=== PATIENT | male | born 1935 | race Caucasian/White ===

== ENCOUNTER → 2016-05-19 | Outpatient (CLI) | payer MEDICARE ==
[2016-05-19 12:43] LABS: Basophils % (A) 0 %; CH 26.2; CHCM 31.6; Eosinophils # (A) 0.1 k/uL (0-0.7); Eosinophils % (A) 2 %; HCT 50.8 % (39.0-53.0); HDW 2.81; HGB 16.2 gm/dL (13.0-17.5); Hypochromasia Slight; Luc # (Auto) 0.12; Luc % (Auto) 1; Lymphocytes # (A) 0.8 k/uL (1.0-4.8); Lymphocytes % (A) 9 %; MCH 26.5 pg (25.0-35.0); MCHC 31.8 g/dL (31.0-37.0); MCV 83.2 fL (80.0-100.0); Mean Platelet Volume 6.8; Monocytes # (A) 0.3 k/uL (0-1.0); Monocytes % (A) 4 %; Neutrophils # (A) 7.5 k/uL (1.3-7.7); Neutrophils % (A) 84 %; RBC 6.11 m/uL (4.30-5.90); RDW 14.6 % (11.5-15.5); WBC 8.9 k/uL (3.8-10.6); WBC (Perox) 8.73
[2016-05-19 12:48] LABS: Carbon Dioxide 31 mmol/L (22-30); Chloride 104 mmol/L (98-107); Glucose 128 mg/dL (74-99); Potassium 3.9 mmol/L (3.5-5.1); Sodium 147 mmol/L (137-145)
[2016-05-19 12:49] LABS: Anion Gap 12 mmol/L; Blood Urea Nitrogen 31 mg/dL (9-20); Calcium 9.4 mg/dL (8.4-10.2); Non-African American GFR(MDRD) 58 (>60 ml/min/1.73 sqM)
== END ==
LOC: LABWHC1 12:16
PROVIDERS: ATTEND Urology
DX: Z01.812 Encounter for preprocedural laboratory examination (principal); N40.1 Benign prostatic hyperplasia with lower urinary tract symptoms; E11.9 Type 2 diabetes mellitus without complications; E78.5 Hyperlipidemia, unspecified
CPT/HCPCS: 36415; 80048; 85025

== ENCOUNTER 2016-05-26 07:21 | Day surgery (SDC) | payer MEDICARE ==
[2016-05-16 11:52] VITALS: BMI 27.9
[~2016-05-26 07:21] MED LIST: DEXAMETHASONE SOD PHOSPHATE 10 MG/ML 1 ML VIAL IV ONE; HYDROmorphone 1 MG/ML 1 ML SYRINGE IVP PRN; LACTATED RINGERS 1,000 ML IV SCH; MIDAZOLAM 2 MG/2 ML VIAL IV PRN; ONDANSETRON 4 MG/2 ML VIAL IVP ONE; Pre Op ABX Message 1 EACH MISC MISCELLANE ONE
[2016-05-26] MEDS ORDERED: LIDOCAINE 1% 20 ML VIAL (10MG/ML) FOR IV START INTRADERMA ONE (08:26)
[2016-05-26 08:31] LABS: Glucose,Whole Blood 103 mg/dL (75-99)
[2016-05-26] MEDS ORDERED: LIDOCAINE 1% INJ 10MG/ML (20 ML MDV) ONE (09:07)
[2016-05-26] MEDS: GENTAMICIN 120 MG in SODIUM CHLORIDE 0.9% 100 ML IVPB ONE ×2 (09:07→09:28)
[2016-05-26] MEDS ORDERED: GLYCOPYRROLATE 0.2 MG/ML 2 ML VIAL ONE (09:07)
[2016-05-26] MEDS ORDERED: VECURONIUM 10 MG VIAL IV ONE (09:07)
[2016-05-26] MEDS ORDERED: MIDAZOLAM 2 MG/2 ML VIAL ONE (09:07)
[2016-05-26] MEDS ORDERED: PHENYLEPHRINE-0.9% NACL SYG 1 MG/10 ML SYRINGE ONE (09:07)
[2016-05-26] MEDS ORDERED: PROPOFOL 10 MG/ML 20 ML VIAL IV ONE (09:07)
[2016-05-26] MEDS ORDERED: KETAMINE 10 MG/ML 20 ML VIAL ONE (09:07)
[2016-05-26] MEDS ORDERED: NEOSTIGMINE 1 MG/ML 10 ML VIAL ONE (09:07)
[2016-05-26] MEDS ORDERED: SUCCINYLCHOLINE CHLORIDE 100 MG/5 ML SYR IV ONE (09:07)
[2016-05-26] MEDS ORDERED: LACTATED RINGERS 1,000 ML IV ONE ×2 (10:46)
[2016-05-26] MEDS ORDERED: SODIUM CHLORIDE 0.9% 1,000 ML IV ONE ×2 (11:33)
[2016-05-26] MEDS ORDERED: BELLADONNA-OPIUM 16.2-60 MG 1 EACH SUPP RECTAL PRN (11:43)
[2016-05-26] MEDS ORDERED: HYDROcodone/APAP 5-325MG 1 EACH TAB PO PRN ×2 (11:45)
[2016-05-26] MEDS ORDERED: SODIUM CHLORIDE 0.9% IRRIG 3,000 ML BAG IRRIGATION SCH (11:45)
--- NOTE | 2016-05-26 11:51 | P.OP ---
Date of Procedure: 05/26/16 Preoperative Diagnosis: BPH with Obstruction Postoperative Diagnosis: Same Procedure(s) Performed: Cystoscopy, Bipolar Transurethral Resection of Prostate (TURP) Anesthesia: YUSEFA, spinal Surgeon: Irwin Fernando Estimated Blood Loss (ml): 100 IV fluids (ml): 1,300 Pathology: other Condition: stable Disposition: PACU Indications for Procedure: This is an 80 year old male with urinary retention, likely due to BPH. He was doing CIC four times daily but he stopped it. Postvoid residuals were 2-4 ounces. CMG showed a bladder capacity of 360 ml, with post void of 190 ml. Cystoscopy revealed mild prostatic obstruction. He is still on Tamsulosin, and he feels that he can empty his bladder. He was advised that his best option would be a TURP, and he has been medically cleared. Operative Findings: Bilobar BPH with a high median bar. 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 Description of Procedure: The patient was taken in the operating room and placed in the dorsolithotomy position after being given a spinal anesthetic, The external genitalia was prepped and draped sterilely. The 25-Colombian ACMI resectoscope sheath was introduced into the bladder. The bladder was inspected. Both ureteral orifices were of normal anatomic location and configuration, and clear urine effluxed from both. No tumors or foreign bodies were seen. Examination of the prostate revealed complete obstruction with a bilobar configuration and a high median bar, making passage of the resectoscope into the bladder difficult. Using the bipolar cutting loop, an incision was made through the posterior vesicle neck, extending to the verumontanum. Next, lateral lobes were resected down to the surgical capsule. The floor of the prostate was then resected, proximal to the verumontanum. In the course of this resection, a large diverticulum was identified to the right of the midline, containing many (>20) small round calculi. The diverticulum was completely opened and marsupialized. Lastly, any remaining anterior tissue was resected. The prostatic fossa was then carefully examined. Any remaining apical tissue was carefully resected. The resection was carried down to the surgical capsule in all 4 quadrants. The prostatic fossa was then carefully examined, and any areas of bleeding were controlled with electrocautery. Excellent hemostasis was attained. The resectoscope was withdrawn into the bulbous urethra. The external urinary sphincter remained intact. The prostatic fossa was open. The Taptu evacuator was used to remove all prostate chips from the bladder. These were saved and sent for pathologic examination. The resectoscope was removed, and a 22 Colombian , 3-Way Michaels catheter was placed. A catheter guide was required for Michaels catheter placement, as the floor of the prostate was resected more than normal due to the diverticulum. The return was clear. Continuous bladder irrigation was started using 0.9 normal saline. It should be noted that the patient was given a spinal anesthetic, but he was coughing intraoperatively and ultimately it became necessary for him to be intubated and given general anesthesia. He tolerated the procedure well was taken to the recovery room in stable condition.
[2016-05-26] MEDS ORDERED: LEVALBUTEROL NEB 1.25 MG/3 ML AMP INHALATION ONE (12:09)
[2016-05-26] MEDS: IPRATROPIUM-ALBUTEROL 3 ML NEB INHALATION SCH ×3 (12:42→21:31)
[2016-05-26 12:47] LABS: Potassium 4.3 mmol/L (3.5-5.1)
[2016-05-26] MEDS ORDERED: ALBUTEROL INHALER 60 PUFF/8 GM INHALER INHALATION SCH (13:00)
[2016-05-26] MEDS ORDERED: SODIUM CHLORIDE 0.9% IRRIGATIO 3,000 ML IRRIGATION SCH (14:45)
[2016-05-26] MEDS: DEXTROSE 5%-0.45% NACL 1,000 ML IV SCH (15:03)
[2016-05-26] MEDS ORDERED: amLODIPine 5 MG TAB PO SCH (21:00)
[2016-05-26] MEDS ORDERED: ATORVASTATIN 20 MG TAB PO SCH (21:00)
[2016-05-26] MEDS ORDERED: LISINOPRIL 10 MG TAB PO SCH (21:00)
[2016-05-26] MEDS: SYMBICORT 160-4.5 MCG INHALER INHALATION SCH (21:31)
[2016-05-26] MEDS: METOPROLOL TARTRATE 50 MG TAB PO SCH (21:37)
[2016-05-26] MEDS: DOCUSATE 100 MG CAP PO SCH (21:38)
[2016-05-26] MEDS ORDERED: ONDANSETRON 4 MG/2 ML VIAL IVP PRN (22:14)
[2016-05-26] MEDS ORDERED: HYDROmorphone 1 MG/ML 1 ML SYRINGE IVP PRN (22:14)
[2016-05-26] MEDS ORDERED: KETOROLAC 30 MG/ML 1 ML VIAL IVP PRN (22:14)
[2016-05-27] MEDS: DEXTROSE 5%-0.45% NACL 1,000 ML IV SCH (01:12)
[2016-05-27 01:30] VITALS: RESP 16
[2016-05-27] MEDS: DOCUSATE 100 MG CAP PO SCH (07:48)
[2016-05-27] MEDS: METOPROLOL TARTRATE 50 MG TAB PO SCH (07:48)
[2016-05-27 08:47] VITALS: BP 143/74; TEMP 97.5
[2016-05-27] MEDS ORDERED: POTASSIUM CHLORIDE ER 10 MEQ TAB.ER.PRT PO SCH (09:00)
[2016-05-27] MEDS ORDERED: FUROSEMIDE 40 MG TAB PO SCH (09:00)
[2016-05-27] MEDS ORDERED: TAMSULOSIN 0.4 MG CAP.ER.24H PO SCH (09:00)
[2016-05-27] MEDS ORDERED: predniSONE 5 MG TAB PO SCH (09:00)
[2016-05-27] MEDS: SYMBICORT 160-4.5 MCG INHALER INHALATION SCH (09:16)
[2016-05-27] MEDS: IPRATROPIUM-ALBUTEROL 3 ML NEB INHALATION SCH (09:16)
[2016-05-27 09:26] VITALS: PULSE 75
--- NOTE | 2016-05-29 12:18 | P.DS ---
Providers Expected date of discharge: 05/27/16 Attending physician: Irwin Fernando Primary care physician: Stated None Hospital Course: On the day of admission, the patient underwent an uncomplicated bipolar TURP under spinal anesthesia. The postoperative course was unremarkable. He remained remained afebrile with stable vital signs. The continuous bladder irrigation was discontinued on the first postoperative day, and the urine remained clear. He was subsequently discharged home with the Michaels catheter. Procedures: Cystoscopy, bipolar transurethral resection of prostate (TURP) on 05/26/2016. Patient Condition at Discharge: Good Plan - Discharge Summary New Discharge Prescriptions: Hydrocodone/Acetaminophen [Bergen 5-325] 1 - 2 each PO Q4HR PRN #15 tab PRN Reason: Pain Discharge Medication List Albuterol Inhaler [Ventolin Hfa Inhaler] 2 puff INHALATION QID 05/16/16 [History ] Aspirin 81 mg PO DAILY 05/16/16 [History] Budesonide/Formoterol Fumarate [Symbicort 160-4.5 Mcg Inhaler] 2 puff INHALATION BID 05/16/16 [History] Furosemide [Lasix] 40 mg PO QAM 05/16/16 [History] Ipratropium-Albuterol Nebulize [Duoneb 0.5 mg-3 mg/3 ml Soln] 3 ml INHALATION QID 05/16/16 [History] Lisinopril [Prinivil] 10 mg PO HS 05/16/16 [History] Metoprolol Tartrate [Lopressor] 50 mg PO BID 05/16/16 [History] Potassium Chloride [Klor-Con Sprinkle] 10 meq PO DAILY 05/16/16 [History] Simvastatin [Zocor] 40 mg PO HS 05/16/16 [History] Tamsulosin [Flomax] 0.4 mg PO DAILY 05/16/16 [History] amLODIPine [Norvasc] 5 mg PO HS 05/16/16 [History] predniSONE 5 mg PO QAM 05/16/16 [History] Hydrocodone/Acetaminophen [Bergen 5-325] 1 - 2 each PO Q4HR PRN #15 tab 05/27/16 [Rx] Follow up Appointment(s)/Referral(s): Tari Lowry, PAC [PHYSICIAN UTILITY WORKER DRIVER] - 05/30/16 9:20 am Patient Instructions/Handouts: Transurethral Prostatectomy (DC) Activity/Diet/Wound Care/Special Instructions: Discharge home with Michaels catheter. Drink plenty of fluids. Diet as tolerated. Avoid strenuous activity. Avoid constipation; takes stool softener if necessary. Hold aspirin. No driving for 3 days. Okay to shower. F/U with Tari Lowry 4/10 am. Discharge Disposition: HOME SELF-CARE
== END 2016-05-27 12:05 | disposition home or self-care (01) ==
LOC: OR 07:21 → 3SUR 11:15 → OR 05-27 12:05
PROVIDERS: ATTEND Urology
DX: C61 Malignant neoplasm of prostate (principal); N41.0 Acute prostatitis; I10 Essential (primary) hypertension; E78.5 Hyperlipidemia, unspecified; J45.909 Unspecified asthma, uncomplicated; I25.10 Atherosclerotic heart disease of native coronary artery without angina pectoris; J44.9 Chronic obstructive pulmonary disease, unspecified; Z99.81 Dependence on supplemental oxygen; I25.2 Old myocardial infarction; Z87.891 Personal history of nicotine dependence; Z79.82 Long term (current) use of aspirin; Z79.51 Long term (current) use of inhaled steroids; Z79.52 Long term (current) use of systemic steroids; Z79.899 Other long term (current) drug therapy; Z88.5 Allergy status to narcotic agent; Z88.0 Allergy status to penicillin
CPT/HCPCS: 94640 ×2; 94760; 88305; 80051; 88300; 52601; J2250; J1100; J2710; J2405; J2001; J1885; J1580; J1170 ×2; J2370; J0330; J2704; J7512

== ENCOUNTER → 2016-06-07 | Outpatient (CLI) | payer MEDICARE ==
--- NOTE | 2016-06-07 15:46 | NM ---
EXAMINATION TYPE: NM bone scan whole body DATE OF EXAM: 06/07/2016 1:49 PM COMPARISON: NONE HISTORY: Prostate carcinoma Delayed whole-body scanning was performed following the injection of 27.2 mCi Tc 99m MDP. Images acq uired 3.5 hours post injection. FINDINGS: Uptake within the feet, knees, hands, wrists, shoulders is likely degenerative. Soft tissue uptake is normal. Focus of uptake at the greater trochanter on the right knee be due to underlying inflammator y change. There is a mild spinal curvature present. IMPRESSION: Degenerative changes are suspected, no convincing evidence of metastatic disease. Consider plain film correlation right hip, MRI or CT as indicated.
== END | disposition home or self-care (01) ==
LOC: RADNMMAIN 10:12
PROVIDERS: ATTEND Urology
DX: C61 Malignant neoplasm of prostate (principal)
CPT/HCPCS: 78306; A9503

== ENCOUNTER → 2016-06-09 | Outpatient (CLI) | payer MEDICARE ==
--- NOTE | 2016-06-10 08:08 | XR ---
Right hip HISTORY: Abnormal bone scan, prostate carcinoma, right hip pain 2 views of the right hip are correlated to bone scan dated 07 June 2016 Sclerotic density is present at the greater trochanter which correlates with patient's bone scan find ings. No cortical destruction is evident, there is no soft tissue mass seen. There are vascular calci fications present. Mild joint space loss is present. Alignment is maintained. No evident fracture or dislocation. IMPRESSION: Sclerosis involving the greater trochanter correlates with bone scan findings but is inde terminate. Consider hip MRI or CT for additional evaluation.
== END ==
LOC: RADXRMAIN 16:13
PROVIDERS: ATTEND Urology
DX: C61 Malignant neoplasm of prostate (principal)
CPT/HCPCS: 73502

== ENCOUNTER 2017-05-13 06:55 | Observation (INO) | payer MEDICARE ==
[2017-05-13] MEDS ORDERED: SODIUM CHLORIDE 0.9% 1,000 ML IV ONE (07:13)
--- NOTE | 2017-05-13 07:13 | ED ---
General Adult HPI - General Chief complaint: GI Bleed Stated complaint: GI Bleed Time Seen by Provider: 05/13/17 07:00 Source: patient, EMS, RN notes reviewed Mode of arrival: EMS Limitations: no limitations - History of Present Illness Initial comments: This is an 81-year-old male who is a transfer from [facility]. Patient sent to us because he had rectal bleeding. Patient states it was quite a bit of bleeding. Patient's hemoglobin was stable there however he continued to bleed and was guaiac positive and the ER document [facility] did not feel comfortable letting the patient go home and follow-up so they sent him to our emergency department. Patient currently has no complaints. Patient denies any abdominal pain. Patient denies any lightheadedness or dizziness. Patient denies any difficulty breathing or shortness of breath. Patient denies any chest pain. Patient denies any recent fever chills or cough. Patient denies any episodes of diarrhea. Patient denies any vomiting. - Related Data Home Medications Medication Instructions Recorded Confirmed Albuterol Inhaler [Ventolin Hfa 2 puff INHALATION QID 05/16/16 05/26/16 Inhaler] Aspirin 81 mg PO DAILY 05/16/16 05/26/16 Budesonide/Formoterol Fumarate 2 puff INHALATION BID 05/16/16 05/26/16 [Symbicort 160-4.5 Mcg Inhaler] Furosemide [Lasix] 40 mg PO QAM 05/16/16 05/26/16 Ipratropium-Albuterol Nebulize 3 ml INHALATION QID 05/16/16 05/26/16 [Duoneb 0.5 mg-3 mg/3 ml Soln] Lisinopril [Prinivil] 10 mg PO HS 05/16/16 05/26/16 Metoprolol Tartrate [Lopressor] 50 mg PO BID 05/16/16 05/26/16 Potassium Chloride [Klor-Con 10 meq PO DAILY 05/16/16 05/26/16 Sprinkle] Simvastatin [Zocor] 40 mg PO HS 05/16/16 05/26/16 Tamsulosin [Flomax] 0.4 mg PO DAILY 05/16/16 05/26/16 amLODIPine [Norvasc] 5 mg PO HS 05/16/16 05/26/16 predniSONE 5 mg PO QAM 05/16/16 05/26/16 Previous Rx's Medication Instructions Recorded Hydrocodone/Acetaminophen [[place] 1 - 2 each PO Q4HR PRN #15 tab 05/27/16 5-325] Allergies Allergy/AdvReac Type Severity Reaction Status Date / Time Penicillins Allergy Swelling Verified 05/26/16 07:56 codeine AdvReac constipatio Verified 05/26/16 07:56 n Review of Systems ROS Statement: Those systems with pertinent positive or pertinent negative responses have been documented in the HPI. ROS Other: All systems not noted in ROS Statement are negative. Past Medical History Past Medical History: Coronary Artery Disease (CAD), COPD, Hyperlipidemia, Myocardial Infarction (SD), Prostate Disorder Additional Past Medical History / Comment(s): uses O2@2 L NC at night,enlarged prostate,daily prednisone, prostate cancer Last Myocardial Infarction Date:: 2003 History of Any Multi-Drug Resistant Organisms: None Reported Past Surgical History: Appendectomy, Coronary Bypass/CABG, Heart Catheterization With Stent Additional Past Surgical History / Comment(s): CABG-4vessel 2003,heart stents x 3,teeth extraction,andrez cataracts Past Anesthesia/Blood Transfusion Reactions: No Reported Reaction Date of Last Stent Placement:: 03-01-03 Past Psychological History: No Psychological Hx Reported Smoking Status: Former smoker Past Alcohol Use History: None Reported Past Drug Use History: None Reported - Past Family History Mother Family Medical History: Cancer Additional Family Medical History / Comment(s): leukemia Father Family Medical History: Myocardial Infarction (SD) General Exam - General Exam Comments Initial Comments: GENERAL: Patient is well-developed and well-nourished. Patient is nontoxic and well- hydrated and is in no acute distress. ENT: Neck is soft and supple. No significant lymphadenopathy is noted. Oropharynx is clear. Moist mucous membranes. Neck has full range of motion without eliciting any pain. EYES: The sclera were anicteric and conjunctiva were pink and moist. Extraocular movements were intact and pupils were equal round and reactive to light. Eyelids were unremarkable. PULMONARY: Unlabored respirations. Good breath sounds bilaterally. No audible rales rhonchi or wheezing was noted. CARDIOVASCULAR: There is a regular rate and rhythm without any murmurs gallops or rubs. ABDOMEN: Soft and nontender with normal bowel sounds. No palpable organomegaly was noted. There is no palpable pulsatile mass. SKIN: Skin is clear with no lesions or rashes and otherwise unremarkable. NEUROLOGIC: Patient is alert and oriented x3. Cranial nerves II through XII are grossly intact. Motor and sensory are also intact. Normal speech, volume and content. Symmetrical smile. MUSCULOSKELETAL: Normal extremities with adequate strength and full range of motion. No lower extremity swelling or edema. No calf tenderness. LYMPHATICS: No significant lymphadenopathy is noted PSYCHIATRIC: Normal psychiatric evaluation. Limitations: no limitations Course Vital Signs 05/13/17 06:56 Temperature 97.9 F Pulse Rate 71 Respiratory 18 Rate Blood Pressure 158/94 O2 Sat by Pulse 95 Oximetry Medical Decision Making - Medical Decision Making I reviewed the chart from [facility] labs were drawn at 420 his hemoglobin was 14 so at this point time we did not repeat labs I will repeat the monitor floor. I will admit the patient I spoke with Dr. Guerra he agreed to except the patient I wrote admitting orders I repeated CBCs every 6 hours I consult to GI. Disposition Clinical Impression: GI bleed Disposition: ADMITTED IP TO THIS [facility] Time of Disposition: 07:13
[2017-05-13 08:27] LABS: Basophils % (A) 1 %; Eosinophils # (A) 0.2 k/uL (0-0.7); Eosinophils % (A) 3 %; HCT 40.4 % (39.0-53.0); HGB 12.9 gm/dL (13.0-17.5); Lymphocytes % (A) 13 %; MCH 25.6 pg (25.0-35.0); MCHC 31.9 g/dL (31.0-37.0); MCV 80.2 fL (80.0-100.0); Mean Platelet Volume 7.4; Monocytes # (A) 0.5 k/uL (0-1.0); Monocytes % (A) 7 %; Neutrophils # (A) 5.9 k/uL (1.3-7.7); Neutrophils % (A) 75 %; Platelet Count 182 k/uL (150-450); RBC 5.04 m/uL (4.30-5.90); RDW 14.5 % (11.5-15.5); WBC 7.9 k/uL (3.8-10.6)
[2017-05-13 09:20] VITALS: BMI 27.9
[2017-05-13 11:22] VITALS: RESP 20
--- NOTE | 2017-05-13 12:02 | CONS ---
CONSULTATION DATE OF SERVICE: 05/13/17. REASON FOR CONSULTATION: Acute lower GI bleed. HISTORY OF PRESENT ILLNESS: The patient is an 81-year-old pleasant white male was admitted to the hospital with acute lower GI bleed. He presented to the emergency room at [facility] with bright red blood per rectum that started early this morning at 2:00 am with multiple clots. He became somewhat dizzy and went to the ER and he had another massive bloody bowel movement. Subsequently was transferred here for further evaluation. His initial hemoglobin was 14.5 g/dL. Since coming here, he did not have any further episodes of bleeding. He did have a CBC done here which was 12.9 g/dL. He never had these symptoms in the past. He recalls having a colonoscopy about 4-5 years ago which was normal. He denies any recent NSAID use. No prior history of peptic ulcer disease. No nausea, vomiting. No abdominal pain. PAST MEDICAL HISTORY: Significant for hypertension, hyperlipidemia, coronary artery disease status post CABG in 2003, COPD. MEDICATIONS: At home include: Ventolin, Lasix, DuoNeb, Flomax, Zocor, K-Maria C, Lopressor, Prinivil, Norvasc and prednisone. ALLERGIES: To PENICILLIN AND CODEINE. PAST SURGICAL HISTORY: CABG, appendectomy, bilateral cataract surgery. SOCIAL HISTORY: No smoking alcohol use. FAMILY HISTORY: Unremarkable. REVIEW OF SYSTEMS: Cardiopulmonary: No chest pain, shortness of breath. Genitourinary: No dysuria hematuria. Musculoskeletal unremarkable. Skin unremarkable. Psychiatric unremarkable. Neurology unremarkable. ENT vision unremarkable. Hematology unremarkable. Endocrine unremarkable. PHYSICAL EXAMINATION: Appears comfortable no apparent distress. VITAL SIGNS: Stable. Blood pressure is 150/94, pulse is 71, temperature 97.9. HEENT examination is unremarkable. Conjunctivae pink. Sclerae anicteric. Oral cavity no lesions. Neck no jugular venous distention or lymph node enlargement. Chest was clear to auscultation. HEART: Regular rate and rhythm. ABDOMEN: Soft. Bowel sounds are positive. No organomegaly. Extremities: No pedal edema. Skin no rashes. NEUROLOGIC: Alert and oriented x3. No focal deficits. LAB: From this morning, WBC 7.9, hemoglobin 12.9, platelets are 182. IMPRESSION: Acute lower gastrointestinal bleed possibly diverticular in nature. The patient had 2 episodes of large amount of bright red blood per rectum that started radiographer cardiac catheterization today. His last colonoscopy was 5 years ago and according to the patient was normal. Last hemoglobin 12.9 g/dL. RECOMMENDATIONS: 1. Start him on clear liquid diet. 2. We will plan on a colonoscopy tomorrow. I discussed with the patient risks, benefits, and complications and he is agreeable to it. 3. Repeat CBC every 6 hours. Thank you for this consultation. FRANK / SAIRA: [id number] /
[2017-05-13] MEDS ORDERED: ALBUTEROL NEBULIZED 2.5 MG/3 ML INHALATION PRN (12:46)
[2017-05-13 12:51] LABS: Basophils # (A) 0.1 k/uL (0-0.2); Basophils % (A) 1 %; Eosinophils # (A) 0.2 k/uL (0-0.7); Eosinophils % (A) 3 %; HCT 39.7 % (39.0-53.0); HGB 13.2 gm/dL (13.0-17.5); Lymphocytes % (A) 16 %; MCH 26.6 pg (25.0-35.0); MCHC 33.2 g/dL (31.0-37.0); Mean Platelet Volume 7.2; Monocytes # (A) 0.3 k/uL (0-1.0); Monocytes % (A) 5 %; Neutrophils # (A) 4.6 k/uL (1.3-7.7); Neutrophils % (A) 74 %; Platelet Count 155 k/uL (150-450); RBC 4.95 m/uL (4.30-5.90); WBC 6.2 k/uL (3.8-10.6)
--- NOTE | 2017-05-13 14:01 | P.HPIM ---
History of Present Illness 81-year-old pleasant gentleman with the history of coronary artery disease and aspirin came in with complaints of bright red blood per rectum 1 episode today morning 1 episode last night hemoglobin is 12. I do not have any risk metabolic profile available which will be ordered repeat hemoglobin will be obtain later in the day. Patient does history have history of COPD patient is wheezing patient complains of occasional cough. Denied any increased shortness of breath. Patient uses 2 L of onset at home. Patient uses Lasix for bilateral pedal edema does have history of hypertension Review of Systems REVIEW OF SYSTEMS: CONSTITUTIONAL: No fever, no malaise, no fatigue. HEENT: No recent visual problems or hearing problems. Denied any sore throat. CARDIOVASCULAR: No chest pain, orthopnea, PND, no palpitations, no syncope. PULMONARY: No shortness of breath, no cough, no hemoptysis. GASTROINTESTINAL: No diarrhea, no nausea, no vomiting, no abdominal pain. Normoactive bowel sounds. NEUROLOGICAL: No headaches, no weakness, no numbness. HEMATOLOGICAL: Denies any bleeding or petechiae. GENITOURINARY: Denies any burning micturition, frequency, or urgency. MUSCULOSKELETAL/RHEUMATOLOGICAL: Denies any joint pain, swelling, or any muscle pain. ENDOCRINE: Denies any polyuria or polydipsia. The rest of the 14-point review of systems is negative. Past Medical History Past Medical History: Coronary Artery Disease (CAD), COPD, Hyperlipidemia, Myocardial Infarction (ID), Prostate Disorder Additional Past Medical History / Comment(s): uses O2@2 L NC at night,enlarged prostate,daily prednisone, prostate cancer, kidney stone Last Myocardial Infarction Date:: 2003 History of Any Multi-Drug Resistant Organisms: None Reported Past Surgical History: Appendectomy, Coronary Bypass/CABG, Heart Catheterization With Stent Additional Past Surgical History / Comment(s): CABG-4vessel 2003,heart stents x 3,teeth extraction,andrez cataracts Past Anesthesia/Blood Transfusion Reactions: No Reported Reaction Date of Last Stent Placement:: 03-01-03 Past Psychological History: No Psychological Hx Reported Smoking Status: Former smoker Past Alcohol Use History: None Reported Additional Past Alcohol Use History / Comment(s): quit smoking 2003,smoked approx since age 9,1ppd Past Drug Use History: None Reported - Past Family History Mother Family Medical History: Cancer Additional Family Medical History / Comment(s): leukemia Father Family Medical History: Myocardial Infarction (ID) Medications and Allergies Home Medications Medication Instructions Recorded Confirmed Type Albuterol Inhaler [Ventolin Hfa 2 puff INHALATION RT-QID PRN 05/16/16 05/13/17 History Inhaler] Aspirin 81 mg PO DAILY 05/16/16 05/13/17 History Budesonide/Formoterol Fumarate 2 puff INHALATION RT-BID 05/16/16 05/13/17 History [Symbicort 160-4.5 Mcg Inhaler] Furosemide [Lasix] 40 mg PO QAM 05/16/16 05/13/17 History Ipratropium-Albuterol Nebulize 3 ml INHALATION RT-QID 05/16/16 05/13/17 History [Duoneb 0.5 mg-3 mg/3 ml Soln] Lisinopril [Prinivil] 10 mg PO HS 05/16/16 05/13/17 History Metoprolol Tartrate [Lopressor] 50 mg PO BID 05/16/16 05/13/17 History Potassium Chloride [Klor-Con 10 meq PO DAILY 05/16/16 05/13/17 History Sprinkle] amLODIPine [Norvasc] 5 mg PO HS 05/16/16 05/13/17 History predniSONE 5 mg PO QAM 05/16/16 05/13/17 History Simvastatin [Zocor] 20 mg PO HS 05/13/17 05/13/17 History Allergies Allergy/AdvReac Type Severity Reaction Status Date / Time Penicillins Allergy Swelling Verified 05/13/17 11:56 codeine AdvReac constipatio Verified 05/13/17 11:56 n Physical Exam Vitals: Vital Signs Temp Pulse Pulse Resp BP BP Pulse Ox 05/13/17 11:10 82 20 154/85 95 05/13/17 07:29 96.8 F L 73 16 145/85 93 L 05/13/17 06:56 97.9 F 71 18 158/94 95 Intake and Output 05/12/17 05/13/17 05/13/17 22:59 06:59 14:59 Other: # Bowel Movements 1 Weight 88.451 kg 88.45 kg PHYSICAL EXAMINATION: GENERAL: The patient is alert and oriented x3, not in any acute distress. Well developed, well nourished. HEENT: Pupils are round and equally reacting to light. EOMI. No scleral icterus. No conjunctival pallor. Normocephalic, atraumatic. No pharyngeal erythema. No thyromegaly. CARDIOVASCULAR: S1 and S2 present. No murmurs, rubs, or gallops. PULMONARY: Patient does have significant expiratory wheezing ABDOMEN: Soft, nontender, nondistended, normoactive bowel sounds. No palpable organomegaly. MUSCULOSKELETAL: No joint swelling or deformity. EXTREMITIES: No cyanosis, clubbing, or pedal edema. NEUROLOGICAL: Gross neurological examination did not reveal any focal deficits. SKIN: No rashes. Results CBC & Chem 7: 05/13/17 12:35 Labs: Abnormal Lab Results - Last 24 Hours (Table) 05/13/17 Range/Units 07:53 Hgb 12.9 L (13.0-17.5) gm/dL Thrombosis Risk Factor Assmnt - Choose All That Apply Any of the Below Risk Factors Present?: No Each Risk Factor Represents 3 Points: Age 75 years or older Other congenital or acquired thrombophilia - If yes, enter type in comment: No Thrombosis Risk Factor Assessment Total Risk Factor Score: 3 Thrombosis Risk Factor Assessment Level: Moderate Risk Assessment and Plan Plan: -Lower GI bleed leading to acute blood loss anemia: Etiology is unknown at this time patient will undergo coloscopy tomorrow is not requiring any blood transfusion. Aspirin will be held. -Coronary artery disease with history of CABG in the past -COPD and also independent chronic hypercapnic respiratory failure may have minimally acute exacerbation patient will be continued on low-dose of oral steroid he is on at home along with the inhalational steroids and albuterol ipratropium combination. -Hypertension hold off antidepressant medications with concerns of hypotension from GI bleed started as tolerated metoprolol will be continued.
[2017-05-13] MEDS: IPRATROPIUM-ALBUTEROL 3 ML NEB INHALATION SCH ×2 (15:16→20:52)
[2017-05-13] MEDS: FAMOTIDINE 20 MG TAB PO SCH ×2 (15:35→20:43)
[2017-05-13] MEDS: predniSONE 5 MG TAB PO SCH (15:35)
[2017-05-13] MEDS ORDERED: PEG 3350-NA SULF,BICARB,CL/KCL 4,000 ML BOTTLE PO ONE (16:00)
[2017-05-13] MEDS ORDERED: SYMBICORT 160-4.5 MCG INHALER INHALATION SCH (20:00)
[2017-05-13] MEDS: METOPROLOL TARTRATE 50 MG TAB PO SCH (20:43)
[2017-05-13] MEDS: SYMBICORT 80-4.5 MCG INHALER INHALATION SCH (20:52)
[2017-05-13] MEDS ORDERED: amLODIPine 5 MG TAB PO SCH (21:00)
[2017-05-13] MEDS ORDERED: ATORVASTATIN 10 MG TAB PO SCH (21:00)
[2017-05-13 21:15] LABS: Basophils % (A) 0 %; Eosinophils # (A) 0.2 k/uL (0-0.7); Eosinophils % (A) 2 %; HCT 41.3 % (39.0-53.0); Lymphocytes # (A) 0.8 k/uL (1.0-4.8); Lymphocytes % (A) 9 %; MCH 25.2 pg (25.0-35.0); MCHC 31.4 g/dL (31.0-37.0); MCV 80.4 fL (80.0-100.0); Mean Platelet Volume 7.3; Monocytes # (A) 0.4 k/uL (0-1.0); Monocytes % (A) 4 %; Neutrophils # (A) 7.7 k/uL (1.3-7.7); Neutrophils % (A) 83 %; Platelet Count 195 k/uL (150-450); RBC 5.13 m/uL (4.30-5.90); RDW 14.3 % (11.5-15.5); WBC 9.2 k/uL (3.8-10.6)
[2017-05-14 06:26] VITALS: BP 147/83; TEMP 98.4
[2017-05-14] MEDS: IPRATROPIUM-ALBUTEROL 3 ML NEB INHALATION SCH ×2 (07:39→11:17)
[2017-05-14] MEDS: SYMBICORT 80-4.5 MCG INHALER INHALATION SCH (07:40)
[2017-05-14] MEDS: FAMOTIDINE 20 MG TAB PO SCH (08:16)
[2017-05-14] MEDS: predniSONE 5 MG TAB PO SCH (08:16)
[2017-05-14] MEDS ORDERED: PROPOFOL 10 MG/ML 20 ML VIAL IV ONE (08:47)
[2017-05-14] MEDS ORDERED: LACTATED RINGERS 1,000 ML IV ONE (09:05)
--- NOTE | 2017-05-14 09:08 | P.PCN ---
Date of Procedure: 05/14/17 Procedure(s) Performed: BRIEF HISTORY: Patient is a 81-year-old pleasant white male, was admitted hospital with acute lower GI bleed. He had multiple episodes of bright red blood per rectum today. PROOCEDURE PERFORMED: Colonoscopy with snare polypectomy. PREOPERATIVE DIAGNOSIS: Acute lower GI bleed. IV sedation per Anesthesia. PROCEDURE: After informed consent was obtained, the patient, was brought into the endoscopy unit. IV sedation was administered by Anesthesia under continuous monitoring. Digital rectal examination was normal. Initially the Olympus CF- 160 flexible video colonoscope was then inserted in the rectum, gradually advanced into the cecum without any difficulty. Careful examination was performed as the scope was gradually being withdrawn. Ileocecal valve and the appendiceal orifice were visualized and appeared normal. Prep was excellent. Mucosa of the cecum, appeared normal in the ascending colon there was a 1 mm sessile polyp removed by snare polypectomy. In the transverse colon there was a 1 cm broad-based polyp removed by snare polypectomy. In the descending colon there were 3 polyps 2 of which measured 5 mm and another 1 cm polyp both of which were removed by snare polypectomy. In the rectum there was a 5 mm and 7 mm sessile polyps removed by snare polypectomy. There were diffuse diverticula cyst noted throughout the entire colon with no active bleeding. REtroflexion was performed in the rectum and no lesions were seen. The patient tolerated the procedure well. IMPRESSION: 1 cm ascending colon polyp status post post-polypectomy 1 cm broad-based transverse colon polyp status post snare polypectomy 5 mm 2 and 1 cm descending colon polyps status post snare polypectomy 5 mm and 7 mm proximal rectal polyps status post polypectomy Diffuse diverticulosis throughout the entire colon with no active bleeding RECOMMENDATIONS: Findings of this examination were discussed with the patient as well as his family. He was advised to follow with the biopsy results. Recent episode of acute GI bleed is most likely diverticular in nature which spontaneously resolved. He will be on a full liquid diet now and can be advanced as tolerated and can be discharged home today or tomorrow. With an outpatient follow-up in 2 weeks
[2017-05-14] MEDS: METOPROLOL TARTRATE 50 MG TAB PO SCH (09:27)
[2017-05-14 10:39] LABS: HCT 36.8 % (39.0-53.0); HGB 12.1 gm/dL (13.0-17.5); MCH 26.3 pg (25.0-35.0); MCHC 32.8 g/dL (31.0-37.0); MCV 80.2 fL (80.0-100.0); Mean Platelet Volume 7.9; Platelet Count 166 k/uL (150-450); RDW 13.9 % (11.5-15.5); WBC 6.5 k/uL (3.8-10.6)
[2017-05-14 10:46] LABS: Calcium 8.6 mg/dL (8.4-10.2); Potassium 3.2 mmol/L (3.5-5.1)
[2017-05-14 11:29] VITALS: PULSE 80
--- NOTE | 2017-05-14 15:00 | P.DS ---
Providers Date of admission: 05/13/17 07:13 Attending physician: Marietta Guerra MD Consults: 05/13/17 07:13 Consult Physician Urgent Consulting Provider: Gregg Blackwell Consult Reason/Comments: GI bleed Do you want consulting provider notified?: Yes Primary care physician: Live Laurent Hospital Course: She was admitted for lower GI bleed underwent colonoscopy which showed diverticulosis without any active bleed. Patient is presently not having any active bleed clinically patient will be discharged today. Patient is still wheezing a little bit but improved compared to yesterday patient's wheezing is baseline as per the patient and feeling well wanted to be discharged. No changes in medications are being made. PHYSICAL EXAMINATION: GENERAL: The patient is alert and oriented x3, not in any acute distress. Well developed, well nourished. HEENT: Pupils are round and equally reacting to light. EOMI. No scleral icterus. No conjunctival pallor. Normocephalic, atraumatic. No pharyngeal erythema. No thyromegaly. CARDIOVASCULAR: S1 and S2 present. No murmurs, rubs, or gallops. PULMONARY: Minimal expiratory wheezing was appreciated fairly good air entry into bilateral lung [place] ABDOMEN: Soft, nontender, nondistended, normoactive bowel sounds. No palpable organomegaly. MUSCULOSKELETAL: No joint swelling or deformity. EXTREMITIES: No cyanosis, clubbing, or pedal edema. NEUROLOGICAL: Gross neurological examination did not reveal any focal deficits. SKIN: No rashes. For rest of the chronic medical problems hospitalization course please refer to my HPI from yesterday Plan - Discharge Summary Discharge Rx Participant: No New Discharge Prescriptions: No Action predniSONE 5 mg PO QAM Ipratropium-Albuterol Nebulize [Duoneb 0.5 mg-3 mg/3 ml Soln] 3 ml INHALATION RT-QID Budesonide/Formoterol Fumarate [Symbicort 160-4.5 Mcg Inhaler] 2 puff INHALATION RT-BID Albuterol Inhaler [Ventolin Hfa Inhaler] 2 puff INHALATION RT-QID PRN PRN Reason: sob Potassium Chloride [Klor-Con Sprinkle] 10 meq PO DAILY Furosemide [Lasix] 40 mg PO QAM amLODIPine [Norvasc] 5 mg PO HS Metoprolol Tartrate [Lopressor] 50 mg PO BID Lisinopril [Prinivil] 10 mg PO HS Aspirin 81 mg PO DAILY Simvastatin [Zocor] 20 mg PO HS Discharge Medication List Albuterol Inhaler [Ventolin Hfa Inhaler] 2 puff INHALATION RT-QID PRN 05/16/16 [ History] Aspirin 81 mg PO DAILY 05/16/16 [History] Budesonide/Formoterol Fumarate [Symbicort 160-4.5 Mcg Inhaler] 2 puff INHALATION RT-BID 05/16/16 [History] Furosemide [Lasix] 40 mg PO QAM 05/16/16 [History] Ipratropium-Albuterol Nebulize [Duoneb 0.5 mg-3 mg/3 ml Soln] 3 ml INHALATION RT -QID 05/16/16 [History] Lisinopril [Prinivil] 10 mg PO HS 05/16/16 [History] Metoprolol Tartrate [Lopressor] 50 mg PO BID 05/16/16 [History] Potassium Chloride [Klor-Con Sprinkle] 10 meq PO DAILY 05/16/16 [History] amLODIPine [Norvasc] 5 mg PO HS 05/16/16 [History] predniSONE 5 mg PO QAM 05/16/16 [History] Simvastatin [Zocor] 20 mg PO HS 05/13/17 [History] Follow up Appointment(s)/Referral(s): Camila Ceron MD [STAFF PHYSICIAN] - 1 Week Live Laurent MD [Primary Care Provider] - 3 Days Patient Instructions/Handouts: Gastrointestinal Bleeding (DC), Diverticulosis ( DC), Diverticulitis Diet (DC) Discharge/Stand Alone Forms: Work/School Release, Work/Release Restrictions Form Discharge Disposition: HOME SELF-CARE
== END 2017-05-14 14:42 | disposition home or self-care (01) ==
LOC: EC 06:55 → 4MS4W 07:13
PROVIDERS: ADMIT Internal Medicine; ATTEND Internal Medicine
DX: K57.90 Diverticulosis of intestine, part unspecified, without perforation or abscess without bleeding (principal); K62.5 Hemorrhage of anus and rectum; D12.7 Benign neoplasm of rectosigmoid junction; D12.2 Benign neoplasm of ascending colon; D12.4 Benign neoplasm of descending colon; D12.3 Benign neoplasm of transverse colon; K63.5 Polyp of colon; D62 Acute posthemorrhagic anemia; J44.9 Chronic obstructive pulmonary disease, unspecified; E78.5 Hyperlipidemia, unspecified; C61 Malignant neoplasm of prostate; N40.0 Benign prostatic hyperplasia without lower urinary tract symptoms; J96.12 Chronic respiratory failure with hypercapnia; K21.9 Gastro-esophageal reflux disease without esophagitis; I10 Essential (primary) hypertension; I25.10 Atherosclerotic heart disease of native coronary artery without angina pectoris; R60.0 Localized edema; Z87.442 Personal history of urinary calculi; Z79.82 Long term (current) use of aspirin; Z79.51 Long term (current) use of inhaled steroids; Z79.899 Other long term (current) drug therapy; Z88.0 Allergy status to penicillin; Z88.5 Allergy status to narcotic agent; I25.2 Old myocardial infarction; Z99.81 Dependence on supplemental oxygen; Z79.52 Long term (current) use of systemic steroids; Z95.1 Presence of aortocoronary bypass graft; Z95.5 Presence of coronary angioplasty implant and graft; Z87.891 Personal history of nicotine dependence; Z80.6 Family history of leukemia
CPT/HCPCS: 99285 ×2; 96360 ×2; 96361 ×2; 94640 ×4; 94760; 86900; 86901; 88305; 80048; 85025; 85027; 86850; 45385; G0378 ×2; J2704; J7512

== ENCOUNTER 2019-08-26 08:27 | Day surgery (SDC) | payer MEDICARE ==
[2019-08-21 09:25] VITALS: BMI 25.8
[~2019-08-26 08:27] MED LIST changes: +ACETAMINOPHEN TAB 500 MG TAB PO ONE; -DEXAMETHASONE SOD PHOSPHATE 10 MG/ML 1 ML VIAL IV ONE; +HEPARIN SODIUM,PORCINE 5,000 UNIT/ML 1 ML VIAL SQ ONE; +HYDROmorphone 0.5 MG/0.5 ML SYRINGE IVP PRN; -HYDROmorphone 1 MG/ML 1 ML SYRINGE IVP PRN; -MIDAZOLAM 2 MG/2 ML VIAL IV PRN; -Pre Op ABX Message 1 EACH MISC MISCELLANE ONE
[2019-08-26 09:05] LABS: Glucose,Whole Blood 92 mg/dL (75-99)
[2019-08-26] MEDS ORDERED: ONDANSETRON 4 MG/2 ML VIAL ONE (09:19)
[2019-08-26] MEDS ORDERED: HEPARIN SODIUM,PORCINE 5,000 UNIT/ML 1 ML VIAL ONE (09:19)
[2019-08-26] MEDS ORDERED: ACETAMINOPHEN TAB 500 MG TAB ONE (09:19)
[2019-08-26] MEDS ORDERED: DEXAMETHASONE SOD PHOSPHATE 10 MG/ML 1 ML VIAL IV ONE ×2 (09:20)
[2019-08-26] MEDS ORDERED: SUCCINYLCHOLINE CHLORIDE 100 MG/5 ML SYR IV ONE (09:48)
[2019-08-26] MEDS ORDERED: NEOSTIGMINE 1 MG/ML 10 ML VIAL ONE (09:48)
[2019-08-26] MEDS ORDERED: LIDOCAINE 1% INJ 10MG/ML (20 ML MDV) ONE (09:48)
[2019-08-26] MEDS ORDERED: ROCURONIUM BROMIDE 10 MG/ML 5 ML VIAL IV ONE (09:48)
[2019-08-26] MEDS ORDERED: MIDAZOLAM 2 MG/2 ML VIAL ONE (09:48)
[2019-08-26] MEDS ORDERED: GLYCOPYRROLATE 0.2 MG/ML 2 ML VIAL ONE (09:48)
[2019-08-26] MEDS ORDERED: fentaNYL (PF) 50 MCG/ML 2 ML AMP ONE (09:48)
[2019-08-26] MEDS ORDERED: PROPOFOL 10 MG/ML 20 ML VIAL IV ONE (09:48)
[2019-08-26] MEDS ORDERED: BUPIVACAIN-EPI 0.25%-1:200,000 30 ML VIAL SQ ONE ×2 (10:11→11:13)
[2019-08-26] MEDS ORDERED: LACTATED RINGERS 1,000 ML IV ONE (10:55)
[2019-08-26] MEDS ORDERED: traMADol 50 MG TAB PO PRN (11:40)
[2019-08-26] MEDS ORDERED: NALOXONE 0.4 MG/ML 1 ML VIAL IV PRN (11:40)
[2019-08-26 11:42] VITALS: TEMP 97.1
--- NOTE | 2019-08-26 11:46 | P.OP ---
Date of Procedure: 08/26/19 Procedure(s) Performed: PREOPERATIVE DIAGNOSIS: Chronic cholecystitis, umbilical hernia POSTOPERATIVE DIAGNOSIS: Same PROCEDURE: Laparoscopic cholecystectomy, repair umbilical hernia SURGEON: Bebe EBL: Minimal see anesthesia record ANESTHESIA: Gen. COMPLICATIONS: None OPERATIVE PROCEDURE: The patient was brought and placed on the operating room table in the supine position. The patient was placed under general anesthesia at that time. The abdomen was prepped and draped in the usual sterile fashion. A curvilinear supraumbilical incision was made using the scalpel. The subcutaneous tissues were bluntly dissected. The hernia sac was incised. The preperitoneal fat was reduced into the preperitoneal space. The fascial edges were cleared of the attenuated hernia sac and fascia. 2 [id number] 0 Ethibond sutures were used to reapproximate the fascia laterally. A Elias trocar was utilized and advanced into the perineal cavity under direct visualization. The balloon was inflated. Pneumoperitoneum was achieved. The patient's gallbladder was nonvisualized initially as there was so much adherent omentum to the gallbladder. We're able to bluntly dissect and dissect using electrocautery to identify the fundus of the gallbladder which was then grasped and retracted superiorly. Additional adhesions were then lysed using both electrocautery and blunt dissection. The patient's gallbladder was contracted. The cystic duct was thickened and indurated proximally. The expected location of the junction with the common bile duct was seen. The cystic artery was identified. We had good visualization posteriorly behind the gallbladder infundibulum as well. Given the prominent size of the cystic duct I first ligated the cystic duct using a 2-0 Ethibond stitch and the tie knot device. An additional clip was then placed both on the specimen and patient's side. The adjacent cystic artery was identified and clipped as well. A small vessel was seen along the gallbladder fossa and clipped as well. The gallbladder was then removed from the liver bed using electrocautery. The gallbladder was then removed from the umbilical trocar site with an Endo Catch bag. The gallbladder fossa was irrigated with saline. There was no evidence of any bleeding or biliary drainage seen. The fascia at the 12 millimeter site was closed using a 0 Vicryl stitch. The trochars were then removed. The fascia at the umbilicus was then reapproximated using [id number] 0 Ethibond sutures. The umbilicus was tacked down to the fascia using a 3-0 Vicryl stitch. The skin at all 4 sites was closed using a 4-0 Monocryl stitch. Skin glue was utilized on the incision sites. At the end of this procedure the sponge and needle counts were correct. DISPOSITION: Stable to the recovery room
[2019-08-26 12:48] VITALS: RESP 18
[2019-08-26] MEDS ORDERED: traMADol 50 MG TAB ONE (13:27)
[2019-08-26] MEDS ORDERED: traMADol 50 MG TAB PO ONE (13:32)
[2019-08-26 14:03] VITALS: BP 147/79; PULSE 60
[2019-08-26] MEDS ORDERED: TAMSULOSIN 0.4 MG CAP.ER.24H PO STA (14:50)
== END 2019-08-26 15:27 | disposition home or self-care (01) ==
LOC: OR 08:27
PROVIDERS: ATTEND Surgery
DX: K80.10 Calculus of gallbladder with chronic cholecystitis without obstruction (principal); K42.9 Umbilical hernia without obstruction or gangrene; K66.0 Peritoneal adhesions (postprocedural) (postinfection); I73.9 Peripheral vascular disease, unspecified; I13.0 Hypertensive heart and chronic kidney disease with heart failure and stage 1 through stage 4 chronic kidney disease, or unspecified chronic kidney disease; I50.9 Heart failure, unspecified; N18.3 Chronic kidney disease, stage 3 (moderate); I83.90 Asymptomatic varicose veins of unspecified lower extremity; K57.30 Diverticulosis of large intestine without perforation or abscess without bleeding; E78.2 Mixed hyperlipidemia; I25.10 Atherosclerotic heart disease of native coronary artery without angina pectoris; J44.9 Chronic obstructive pulmonary disease, unspecified; E78.00 Pure hypercholesterolemia, unspecified; E66.3 Overweight; Z68.25 Body mass index [BMI] 25.0-25.9, adult; Z98.62 Peripheral vascular angioplasty status; Z95.1 Presence of aortocoronary bypass graft; Z79.02 Long term (current) use of antithrombotics/antiplatelets; Z79.899 Other long term (current) drug therapy; Z79.51 Long term (current) use of inhaled steroids; Z79.52 Long term (current) use of systemic steroids; Z79.82 Long term (current) use of aspirin; Z95.5 Presence of coronary angioplasty implant and graft; Z90.49 Acquired absence of other specified parts of digestive tract; Z98.890 Other specified postprocedural states; Z90.79 Acquired absence of other genital organ(s); Z87.891 Personal history of nicotine dependence; Z88.0 Allergy status to penicillin; Z88.5 Allergy status to narcotic agent; Z85.46 Personal history of malignant neoplasm of prostate; Z97.2 Presence of dental prosthetic device (complete) (partial); Z80.6 Family history of leukemia; Z82.49 Family history of ischemic heart disease and other diseases of the circulatory system
CPT/HCPCS: 88304; 47562; 49585; J2250; J1644; J1100; J2710; J0690; J2405; J2001; J3010; J0330; J2704

== ENCOUNTER 2019-10-20 20:33 | Inpatient (IN) | payer MEDICARE ==
[2019-10-20] MEDS ORDERED: SODIUM CHLORIDE 0.9% 1,000 ML IV ONE (21:05)
[2019-10-20 21:17] LABS: Basophils # (A) 0.1 k/uL (0-0.2); Basophils % (A) 1 %; Eosinophils # (A) 0.1 k/uL (0-0.7); Eosinophils % (A) 1 %; HCT 22.7 % (39.0-53.0); Hypochromasia Marked; Lymphocytes # (A) 0.9 k/uL (1.0-4.8); Lymphocytes % (A) 7 %; MCH 23.3 pg (25.0-35.0); MCHC 29.5 g/dL (31.0-37.0); Monocytes % (A) 7 %; Neutrophils # (A) 11.4 k/uL (1.3-7.7); Neutrophils % (A) 84 %; Platelet Count 297 k/uL (150-450); Poikilocytosis Slight; RBC 2.87 m/uL (4.30-5.90); RDW 15.8 % (11.5-15.5); WBC 13.7 k/uL (3.8-10.6)
[2019-10-20 21:21] LABS: Albumin 2.7 g/dL (3.5-5.0); Calcium 8.1 mg/dL (8.4-10.2); Potassium 3.9 mmol/L (3.5-5.1); Total Bilirubin 0.4 mg/dL (0.2-1.3); Total Protein 4.7 g/dL (6.3-8.2)
[2019-10-20 21:22] LABS: HGB 6.7 gm/dL (13.0-17.5)
[2019-10-20 21:28] LABS: INR 1.1 (<1.2); Prothrombin Time 11.2 sec (9.0-12.0)
[2019-10-20 21:33] LABS: Partial Thromboplastin Time 20.6 sec (22.0-30.0)
--- NOTE | 2019-10-20 21:55 | ED ---
GI Bleed HPI - General Chief complaint: GI Bleed Stated complaint: GI bleed Time Seen by Provider: 10/20/19 20:40 Source: patient, EMS Mode of arrival: EMS Limitations: no limitations - History of Present Illness Initial comments: Patient is an 84-year-old male who is a transfer to our facility for [facility] [place]. He was seen at their facility 2 days ago for generalized weakness. Laboratory studies revealed a hemoglobin of 7.9. It was found that he had antibodies was unable to do be provided with a unit of blood. He was observed overnight and was discharged home earlier in the day. States that when he got home he had an episode of bright red bloody vomiting. He called EMS and had one additional episode upon transfer to the hospital. Repeat laboratory studies demonstrated that his hemoglobin had dropped to 6.4. Patient then began to have melenic stools. Denies previous history of GI bleed. Transfer here for further care. Patient reports to feeling dizzy. Is on chronic steroids for his COPD. Denies NSAID or alcohol use. No fevers or chills. Denies any abdominal pain. Not on any blood thinners. No other alleviating, Perceptin or modifying factors - Related Data Home Medications Medication Instructions Recorded Confirmed Aspirin 81 mg PO DAILY 05/16/16 10/21/19 Budesonide/Formoterol Fumarate 2 puff INHALATION RT-BID 05/16/16 10/21/19 [Symbicort 160-4.5 Mcg Inhaler] Lisinopril [Prinivil] 10 mg PO HS 05/16/16 10/21/19 Metoprolol Tartrate [Lopressor] 25 mg PO BID 05/16/16 10/21/19 Potassium Chloride [Klor-Con 10 meq PO BID 05/16/16 10/21/19 Sprinkle] amLODIPine [Norvasc] 5 mg PO HS 05/16/16 10/21/19 predniSONE 5 mg PO QAM 05/16/16 10/21/19 Furosemide [Lasix] 20 mg PO DAILY@1200 08/21/19 10/21/19 Albuterol Nebulized [Ventolin 2.5 mg INHALATION RT-Q4H PRN 10/21/19 10/21/19 Nebulized] Albuterol Sulfate [Ventolin HFA] 2 puff INHALATION RT-Q6H PRN 10/21/19 10/21/19 Ferrous Sulfate [Feosol] 325 mg PO DAILY 10/21/19 10/21/19 Furosemide [Lasix] 40 mg PO QAM 10/21/19 10/21/19 Ipratropium Nebulized [Atrovent 0.5 mg INHALATION RT-Q4H PRN 10/21/19 10/21/19 Nebulized 0.2 MG/ML] Simvastatin [Zocor] 40 mg PO DAILY 10/21/19 10/21/19 Allergies Allergy/AdvReac Type Severity Reaction Status Date / Time Penicillins Allergy Swelling Verified 10/21/19 10:38 codeine AdvReac constipatio Verified 10/21/19 10:38 n Review of Systems ROS Statement: Those systems with pertinent positive or pertinent negative responses have been documented in the HPI. ROS Other: All systems not noted in ROS Statement are negative. Past Medical History Past Medical History: Coronary Artery Disease (CAD), Cancer, COPD, Hyperlipidemia, Hypertension, Myocardial Infarction (NH), Prostate Disorder Additional Past Medical History / Comment(s): uses O2@2 L NC at night,enlarged prostate,daily prednisone, prostate cancer, kidney stone Last Myocardial Infarction Date:: 2003 History of Any Multi-Drug Resistant Organisms: None Reported Past Surgical History: Appendectomy, Cholecystectomy, Coronary Bypass/CABG, Heart Catheterization With Stent Additional Past Surgical History / Comment(s): CABG-4vessel 2003,heart stents x 3,teeth extraction,andrez cataracts Past Anesthesia/Blood Transfusion Reactions: No Reported Reaction Date of Last Stent Placement:: 03-01-03 Past Psychological History: No Psychological Hx Reported Past Alcohol Use History: None Reported Past Drug Use History: None Reported - Past Family History Mother Family Medical History: Cancer Additional Family Medical History / Comment(s): leukemia Father Family Medical History: Myocardial Infarction (NH) General Exam Limitations: no limitations General appearance: alert, in no apparent distress Head exam: Present: atraumatic, normocephalic, normal inspection Eye exam: Present: normal appearance, PERRL, EOMI. Absent: scleral icterus, conjunctival injection, periorbital swelling ENT exam: Present: normal exam, mucous membranes moist Neck exam: Present: normal inspection. Absent: tenderness, meningismus, lym phadenopathy Respiratory exam: Present: normal lung sounds bilaterally. Absent: respiratory distress, wheezes, rales, rhonchi, stridor Cardiovascular Exam: Present: regular rate, normal rhythm, normal heart sounds. Absent: systolic murmur, diastolic murmur, rubs, gallop, clicks GI/Abdominal exam: Present: soft, normal bowel sounds. Absent: distended, tenderness, guarding, rebound, rigid Rectal exam: Present: normal rectal tone, heme (+) stool, black stool Extremities exam: Present: normal inspection, full ROM, normal capillary refill. Absent: tenderness, pedal edema, joint swelling, calf tenderness Back exam: Present: normal inspection Neurological exam: Present: alert, oriented X3, CN II-XII intact Psychiatric exam: Present: normal affect, normal mood Skin exam: Present: warm, dry, intact, normal color. Absent: rash Course Vital Signs 10/20/19 10/20/19 10/20/19 20:37 20:42 20:53 Temperature 97.9 F Pulse Rate 84 Respiratory 18 Rate Blood Pressure 88/64 88/64 68/53 O2 Sat by Pulse 99 97 Oximetry 10/20/19 10/20/19 10/20/19 20:57 21:00 21:30 Temperature Pulse Rate Respiratory Rate Blood Pressure 87/55 87/55 98/55 O2 Sat by Pulse 100 99 Oximetry 10/20/19 10/20/19 10/20/19 21:34 21:53 22:11 Temperature 98.2 F Pulse Rate 76 Respiratory 18 Rate Blood Pressure 105/55 99/56 111/58 O2 Sat by Pulse 99 97 Oximetry 10/20/19 10/20/19 10/20/19 22:21 22:51 23:24 Temperature 97.5 F L 97.6 F 98.1 F Pulse Rate 79 83 81 Respiratory 18 18 18 Rate Blood Pressure 99/54 91/56 107/59 O2 Sat by Pulse 97 99 99 Oximetry 10/21/19 00:30 Temperature 97.7 F Pulse Rate 84 Respiratory 20 Rate Blood Pressure 115/63 O2 Sat by Pulse 97 Oximetry - Reevaluation(s) Reevaluation #1: 10/21/[address] Dutton Medical Decision Making - Medical Decision Making Upon arrival the patient is placed into room 4. He does arrive and he is hypotensive with a blood pressure of 68/53. Patient is given a liter bolus of normal saline. I did repeat laboratory studies. Patient's hemoglobin is 6.7. He is typed and crossmatched. What is available and therefore the patient was given a unit. Discussed case with Dr. Melchor who agreed to admit the patient to the ICU. Patient's blood pressure does improve with packed red blood cells. Discuss case with Dr. Donahue at 2157 who is aware of the patient's presence and transferred to the ICU. Patient remained in stable condition - Lab Data Result diagrams: 10/24/19 06:37 10/24/19 06:37 Lab Results 10/20/19 10/20/19 10/20/19 Range/Units 20:50 20:50 20:50 WBC 13.7 H (3.8-10.6) k/uL RBC 2.87 L (4.30-5.90) m/uL Hgb 6.7 L* (13.0-17.5) gm/dL Hct 22.7 L (39.0-53.0) % MCV 79.0 L (80.0-100.0) fL MCH 23.3 L (25.0-35.0) pg MCHC 29.5 L (31.0-37.0) g/dL RDW 15.8 H (11.5-15.5) % Plt Count 297 (150-450) k/uL Neutrophils % 84 % Lymphocytes % 7 % Monocytes % 7 % Eosinophils % 1 % Basophils % 1 % Neutrophils # 11.4 H (1.3-7.7) k/uL Lymphocytes # 0.9 L (1.0-4.8) k/uL Monocytes # 1.0 (0-1.0) k/uL Eosinophils # 0.1 (0-0.7) k/uL Basophils # 0.1 (0-0.2) k/uL Hypochromasia Marked Poikilocytosis Slight PT 11.2 (9.0-12.0) sec INR 1.1 (<1.2) APTT 20.6 L (22.0-30.0) sec Sodium 140 (137-145) mmol/L Potassium 3.9 (3.5-5.1) mmol/L Chloride 109 H (98-107) mmol/L Carbon Dioxide 25 (22-30) mmol/L Anion Gap 6 mmol/L BUN 37 H (9-20) mg/dL Creatinine 1.07 (0.66-1.25) mg/dL Est GFR (CKD-EPI)AfAm 73 (>60 ml/min/1.73 sqM) Est GFR (CKD-EPI)NonAf 64 (>60 ml/min/1.73 sqM) Glucose 99 (74-99) mg/dL Lactic Ac Sepsis Rflx Plasma Lactic Acid Maxim (0.7-2.0) mmol/L Calcium 8.1 L (8.4-10.2) mg/dL Total Bilirubin 0.4 (0.2-1.3) mg/dL AST 20 (17-59) U/L ALT 16 (4-49) U/L Alkaline Phosphatase 38 (38-126) U/L Total Protein 4.7 L (6.3-8.2) g/dL Albumin 2.7 L (3.5-5.0) g/dL Blood Type Blood Type Recheck Bld Type Recheck Status Antibody Screen Crossmatch Spec Expiration Date 10/20/19 10/20/19 10/20/19 Range/Units 20:50 20:50 21:28 WBC (3.8-10.6) k/uL RBC (4.30-5.90) m/uL Hgb (13.0-17.5) gm/dL Hct (39.0-53.0) % MCV (80.0-100.0) fL MCH (25.0-35.0) pg MCHC (31.0-37.0) g/dL RDW (11.5-15.5) % Plt Count (150-450) k/uL Neutrophils % % Lymphocytes % % Monocytes % % Eosinophils % % Basophils % % Neutrophils # (1.3-7.7) k/uL Lymphocytes # (1.0-4.8) k/uL Monocytes # (0-1.0) k/uL Eosinophils # (0-0.7) k/uL Basophils # (0-0.2) k/uL Hypochromasia Poikilocytosis PT (9.0-12.0) sec INR (<1.2) APTT (22.0-30.0) sec Sodium (137-145) mmol/L Potassium (3.5-5.1) mmol/L Chloride (98-107) mmol/L Carbon Dioxide (22-30) mmol/L Anion Gap mmol/L BUN (9-20) mg/dL Creatinine (0.66-1.25) mg/dL Est GFR (CKD-EPI)AfAm (>60 ml/min/1.73 sqM) Est GFR (CKD-EPI)NonAf (>60 ml/min/1.73 sqM) Glucose (74-99) mg/dL Lactic Ac Sepsis Rflx Y Plasma Lactic Acid Maxim 2.1 H* (0.7-2.0) mmol/L Calcium (8.4-10.2) mg/dL Total Bilirubin (0.2-1.3) mg/dL AST (17-59) U/L ALT (4-49) U/L Alkaline Phosphatase (38-126) U/L Total Protein (6.3-8.2) g/dL Albumin (3.5-5.0) g/dL Blood Type O Positive Blood Type Recheck O Pos Bld Type Recheck Status No Antibody Screen NEGATIVE Crossmatch See Detail Spec Expiration Date 10/23/2019 - 235 Critical Care Time Critical Care Time: 32 minutes Disposition Clinical Impression: GI bleed, Melena, Hypotension Disposition: ADMITTED IP TO THIS [facility] Condition: Serious Is patient prescribed a controlled substance at d/c from ED?: No Decision to Admit Reason: Admit from EC Decision Date: 10/20/19 Decision Time: 21:59
[2019-10-20] MEDS ORDERED: NALOXONE 0.4 MG/ML 1 ML VIAL IV PRN (21:59)
[2019-10-21 00:09] LABS: Glucose,Whole Blood 111 mg/dL (75-99)
[2019-10-21] MEDS: SODIUM CHLORIDE 0.9% 1,000 ML IV SCH ×2 (01:12→22:00)
[2019-10-21 02:20] LABS: Anisocytosis Slight; HCT 22.6 % (39.0-53.0); Hypochromasia Marked; MCH 24.5 pg (25.0-35.0); MCV 79.2 fL (80.0-100.0); Mean Platelet Volume 7.4; Platelet Count 212 k/uL (150-450); Poikilocytosis Moderate; RBC 2.85 m/uL (4.30-5.90); RDW 16.2 % (11.5-15.5); WBC 8.6 k/uL (3.8-10.6)
[2019-10-21 02:30] LABS: Calcium 7.8 mg/dL (8.4-10.2); Potassium 3.7 mmol/L (3.5-5.1)
[2019-10-21] MEDS ORDERED: Potassium Replacement Protocol 1 EACH MISC MISCELLANE PRN (03:12)
[2019-10-21] MEDS: POTASSIUM CHLORIDE 10 MEQ in WATER FOR INJECTION 1 100ML.BAG IVPB SCH ×2 (04:11→05:54)
[2019-10-21 05:54] LABS: Basophils % (A) 0 %; Eosinophils # (A) 0.1 k/uL (0-0.7); Eosinophils % (A) 2 %; HCT 22.5 % (39.0-53.0); Hypochromasia Marked; Lymphocytes # (A) 0.8 k/uL (1.0-4.8); Lymphocytes % (A) 10 %; MCH 24.3 pg (25.0-35.0); MCHC 30.5 g/dL (31.0-37.0); MCV 79.7 fL (80.0-100.0); Mean Platelet Volume 7.1; Monocytes # (A) 0.6 k/uL (0-1.0); Monocytes % (A) 7 %; Neutrophils # (A) 6.9 k/uL (1.3-7.7); Neutrophils % (A) 80 %; Platelet Count 225 k/uL (150-450); Poikilocytosis Moderate; RBC 2.82 m/uL (4.30-5.90); RDW 15.6 % (11.5-15.5); WBC 8.6 k/uL (3.8-10.6)
[2019-10-21 06:20] LABS: HGB 6.9 gm/dL (13.0-17.5)
[2019-10-21] MEDS ORDERED: traMADol 50 MG TAB PO PRN (06:40)
--- NOTE | 2019-10-21 08:06 | XR ---
EXAMINATION TYPE: XR chest 1V DATE OF EXAM: 10/21/2019 COMPARISON: Prior chest x-ray 10/20/2019 HISTORY: Congestive heart failure, COPD TECHNIQUE: frontal view of the chest is obtained on 2 images. FINDINGS: Patchy probable subsegmental basilar atelectatic changes are noted, there is no pneumothor ax or effusion evident. The cardiac silhouette size is stable, small. Prominent lung volumes sugge st underlying COPD. The osseous structures are intact. Azygos lobe noted incidentally. Patient is pos t median sternotomy. IMPRESSION: Probable subsegmental basilar atelectatic changes or scarring, correlate for COPD
[2019-10-21] MEDS: SYMBICORT 160-4.5 MCG INHALER INHALATION SCH ×2 (08:31→21:26)
[2019-10-21] MEDS ORDERED: FUROSEMIDE 40 MG TAB PO SCH (09:00)
[2019-10-21] MEDS ORDERED: METOPROLOL TARTRATE 50 MG TAB PO SCH (09:00)
[2019-10-21] MEDS ORDERED: predniSONE 5 MG TAB PO SCH (09:00)
[2019-10-21] MEDS: PANTOPRAZOLE 40 MG/10 ML VIAL IV SCH ×2 (09:31→20:30)
[2019-10-21] MEDS: POTASSIUM CHLORIDE ER 10 MEQ TAB.ER.PRT PO SCH ×2 (09:31→20:30)
--- NOTE | 2019-10-21 10:40 | P.HPIM ---
History of Present Illness This is a pleasant 84 years old male with past medical history of lower GI bleed about 2 years ago status post colonoscopy showing 4 polyps status post polypectomy and diffuse diverticulosis with no bleeding. Patient had laparoscopic cholecystectomy and repair of umbilical hernia last month on 08/26/[address] Spence. 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 Was complaining of from dizziness as well. No diarrhea or urinary problem. No fever. He follows up with Dr. Carranza for cardiac surgery done in 2003. He denies smoking On admission his blood pressure was on the low side 88/64. Hemoglobin was 6.7 on admission, he got 1 unit of blood transfusion. Hemoglobin this morning is 6.9, respiratory CBC is unremarkable, INR is 1.1, BMP and liver enzymes were unremarkable. Lactic acid was slightly elevated at 2.1 came back to normal at 1.0 chest x-ray reviewed by me: No acute process Review of Systems CONSTITUTIONAL: No fever, no malaise, no fatigue. HEENT: No recent visual problems or hearing problems. Denied any sore throat. CARDIOVASCULAR: No orthopnea, PND, no palpitations, no syncope. PULMONARY: No shortness of breath, no cough, no hemoptysis. GASTROINTESTINAL: No diarrhea, no nausea, no vomiting, no abdominal pain. Normoactive bowel sounds. NEUROLOGICAL: No headaches, no weakness, no numbness. HEMATOLOGICAL: Denies any bleeding or petechiae. GENITOURINARY: Denies any burning micturition, frequency, or urgency. MUSCULOSKELETAL/RHEUMATOLOGICAL: Denies any joint pain, swelling, or any muscle pain. ENDOCRINE: Denies any polyuria or polydipsia. Past Medical History Past Medical History: Coronary Artery Disease (CAD), Cancer, COPD, Hyperlipidemia, Hypertension, Myocardial Infarction ([place]), Prostate Disorder Additional Past Medical History / Comment(s): uses O2@2 L NC at night,enlarged prostate,daily prednisone, prostate cancer, kidney stone Last Myocardial Infarction Date:: 2003 History of Any Multi-Drug Resistant Organisms: None Reported Past Surgical History: Appendectomy, Cholecystectomy, Coronary Bypass/CABG, Heart Catheterization With Stent Additional Past Surgical History / Comment(s): CABG-4vessel 2003,heart stents x 3,teeth extraction,andrez cataracts Past Anesthesia/Blood Transfusion Reactions: No Reported Reaction Date of Last Stent Placement:: 03-01-03 Past Psychological History: No Psychological Hx Reported Past Alcohol Use History: None Reported Past Drug Use History: None Reported - Past Family History Mother Family Medical History: Cancer Additional Family Medical History / Comment(s): leukemia Father Family Medical History: Myocardial Infarction ([place]) Medications and Allergies Home Medications Medication Instructions Recorded Confirmed Type Albuterol Inhaler (Mhu) [Ventolin 2 puff INHALATION RT-QID PRN 05/16/16 10/21/19 History Hfa Inhaler] Aspirin 81 mg PO DAILY 05/16/16 10/21/19 History Budesonide/Formoterol Fumarate 2 puff INHALATION RT-BID 05/16/16 10/21/19 History [Symbicort 160-4.5 Mcg Inhaler] Furosemide [Lasix] 40 mg PO QAM 05/16/16 10/21/19 History Ipratropium-Albuterol Nebulize 3 ml INHALATION RT-QID 05/16/16 10/21/19 History [Duoneb 0.5 mg-3 mg/3 ml Soln] Lisinopril [Prinivil] 10 mg PO HS 05/16/16 10/21/19 History Metoprolol Tartrate [Lopressor] 25 mg PO BID 05/16/16 10/21/19 History Potassium Chloride [Klor-Con 10 meq PO BID 05/16/16 10/21/19 History Sprinkle] amLODIPine [Norvasc] 5 mg PO HS 05/16/16 10/21/19 History predniSONE 5 mg PO QAM 05/16/16 10/21/19 History Simvastatin [Zocor] 20 mg PO HS 05/13/17 10/21/19 History Furosemide [Lasix] 20 mg PO 1200 08/21/19 10/21/19 History traMADol HCl [Ultram] 50 mg PO Q6H PRN #6 tab 08/26/19 10/21/19 Rx Allergies Allergy/AdvReac Type Severity Reaction Status Date / Time Penicillins Allergy Swelling Verified 10/21/19 10:38 codeine AdvReac constipatio Verified 08/31/20 10:38 n Physical Exam Vitals: Vital Signs Temp Pulse Resp BP Pulse Ox 10/21/19 06:00 81 19 115/70 97 10/21/19 05:00 82 20 112/67 96 10/21/19 04:00 97.9 F 82 17 104/64 95 10/21/19 03:00 81 21 113/64 96 10/21/19 02:00 82 16 114/63 95 10/21/19 01:30 82 23 109/68 96 10/21/19 01:15 37.7 F L 84 22 104/68 96 10/21/19 01:00 84 23 104/68 96 10/21/19 00:30 97.7 F 84 20 115/63 97 10/20/19 23:24 98.1 F 81 18 107/59 99 10/20/19 22:51 97.6 F 83 18 91/56 99 10/20/19 22:21 97.5 F L 79 18 99/54 97 10/20/19 22:11 98.2 F 76 18 111/58 97 10/20/19 21:53 99/56 99 10/20/19 21:34 105/55 10/20/19 21:30 98/55 99 10/20/19 21:00 87/55 100 10/20/19 20:57 87/55 10/20/19 20:53 68/53 10/20/19 20:42 88/64 97 10/20/19 20:37 97.9 F 84 18 88/64 99 Intake and Output 10/20/19 10/20/19 10/21/19 14:59 22:59 06:59 Intake Total 0 880 Output Total 200 Balance 0 680 Intake: IV 260 Potassium Chloride 10 meq 200 In Water For Injection 1 100ml.bag @ 100 mls/hr IVPB Q1H [facility] Rx#: [id number] Sodium Chloride 0.9% 1, 60 000 ml @ 20 mls/hr IV . Q24H [facility] Rx#:[id number] Blood Product 0 620 Rc As-3 Unit 0 310 [id number] Output: Urine 200 Other: Voiding Method Urinal Weight 82 kg 82 kg GENERAL: The patient is alert and oriented x3, not in any acute distress. Well developed, well nourished. HEENT: Pupils are round and equally reacting to light. EOMI. No scleral icterus. No conjunctival pallor. Normocephalic, atraumatic. No pharyngeal erythema. No thyromegaly. CARDIOVASCULAR: S1 and S2 present. No murmurs, rubs, or gallops. PULMONARY: Chest is clear to auscultation, no wheezing or crackles. ABDOMEN: Soft, nontender, nondistended, normoactive bowel sounds. No palpable organomegaly. MUSCULOSKELETAL: No joint swelling or deformity. EXTREMITIES: No cyanosis, clubbing, or pedal edema. NEUROLOGICAL: Gross neurological examination did not reveal any focal deficits. SKIN: No rashes. No petechiae Results CBC & Chem 7: 10/21/19 05:38 10/21/19 02:07 Labs: Abnormal Lab Results - Last 24 Hours (Table) 10/20/19 10/20/19 10/20/19 Range/Units 20:50 20:50 20:50 WBC 13.7 H (3.8-10.6) k/uL RBC 2.87 L (4.30-5.90) m/uL Hgb 6.7 L* (13.0-17.5) gm/dL Hct 22.7 L (39.0-53.0) % MCV 79.0 L (80.0-100.0) fL MCH 23.3 L (25.0-35.0) pg MCHC 29.5 L (31.0-37.0) g/dL RDW 15.8 H (11.5-15.5) % Neutrophils # 11.4 H (1.3-7.7) k/uL Lymphocytes # 0.9 L (1.0-4.8) k/uL APTT 20.6 L (22.0-30.0) sec Chloride 109 H (98-107) mmol/L BUN 37 H (9-20) mg/dL POC Glucose (mg/dL) (75-99) mg/dL Plasma Lactic Acid Maxim (0.7-2.0) mmol/L Calcium 8.1 L (8.4-10.2) mg/dL Total Protein 4.7 L (6.3-8.2) g/dL Albumin 2.7 L (3.5-5.0) g/dL Crossmatch 10/20/19 10/20/19 10/21/19 Range/Units 20:50 20:50 00:07 WBC (3.8-10.6) k/uL RBC (4.30-5.90) m/uL Hgb (13.0-17.5) gm/dL Hct (39.0-53.0) % MCV (80.0-100.0) fL MCH (25.0-35.0) pg MCHC (31.0-37.0) g/dL RDW (11.5-15.5) % Neutrophils # (1.3-7.7) k/uL Lymphocytes # (1.0-4.8) k/uL APTT (22.0-30.0) sec Chloride (98-107) mmol/L BUN (9-20) mg/dL POC Glucose (mg/dL) 111 H (75-99) mg/dL Plasma Lactic Acid Maxim 2.1 H* (0.7-2.0) mmol/L Calcium (8.4-10.2) mg/dL Total Protein (6.3-8.2) g/dL Albumin (3.5-5.0) g/dL Crossmatch See Detail 10/21/19 10/21/19 10/21/19 Range/Units 02:07 02:07 05:38 WBC (3.8-10.6) k/uL RBC 2.85 L 2.82 L (4.30-5.90) m/uL Hgb 7.0 L 6.9 L* (13.0-17.5) gm/dL Hct 22.6 L 22.5 L (39.0-53.0) % MCV 79.2 L 79.7 L (80.0-100.0) fL MCH 24.5 L 24.3 L (25.0-35.0) pg MCHC 30.5 L (31.0-37.0) g/dL RDW 16.2 H 15.6 H (11.5-15.5) % Neutrophils # (1.3-7.7) k/uL Lymphocytes # 0.8 L (1.0-4.8) k/uL APTT (22.0-30.0) sec Chloride 112 H (98-107) mmol/L BUN 42 H (9-20) mg/dL POC Glucose (mg/dL) (75-99) mg/dL Plasma Lactic Acid Maxim (0.7-2.0) mmol/L Calcium 7.8 L (8.4-10.2) mg/dL Total Protein (6.3-8.2) g/dL Albumin (3.5-5.0) g/dL Crossmatch Thrombosis Risk Factor Assmnt - Choose All That Apply Any of the Below Risk Factors Present?: Yes Each Factor Represents 1 point: Abnormal pulmonary function (COPD) Other Risk Factors: Yes Each Risk Factor Represents 3 Points: Age 75 years or older Other congenital or acquired thrombophilia - If yes, enter type in comment: No Thrombosis Risk Factor Assessment Total Risk Factor Score: 4 Thrombosis Risk Factor Assessment Level: Moderate Risk Assessment and Plan Assessment: Upper and lower GI bleed Acute blood loss anemia secondary to above Hypotension dizziness secondary to above Hypertension Hyperlipidemia Diverticulosis COPD and chronic hypoxic respiratory failure on 2 L oxygen via NC History of prostate cancer Plan: This is a pleasant 84 years old male who presents with upper GI bleed. Continue with monitoring hemoglobin and transfuse as needed. GI consult. Continue with Protonix. Hold heparin and aspirin. Hold Norvasc 5 mg and lisinopril 10 mg and metoprolol 25 mg with monitor blood pressure. Also hold Lasix. Labs and medication were reviewed.. Continue same treatment. Continue with symptomatic treatment. Resume home medication. Monitor lytes and vitals. DVT and GI prophylaxis. Further recommendations of the clinical course of the patient DVT prophylaxis:no Subcutaneous heparin due to GI bleed GI Prophylaxis: Pepcid Prognosis is guarded
[2019-10-21 11:15] LABS: Anisocytosis Slight; Hypochromasia Marked; MCH 24.1 pg (25.0-35.0); MCHC 30.2 g/dL (31.0-37.0); MCV 79.9 fL (80.0-100.0); Mean Platelet Volume 8.4; Platelet Count 231 k/uL (150-450); Poikilocytosis Moderate; RBC 2.88 m/uL (4.30-5.90); RDW 16.4 % (11.5-15.5)
[2019-10-21] MEDS ORDERED: FUROSEMIDE 20 MG TAB PO SCH (12:00)
[2019-10-21] MEDS ORDERED: PEG 3350-NA SULF,BICARB,CL/KCL 4,000 ML BOTTLE PO ONE (15:00)
--- NOTE | 2019-10-21 15:10 | P.CNPUL ---
History of Present Illness Consult date: 10/21/19 Requesting physician: Cole E Sheet Chief complaint: Generalized weakness, anemia, upper GI bleeding History of present illness: 84-year-old white male patient with past medical history of coronary artery disease with previous history of bypass grafting, hypertension, hyperlipidemia, COPD, on home oxygen at 2 L at bedtime, BPH, history of prostate cancer was transferred from [facility] where patient went with complaints of weakness, bright red bloody vomiting. he was seen at the [facility] emergency department 2 days prior with complaints of weakness, and was found to be anemic with a hemoglobin of 7.9, he could not be transfused right away in view of presence of antibodies, he was observed and released home, however later developed hematemesis, and return for reevaluation. This time his hemoglobin was down to 6.4 and patient was also having melanotic stools. He denies any previous history of GI bleeding. He is admitted to feeling dizzy, he takes 5 mg of prednisone for his history of COPD, denies any alcohol use or chronic NSAID use. Denied any abdominal pain, denied any nausea, no fevers or chills, no chest pain. No worsening dyspnea. He was also quite hypotensive in the emergency department with blood pressure 68/53, he received a liter and fluid boluses with 0.9 normal saline, and 1 unit of packed red blood cells, this morning patient's blood work revealed a hemoglobin of 7.0, with no evidence of ongoing bleeding, white blood cell count is 8.0, patient was started on a PPI therapy with Protonix 40 mg twice daily, GI evaluation is pending, EGD and colon oscopy scheduled for tomorrow on 10/22/2019. Review of Systems All systems: negative Constitutional: Reports weakness, Denies chills, Denies fever Eyes: denies blurred vision, denies pain Ears, nose, mouth and throat: Denies headache, Denies sore throat Cardiovascular: Denies chest pain, Denies shortness of breath Respiratory: Denies cough Gastrointestinal: Reports hematemesis, Denies abdominal pain, Denies diarrhea, Denies nausea, Denies vomiting Musculoskeletal: Denies myalgias Integumentary: Denies pruritus, Denies rash Neurological: Denies numbness, Denies weakness Psychiatric: Denies anxiety, Denies depression Endocrine: Reports fatigue, Denies weight change Past Medical History Past Medical History: Coronary Artery Disease (CAD), Cancer, COPD, Hyperlipidemia, Hypertension, Myocardial Infarction ([place]), Prostate Disorder Additional Past Medical History / Comment(s): uses O2@2 L NC at night,enlarged prostate,daily prednisone, prostate cancer, kidney stone Last Myocardial Infarction Date:: 2003 History of Any Multi-Drug Resistant Organisms: None Reported Past Surgical History: Appendectomy, Cholecystectomy, Coronary Bypass/CABG, Heart Catheterization With Stent Additional Past Surgical History / Comment(s): CABG-4vessel 2003,heart stents x 3,teeth extraction,andrez cataracts Past Anesthesia/Blood Transfusion Reactions: No Reported Reaction Date of Last Stent Placement:: 03-01-03 Past Psychological History: No Psychological Hx Reported Past Alcohol Use History: None Reported Past Drug Use History: None Reported - Past Family History Mother Family Medical History: Cancer Additional Family Medical History / Comment(s): leukemia Father Family Medical History: Myocardial Infarction ([place]) Medications and Allergies Home Medications Medication Instructions Recorded Confirmed Type Aspirin 81 mg PO DAILY 05/16/16 10/21/19 History Budesonide/Formoterol Fumarate 2 puff INHALATION RT-BID 05/16/16 10/21/19 H istory [Symbicort 160-4.5 Mcg Inhaler] Lisinopril [Prinivil] 10 mg PO HS 05/16/16 10/21/19 History Metoprolol Tartrate [Lopressor] 25 mg PO BID 05/16/16 10/21/19 History Potassium Chloride [Klor-Con 10 meq PO BID 05/16/16 10/21/19 History Sprinkle] amLODIPine [Norvasc] 5 mg PO HS 05/16/16 10/21/19 History predniSONE 5 mg PO QAM 05/16/16 10/21/19 History Furosemide [Lasix] 20 mg PO DAILY@1200 08/21/19 10/21/19 History Albuterol Nebulized [Ventolin 2.5 mg INHALATION RT-Q4H PRN 10/21/19 10/21/19 History Nebulized] Albuterol Sulfate [Ventolin HFA] 2 puff INHALATION RT-Q6H PRN 10/21/19 10/21/19 History Ferrous Sulfate [Feosol] 325 mg PO DAILY 10/21/19 10/21/19 History Furosemide [Lasix] 40 mg PO QAM 10/21/19 10/21/19 History Ipratropium Nebulized [Atrovent 0.5 mg INHALATION RT-Q4H PRN 10/21/19 10/21/19 History Nebulized 0.2 MG/ML] Simvastatin [Zocor] 40 mg PO DAILY 10/21/19 10/21/19 History Allergies Allergy/AdvReac Type Severity Reaction Status Date / Time Penicillins Allergy Swelling Verified 10/21/19 10:38 codeine AdvReac constipatio Verified 10/21/19 10:38 n Physical Exam Vitals: Vital Signs Temp Pulse Resp BP Pulse Ox 10/21/19 13:00 88 24 116/67 98 10/21/19 12:00 98.2 F 88 18 119/63 93 L 10/21/19 11:00 79 20 112/53 97 10/21/19 10:00 81 19 137/67 89 L 10/21/19 09:00 82 26 H 129/67 93 L 10/21/19 08:00 98.3 F 85 21 116/72 95 10/21/19 07:00 83 18 122/70 96 10/21/19 06:00 81 19 115/70 97 10/21/19 05:00 82 20 112/67 96 10/21/19 04:00 97.9 F 82 17 104/64 95 10/21/19 03:00 81 21 113/64 96 10/21/19 02:00 82 16 114/63 95 10/21/19 01:30 82 23 109/68 96 10/21/19 01:15 37.7 F L 84 22 104/68 96 10/21/19 01:00 84 23 104/68 96 10/21/19 00:30 97.7 F 84 20 115/63 97 10/20/19 23:24 98.1 F 81 18 107/59 99 10/20/19 22:51 97.6 F 83 18 91/56 99 10/20/19 22:21 97.5 F L 79 18 99/54 97 10/20/19 22:11 98.2 F 76 18 111/58 97 10/20/19 21:53 99/56 99 10/20/19 21:34 105/55 08/30/20 21:30 98/55 99 08/30/20 21:00 87/55 100 10/20/19 20:57 87/55 10/20/19 20:53 68/53 10/20/19 20:42 88/64 97 10/20/19 20:37 97.9 F 84 18 88/64 99 Intake and Output 10/20/19 10/21/19 10/21/19 22:59 06:59 14:59 Intake Total 0 880 140 Output Total 200 200 Balance 0 680 -60 Intake: IV 260 140 Potassium Chloride 10 meq 200 In Water For Injection 1 100ml.bag @ 100 mls/hr IVPB Q1H [facility] Rx#: [id number] Sodium Chloride 0.9% 1, 60 140 000 ml @ 20 mls/hr IV . Q24H [facility] Rx#:[id number] Blood Product 0 620 Rc As-3 Unit 0 310 [id number] Output: Urine 200 200 Other: Voiding Method Urinal # Bowel Movements 1 Weight 82 kg 82 kg GENERAL EXAM: Alert, very pleasant 84-year-old white male, on 2 L of oxygen pulse ox 98% comfortable in no apparent distress. HEAD: Normocephalic/atraumatic. EYES: Normal reaction of pupils, equal size. Conjunctiva pink, sclera white. NOSE: Clear with pink turbinates. THROAT: No erythema or exudates. NECK: No masses, no JVD, no thyroid enlargement, no adenopathy. CHEST: No chest wall deformity. Symmetrical expansion. LUNGS: Equal air entry with no crackles, wheeze, rhonchi or dullness. CVS: Regular rate and rhythm, normal S1 and S2, no gallops, no murmurs, no rubs ABDOMEN: Soft, nontender. No hepatosplenomegaly, normal bowel sounds, no guarding or rigidity. EXTREMITIES: No clubbing, no edema, no cyanosis, 2+ pulses and upper and lower extremities. MUSCULOSKELETAL: Muscle strength and tone normal. SPINE: No scoliosis or deformity SKIN: No rashes CENTRAL NERVOUS SYSTEM: Alert and oriented -3. No focal deficits, tone is normal in all 4 extremities. PSYCHIATRIC: Alert and oriented -3. Appropriate affect. Intact judgment and insight. Results - Laboratory Findings CBC and BMP: 10/21/19 10:37 10/21/19 10:37 PT/INR, D-dimer PT 11.2 sec (9.0-12.0) 10/20/19 20:50 INR 1.1 (<1.2) 10/20/19 20:50 Abnormal lab findings: Abnormal Labs 10/20/19 10/20/19 10/20/19 20:50 20:50 20:50 WBC 13.7 H RBC 2.87 L Hgb 6.7 L* Hct 22.7 L MCV 79.0 L MCH 23.3 L MCHC 29.5 L RDW 15.8 H Neutrophils # 11.4 H Lymphocytes # 0.9 L APTT 20.6 L Chloride 109 H BUN 37 H POC Glucose (mg/dL) Plasma Lactic Acid Maxim Calcium 8.1 L Total Protein 4.7 L Albumin 2.7 L Crossmatch 10/20/19 10/20/19 10/21/19 20:50 20:50 00:07 WBC RBC Hgb Hct MCV MCH MCHC RDW Neutrophils # Lymphocytes # APTT Chloride BUN POC Glucose (mg/dL) 111 H Plasma Lactic Acid Maxim 2.1 H* Calcium Total Protein Albumin Crossmatch See Detail 10/21/19 10/21/19 10/21/19 02:07 02:07 05:38 WBC RBC 2.85 L 2.82 L Hgb 7.0 L 6.9 L* Hct 22.6 L 22.5 L MCV 79.2 L 79.7 L MCH 24.5 L 24.3 L MCHC 30.5 L RDW 16.2 H 15.6 H Neutrophils # Lymphocytes # 0.8 L APTT Chloride 112 H BUN 42 H POC Glucose (mg/dL) Plasma Lactic Acid Maxim Calcium 7.8 L Total Protein Albumin Crossmatch 10/21/19 10:37 WBC RBC 2.88 L Hgb 7.0 L Hct 23.0 L MCV 79.9 L MCH 24.1 L MCHC 30.2 L RDW 16.4 H Neutrophils # Lymphocytes # APTT Chloride BUN POC Glucose (mg/dL) Plasma Lactic Acid Maxim Calcium Total Protein Albumin Crossmatch - Diagnostic Findings Chest x-ray: report reviewed, image reviewed Assessment and Plan Plan: Assessment: #1. Acute GI blood loss anemia, patient presented [facility] with a hemoglobin of 6.7, status post transfusion with 1 unit of packed red blood cells #2. Weakness, dizziness, hematemesis, and melanotic stools related to the above #3. Hypotension, related to acute GI blood loss anemia, improved with IV fluid boluses and blood transfusion #4. History of CAD with previous bypass grafting #5. Hypertension #6. Hyperlipidemia #7. COPD, on home oxygen at 2 L at bedtime, advanced, oxygen and prednisone dependent #8. Recent history of cholecystectomy and repair of umbilical hernia last month 08/26/2019 Plan: Serial H&H's, monitor for signs of active bleeding, transfuse for hemoglobin less than 7 for symptomatic bleeding, continued IV fluids, continue PPI therapy. Patient is scheduled for EGD and colonoscopy tomorrow. We'll continue to monitor the patient in the intensive care unit. We'll cut the dose of prednisone to 2,5 milligrams daily, aspirin remains on hold, continue holding Lasix, continue with patient's maintenance inhaler and nebulized treatments. Continue to monitor in the ICU I performed a history & physical examination of the patient and discussed their management with my nurse practitioner, Marisa Cervantes. I reviewed the nurse practitioner's note and agree with the documented findings and plan of care. Lung sounds are positive for diminished breath sounds. The findings and the impression was discussed with the patient. I attest to the documentation by the nurse practitioner. Time with Patient: Greater than 30
[2019-10-21 15:15] LABS: Anisocytosis Slight; HCT 22.5 % (39.0-53.0); Hypochromasia Marked; MCH 24.3 pg (25.0-35.0); MCHC 29.9 g/dL (31.0-37.0); Mean Platelet Volume 7.9; Platelet Count 231 k/uL (150-450); Poikilocytosis Moderate; RBC 2.78 m/uL (4.30-5.90); RDW 16.1 % (11.5-15.5)
[2019-10-21 15:29] LABS: HGB 6.7 gm/dL (13.0-17.5)
[2019-10-21] MEDS: ATORVASTATIN 10 MG TAB PO SCH (20:30)
[2019-10-21] MEDS ORDERED: amLODIPine 5 MG TAB PO SCH (21:00)
[2019-10-21] MEDS ORDERED: lisinopriL 10 MG TAB PO SCH (21:00)
--- NOTE | 2019-10-21 23:51 | CONS ---
CONSULTATION DATE OF DICTATION: 10/21/2019 REASON FOR CONSULTATION: Acute gastrointestinal bleed. HISTORY OF PRESENT ILLNESS: The patient is an 84-year-old pleasant white male who was admitted to the hospital after he presented with 2 episodes of nausea vomiting with some fresh blood followed by multiple bowel movements which are also bright blood in nature. The patient states that he did not witness his emesis. Apparently his daughter saw that he threw up blood. He became somewhat dizzy and had another episode and hence he went to the emergency room at [facility]. He was subsequently transferred from there for further management. After he came to the hospital, he had 2 episodes of bright red blood per rectum also. He came into the emergency room and his initial hemoglobin was 6.7 g/dL and subsequently it went down to 6.9 despite one unit of blood transfusion. The patient denies any abdominal pain, does not recall similar symptoms in the past. He was diagnosed with peptic ulcer disease a few years ago. He did have a colonoscopy 2 years ago that showed diffuse diverticulosis and colon polyps. He denies any recent NSAID use. Presently on no anticoagulation, has been on aspirin every day. PAST MEDICAL HISTORY: Significant for coronary artery disease, status post CABG with stent placement, hypertension, hyperlipidemia, COPD, history of prostate cancer. MEDICATIONS: Medications at home include potassium chloride, Norvasc, Lasix, prednisone, Ventolin, iron sulfate, Lasix, Atrovent, Zocor, Symbicort, Prinivil and Lopressor. ALLERGIES: Allergies to CODEINE and PENICILLIN. PAST SURGICAL HISTORY: CABG, cholecystectomy, appendectomy, cardiac catheterization with stent placement. FAMILY HISTORY: Mother had leukemia. Father had coronary artery disease. REVIEW OF SYSTEMS: CARDIOPULMONARY: No chest pain. No shortness of breath. GENITOURINARY: No dysuria or hematuria. MUSCULOSKELETAL: Unremarkable. SKIN: Unremarkable. ENDOCRINE: Unremarkable. PSYCHIATRIC: Unremarkable. NEUROLOGY: Unremarkable. ENT/VISION: Unremarkable. CONSTITUTIONAL: No recent weight loss. No fever, chills, night sweats. PHYSICAL EXAMINATION: He appears comfortable, in no apparent distress. VITAL SIGNS: Stable. Blood pressure is 144/84, pulse rate 79, temperature 98.4. HEENT EXAMINATION: Unremarkable. Conjunctivae pink. Sclerae anicteric. Oral cavity, no lesions. NECK: No JVD or lymph node enlargement. CHEST: Clear to auscultation. HEART: Regular rate and rhythm. ABDOMEN: Soft. Bowel sounds are positive. No organomegaly. NEURO: He is alert and oriented x3. No focal deficits. LABS: Labs done early this morning hemoglobin was 7. He received one unit of blood transfusion. Repeat hemoglobin was 6.9. He is currently receiving 2 more units of blood transfusion. Platelets are 231. WBC 8.0. PTT, INR is within normal limits. BUN and creatinine of 42 and 0.98 respectively. Rest of the labs are within normal limits. IMPRESSION: 1. This is a patient who presents to the hospital with a couple of episodes of hematemesis followed by 2 episodes of bright red blood per rectum. The patient did not witness and he cannot give me exact details whether he had any melena or hematemesis, but according to the history, it appears that he did have hematemesis and bright red blood per rectum as witnessed by his family. Hemoglobin is 7 g/dL, dropped to 6.9 after one unit of blood transfusion. Currently he is receiving 2 more units of PRBC transfusion. Most likely dealing with an upper gastrointestinal source of bleeding but possibility of colonic source cannot be excluded. Last colonoscopy 2 years ago revealed multiple colon polyps and diverticulosis. 2. History of coronary artery disease, status post coronary artery bypass grafting and stent placement in the past. 3. Remote history of peptic ulcer disease. 4. History of chronic obstructive pulmonary disease, on oral prednisone. 5. History of hypercholesteremia. RECOMMENDATIONS: 1. Continue with Protonix 40 mg twice daily. 2. Clear liquid diet. 3. Monitor CBC every 6 hours and transfuse if the hemoglobin is less than 7. 4. We will proceed with an upper endoscopy as well as colonoscopy tomorrow. We discussed with the patient, risks, benefits and complications of the procedure and he is agreeable to it. Thank you for this consultation. MMODL / IJN: [id number] /
[2019-10-22 02:46] LABS: HCT 28.7 % (39.0-53.0); Hypochromasia Marked; MCH 25.4 pg (25.0-35.0); MCHC 30.8 g/dL (31.0-37.0); MCV 82.5 fL (80.0-100.0); Mean Platelet Volume 7.6; Platelet Count 205 k/uL (150-450); Poikilocytosis Marked; RBC 3.48 m/uL (4.30-5.90); WBC 7.8 k/uL (3.8-10.6)
[2019-10-22 02:50] LABS: African American GFR (CKD) >90 (>60 ml/min/1.73 sqM); Anion Gap 4 mmol/L; Blood Urea Nitrogen 26 mg/dL (9-20); Calcium 7.9 mg/dL (8.4-10.2); Carbon Dioxide 24 mmol/L (22-30); Chloride 112 mmol/L (98-107); Glucose 80 mg/dL (74-99); Non-African American GFR(CKD) 79 (>60 ml/min/1.73 sqM); Potassium 3.3 mmol/L (3.5-5.1); Sodium 140 mmol/L (137-145)
[2019-10-22 02:55] LABS: HGB 8.8 gm/dL (13.0-17.5)
[2019-10-22] MEDS: POTASSIUM CHLORIDE ER 20 MEQ TAB.ER PO SCH ×2 (03:53→05:10)
[2019-10-22 04:10] LABS: Band Neutrophils % 1 %; Basophils # (M) 0.08 k/uL (0-0.2); Eosinophils # (M) 0.39 k/uL (0-0.7); Lymphocytes # (M) 0.78 k/uL (1.0-4.8); Metamyelocytes # (M) 0.08 k/uL (0); Metamyelocytes % 1 %; Monocytes # (M) 0.16 k/uL (0-1.0); Myelocytes # (M) 0.08 k/uL (0); Myelocytes % 1 %; Neutrophils % (M) 82 %; Nucleated Red Blood Cells 0 /100 WBC (0-0); Total Cells Counted 200
[2019-10-22] MEDS ORDERED: MAGNESIUM CITRATE 296 ML BOTTLE PO ONE (06:15)
[2019-10-22 06:38] LABS: Basophils % (A) 0 %; Eosinophils # (A) 0.2 k/uL (0-0.7); Eosinophils % (A) 3 %; HCT 29.2 % (39.0-53.0); HGB 9.3 gm/dL (13.0-17.5); Hypochromasia Marked; Lymphocytes # (A) 0.6 k/uL (1.0-4.8); Lymphocytes % (A) 9 %; MCH 26.2 pg (25.0-35.0); MCHC 31.8 g/dL (31.0-37.0); MCV 82.3 fL (80.0-100.0); Mean Platelet Volume 7.4; Monocytes # (A) 0.6 k/uL (0-1.0); Monocytes % (A) 8 %; Neutrophils # (A) 5.5 k/uL (1.3-7.7); Neutrophils % (A) 78 %; Platelet Count 213 k/uL (150-450); Poikilocytosis Marked; RBC 3.55 m/uL (4.30-5.90); RDW 15.9 % (11.5-15.5)
[2019-10-22] MEDS: POTASSIUM CHLORIDE ER 10 MEQ TAB.ER.PRT PO SCH ×2 (08:16→20:00)
[2019-10-22] MEDS: PANTOPRAZOLE 40 MG/10 ML VIAL IV SCH ×2 (08:16→20:00)
[2019-10-22] MEDS: predniSONE 5 MG TAB PO SCH (08:16)
[2019-10-22] MEDS: ALBUTEROL NEBULIZED 2.5 MG/3 ML INHALATION PRN (08:48)
[2019-10-22] MEDS: SYMBICORT 160-4.5 MCG INHALER INHALATION SCH ×2 (08:48→20:22)
--- NOTE | 2019-10-22 13:16 | P.PN ---
Subjective Progress Note Date: 10/22/19 Principal diagnosis: Acute GI bleeding 84-year-old white male patient with past medical history of coronary artery disease with previous history of bypass grafting, hypertension, hyperlipidemia, COPD, on home oxygen at 2 L at bedtime, BPH, history of prostate cancer was transferred from [facility] where patient went with complaints of weakness, bright red bloody vomiting. he was seen at the [facility] emergency department 2 days prior with complaints of weakness, and was found to be anemic with a hemoglobin of 7.9, he could not be transfused right away in view of presence of antibodies, he was observed and released home, however later developed hematemesis, and return for reevaluation. This time his hemoglobin was down to 6.4 and patient was also having melanotic stools. He denies any previous history of GI bleeding. He is admitted to feeling dizzy, he takes 5 mg of prednisone for his history of COPD, denies any alcohol use or chr onic NSAID use. Denied any abdominal pain, denied any nausea, no fevers or chills, no chest pain. No worsening dyspnea. He was also quite hypotensive in the emergency department with blood pressure 68/53, he received a liter and fluid boluses with 0.9 normal saline, and 1 unit of packed red blood cells, this morning patient's blood work revealed a hemoglobin of 7.0, with no evidence of ongoing bleeding, white blood cell count is 8.0, patient was started on a PPI therapy with Protonix 40 mg twice daily, GI evaluation is pending, EGD and colonoscopy scheduled for tomorrow on 10/22/2019. Patient was reevaluated today on 10/22/19, remains in the ICU, resting in bed, he is on 2 L nasal cannula, patient received a total of 3 units of packed RBCs since admission. Hemoglobin today is 9.3, he was seen by gastroenterology, and he is scheduled to undergo EGD and, sclera today. Patient remained hemodynamically stable, does not seem to be in any form of distress. Patient remains on Protonix, hemoglobin is being closely monitored, and he is receiving transfusion for hemoglobin below 7. Patient presented initially with a couple of episodes of hematemesis followed by 2 episodes of bright red blood per rectum. Patient is known to have remote history of peptic ulcer disease. He is also known to have history of chronic obstructive pulmonary disease maintained on small dose of oral prednisone 5 mg daily. Objective - Vital Signs Vital signs: Vital Signs Temp 98.2 F 10/22/19 12:00 Pulse 73 10/22/19 12:00 Resp 14 10/22/19 12:00 BP 102/70 10/22/19 12:00 Pulse Ox 95 10/22/19 12:00 Intake & Output 10/21/19 10/22/19 10/22/19 18:59 06:59 18:59 Intake Total 220 5300 100 Output Total 475 500 Balance -255 5300 -400 Weight 82.2 kg Intake: IV 220 60 100 Sodium Chloride 0.9% 1, 220 60 100 000 ml @ 20 mls/hr IV . Q24H [facility] Rx#:[id number] Oral 4000 Blood Product 0 1240 Rc As-1 Unit 0 310 [id number] Rc As-1 Unit 310 [id number] Output: Urine 475 500 Other: Voiding Method Urinal Urinal Urinal # Voids 0 1 # Bowel Movements 1 2 1 - Exam Physical Exam: Revealed a 84-year-old white male in no distress. Head: Atraumatic, normocephalic. HEENT:[Neck is supple.] [No neck masses.] [No thyromegaly.] [No JVD.] PERRLA, EOMI, no icterus, Chest: [Clear throughout, no crackles, no rhonchi, no wheezes.] Cardiac Exam: [Normal S1 and S2, no S3 gallop, no murmur.] Abdomen: [Soft, nontender, no megaly, no rebound, no guarding, normal bowel sounds.] Extremities: [No clubbing, no edema, no cyanosis.] Good pulses bilaterally Neurological Exam: [No focal neurologic deficit.] Alert and oriented 3. Psychiatric: Normal mood affect and normal mental status examination. Skin: No rashes. Musculoskeletal no deformities and no limitation in range of motion. - Labs CBC & Chem 7: 10/22/19 05:54 10/22/19 05:54 Labs: Abnormal Lab Results - Last 24 Hours (Table) 10/20/19 10/21/19 10/22/19 Range/Units 20:50 14:37 02:10 RBC 2.78 L (4.30-5.90) m/uL Hgb 6.7 L* (13.0-17.5) gm/dL Hct 22.5 L (39.0-53.0) % MCH 24.3 L (25.0-35.0) pg MCHC 29.9 L (31.0-37.0) g/dL RDW 16.1 H (11.5-15.5) % Lymphocytes # (1.0-4.8) k/uL Lymphocytes # (Manual) (1.0-4.8) k/uL Metamyelocytes # (Man) (0) k/uL Myelocytes # (Manual) (0) k/uL Potassium 3.3 L (3.5-5.1) mmol/L Chloride 112 H (98-107) mmol/L BUN 26 H (9-20) mg/dL Calcium 7.9 L (8.4-10.2) mg/dL Crossmatch See Detail 10/22/19 10/22/19 Range/Units 02:10 05:54 RBC 3.48 L 3.55 L (4.30-5.90) m/uL Hgb 8.8 L D 9.3 L (13.0-17.5) gm/dL Hct 28.7 L 29.2 L (39.0-53.0) % MCH (25.0-35.0) pg MCHC 30.8 L (31.0-37.0) g/dL RDW 16.0 H 15.9 H (11.5-15.5) % Lymphocytes # 0.6 L (1.0-4.8) k/uL Lymphocytes # (Manual) 0.78 L (1.0-4.8) k/uL Metamyelocytes # (Man) 0.08 H (0) k/uL Myelocytes # (Manual) 0.08 H (0) k/uL Potassium (3.5-5.1) mmol/L Chloride (98-107) mmol/L BUN (9-20) mg/dL Calcium (8.4-10.2) mg/dL Crossmatch Assessment and Plan Assessment: Impression: Acute GI bleeding, most likely upper GI in nature and most likely secondary to peptic ulcer disease. However this is yet to be determined, patient is scheduled for EGD and colonoscopy today. Acute GI blood loss anemia. Hypotension secondary to hypovolemia History of coronary artery disease and previous CABG. History of chronic obstructive pulmonary disease maintained on home O2 and prednisone 5 mg daily History of cholecystectomy and repair of umbilical hernia 08/26/19. Recommendation: Continue to monitor the ICU. Transfuse for hemoglobin below 7. Continue Protonix. Cut down prednisone to 2.5 mg daily. Hold diuretics. Continue to hold aspirin. Based on the EGD and colonoscopy findings, further recommendations to follow. We'll continue to follow while in the ICU. Time with Patient: Less than 30
[2019-10-22] MEDS ORDERED: PROPOFOL 10 MG/ML 20 ML VIAL IV ONE (15:18)
[2019-10-22] MEDS ORDERED: IV FLUID CONTINUATION 500 ML IV ONE (15:19)
--- NOTE | 2019-10-22 15:47 | P.PCN ---
Date of Procedure: 10/22/19 Procedure(s) Performed: Brief history: Patient is a pleasant 84-year-old white male admitted to the intensive care unit with acute GI bleed. He had 3 episodes of hematemesis followed by bright red blood per rectum. Initial hemoglobin was 6.9 g/dL and received 2 units of blood transfusion. He scheduled for an upper endoscopy as well as colonoscopy to evaluate the source of recent acute GI bleed. Procedure performed: Esophagogastroduodenoscopy with biopsy Colonoscopy with biopsy and snare polypectomy Preoperative diagnosis: Acute GI bleed Anesthesia: MAC Procedure: After informed consent was obtained from the patient was brought into the endoscopy unit and IV sedation was administered by anesthesia under continuous monitoring. Initially upper endoscopy was done. The Olympus GF 160 video endoscope was inserted inserted into the mouth and esophagus intubated without any difficulty and was gradually advanced into the stomach and duodenum and carefully examined. The bulb and second part of the duodenum appeared normal. The scope was then withdrawn into the stomach adequately insufflated with air and upon careful examination the antrum and body, cardia and fundus appeared normal. The scope was then withdrawn into the esophagus. There was a moderate size hiatal hernia noted. The GE junction was located at 42 cm from the incisors. At the GE junction there was an ulcerated mass identified which extended to the cardia of the stomach and multiple biopsies were done from this area. There was no active bleeding. Multiple biopsies were done from the ulcerated mass.. Rest of the esophagus appeared normal. Patient tolerated the procedure well. At this time the patient continued to remain sedation. Initial digital rectal examination was normal. Olympus CF 160 video colonoscope was then inserted into the rectum and gradually advanced to the cecum without any difficulty. Careful examination was performed as the scope was gradually being withdrawn. The prep was excellent. The cecum, ascending colon appeared normal in the transverse colon there was a 1 cm polyp removed by snare polypectomy. Rest of the , transverse colon, descending colon, sigmoid colon and rectum appeared normal. in the distal rectum there were 2 isolated small 5 mm ulcerations identified wi th no active bleeding. Scattered sigmoidal diverticulosis seen. Retroflexion was performed in the rectum and no lesions were noted. Patient tolerated the procedure well. Impression: 1. Upper endoscopy revealed the GE junction ulcerated mass at 42 cm from the incisors extending into the cardia of the stomach, with no active bleeding, status post multiple biopsies 2. Colonoscopy revealed 1 cm transverse colon polyp and 2 isolated small proximal rectal ulcers with no active bleeding. Recommendations: Findings of this examination were discussed with the patient as well as his family. At this time will await the biopsy results. Diet will be advanced as tolerated.
--- NOTE | 2019-10-22 19:04 | P.PN ---
Subjective This is a pleasant 84 years old male with past medical history of lower GI bleed about 2 years ago status post colonoscopy showing 4 polyps status post polypectomy and diffuse diverticulosis with no bleeding. Patient had laparoscopic cholecystectomy and repair of umbilical hernia last month on 08/26/[address] Spence. 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 Was complaining of from dizziness as well. No diarrhea or urinary problem. No fever. He follows up with Dr. Carranza for cardiac surgery done in 2003. He denies smoking On admission his blood pressure was on the low side 88/64. Hemoglobin was 6.7 on admission, he got 1 unit of blood transfusion. Hemoglobin this morning is 6.9, respiratory CBC is unremarkable, INR is 1.1, BMP and liver enzymes were unremarkable. Lactic acid was slightly elevated at 2.1 came back to normal at 1.0 chest x-ray reviewed by me: No acute process 10/22/2019 Patient is awake and alert no chest pain or abdominal pain. No other complaints. Patient underwent EGD and colonoscopy today. Results showing ulcerated gastric mass with no active bleeding, status post multiple biopsies, Colonoscopy reveal ed transverse colon polyp and 2 small proximal rectal ulcers with no active bleeding. Hemoglobin is stable at 9.3. Patient hemodynamically stable Patient continued to Protonix 40 mg IV twice daily Resume metoprolol Review of Systems CONSTITUTIONAL: No fever, no malaise, no fatigue. HEENT: No recent visual problems or hearing problems. Denied any sore throat. CARDIOVASCULAR: No orthopnea, PND, no palpitations, no syncope. PULMONARY: No shortness of breath, no cough, no hemoptysis. GASTROINTESTINAL: No diarrhea, no nausea, no vomiting, no abdominal pain. Normoactive bowel sounds. NEUROLOGICAL: No headaches, no weakness, no numbness. HEMATOLOGICAL: Denies any bleeding or petechiae. GENITOURINARY: Denies any burning micturition, frequency, or urgency. MUSCULOSKELETAL/RHEUMATOLOGICAL: Denies any joint pain, swelling, or any muscle pain. ENDOCRINE: Denies any polyuria or polydipsia. Active Medications Generic Name Dose Route Start Last Admin Trade Name Freq PRN Reason Stop Dose Admin Albuterol Sulfate 2.5 mg 10/21/19 06:40 10/22/19 08:48 Ventolin Nebulized INHALATION 2.5 mg RT-QID PRN Administration Shortness Of Breath Atorvastatin Calcium 10 mg 10/21/19 21:00 10/21/19 20:30 Lipitor PO 10 mg HS AM[facility] Administration Budesonide/Formoterol Fumarate 2 puff 10/21/19 08:00 10/22/19 08:48 Symbicort 160-4.5 Mcg Inhaler INHALATION 2 puff RT-BID AMNA Administration Sodium Chloride 1,000 mls @ 20 mls/hr 10/20/19 22:00 10/21/19 22:00 Saline 0.9% IV 20 mls/hr .Q24H AMNA Administration Miscellaneous Information 1 each 10/21/19 03:12 Potassium Per Protocol MISCELLANE DAILY PRN Per Protocol Protocol Naloxone HCl 0.2 mg 10/20/19 21:59 Narcan IV Q2M PRN Opioid Reversal Pantoprazole Sodium 40 mg 10/21/19 09:00 10/22/19 08:16 Protonix IV 40 mg BID AMNA Administration Potassium Chloride 10 meq 10/21/19 09:00 10/22/19 08:16 K-Dur 10 PO 10 meq BID AMNA Administration Prednisone 2.5 mg 10/22/19 09:00 10/22/19 08:16 PO 2.5 mg QAM [facility] Administration Tramadol HCl 50 mg 10/21/19 06:40 Ultram PO Q6H PRN Pain Objective - Vital Signs Vital signs: Vital Signs Temp 97.9 F 10/22/19 16:00 Pulse 75 10/22/19 18:15 Resp 18 10/22/19 18:15 BP 139/76 10/22/19 18:15 Pulse Ox 97 10/22/19 18:15 Intake & Output 10/21/19 10/22/19 10/22/19 18:59 06:59 18:59 Intake Total 220 5300 850 Output Total 475 750 Balance -255 5300 100 Weight 82.2 kg Intake: IV 220 60 370 Sodium Chloride 0.9% 1, 220 60 220 000 ml @ 20 mls/hr IV . Q24H [facility] Rx#:[id number] Oral 4000 480 Blood Product 0 1240 Rc As-1 Unit 0 310 [id number] Rc As-1 Unit 310 [id number] Output: Urine 475 750 Other: Voiding Method Urinal Urinal Urinal # Voids 0 1 # Bowel Movements 1 2 1 - Exam GENERAL: The patient is alert and oriented x3, not in any acute distress. Well developed, well nourished. HEENT: Pupils are round and equally reacting to light. EOMI. No scleral icterus. No conjunctival pallor. Normocephalic, atraumatic. No pharyngeal erythema. No thyromegaly. CARDIOVASCULAR: S1 and S2 present. No murmurs, rubs, or gallops. PULMONARY: Chest is clear to auscultation, no wheezing or crackles. ABDOMEN: Soft, nontender, nondistended, normoactive bowel sounds. No palpable organomegaly. MUSCULOSKELETAL: No joint swelling or deformity. EXTREMITIES: No cyanosis, clubbing, or pedal edema. NEUROLOGICAL: Gross neurological examination did not reveal any focal deficits. SKIN: No rashes. no petechiae. - Labs CBC & Chem 7: 10/22/19 05:54 10/22/19 05:54 Labs: Abnormal Lab Results - Last 24 Hours (Table) 10/20/19 10/22/19 10/22/19 Range/Units 20:50 02:10 02:10 RBC 3.48 L (4.30-5.90) m/uL Hgb 8.8 L D (13.0-17.5) gm/dL Hct 28.7 L (39.0-53.0) % MCHC 30.8 L (31.0-37.0) g/dL RDW 16.0 H (11.5-15.5) % Lymphocytes # (1.0-4.8) k/uL Lymphocytes # (Manual) 0.78 L (1.0-4.8) k/uL Metamyelocytes # (Man) 0.08 H (0) k/uL Myelocytes # (Manual) 0.08 H (0) k/uL Potassium 3.3 L (3.5-5.1) mmol/L Chloride 112 H (98-107) mmol/L BUN 26 H (9-20) mg/dL Calcium 7.9 L (8.4-10.2) mg/dL Crossmatch See Detail 10/22/19 Range/Units 05:54 RBC 3.55 L (4.30-5.90) m/uL Hgb 9.3 L (13.0-17.5) gm/dL Hct 29.2 L (39.0-53.0) % MCHC (31.0-37.0) g/dL RDW 15.9 H (11.5-15.5) % Lymphocytes # 0.6 L (1.0-4.8) k/uL Lymphocytes # (Manual) (1.0-4.8) k/uL Metamyelocytes # (Man) (0) k/uL Myelocytes # (Manual) (0) k/uL Potassium (3.5-5.1) mmol/L Chloride (98-107) mmol/L BUN (9-20) mg/dL Calcium (8.4-10.2) mg/dL Crossmatch Assessment and Plan Assessment: Gastric mass, no active bleeding. Pending biopsy Rectal ulcer 2, no active bleeding Upper and lower GI bleed Acute blood loss anemia secondary to above Hypotension dizziness secondary to above Hypertension Hyperlipidemia Diverticulosis COPD and chronic hypoxic respiratory failure on 2 L oxygen via [place] History of prostate cancer Plan: This is a pleasant 84 years old male who presents with upper GI bleed. Continue with monitoring hemoglobin and transfuse as needed. GI consult. Continue with Protonix. Hold heparin and aspirin. Hold Norvasc 5 mg and lisinopril 10 mg and monitor blood pressure. Also hold Lasix. Labs and medication were reviewed.. Continue same treatment. Continue with symptomatic treatment. Resume home medication. Monitor lytes and vitals. DVT and GI prophylaxis. Further recommendations of the clinical course of the patient DVT prophylaxis:no Subcutaneous heparin due to GI bleed GI Prophylaxis: Pepcid Prognosis is guarded
[2019-10-22] MEDS: ATORVASTATIN 10 MG TAB PO SCH (20:00)
[2019-10-22] MEDS: METOPROLOL TARTRATE 25 MG TAB PO SCH (20:01)
[2019-10-22] MEDS: SODIUM CHLORIDE 0.9% 1,000 ML IV SCH (23:48)
[2019-10-23 05:13] LABS: Anisocytosis Slight; Basophils % (A) 0 %; Eosinophils # (A) 0.1 k/uL (0-0.7); Eosinophils % (A) 2 %; HCT 28.6 % (39.0-53.0); HGB 9.2 gm/dL (13.0-17.5); Hypochromasia Marked; Lymphocytes # (A) 0.5 k/uL (1.0-4.8); Lymphocytes % (A) 6 %; MCH 26.3 pg (25.0-35.0); MCHC 32.1 g/dL (31.0-37.0); MCV 81.9 fL (80.0-100.0); Mean Platelet Volume 7.9; Monocytes # (A) 0.4 k/uL (0-1.0); Monocytes % (A) 4 %; Neutrophils # (A) 7.1 k/uL (1.3-7.7); Neutrophils % (A) 87 %; Platelet Count 180 k/uL (150-450); Poikilocytosis Moderate; RDW 16.5 % (11.5-15.5); WBC 8.2 k/uL (3.8-10.6)
[2019-10-23 05:38] LABS: African American GFR (CKD) >90 (>60 ml/min/1.73 sqM); Anion Gap 1 mmol/L; Blood Urea Nitrogen 18 mg/dL (9-20); Calcium 7.8 mg/dL (8.4-10.2); Carbon Dioxide 24 mmol/L (22-30); Chloride 114 mmol/L (98-107); Glucose 79 mg/dL (74-99); Non-African American GFR(CKD) 78 (>60 ml/min/1.73 sqM); Potassium 3.9 mmol/L (3.5-5.1); Sodium 139 mmol/L (137-145)
[2019-10-23] MEDS: SYMBICORT 160-4.5 MCG INHALER INHALATION SCH ×2 (08:54→20:18)
[2019-10-23] MEDS: PANTOPRAZOLE 40 MG/10 ML VIAL IV SCH ×2 (09:14→19:48)
[2019-10-23] MEDS: POTASSIUM CHLORIDE ER 10 MEQ TAB.ER.PRT PO SCH ×2 (09:14→19:48)
[2019-10-23] MEDS: METOPROLOL TARTRATE 25 MG TAB PO SCH ×2 (09:15→19:49)
[2019-10-23] MEDS: predniSONE 5 MG TAB PO SCH (09:16)
--- NOTE | 2019-10-23 13:42 | P.PN ---
Subjective This is a pleasant 84 years old male with past medical history of lower GI bleed about 2 years ago status post colonoscopy showing 4 polyps status post polypectomy and diffuse diverticulosis with no bleeding. Patient had laparoscopic cholecystectomy and repair of umbilical hernia last month on 08/26/[address] Spence. 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 Was complaining of from dizziness as well. No diarrhea or urinary problem. No fever. He follows up with Dr. Carranza for cardiac surgery done in 2003. He denies smoking On admission his blood pressure was on the low side 88/64. Hemoglobin was 6.7 on admission, he got 1 unit of blood transfusion. Hemoglobin this morning is 6.9, respiratory CBC is unremarkable, INR is 1.1, BMP and liver enzymes were unremarkable. Lactic acid was slightly elevated at 2.1 came back to normal at 1.0 chest x-ray reviewed by me: No acute process 10/22/2019 Patient is awake and alert no chest pain or abdominal pain. No other complaints. Patient underwent EGD and colonoscopy today. Results showing ulcerated gastric mass with no active bleeding, status post multiple biopsies, Colonoscopy reveal ed transverse colon polyp and 2 small proximal rectal ulcers with no active bleeding. Hemoglobin is stable at 9.3. Patient hemodynamically stable Patient continued to Protonix 40 mg IV twice daily Resume metoprolol 10/23/2019 Patient is awake and alert, sitting in chair with no problem, no abdominal pain, no nausea vomiting, tolerating that well. He did not have bowel movement but is passing gases. Patient is aware about the results of his colonoscopy and EGD which showed gastric mass about and he is waiting for the biopsy results which is pending now. Also he has 2 separate rectal ulcers which are nonbleeding. Vitals and labs including hemoglobin are stable. Patient remains on Protonix 40 mg IV twice daily. Review of Systems CONSTITUTIONAL: No fever, no malaise, no fatigue. HEENT: No recent visual problems or hearing problems. Denied any sore throat. CARDIOVASCULAR: No orthopnea, PND, no palpitations, no syncope. PULMONARY: No shortness of breath, no cough, no hemoptysis. GASTROINTESTINAL: No diarrhea, no nausea, no vomiting, no abdominal pain. Normoactive bowel sounds. NEUROLOGICAL: No headaches, no weakness, no numbness. HEMATOLOGICAL: Denies any bleeding or petechiae. GENITOURINARY: Denies any burning micturition, frequency, or urgency. MUSCULOSKELETAL/RHEUMATOLOGICAL: Denies any joint pain, swelling, or any muscle pain. ENDOCRINE: Denies any polyuria or polydipsia. Active Medications Generic Name Dose Route Start Last Admin Trade Name Freq PRN Reason Stop Dose Admin Albuterol Sulfate 2.5 mg 10/21/19 06:40 10/22/19 08:48 Ventolin Nebulized INHALATION 2.5 mg RT-QID PRN Administration Shortness Of Breath Atorvastatin Calcium 10 mg 10/21/19 21:00 10/22/19 20:00 Lipitor PO 10 mg HS [facility]NA Administration Budesonide/Formoterol Fumarate 2 puff 10/21/19 08:00 10/23/19 08:54 Symbicort 160-4.5 Mcg Inhaler INHALATION 2 puff RT-BID [facility] Administration Sodium Chloride 1,000 mls @ 20 mls/hr 10/20/19 22:00 10/22/19 23:48 Saline 0.9% IV 20 mls/hr .Q24H [facility] Administration Metoprolol Tartrate 25 mg 10/22/19 21:00 10/23/19 09:15 Lopressor PO 25 mg BID [facility]NA Administration Miscellaneous Information 1 each 10/21/19 03:12 Potassium Per Protocol MISCELLANE DAILY PRN Per Protocol Protocol Naloxone HCl 0.2 mg 10/20/19 21:59 Narcan IV Q2M PRN Opioid Reversal Pantoprazole Sodium 40 mg 10/21/19 09:00 10/23/19 09:14 Protonix IV 40 mg BID AMNA Administration Potassium Chloride 10 meq 10/21/19 09:00 10/23/19 09:14 K-Dur 10 PO 10 meq BID [facility]NA Administration Prednisone 2.5 mg 10/22/19 09:00 10/23/19 09:16 PO 2.5 mg QAM [facility] Administration Tramadol HCl 50 mg 10/21/19 06:40 Ultram PO Q6H PRN Pain Objective - Vital Signs Vital signs: Vital Signs Temp 98.2 F 10/23/19 08:00 Pulse 59 L 09/02/20 11:00 Resp 24 10/23/19 11:00 BP 105/53 10/23/19 11:00 Pulse Ox 97 10/23/19 11:00 Intake & Output 10/22/19 10/23/19 10/23/19 18:59 06:59 18:59 Intake Total 850 440 120 Output Total 750 850 100 Balance 100 -410 20 Weight 83.7 kg Intake: IV 370 240 120 Sodium Chloride 0.9% 1, 220 240 120 000 ml @ 20 mls/hr IV . Q24H [facility] Rx#:[id number] Oral 480 200 Output: Urine 750 850 100 Other: Voiding Method Urinal Urinal Urinal # Voids 1 1 # Bowel Movements 1 - Exam GENERAL: The patient is alert and oriented x3, not in any acute distress. Well developed, well nourished. HEENT: Pupils are round and equally reacting to light. EOMI. No scleral icterus. No conjunctival pallor. Normocephalic, atraumatic. No pharyngeal erythema. No thyromegaly. CARDIOVASCULAR: S1 and S2 present. No murmurs, rubs, or gallops. PULMONARY: Chest is clear to auscultation, no wheezing or crackles. ABDOMEN: Soft, nontender, nondistended, normoactive bowel sounds. No palpable organomegaly. MUSCULOSKELETAL: No joint swelling or deformity. EXTREMITIES: No cyanosis, clubbing, or pedal edema. NEUROLOGICAL: Gross neurological examination did not reveal any focal deficits. SKIN: No rashes. no petechiae. - Labs CBC & Chem 7: 10/23/19 04:01 10/23/19 04:01 Labs: Abnormal Lab Results - Last 24 Hours (Table) 10/23/19 10/23/19 Range/Units 04:01 04:01 RBC 3.50 L (4.30-5.90) m/uL Hgb 9.2 L (13.0-17.5) gm/dL Hct 28.6 L (39.0-53.0) % RDW 16.5 H (11.5-15.5) % Lymphocytes # 0.5 L (1.0-4.8) k/uL Chloride 114 H (98-107) mmol/L Calcium 7.8 L (8.4-10.2) mg/dL Assessment and Plan Assessment: Gastric mass, no active bleeding. Pending biopsy Rectal ulcer 2, no active bleeding Upper and lower GI bleed Acute blood loss anemia secondary to above Hypotension dizziness secondary to above Hypertension Hyperlipidemia Diverticulosis COPD and chronic hypoxic respiratory failure on 2 L oxygen via [place] History of prostate cancer Plan: This is a pleasant 84 years old male who presents with upper GI bleed. Continue with monitoring hemoglobin and transfuse as needed. GI consult. Continue with Protonix. Hold heparin and aspirin. Hold Norvasc 5 mg and lisinopril 10 mg and monitor blood pressure. Also hold Lasix. Labs and medication were reviewed.. Continue same treatment. Continue with symptomatic treatment. Resume home medication. Monitor lytes and vitals. DVT and GI prophylaxis. Further recommendations of the clinical course of the patient DVT prophylaxis:no Subcutaneous heparin due to GI bleed GI Prophylaxis: Pepcid Prognosis is guarded
--- NOTE | 2019-10-23 13:56 | P.PN ---
Subjective Progress Note Date: 10/23/19 Principal diagnosis: Acute GI bleeding 84-year-old white male patient with past medical history of coronary artery disease with previous history of bypass grafting, hypertension, hyperlipidemia, COPD, on home oxygen at 2 L at bedtime, BPH, history of prostate cancer was transferred from [facility] where patient went with complaints of weakness, bright red bloody vomiting. he was seen at the [facility] emergency department 2 days prior with complaints of weakness, and was found to be anemic with a hemoglobin of 7.9, he could not be transfused right away in view of presence of antibodies, he was observed and released home, however later developed hematemesis, and return for reevaluation. This time his hemoglobin was down to 6.4 and patient was also having melanotic stools. He denies any previous history of GI bleeding. He is admitted to feeling dizzy, he takes 5 mg of prednisone for his history of COPD, denies any alcohol use or chr onic NSAID use. Denied any abdominal pain, denied any nausea, no fevers or chills, no chest pain. No worsening dyspnea. He was also quite hypotensive in the emergency department with blood pressure 68/53, he received a liter and fluid boluses with 0.9 normal saline, and 1 unit of packed red blood cells, this morning patient's blood work revealed a hemoglobin of 7.0, with no evidence of ongoing bleeding, white blood cell count is 8.0, patient was started on a PPI therapy with Protonix 40 mg twice daily, GI evaluation is pending, EGD and colonoscopy scheduled for tomorrow on 10/22/2019. Patient was reevaluated today on 10/22/19, remains in the ICU, resting in bed, he is on 2 L nasal cannula, patient received a total of 3 units of packed RBCs since admission. Hemoglobin today is 9.3, he was seen by gastroenterology, and he is scheduled to undergo EGD and, sclera today. Patient remained hemodynamically stable, does not seem to be in any form of distress. Patient remains on Protonix, hemoglobin is being closely monitored, and he is receiving transfusion for hemoglobin below 7. Patient presented initially with a couple of episodes of hematemesis followed by 2 episodes of bright red blood per rectum. Patient is known to have remote history of peptic ulcer disease. He is also known to have history of chronic obstructive pulmonary disease maintained on small dose of oral prednisone 5 mg daily. Patient was reevaluated today on 10/23/19, remains in the ICU, no active bleeding clinically, patient underwent EGD and biopsy what seems to be a gastric mass, biopsies are pending. There was no active bleeding he also had a polyp removed from his colon. Presently the patient is hemodynamically stable, he is on oxygen at 2 L/m with O2 saturation of 96%. Received a total of 3 units of packed RBCs since admission and his hemoglobin today is 9.2. Considering the patient is hemodynamically stable and no active bleeding, I plan to transfer the patient out of the ICU to a regular medical floor. Objective - Vital Signs Vital signs: Vital Signs Temp 98.2 F 10/23/19 08:00 Pulse 59 L 10/23/19 11:00 Resp 24 10/23/19 11:00 BP 105/53 10/23/19 11:00 Pulse Ox 97 10/23/19 11:00 Intake & Output 10/22/19 10/23/19 10/23/19 18:59 06:59 18:59 Intake Total 850 440 120 Output Total 750 850 100 Balance 100 -410 20 Weight 83.7 kg Intake: IV 370 240 120 Sodium Chloride 0.9% 1, 220 240 120 000 ml @ 20 mls/hr IV . Q24H [facility] Rx#:[id number] Oral 480 200 Output: Urine 750 850 100 Other: Voiding Method Urinal Urinal Urinal # Voids 1 1 # Bowel Movements 1 - Exam Physical Exam: Revealed a 84-year-old white male in no distress. Head: Atraumatic, normocephalic. HEENT:[Neck is supple.] [No neck masses.] [No thyromegaly.] [No JVD.] PERRLA, EOMI, no icterus, Chest: [Clear throughout, no crackles, no rhonchi, no wheezes.] Cardiac Exam: [Normal S1 and S2, no S3 gallop, no murmur.] Abdomen: [Soft, nontender, no megaly, no rebound, no guarding, normal bowel sounds.] Extremities: [No clubbing, no edema, no cyanosis.] Good pulses bilaterally Neurological Exam: [No focal neurologic deficit.] Alert and oriented 3. Psychiatric: Normal mood affect and normal mental status examination. Skin: No rashes. Musculoskeletal no deformities and no limitation in range of motion. 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 Status post biopsies of gastric mass. Acute GI blood loss anemia. Hypotension secondary to hypovolemia History of coronary artery disease and previous CABG. History of chronic obstructive pulmonary disease maintained on home O2 and prednisone 5 mg daily History of cholecystectomy and repair of umbilical hernia 08/26/19. Recommendation: Transfer patient to a regular medical floor. Continue Protonix. Continue prednisone to 2.5 mg daily. Continue to hold diuretics. Continue to hold aspirin. Awaiting final biopsy from his gastric mass We'll continue to follow while in the ICU. Time with Patient: Less than 30
[2019-10-23] MEDS ORDERED: LIDOCAINE 1% (10MG/ML) FOR IV START INTRADERMA PRN (14:51)
[2019-10-23] MEDS: ALBUTEROL NEBULIZED 2.5 MG/3 ML INHALATION PRN (14:59)
[2019-10-23] MEDS: IOPAMIDOL CONTRAST (ORAL USE) VIAL PO PRN ×2 (15:02→15:58)
[2019-10-23] MEDS: LACTATED RINGERS 1,000 ML IV SCH (15:05)
--- NOTE | 2019-10-23 16:00 | P.PN ---
Subjective Progress Note Date: 10/23/19 Principal diagnosis: Acute Gastrointestinal bleed This is an 84-year-old male who was seen and evaluated in the ICU. The patient was admitted to the hospital after he presented with 2 episodes of nausea and vomiting with some fresh blood followed by multiple bloody bowel movements. He is status post 3 units of packed red blood cells. He underwent an EGD and colonoscopy yesterday with Dr. Ceron. The upper endoscopy revealed the GE junction ulcerated mass no active bleeding, status post multiple biopsies. The colonoscopy revealed 1 cm transverse colon polyp and 2 isolated small proximal rectal ulcers with no active bleeding. He denies any nausea, vomiting, or abdominal pain. He states he has not had a bowel movement today. He reports he is passing flatus. Objective - Vital Signs Vital signs: Vital Signs Temp 98.1 F 10/23/19 12:00 Pulse 64 10/23/19 15:09 Resp 16 10/23/19 15:09 BP 138/85 10/23/19 15:00 Pulse Ox 96 10/23/19 15:00 Intake & Output 10/22/19 10/23/19 10/23/19 18:59 06:59 18:59 Intake Total 850 440 120 Output Total 750 850 100 Balance 100 -410 20 Weight 83.7 kg Intake: IV 370 240 120 Sodium Chloride 0.9% 1, 220 240 120 000 ml @ 20 mls/hr IV . Q24H [facility] Rx#:[id number] Oral 480 200 Output: Urine 750 850 100 Other: Voiding Method Urinal Urinal Urinal # Voids 1 1 # Bowel Movements 1 - Exam General appearance: The patient is alert, oriented, in no acute distress. HET: Head is normocephalic and atraumatic. Conjunctiva pink. Sclera in-icteric Neck: Supple without lymphadenopathy. Trachea midline. Heart: S1 S2. Regular rate and rhythm. Lungs: No crackles or wheezes are heard. Abdomen: Soft, nontender, nondistended with bowel sounds. No guarding or rigidity. Extremities: Normal skin color and turgor. Neurological: No focal deficits. Alert and oriented. - Labs CBC & Chem 7: 10/23/19 04:01 10/23/19 04:01 Labs: Abnormal Lab Results - Last 24 Hours (Table) 10/23/19 10/23/19 Range/Units 04:01 04:01 RBC 3.50 L (4.30-5.90) m/uL Hgb 9.2 L (13.0-17.5) gm/dL Hct 28.6 L (39.0-53.0) % RDW 16.5 H (11.5-15.5) % Lymphocytes # 0.5 L (1.0-4.8) k/uL Chloride 114 H (98-107) mmol/L Calcium 7.8 L (8.4-10.2) mg/dL Assessment and Plan Assessment: 1. This patient presents to the hospital a couple of episodes of hematemesis followed by 2 episodes of bright red blood per rectum. The patient did not witness and could not give exact details whether he has had any melena or h ematemesis. According to the history. He did have hematemesis of bright red blood per rectum as witnessed by his family. Admission hemoglobin 7 which dropped to 6.9 after 1 unit of blood transfusion. He is now status post 3 units of packed red blood cells. Most likely dealing with an upper gastrointestinal source of bleeding but possibility of colonic source cannot be excluded. Last colonoscopy 2 years ago revealed multiple colon polyps and diverticulosis. 2. History of coronary artery disease, status post coronary artery bypass grafting and stent placement in the past. 3. Remote history of peptic ulcer disease. 4. History of chronic obstructive pulmonary disease, on oral prednisone. 5. History of hypercholesteremia Plan: 1. Continue with Protonix 40 mg twice daily 2. Advance diet as tolerated 3. EGD and colonoscopy was performed. He upper endoscopy revealed a GE junction ulcerated mass at 42 cm from the incisors extending into the cardia of the stomach, with no active bleeding, multiple biopsies obtained. Colonoscopy revealed 1 cm transverse colon polyp in 2 small proximal rectal ulcers with no active bleeding. Results were discussed with the patient and after procedure by Dr. Ceron. 4. Continue to monitor CBC daily and transfuse if hemoglobin is less than 7. 5. CT chest abdomen and pelvis ordered 6. We will continue to follow closely. Patient will need to follow-up after discharge for biopsy results. The impression and plan of care has been dictated as directed. Dr. María Ceron I performed a history and examination of this patient, discussed the same with the dictator. I agree with the dictator's note ,documented as a scribe. Any additional findings or plans will be noted.
--- NOTE | 2019-10-23 17:10 | CT ---
EXAMINATION TYPE: CT ChestAbdPelvis w con DATE OF EXAM: 10/23/2019 COMPARISON: None HISTORY: GE junction tumor. CT DLP: 1111.8 mGycm Automated exposure control for dose reduction was used. CONTRAST: Performed with IV Contrast, patient injected with 100 mL of Isovue 300. There are small bilateral pleural effusions. There is some mild atelectasis at the posterior lung bas es. Heart size is normal. There is no pericardial effusion. Thoracic aorta is atheromatous. There is no mediastinal adenopathy. There are a few mediastinal lymph nodes that measure less than 1 cm. There are no hilar masses. The ascending aorta measures 3.5 cm. There is increased soft tissue density at the gastroesophageal junction with a annular mass that measures 6.6 x 4.3 cm that appears to be circu mferentially thickening the wall of the esophagus. Mass extends slightly into the gastric fundus on t he posterior aspect. Liver and spleen appear intact. Bile ducts are not dilated. There are clips from cholecystectomy. Sto mach is not dilated. There is an apparent 3 cm diverticulum of the descending duodenum. This contains mostly air. There is no adrenal mass. Kidneys have normal size. There is 2 cm cortical cyst posterior left kidney . There is no hydronephrosis. Ureters are not dilated. Bladder distends smoothly. There is no inguina l hernia. There is some prostatic calcification. There is no free fluid in the pelvis. There is no mesenteric edema. There is no ascites or free air. There is no bowel obstruction. There a re large bowel diverticula. There is no sign of diverticulitis. Appendix is not definitely seen. Ther e is no sign of thickened appendix. Thoracic and lumbar vertebra have fairly normal alignment. There is multilevel lumbar vacuum disc phe nomenon. There is no compression fracture. I see no focal bone destruction. The bony pelvis is intact . Hip joints are intact. There are sternal wires. Ribs appear intact. 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 Small pleural effusions and basilar mild subsegmental atelectasis.
[2019-10-23] MEDS: ATORVASTATIN 10 MG TAB PO SCH (19:48)
[2019-10-24] MEDS: SODIUM CHLORIDE 0.9% 1,000 ML IV SCH (02:39)
[2019-10-24 04:16] VITALS: RESP 16
[2019-10-24] MEDS: SYMBICORT 160-4.5 MCG INHALER INHALATION SCH (07:19)
[2019-10-24 08:01] LABS: Anisocytosis Slight; Basophils % (A) 0 %; Eosinophils # (A) 0.2 k/uL (0-0.7); Eosinophils % (A) 2 %; HCT 30.7 % (39.0-53.0); HGB 9.4 gm/dL (13.0-17.5); Hypochromasia Marked; Lymphocytes # (A) 0.4 k/uL (1.0-4.8); Lymphocytes % (A) 5 %; MCH 25.8 pg (25.0-35.0); MCHC 30.7 g/dL (31.0-37.0); MCV 83.8 fL (80.0-100.0); Mean Platelet Volume 7.7; Monocytes # (A) 0.4 k/uL (0-1.0); Monocytes % (A) 5 %; Neutrophils # (A) 6.7 k/uL (1.3-7.7); Neutrophils % (A) 86 %; Platelet Count 211 k/uL (150-450); Poikilocytosis Moderate; RBC 3.67 m/uL (4.30-5.90); RDW 16.4 % (11.5-15.5); WBC 7.8 k/uL (3.8-10.6)
[2019-10-24] MEDS: POTASSIUM CHLORIDE ER 10 MEQ TAB.ER.PRT PO SCH (08:24)
[2019-10-24] MEDS: PANTOPRAZOLE 40 MG/10 ML VIAL IV SCH (08:24)
[2019-10-24] MEDS: predniSONE 5 MG TAB PO SCH (08:24)
[2019-10-24] MEDS: METOPROLOL TARTRATE 25 MG TAB PO SCH (08:24)
[2019-10-24 08:26] LABS: Calcium 7.8 mg/dL (8.4-10.2); Potassium 4.2 mmol/L (3.5-5.1)
--- NOTE | 2019-10-24 11:26 | P.PN ---
Subjective Progress Note Date: 10/24/19 Principal diagnosis: Acute GI bleed 84-year-old white male patient with past medical history of coronary artery disease with previous history of bypass grafting, hypertension, hyperlipidemia, COPD, on home oxygen at 2 L at bedtime, BPH, history of prostate cancer was transferred from [facility] where patient went with complaints of weakness, bright red bloody vomiting. he was seen at the [facility] emergency department 2 days prior with complaints of weakness, and was found to be anemic with a hemoglobin of 7.9, he could not be transfused right away in view of presence of antibodies, he was observed and released home, however later developed hematemesis, and return for reevaluation. This time his hemoglobin was down to 6.4 and patient was also having melanotic stools. He denies any previous history of GI bleeding. He is admitted to feeling dizzy, he takes 5 mg of prednisone for his history of COPD, denies any alcohol use or chronic NSAID use. Denied any abdominal pain, denied any nausea, no fevers or chills, no chest pain. No worsening dyspnea. He was also quite hypotensive in the emergency department with blood pressure 68/53, he received a liter and fluid boluses with 0.9 normal saline, and 1 unit of packed red blood cells, this morning patient's blood work revealed a hemoglobin of 7.0, with no evidence of ongoing bleeding, white blood cell count is 8.0, patient was started on a PPI therapy with Protonix 40 mg twice daily, GI evaluation is pending, EGD and colonoscopy scheduled for tomorrow on 10/22/2019. Patient was reevaluated today on 10/22/19, remains in the ICU, resting in bed, he is on 2 L nasal cannula, patient received a total of 3 units of packed RBCs since admission. Hemoglobin today is 9.3, he was seen by gastroenterology, and he is scheduled to undergo EGD and, sclera today. Patient remained he modynamically stable, does not seem to be in any form of distress. Patient remains on Protonix, hemoglobin is being closely monitored, and he is receiving transfusion for hemoglobin below 7. Patient presented initially with a couple of episodes of hematemesis followed by 2 episodes of bright red blood per rectum. Patient is known to have remote history of peptic ulcer disease. He is also known to have history of chronic obstructive pulmonary disease maintained on small dose of oral prednisone 5 mg daily. Patient was reevaluated today on 10/23/19, remains in the ICU, no active bleeding clinically, patient underwent EGD and biopsy what seems to be a gastric mass, biopsies are pending. There was no active bleeding he also had a polyp removed from his colon. Presently the patient is hemodynamically stable, he is on oxygen at 2 L/m with O2 saturation of 96%. Received a total of 3 units of packed RBCs since admission and his hemoglobin today is 9.2. Considering the patient is hemodynamically stable and no active bleeding, I plan to transfer the patient out of the ICU to a regular medical floor. The patient is seen today 10/24/2019 in follow-up on the regular medical floor. He is currently sitting up at the bedside. Awake and alert in no acute distress. No active bleeding. Biopsies the gastric mass from EGD are pending. He is status post 3 units of packed red blood cells this admission. Current hemoglobin 9.4. White count 7.8. Hemoglobin 9.4. Sodium 138. Potassium 4.2. Creatinine 0.90. Objective - Vital Signs Vital signs: Vital Signs Temp 97.9 F 10/24/19 04:15 Pulse 80 10/24/19 08:00 Resp 16 10/24/19 08:00 BP 131/74 10/24/19 04:15 Pulse Ox 96 10/24/19 07:19 Intake & Output 10/23/19 10/24/19 10/24/19 18:59 06:59 18:59 Intake Total 120 Output Total 100 Balance 20 Intake: IV 120 Sodium Chloride 0.9% 1, 120 000 ml @ 20 mls/hr IV . Q24H [facility] Rx#:[id number] Output: Urine 100 Other: Voiding Method Urinal Urinal Toilet Urinal # Voids 1 1 - Exam GENERAL EXAM: Alert, active, 84-year-old gentleman, on 2 L nasal cannula, comfortable in no apparent distress. HEAD: Normocephalic. EYES: Normal reaction of pupils, equal size. NOSE: Clear with pink turbinates. THROAT: No erythema or exudates. NECK: No masses, no JVD. CHEST: No chest wall deformity. LUNGS: Equal air entry with no crackles, wheeze, rhonchi or dullness. CVS: S1 and S2 normal with no audible murmur, regular rhythm. ABDOMEN: No hepatosplenomegaly, normal bowel sounds, no guarding or rigidity. SPINE: No scoliosis or deformity SKIN: No rashes CENTRAL NERVOUS SYSTEM: No focal deficits, tone is normal in all 4 extremities. EXTREMITIES: There is no peripheral edema. No clubbing, no cyanosis. Peripheral pulses are intact. 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 Status post biopsies of gastric mass. Acute GI blood loss anemia. Hypotension secondary to hypovolemia History of coronary artery disease and previous CABG. History of chronic obstructive pulmonary disease maintained on home O2 and prednisone 5 mg daily History of cholecystectomy and repair of umbilical hernia 08/26/19. Plan: The patient was seen and evaluated by Dr. Iris Stanton from the pulmonary and critical care standpoint Titrate down the FiO2 as tolerated CT reveals 6.6 x 4.3 cm mass at the GE junction, biopsy pending Consult to oncology Home once cleared by medicine I, the cosigning physician, performed a history & physical examination of the patient. Lungs sounds are clear. Maintaining good O2 saturations in the 90s on 2 L/m per nasal cannula. I discussed the assessment and plan of care with my nurse practitioner, Olivia Osuna. I attest to the above note as dictated by her.
[2019-10-24 12:19] VITALS: BP 161/89; TEMP 97.6
--- NOTE | 2019-10-24 13:02 | P.CONS ---
History of Present Illness - History of Present Illness Mr. 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 His colonoscopy revealed polyps in a few small ulcerations that were treated locally. Patient had a 6.5 hemoglobin on admission. He is receiving transfusions for hemoglobin less than 7. Patient has a past medical history of CAD with stenting, s/p CABG, COPD, hypertension, hyperlipidemia, O2 dependence and a remote history of prostate cancer. Had laparoscopic cholecystectomy and repair of umbilical hernia 08/26/19. Patient said that his family is "full of cancer". Brother, sister, 2 grandparents, 2 uncles and his mother who of leukemia at age 49. Patient states that he was brought to the hospital because he was told that there was blood in his vomit and blood in his stool-he states he never saw any. Denies any difficulty in swallowing, painful swallowing, unintentional weight loss, increased incidence of heartburn, chest pain, his breathing is stable, he has not noted any changes in his bowel habits, he is denying any new pain. He states to me that he is pretty active, he lives at home with his , he has a very supportive family. Review of Systems 14 point review of systems is as stated in HPI Past Medical History Past Medical History: Coronary Artery Disease (CAD), Cancer, COPD, Hyperlipidemia, Hypertension, Myocardial Infarction ([place]), Prostate Disorder Additional Past Medical History / Comment(s): uses O2@2 L NC at night,enlarged prostate,daily prednisone, prostate cancer, kidney stone Last Myocardial Infarction Date:: 2003 History of Any Multi-Drug Resistant Organisms: None Reported Past Surgical History: Appendectomy, Cholecystectomy, Coronary Bypass/CABG, Heart Catheterization With Stent Additional Past Surgical History / Comment(s): CABG-4vessel 2004,heart stents x 3,teeth extraction,andrez cataracts Past Anesthesia/Blood Transfusion Reactions: No Reported Reaction Date of Last Stent Placement:: 03-01-03 Past Psychological History: No Psychological Hx Reported Past Alcohol Use History: None Reported Past Drug Use History: None Reported - Past Family History Mother Family Medical History: Cancer Additional Family Medical History / Comment(s): leukemia Father Family Medical History: Myocardial Infarction ([place]) Medications and Allergies Home Medications Medication Instructions Recorded Confirmed Type Aspirin 81 mg PO DAILY 05/16/16 10/21/19 History Budesonide/Formoterol Fumarate 2 puff INHALATION RT-BID 05/16/16 10/21/19 History [Symbicort 160-4.5 Mcg Inhaler] Lisinopril [Prinivil] 10 mg PO HS 05/16/16 10/21/19 History Metoprolol Tartrate [Lopressor] 25 mg PO BID 05/16/16 10/21/19 History Potassium Chloride [Klor-Con 10 meq PO BID 05/16/16 10/21/19 History Sprinkle] amLODIPine [Norvasc] 5 mg PO HS 05/16/16 10/21/19 History predniSONE 5 mg PO QAM 05/16/16 10/21/19 History Furosemide [Lasix] 20 mg PO DAILY@1200 08/21/19 10/21/19 History Albuterol Nebulized [Ventolin 2.5 mg INHALATION RT-Q4H PRN 10/21/19 10/21/19 History Nebulized] Albuterol Sulfate [Ventolin HFA] 2 puff INHALATION RT-Q6H PRN 10/21/19 10/21/19 History Ferrous Sulfate [Feosol] 325 mg PO DAILY 10/21/19 10/21/19 History Furosemide [Lasix] 40 mg PO QAM 10/21/19 10/21/19 History Ipratropium Nebulized [Atrovent 0.5 mg INHALATION RT-Q4H PRN 10/21/19 10/21/19 History Nebulized 0.2 MG/ML] Simvastatin [Zocor] 40 mg PO DAILY 10/21/19 10/21/19 History Allergies Allergy/AdvReac Type Severity Reaction Status Date / Time Penicillins Allergy Swelling Verified 10/21/19 10:38 codeine AdvReac constipatio Verified 10/21/19 10:38 n Physical Exam Vitals: Vital Signs Temp Pulse Pulse Pulse Resp BP BP 10/24/19 12:18 97.6 F 75 16 161/89 10/24/19 08:00 80 16 10/24/19 07:19 10/24/19 04:15 97.9 F 76 16 131/74 10/23/19 20:21 98.0 F 83 18 130/69 10/23/19 18:00 146/77 10/23/19 17:00 64 20 10/23/19 16:00 98.2 F 67 25 H 118/65 10/23/19 15:09 64 16 10/23/19 15:01 65 12 10/23/19 15:00 65 24 138/85 10/23/19 14:00 65 22 120/67 10/23/19 13:00 64 20 130/76 Pulse Ox 10/24/19 12:18 94 L 10/24/19 08:00 10/24/19 07:19 96 10/24/19 04:15 97 10/23/19 20:21 98 10/23/19 18:00 10/23/19 17:00 96 10/23/19 16:00 94 L 10/23/19 15:09 10/23/19 15:01 10/23/19 15:00 96 10/23/19 14:00 96 10/23/19 13:00 96 Intake and Output 10/23/19 10/24/19 10/24/19 22:59 06:59 14:59 Other: Voiding Method Urinal Toilet Urinal # Voids 1 1 - Constitutional General appearance: cooperative, mild distress, obese - EENT Eyes: anicteric sclerae, EOMI ENT: hearing grossly normal, normal oropharynx - Neck Neck: no lymphadenopathy - Respiratory Respiratory: bilateral: diminished - Cardiovascular Heart sounds: normal: S1, S2 Abnormal Heart Sounds: no systolic murmur, no diastolic murmur, no rub, no S3 Gallop, no S4 Gallop, no click, no other leg Peripheral Edema: bilateral: None - Gastrointestinal General gastrointestinal: no absent bowel sounds, no decreased bowel sounds, no distended, no hepatomegaly, no hyperactive bowel sounds, normal bowel sounds, no organomegaly, no rigid, no scaphoid, soft, no splenomegaly, no tenderness, no umbilical hernia, no ventral hernia - Neurologic Neurologic: CNII-XII intact - Musculoskeletal Musculoskeletal: strength equal bilaterally - Psychiatric Psychiatric: A&O x's 3, appropriate affect, intact judgment & insight Results CBC & Chem 7: 10/24/19 06:37 10/24/19 06:37 Labs: Abnormal Lab Results - Last 24 Hours (Table) 10/24/19 10/24/19 Range/Units 06:37 06:37 RBC 3.67 L (4.30-5.90) m/uL Hgb 9.4 L (13.0-17.5) gm/dL Hct 30.7 L (39.0-53.0) % MCHC 30.7 L (31.0-37.0) g/dL RDW 16.4 H (11.5-15.5) % Lymphocytes # 0.4 L (1.0-4.8) k/uL Chloride 110 H (98-107) mmol/L Calcium 7.8 L (8.4-10.2) mg/dL CT scan - abdomen: report reviewed CT scan - chest: report reviewed CT scan - pelvis: report reviewed Assessment and Plan (1) Esophageal mass Narrative/Plan: Patient is status post endoscopy with Dr. Ceron. Pending biopsy results. CT of the chest abdomen and pelvis does not appear to show any metastatic disease. Case was discussed with Radiation Oncology. Radiation Oncology will be consulted. Patient is in pretty decent shape for an 84-year-old. Esophageal surgery with gastric pull-through is a aggressive surgery. Chemo-radiation can provide similar outcomes to surgery when it comes to cure rates in esophageal cancer patients. We will be sure to explore all of the options with the patient and his family so that they can choose what they feel is best. I discussed this with this patient. He asked me to talk with his son Brett. I've taken his phone number and I will contact him as soon as I'm able. Current Visit: Yes Status: Acute Priority: High Code(s): K22.8 - OTHER SPECIFIED DISEASES OF ESOPHAGUS SNOMED Code(s): 015963659 (2) Anemia Narrative/Plan: Likely a degree of acute on chronic. Anemia workup ordered. Agree with t ransfusions to keep hemoglobin 7 or higher. Current Visit: Yes Status: Acute Priority: High Code(s): D64.9 - ANEMIA, UNSPECIFIED SNOMED Code(s): 506496308
--- NOTE | 2019-10-24 14:52 | PN ---
PROGRESS NOTE DATE OF SERVICE: 10/24/2019 Patient is an 84-year-old pleasant white male admitted to hospital with acute GI bleed. He underwent an upper endoscopy 2 days ago and was noted to have ulcerated mass in the GE junction extending into the cardia of the stomach, but no active bleeding. Multiple biopsies were done from the lesion. Biopsies are still pending at the time of this dictation. He did have a CT of the abdomen and pelvis done yesterday that showed a 6.6 x 4.3 cm mass at the GE junction consistent with a tumor. Oncology has been consulted. I have evaluated the patient. At this time we are awaiting the biopsy results. In the meantime, he denies any abdominal pain, reports no nausea, vomiting. No rectal bleeding or melena. PHYSICAL EXAMINATION: Appears comfortable, in no apparent distress. Vital signs are stable, blood pressure is 112/86, pulse 82 per minute and afebrile. HEENT: Examination unremarkable. Conjunctivae are pink. Sclerae nonicteric. Oral cavity no lesions. NECK: No JVD or lymph node enlargement. CHEST: Clear to auscultation. HEART: Regular rate and rhythm. ABDOMEN: Soft, there was mild tenderness in the epigastric area. Bowel sounds are positive, no organomegaly. EXTREMITIES: No pedal edema. NEURO: He is alert and oriented x3. No focal deficits. LABS: WBC 7.8, hemoglobin 9.4, platelets normal. Basic metabolic panel is within normal limits. IMPRESSION: 1. GE junction ulcerated mass, status post biopsies. Pathology is still pending. CT of the abdomen and pelvis done yesterday showed a 6 x 4 cm mass at the GE junction, consistent with neoplasm. Oncology is following the patient closely. 2. Anemia with stable hemoglobin, status post 3 units of PRBC transfusion, last hemoglobin is 9.4 g/dL. 3. History of hypertension and hypercholesteremia. RECOMMENDATIONS: 1. Await biopsy results. 2. Continue Protonix 40 mg twice daily. 3. Advance diet as tolerated. 4. Will follow with you closely. Thank you for this consultation. MMODL / IJN: [id number] /
[2019-10-24] MEDS: LACTATED RINGERS 1,000 ML IV SCH (15:04)
[2019-10-24 15:27] VITALS: PULSE 83
--- NOTE | 2019-10-25 00:43 | P.DS ---
Providers Date of admission: 10/20/19 22:00 Attending physician: Eric Garcia Consults: 10/20/19 21:59 Consult Physician Urgent Consulting Provider: Sanjiv Donahue Consult Reason/Comments: acute ugib Do you want consulting provider notified?: Yes 10/20/19 22:00 Consult Physician Stat Consulting Provider: Jesica Dutton Consult Reason/Comments: acute gi bleed Do you want consulting provider notified?: Already Contacted 10/24/19 10:44 Consult Physician Routine Consulting Provider: Lane Mon Consult Reason/Comments: suspect esophageal malignancy Do you want consulting provider notified?: Yes, Notify in am 10/24/19 13:02 Consult Physician Routine Consulting Provider: Forest Arteaga Consult Reason/Comments: Esophageal mass Do you want consulting provider notified?: Already Contacted Primary care physician: Live Laurent [facility] Course: Diagnoses: Gastric mass, no active bleeding. Pending biopsy Rectal ulcer 2, no active bleeding Upper and lower GI bleed Acute blood loss anemia secondary to above Hypotension dizziness secondary to above Hypertension Hyperlipidemia Diverticulosis COPD and chronic hypoxic respiratory failure on 2 L oxygen via [place] History of prostate cancer Hospital course: This is a pleasant 84 years old male with past medical history of lower GI bleed about 2 years ago status post colonoscopy showing 4 polyps status post polypectomy and diffuse diverticulosis with no bleeding. Presents because of upper and lower GI bleed. He underwent EGD and colonoscopy by GI team, Results showing ulcerated gastric mass with no active bleeding, status post multiple biopsies, Colonoscopy revealed transverse colon polyp and 2 small proximal rectal ulcers with no active bleeding. Hemoglobin remained stable upon discharge at 9.4. Patient has no other complaints Patient also has been evaluated by oncology team, CT of the chest and abdomen and pelvis showing no signs of metastasis. Patient remains asymptomatic on the day of discharge Patient was adamant to leave, I talked to the patient and his son Mr. West at bedside I explained to them that the result of the stomach biopsy are still pending however they did not want to wait for the biopsy and they were adamant about leaving and follow-up as an outpatient. Patient was cleared for discharge by all consultants including ulnar/critical care team, crt and by oncology service Patient is discharged on Protonix Problems and management plan were discussed with the patient and he verbalized understanding and acceptance Patient was found stable and can be discharged home and guarded prognosis however he needs follow-up as an outpatient. Patient was instructed to follow up with PCP within one week and patient agrees Patient and his son agree with the appointments made for him with Dr. Laurent on 10/28 at 3:15, and Dr. Fernandes the gastroenterologsit on 10/28 at 12:30, and patient and his son stated they will follow-up. Stab they could not make appointment for the patient with Dr. Mon however the patient and Mr. West stated they will call and make their own appointment. Mr. West told me that he is going to follow-up the biopsy results for his stomach and him as well as his father are aware of the possibility of stomach cancer Gen: patient is a AAOx3, no distress CVS: S1-S2, RRR, no murmur Lungs: B/L CTA, no wheezing Abdomen: soft, no distention, no tenderness, positive bowel sounds Extremity: no leg edema or induration Time spent more than 35 minutes Patient Condition at Discharge: Serious Plan - Discharge Summary Discharge Rx Participant: Yes New Discharge Prescriptions: New Atorvastatin [Lipitor] 10 mg PO HS #30 tab predniSONE 2.5 mg PO QAM #15 tab Pantoprazole Sodium [Protonix] 40 mg PO BID #60 tablet. Continue Budesonide/Formoterol Fumarate [Symbicort 160-4.5 Mcg Inhaler] 2 puff INHALATION RT-BID Potassium Chloride [Klor-Con Sprinkle] 10 meq PO BID Metoprolol Tartrate [Lopressor] 25 mg PO BID Lisinopril [Prinivil] 10 mg PO HS Aspirin 81 mg PO DAILY Furosemide [Lasix] 20 mg PO DAILY@1200 Furosemide [Lasix] 40 mg PO QAM Albuterol Sulfate [Ventolin HFA] 2 puff INHALATION RT-Q6H PRN PRN Reason: Shortness Of Breath Albuterol Nebulized [Ventolin Nebulized] 2.5 mg INHALATION RT-Q4H PRN PRN Reason: Shortness Of Breath Ipratropium Nebulized [Atrovent Nebulized 0.2 MG/ML] 0.5 mg INHALATION RT-Q4H PRN PRN Reason: Shortness Of Breath Simvastatin [Zocor] 40 mg PO DAILY Ferrous Sulfate [Iron (65 MG Elemental)] 325 mg PO DAILY Discontinued predniSONE 5 mg PO QAM amLODIPine [Norvasc] 5 mg PO HS Discharge Medication List Aspirin 81 mg PO DAILY 05/16/16 [History] Budesonide/Formoterol Fumarate [Symbicort 160-4.5 Mcg Inhaler] 2 puff INHALATION RT-BID 05/16/16 [History] Lisinopril [Prinivil] 10 mg PO HS 05/16/16 [History] Metoprolol Tartrate [Lopressor] 25 mg PO BID 05/16/16 [History] Potassium Chloride [Klor-Con Sprinkle] 10 meq PO BID 05/16/16 [History] Furosemide [Lasix] 20 mg PO DAILY@1200 08/21/19 [History] Albuterol Nebulized [Ventolin Nebulized] 2.5 mg INHALATION RT-Q4H PRN 10/21/19 [History] Albuterol Sulfate [Ventolin HFA] 2 puff INHALATION RT-Q6H PRN 10/21/19 [History] Ferrous Sulfate [Iron (65 MG Elemental)] 325 mg PO DAILY 10/21/19 [History] Furosemide [Lasix] 40 mg PO QAM 10/21/19 [History] Ipratropium Nebulized [Atrovent Nebulized 0.2 MG/ML] 0.5 mg INHALATION RT-Q4H PRN 10/21/19 [History] Simvastatin [Zocor] 40 mg PO DAILY 10/21/19 [History] Atorvastatin [Lipitor] 10 mg PO HS #30 tab 10/24/19 [Rx] Pantoprazole Sodium [Protonix] 40 mg PO BID #60 tablet. 10/24/19 [Rx] predniSONE 2.5 mg PO QAM #15 tab 10/24/19 [Rx] Follow up Appointment(s)/Referral(s): Lane Mon MD [STAFF PHYSICIAN] - 10 Days (Please call the office to set up appt. time and date.) Live Laurent MD [Primary Care Provider] - 10/29/19 3:15 pm (Appointment will be with Kelle Russell NP.) Sanjiv Donahue MD [STAFF PHYSICIAN] - 10/29/19 12:30 pm Activity/Diet/Wound Care/Special Instructions: heart healthy diet activity is limited till you see your doctor please follow up the result of your stomach biopsy with your doctors Discharge Disposition: HOME SELF-CARE
--- NOTE | 2019-10-27 10:17 | CDI ---
Documentation Clarification Form Date: 10/27/2019 1013 CDS: Sanjuanita Joyce RN, CCDS Admit Date: 10/20/2019 2200 Patient Name: Graham Ashby Discharge Date: 10/24/2019 1627 ATTENTION: The Clinical Documentation Specialists (CDI) and [facility] Coding Staff appreciate your assistance in clarifying documentation. Please respond to the clarification below the line at the bottom and electronically sign. The CDI & [facility] Coding staff will review the response and follow-up if needed. Please note: Queries are made part of the Legal Health Record. If you have any questions, please contact the author of this message via ITS. Dr. Beck Please review the final pathology from the patients EGD and Colonoscopy and provide documentation to accurately reflect patients SOI/ROM. The final diagnosis of the pathology report states: Signed 10/24 Documentation states: "Final Pathologic Diagnosis A. 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 See note. B. TRANSVERSE COLON, BIOPSY: Tubular adenoma. C. RECTUM, BIOPSY: Acute ischemic type colitis. Patient Care Technician material from this case was also reviewed by Dr. Barry Evans, who agrees with the diagnosis of malignancy." Patient history/risk factors: Lower GIB, polypectomy, diffuse diverticulosis, prostate cancer Clinical Indicators: 10/24 D/C Summary: "acute GIB. 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 TRANSVERSE COLON, BIOPSY: Tubular adenoma. RECTUM, BIOPSY: Acute ischemic type colitis? Yes No Other (please specify) Unable to determine Please continue to document in your progress notes and discharge summary in order to capture severity of illness and risk of mortality. Include clinical findings that support your diagnosis. please refer to GI and other notes MTDD
--- NOTE | 2019-10-29 10:23 | P.CONS ---
History of Present Illness - Reason for Consult Consult date: 10/24/19 Possible Esophageal Cancer - Chief Complaint Upper GI bleed - History of Present Illness Mr. Nicholas is an 84 years old gentleman presented with hematemesis and severe anemia patient was vomiting bright blood , he was weak. The patient has multiple medical problems consisting of COPD hyperlipidemia coronary artery disease he is in 2 L oxygen at home the patient was transferred from [facility] to the [facility] for further evaluation, he was complaining of dizziness weakness his hemoglobin dropped to 6, after admission he had a blood transfusion 3 bags of blood , his hemoglobin improved and been stable since then. The patient underwent upper EGD it was found he has ulcerated mass extended to the cardia of the stomach , multiple biopsies were taken from this area , All other labs normal.there was no active bleeding. The results of biopsy still bending. At this time the patient feels better , he complains of shortness of breath , he denies pain , he is able to swallow soft foods , denies nausea or vomiting Review of Systems Constitutional: Reports anorexia Past Medical History Past Medical History: Coronary Artery Disease (CAD), Cancer, COPD, Hyperlipidemia, Hypertension, Myocardial Infarction ([place]), Prostate Disorder Additional Past Medical History / Comment(s): uses O2@2 L [place] at night,enlarged prostate,daily prednisone, prostate cancer, kidney stone Last Myocardial Infarction Date:: 2003 History of Any Multi-Drug Resistant Organisms: None Reported Past Surgical History: Appendectomy, Cholecystectomy, Coronary Bypass/CABG, Heart Catheterization With Stent Additional Past Surgical History / Comment(s): CABG-4vessel 2003,heart stents x 3,teeth extraction,anderz cataracts Past Anesthesia/Blood Transfusion Reactions: No Reported Reaction Date of Last Stent Placement:: 03-01-03 Past Psychological History: No Psychological Hx Reported Past Alcohol Use History: None Reported Past Drug Use History: None Reported - Past Family History Mother Family Medical History: Cancer Additional Family Medical History / Comment(s): leukemia Father Family Medical History: Myocardial Infarction ([place]) Medications and Allergies Home Medications Medication Instructions Recorded Confirmed Type Aspirin 81 mg PO DAILY 05/16/16 10/21/19 History Budesonide/Formoterol Fumarate 2 puff INHALATION RT-BID 05/16/16 10/21/19 Histo ry [Symbicort 160-4.5 Mcg Inhaler] Lisinopril [Prinivil] 10 mg PO HS 05/16/16 10/21/19 History Metoprolol Tartrate [Lopressor] 25 mg PO BID 05/16/16 10/21/19 History Potassium Chloride [Klor-Con 10 meq PO BID 05/16/16 10/21/19 History Sprinkle] Furosemide [Lasix] 20 mg PO DAILY@1200 08/21/19 10/21/19 History Albuterol Nebulized [Ventolin 2.5 mg INHALATION RT-Q4H PRN 10/21/19 10/21/19 History Nebulized] Albuterol Sulfate [Ventolin HFA] 2 puff INHALATION RT-Q6H PRN 10/21/19 10/21/19 History Ferrous Sulfate [Iron (65 MG 325 mg PO DAILY 10/21/19 10/21/19 History Elemental)] Furosemide [Lasix] 40 mg PO QAM 10/21/19 10/21/19 History Ipratropium Nebulized [Atrovent 0.5 mg INHALATION RT-Q4H PRN 10/21/19 10/21/19 History Nebulized 0.2 MG/ML] Simvastatin [Zocor] 40 mg PO DAILY 10/21/19 10/21/19 History Atorvastatin [Lipitor] 10 mg PO HS #30 tab 10/24/19 Rx Pantoprazole Sodium [Protonix] 40 mg PO BID #60 tablet. 10/24/19 Rx predniSONE 2.5 mg PO QAM #15 tab 10/24/19 Rx Allergies Allergy/AdvReac Type Severity Reaction Status Date / Time Penicillins Allergy Swelling Verified 10/21/19 10:38 codeine AdvReac constipatio Verified 10/21/19 10:38 n Results CBC & Chem 7: 10/24/19 06:37 10/24/19 06:37 Assessment and Plan Assessment: upper GI bleeding anemia presented with a hemoglobin of 6.7, weight loss more than 30 pounds in 1 year and weakness . Upper endoscopy revealed an ulcerated mass mass in the lower esophagus and GE junction, biopsy was done, the results are still pending. Images were reviewed including the computed tomography scan of the chest abdomen it has revealed thickening and a mass in the lower esophagus suspicious for cancer Plan waiting for the biopsy results if it's comes back positive for malignancy the patient will have a staging workup consisting of PET scan to rule out distal metastatic disease. If the patient has a localized disease , he would be a candidate for neoadjuvant concurrent chemo and radiation to be followed by surgical resection if he is eligible. I talked to Mr. Ashby and his daughter about the plan of radiotherapy, the final decision would be based on the staging workup and the pathology report, if the patient continues with hematemesis and and active bleeding he would have a palliative course of external beam radiation therapy , otherwise he can have radiation as part neoadjuvant concurrent chemoradiation for curative intent . At this time the patient is not actively bleeding, hemoglobin is stable. The patient will continue soft puree diet
--- NOTE | 2019-11-07 09:02 | CDI ---
Documentation Clarification Form Date: 10/27/2019 1013 CDS: Sanjuanita Joyce RN, CCDS Admit Date: 10/20/2019 2200 Patient Name: Graham Ashby Discharge Date: 10/24/2019 1627 ATTENTION: The Clinical Documentation Specialists (CDI) and [facility] Coding Staff appreciate your assistance in clarifying documentation. Please respond to the clarification below the line at the bottom and electronically sign. The CDI & [facility] Coding staff will review the response and follow-up if needed. Please note: Queries are made part of the Legal Health Record. If you have any questions, please contact the author of this message via ITS. Dr. Julienne Ceron Please review the final pathology from the patients EGD and Colonoscopy and provide documentation to accurately reflect patients SOI/ROM. The final diagnosis of the pathology report states: Signed 10/24 Documentation states: "Final Pathologic Diagnosis A. 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 See note. B. TRANSVERSE COLON, BIOPSY: Tubular adenoma. C. RECTUM, BIOPSY: Acute ischemic type colitis. Hairpiece Stylist material from this case was also reviewed by Dr. Barry Evans, who agrees with the diagnosis of malignancy." Patient history/risk factors: Lower GIB, polypectomy, diffuse diverticulosis, prostate cancer Clinical Indicators: 10/24 D/C Summary: "acute GIB. 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 TRANSVERSE COLON, BIOPSY: Tubular adenoma. RECTUM, BIOPSY: Acute ischemic type colitis? Yes No Other (please specify) Unable to determine Please continue to document in your progress notes and discharge summary in order to capture severity of illness and risk of mortality. Include clinical findings that support your diagnosis. MTDD
--- NOTE | 2019-11-09 08:03 | CDI ---
Documentation Clarification Form 2nd Rquest Date: 10/27/2019 1013 CDS: Sanjuanita oJyce RN, CCDS Admit Date: 10/20/2019 2200 Patient Name: Graham Ashby Discharge Date: 10/24/2019 1627 ATTENTION: The Clinical Documentation Specialists (CDI) and [facility] Coding Staff appreciate your assistance in clarifying documentation. Please respond to the clarification below the line at the bottom and electronically sign. The CDI & [facility] Coding staff will review the response and follow-up if needed. Please note: Queries are made part of the Legal Health Record. If you have any questions, please contact the author of this message via ITS. Dr. Beck Please review the final pathology from the patients EGD and Colonoscopy and provide documentation to accurately reflect patients SOI/ROM. The final diagnosis of the pathology report states: Signed 10/24 Documentation states: "Final Pathologic Diagnosis A. 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 See note. B. TRANSVERSE COLON, BIOPSY: Tubular adenoma. C. RECTUM, BIOPSY: Acute ischemic type colitis. Household Appliance Repairer material from this case was also reviewed by Dr. Barry Evans, who agrees with the diagnosis of malignancy." Patient history/risk factors: Lower GIB, polypectomy, diffuse diverticulosis, prostate cancer Clinical Indicators: 10/24 D/C Summary: "acute GIB. 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 TRANSVERSE COLON, BIOPSY: Tubular adenoma. RECTUM, BIOPSY: Acute ischemic type colitis? Yes No Other (please specify) Unable to determine Please continue to document in your progress notes and discharge summary in order to capture severity of illness and risk of mortality. Include clinical findings that support your diagnosis. MTDD
--- NOTE | 2019-11-14 07:16 | CDI ---
Documentation Clarification Form 3rd request Date: 10/27/2019 1013 CDS: Sanjuanita Joyce RN, CCDS Admit Date: 10/20/2019 2200 Patient Name: Graham Ashby Discharge Date: 10/24/2019 1627 ATTENTION: The Clinical Documentation Specialists (CDI) and [facility] Coding Staff appreciate your assistance in clarifying documentation. Please respond to the clarification below the line at the bottom and electronically sign. The CDI & [facility] Coding staff will review the response and follow-up if needed. Please note: Queries are made part of the Legal Health Record. If you have any questions, please contact the author of this message via ITS. Dr. Julienne Ceron Please review the final pathology from the patients EGD and Colonoscopy and provide documentation to accurately reflect patients SOI/ROM. The final diagnosis of the pathology report states: Signed 10/24 Documentation states: "Final Pathologic Diagnosis A. 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 See note. B. TRANSVERSE COLON, BIOPSY: Tubular adenoma. C. RECTUM, BIOPSY: Acute ischemic type colitis. Police District Switchboard Operator material from this case was also reviewed by Dr. Barry Evans, who agrees with the diagnosis of malignancy." Patient history/risk factors: Lower GIB, polypectomy, diffuse diverticulosis, prostate cancer Clinical Indicators: 10/24 D/C Summary: "acute GIB. 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 TRANSVERSE COLON, BIOPSY: Tubular adenoma. RECTUM, BIOPSY: Acute ischemic type colitis? Yes No Other (please specify) Unable to determine Please continue to document in your progress notes and discharge summary in order to capture severity of illness and risk of mortality. Include clinical findings that support your diagnosis. __ Hi, I agree with the documentation. He had GI bleed and EGD revealed ulcerated mass at GE junction and biopsies revelaed poorly differentiated carcinoma. Colonoscopy revealed a small polyp and rectal ukcerations and biospes revealed adenoma and ischemic type changes. Dr.K. Ceron MTDD
== END 2019-10-24 16:27 | disposition home or self-care (01) | DRG 374 ==
LOC: EC 20:33 → 2SICU 22:00 → 6NMEDSUR 10-23 17:53
PROVIDERS: ADMIT Internal Medicine; ATTEND Internal Medicine
DX: C15.9 Malignant neoplasm of esophagus, unspecified (principal); K55.039 Acute (reversible) ischemia of large intestine, extent unspecified; C16.9 Malignant neoplasm of stomach, unspecified; D62 Acute posthemorrhagic anemia; J96.11 Chronic respiratory failure with hypoxia; K62.6 Ulcer of anus and rectum; K92.0 Hematemesis; E78.00 Pure hypercholesterolemia, unspecified; E78.5 Hyperlipidemia, unspecified; E86.1 Hypovolemia; I10 Essential (primary) hypertension; I25.10 Atherosclerotic heart disease of native coronary artery without angina pectoris; I25.2 Old myocardial infarction; I95.89 Other hypotension; J44.9 Chronic obstructive pulmonary disease, unspecified; Z87.11 Personal history of peptic ulcer disease; Z90.49 Acquired absence of other specified parts of digestive tract; K44.9 Diaphragmatic hernia without obstruction or gangrene; K57.30 Diverticulosis of large intestine without perforation or abscess without bleeding; K63.5 Polyp of colon; N40.0 Benign prostatic hyperplasia without lower urinary tract symptoms; Z79.51 Long term (current) use of inhaled steroids; Z79.52 Long term (current) use of systemic steroids; Z79.82 Long term (current) use of aspirin; Z79.899 Other long term (current) drug therapy; Z66 Do not resuscitate; Z80.6 Family history of leukemia; Z82.49 Family history of ischemic heart disease and other diseases of the circulatory system; Z85.46 Personal history of malignant neoplasm of prostate; Z87.442 Personal history of urinary calculi; Z95.1 Presence of aortocoronary bypass graft; Z99.81 Dependence on supplemental oxygen; Z95.5 Presence of coronary angioplasty implant and graft; Z98.42 Cataract extraction status, left eye; Z98.41 Cataract extraction status, right eye; Z86.010 Personal history of colon polyps; Z88.5 Allergy status to narcotic agent; Z88.0 Allergy status to penicillin
CPT/HCPCS: 36415; 36430; 43239; 45380; 45385; 71045; 71260; 74177; 80048; 80053; 83605; 84132; 85025; 85027; 85610; 85730; 86850; 86900; 86901; 86920; 88305; 88341; 88342; 94640; 94760; 96360; 99291

== ENCOUNTER → 2019-11-01 | Outpatient (CLI) | payer MEDICARE ==
--- NOTE | 2019-11-04 06:26 | PE ---
EXAMINATION TYPE: PET CT fusion skull to thigh DATE OF EXAM: 11/01/2019 COMPARISON: Whole body CT October 23, 2019. HISTORY: Esophageal cancer initial staging study. Biopsy performed October 27, 2019. TECHNIQUE: Following the intravenous administration of 11.921 mCi of F-18 FDG, whole body images are performed from the skull base to the midthigh. Images are reviewed on the computer in the coronal, axial, and sagittal planes. Reconstructed rotating images are created on independent workstation and reviewed on the computer. A noncontrast CT is performed in conjunction with the PET scan. SCAN: Initial Scan FINDINGS: SKULL BASE AND NECK: No areas of abnormal hypermetabolic uptake. CHEST, MEDIASTINUM, AND HILAR REGION: Fairly severe Concentric wall thickening with abnormal hypermet abolic uptake distal esophagus begins near axial image 133 above diaphragm and extends below the diap hragm into proximal stomach axial image 145 corresponds to biopsy proven neoplasm. The max SUV is 23. 48 on image 142 just above the diaphragm posteriorly. No additional areas of suspicious hypermetabolic uptake in the thorax. ABDOMEN AND PELVIS: No additional areas of suspicious hypermetabolic uptake in the abdomen or pelvis. OSSEOUS STRUCTURES: No areas of suspicious hypermetabolic uptake. OTHER CT: Scleral calcification bilateral globes. 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 An azygos lobe/fissure is pres ent. Cholecystectomy clips. Simple appearing 2.2 cm exophytic cyst posteriorly upper pole of the left kidn ey. Prominent colonic diverticulosis. Moderate calcified plaque in the abdominal aorta extending into branch vessels. Scoliotic curvature in the lumbar spine with multilevel spurring and disc space narrowing. IMPRESSION: Uptake at known neoplasm extends above and below diaphragm from distal esophagus through proximal stomach. No suspicious adenopathy or metastatic disease noted.
== END | disposition home or self-care (01) ==
LOC: RADPETMAIN 11:38
PROVIDERS: ATTEND Internal Medicine Hematology & Oncology
DX: C15.5 Malignant neoplasm of lower third of esophagus (principal)
CPT/HCPCS: 78815; A9552

== ENCOUNTER → 2020-02-22 | Outpatient (CLI) | payer MEDICARE ==
--- NOTE | 2020-02-23 09:04 | PE ---
EXAMINATION TYPE: PET CT fusion skull to thigh DATE OF EXAM: 02/22/2020 COMPARISON: PET/CT November 01, 2019. CT chest abdomen and pelvis October 23, 2019 HISTORY: Esophageal cancer progress study. Originally diagnosed October 2019 with radiation and c hemotherapy treatment. TECHNIQUE: Following the intravenous administration of 12.01 mCi of F-18 FDG, whole body images are performed from the skull base to the midthigh. Images are reviewed on the computer in the coronal, a xial, and sagittal planes. Reconstructed rotating images are created on independent workstation and reviewed on the computer. A noncontrast CT is performed in conjunction with the PET scan. SCAN: Subsequent Scan FINDINGS: SKULL BASE AND NECK: No new areas of abnormal hypermetabolic uptake. CHEST, MEDIASTINUM, AND HILAR REGION: Interval improvement in hypermetabolic uptake with abnormal wal l thickening in the distal esophagus extending through the diaphragmatic hiatus, some abnormal hyperm etabolic uptake appears to correspond to intraluminal secretions on current study. No abnormal hyperm etabolic uptake corresponding to area of eccentric wall thickening on current exam. Underlying emphysematous change redemonstrated. Mild hypermetabolic uptake right mid to lower lung an teriorly corresponds to groundglass opacity could reflect infectious process and/or posttreatment keila nge. No additional areas of abnormal hypermetabolic uptake. ABDOMEN AND PELVIS: No new areas of abnormal hypermetabolic uptake. Normal excretion. OSSEOUS STRUCTURES: No new areas of abnormal hypermetabolic uptake. OTHER CT: Scleral calcification bilateral globes. 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 An azygos lobe/fissure is pres ent. Cholecystectomy clips redemonstrated. Simple appearing 2.2 cm exophytic cyst posteriorly upper pole o f the left kidney redemonstrated. Prominent colonic diverticulosis and intraluminal fecal debris. Mod erate calcified plaque in the abdominal aorta extending into branch vessels. Scoliotic curvature in the lumbar spine with multilevel spurring and disc space narrowing. IMPRESSION: Complete positive treatment response as detailed above.
== END | disposition home or self-care (01) ==
LOC: RADPETMAIN 10:12
PROVIDERS: ATTEND Internal Medicine Hematology & Oncology
DX: C15.5 Malignant neoplasm of lower third of esophagus (principal)
CPT/HCPCS: 78815; A9552

== ENCOUNTER 2020-03-23 09:49 | Day surgery (SDC) | payer MEDICARE ==
[2020-03-20 12:07] VITALS: BMI 25.8
[2020-03-23] MEDS ORDERED: LACTATED RINGERS 1,000 ML IV ONE (10:50)
[2020-03-23 10:51] LABS: Glucose,Whole Blood 89 mg/dL (75-99)
[2020-03-23 10:52] VITALS: RESP 16; TEMP 98.7
[2020-03-23] MEDS ORDERED: LIDOCAINE 1% INJ 10MG/ML (20 ML MDV) ONE (11:13)
[2020-03-23] MEDS ORDERED: PROPOFOL 10 MG/ML 20 ML VIAL IV ONE (11:13)
--- NOTE | 2020-03-23 11:31 | P.PCN ---
Date of Procedure: 03/23/20 Procedure(s) Performed: BRIEF HISTORY: Patient is a 84-year-old, pleasant, white male diagnosed with esophageal adenocarcinoma in September 2019 and is status post chemoradiation 6 weeks ago.. He scheduled for follow-up upper endoscopy today.. He denies any abdominal pain, dysphagia or odynophagia. PROCEDURE PERFORMED: Esophagogastroduodenoscopy with biopsy.. 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 IV sedation per anesthesia. PROCEDURE: After informed consent was obtained, the patient was brought into the endoscopy unit. IV sedation was administered by Anesthesia under continuous monitoring. Initially the Olympus GIF-140 video endoscope was inserted into the mouth. Esophagus intubated without any difficulty. It was gradually advanced into the stomach and duodenum and carefully examined. The bulb and the second part of the duodenum appeared normal. The scope at this time was withdrawn to the stomach, adequately insufflated with air, and upon careful examination, mucosa of the antrum, body, and the fundus appeared normal. The scope was then withdrawn into the esophagus. The GE junction was located at 43 cm from the incisors. There was a deep ulceration measuring about 2 cm in size at the GE junction extending into the cardia of the stomach and there was some adjacent mucosal nodularity noted and multiple biopsies were done from this area. This ulceration was extending 3 cm proximal to the GE junction and multiple biopsies were also done from this area. The esophagus appeared normal. The patient tolerated the procedure well. IMPRESSION: 1. 3 cm deep ulceration at the GE junction with adjacent nodularity extending i nto the cardia of the stomach status post multiple biopsies. 2. Superficial ulceration involving the distal esophagus extending from 39-43 cm from the incisors status post biopsies RECOMMENDATIONS: The findings of this examination were discussed with the patient as well as his family. He was advised to follow with the biopsy results. He will continue his current medications..
[2020-03-23 12:29] VITALS: BP 135/71; PULSE 69
== END 2020-03-23 12:43 | disposition home or self-care (01) ==
LOC: ORWHC2ENDO 09:49
PROVIDERS: ATTEND Internal Medicine Gastroenterology
DX: C15.9 Malignant neoplasm of esophagus, unspecified (principal); K25.9 Gastric ulcer, unspecified as acute or chronic, without hemorrhage or perforation; I25.10 Atherosclerotic heart disease of native coronary artery without angina pectoris; Z92.21 Personal history of antineoplastic chemotherapy; I10 Essential (primary) hypertension; I25.2 Old myocardial infarction; E78.5 Hyperlipidemia, unspecified; J44.9 Chronic obstructive pulmonary disease, unspecified; Z95.5 Presence of coronary angioplasty implant and graft; Z95.1 Presence of aortocoronary bypass graft; Z90.49 Acquired absence of other specified parts of digestive tract; Z99.81 Dependence on supplemental oxygen; Z79.82 Long term (current) use of aspirin; Z79.899 Other long term (current) drug therapy; Z79.51 Long term (current) use of inhaled steroids; Z79.52 Long term (current) use of systemic steroids
CPT/HCPCS: 88305; 88312; 43239; J2001; J2704

== ENCOUNTER → 2020-06-16 | Outpatient (CLI) | payer MEDICARE ==
--- NOTE | 2020-06-16 13:16 | MR ---
EXAMINATION TYPE: MR brain wo/w con DATE OF EXAM: 06/16/2020 COMPARISON: NONE HISTORY: Esophageal cancer, evaluate for metastatic disease. TECHNIQUE: Multiplanar, multisequence images of the brain and brainstem is performed without and with IV contras t, utilizing 7 mL intravenous Gadavist . FINDINGS: Diffusion weighted images demonstrate no evidence of a recent infarct or other diffusion ab normality. There is mild to moderate ventricular and sulcal prominence. Focal and confluent areas of T2 hyperintensity throughout the white matter greatest at deep and periventricular levels are presen t bilaterally. Midline structures demonstrate normal morphology. The craniocervical junction appears within normal limits. Post contrast images demonstrate no abnormal enhancement. The dural venous sinuses appear pa tent. Mild mucosal thickening bilateral ethmoid sinuses. The visualized sinuses are otherwise clear a nd the globes are intact. IMPRESSION: Mild to moderate diffuse cerebral atrophy and moderate to advanced chronic small vessel i schemic change. No suspicious enhancing masses to suggest metastatic disease to the brain.
== END | disposition home or self-care (01) ==
LOC: RADMRIMAIN 12:06
PROVIDERS: ATTEND Radiology Radiation Oncology
DX: C15.9 Malignant neoplasm of esophagus, unspecified (principal); G31.9 Degenerative disease of nervous system, unspecified; I67.82 Cerebral ischemia
CPT/HCPCS: 70553; A9585

== ENCOUNTER 2020-11-11 09:37 | Day surgery (SDC) | payer MEDICARE ==
[2020-11-06 13:05] VITALS: BMI 25.0
[~2020-11-11 09:37] MED LIST changes: -ACETAMINOPHEN TAB 500 MG TAB PO ONE; -HEPARIN SODIUM,PORCINE 5,000 UNIT/ML 1 ML VIAL SQ ONE; -HYDROmorphone 0.5 MG/0.5 ML SYRINGE IVP PRN; -ONDANSETRON 4 MG/2 ML VIAL IVP ONE
[2020-11-11 10:02] VITALS: RESP 16; TEMP 98.4
[2020-11-11] MEDS ORDERED: LIDOCAINE 1% (10MG/ML) FOR IV START INTRADERMA ONE (10:10)
[2020-11-11 10:33] LABS: Glucose,Whole Blood 81 mg/dL (75-99)
[2020-11-11] MEDS ORDERED: LIDOCAINE 1% INJ 10MG/ML (20 ML MDV) ONE (10:49)
[2020-11-11] MEDS ORDERED: PROPOFOL 10 MG/ML 20 ML VIAL IV ONE (10:49)
--- NOTE | 2020-11-11 11:09 | P.PCN ---
Date of Procedure: 11/11/20 Procedure(s) Performed: BRIEF HISTORY: Patient is a 85-year-old, pleasant, white male diagnosed with distal esophageal cancer in October 2019 for which she underwent chemoradiation therapy that ended in early part of this year. Last EGD in March 2020 did not show any evidence of recurrence.. Patient is scheduled for repeat upper endoscopy today as a part of follow-up. He denies any symptoms... PROCEDURE PERFORMED: Esophagogastroduodenoscopy with biopsy. PREOPERATIVE DIAGNOSIS: Distal esophageal carcinoma diagnosed in October 2019 status post radiation and chemotherapy. IV sedation per anesthesia. PROCEDURE: After informed consent was obtained, the patient was brought into the endoscopy unit. IV sedation was administered by Anesthesia under continuous monitoring. Initially the Olympus GIF-140 video endoscope was inserted into the mouth. Esophagus intubated without any difficulty. It was gradually advanced into the stomach and duodenum and carefully examined. The bulb and the second part of the duodenum appeared normal. The scope at this time was withdrawn to the stomach, adequately insufflated with air, and upon careful examination, mucosa of the antrum, body, appeared normal. There were changes involving the cardia and the fundus as a seventh mild radiation proctitis. The scope was then withdrawn into the esophagus. The GE junction was located at 42 cm from the incisors. There was a 2 cm deep ulceration noted in the distal esophagus extending from 40-42 cm from the incisors and multiple biopsies were done from the margins of the ulcer. The mucosa surrounding the ulceration was somewhat friable with thickened mucosal folds and biopsies were also done from this area. The rest of the esophagus appeared normal and the patient tolerated the procedure well. IMPRESSION: 1. Distal esophageal ulceration extending from 40-42 cm from the incisors with somewhat friable mucosa at the margins status post biopsies to rule out recurrent. 2. Small hiatal hernia. 3. 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 RECOMMENDATIONS: The findings of this examination were discussed with the patient as well as his family. He was advised to follow with the biopsy results..
[2020-11-11] MEDS ORDERED: hydrALAZINE HCL 20 MG/ML 1 ML VIAL ONE (11:48)
[2020-11-11] MEDS ORDERED: hydrALAZINE HCL 20 MG/ML 1 ML VIAL IV ONE (11:51)
[2020-11-11 12:08] VITALS: BP 192/85; PULSE 59
== END 2020-11-11 12:15 | disposition home or self-care (01) ==
LOC: ORWHC2ENDO 09:37
PROVIDERS: ATTEND Internal Medicine Gastroenterology
DX: K22.10 Ulcer of esophagus without bleeding (principal); K29.70 Gastritis, unspecified, without bleeding; K44.9 Diaphragmatic hernia without obstruction or gangrene; I25.10 Atherosclerotic heart disease of native coronary artery without angina pectoris; I25.2 Old myocardial infarction; I10 Essential (primary) hypertension; E78.5 Hyperlipidemia, unspecified; J44.9 Chronic obstructive pulmonary disease, unspecified; N40.0 Benign prostatic hyperplasia without lower urinary tract symptoms; Z99.89 Dependence on other enabling machines and devices; Z95.818 Presence of other cardiac implants and grafts; Z85.01 Personal history of malignant neoplasm of esophagus; Z92.21 Personal history of antineoplastic chemotherapy; Z92.3 Personal history of irradiation; Z88.0 Allergy status to penicillin; Z88.5 Allergy status to narcotic agent
CPT/HCPCS: 43239; 88305; 88312; J0360; J2001; J2704

== ENCOUNTER → 2021-02-25 | Outpatient (CLI) | payer MEDICARE ==
--- NOTE | 2021-02-25 12:03 | MR ---
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 FINDINGS: Diffusion weighted images demonstrate no evidence of a recent infarct or other diffusion ab normality. There is no extra-axial fluid collection or significant change in white matter signal abn ormality. Confluent periventricular, pericallosal and scattered hyperintensities in the periventricu lar and subcortical white matter again noted on inversion recovery T2-weighted sequences are again se en. 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 The ventricular system and cisternal spaces a re stable in size and appearance. The brain volume is age appropriate, there is cortical atrophy. Midline structures demonstrate normal morphology. The craniocervical junction appears within normal limits. Post contrast images demonstrate no abnormal enhancement. The dural venous sinuses appear pa tent. The visualized sinuses are showing inflammatory change in the maxillary sinus, ethmoid air cell s and frontal sinus and the globes are intact. Inflammatory change in the mastoid air cells on the ri ght has increased somewhat as compared to prior exam, there is mild fluid signal present in the left mastoid air cells IMPRESSION: Stable brain MRI. Findings of chronic small vessel ischemic change, age related atrophy. No abnormal enhancement to suggest metastatic disease. Sinus disease, inflammatory changes in the mas toid air cells.
== END | disposition home or self-care (01) ==
LOC: RADMRIMAIN 10:32
PROVIDERS: ATTEND Radiology Radiation Oncology
DX: C16.0 Malignant neoplasm of cardia (principal)
CPT/HCPCS: 70553; A9585

== ENCOUNTER 2021-03-15 21:38 | Emergency (ER) | payer MEDICARE ==
[2021-03-15] MEDS ORDERED: PANTOPRAZOLE 40 MG/10 ML VIAL IVP STA (21:45)
[2021-03-15] MEDS ORDERED: OCTREOTIDE 500 MCG in SODIUM CHLORIDE 0.9% 250 ML IV STA (21:45)
[2021-03-15] MEDS ORDERED: OCTREOTIDE 100 MCG/ML INJ IVP STA (21:45)
[2021-03-15 21:49] VITALS: TEMP 97.6
[2021-03-15 22:22] LABS: ALT 22 U/L (4-49); AST 27 U/L (17-59); African American GFR (CKD) >90 (>60 ml/min/1.73 sqM); Alkaline Phosphatase 57 U/L (38-126); Anion Gap 7 mmol/L; Blood Urea Nitrogen 46 mg/dL (9-20); Calcium 9.1 mg/dL (8.4-10.2); Carbon Dioxide 23 mmol/L (22-30); Chloride 113 mmol/L (98-107); Glucose 117 mg/dL (74-99); Non-African American GFR(CKD) 80 (>60 ml/min/1.73 sqM); Potassium 4.2 mmol/L (3.5-5.1); Sodium 143 mmol/L (137-145); Total Bilirubin 0.5 mg/dL (0.2-1.3); Total Protein 5.5 g/dL (6.3-8.2)
[2021-03-15 22:26] LABS: Basophils % (A) 0 %; Eosinophils # (A) 0.2 k/uL (0-0.7); Eosinophils % (A) 2 %; HCT 34.5 % (39.0-53.0); HGB 10.8 gm/dL (13.0-17.5); Hypochromasia Slight; Lymphocytes # (A) 0.5 k/uL (1.0-4.8); Lymphocytes % (A) 6 %; MCH 26.7 pg (25.0-35.0); MCHC 31.5 g/dL (31.0-37.0); MCV 84.9 fL (80.0-100.0); Monocytes # (A) 0.4 k/uL (0-1.0); Monocytes % (A) 5 %; Neutrophils # (A) 7.8 k/uL (1.3-7.7); Neutrophils % (A) 86 %; Platelet Count 165 k/uL (150-450); RBC 4.06 m/uL (4.30-5.90); RDW 15.8 % (11.5-15.5); WBC 9.1 k/uL (3.8-10.6)
[2021-03-15 22:29] LABS: Prothrombin Time 11.1 sec (9.0-12.0)
[2021-03-15 22:30] LABS: Partial Thromboplastin Time 22.2 sec (22.0-30.0)
[2021-03-15 23:33] VITALS: PULSE 81
--- NOTE | 2021-03-15 23:59 | ED ---
GI Bleed HPI - General Chief complaint: GI Bleed Stated complaint: Upper GI bleed Time Seen by Provider: 03/15/21 21:40 Source: patient Mode of arrival: EMS Limitations: no limitations - History of Present Illness Initial comments: Patient is an 85-year-old male past medical history of esophageal cancer, diagnosis of 2 years ago, who presents to the emergency department with hematemesis. Patient received chemo and radiation by Dr. Mon and has been in remission. No denies surgical intervention. He denies history of upper GI bleeding. Patient was eating dinner and around 7 PM he began having multiple episodes of vomiting which consisted of thin, watery bright red blood. He denies having any chest pain. Son took him immediately in the [facility] where laboratory studies were completed and the patient went for CT this chest abdomen and pelvis. ER doc reported that the patient had significant output was estimated at 400 mL. He is not on any blood thinning medications and therefore the patient was given a liter bolus of normal saline and 40 mg of Protonix. Lab studies demonstrated a white count of 11.5. Platelets 166. INR 1.05. CT of the chest abdomen and pelvis with contrast demonstrated wall thickening of the distal esophagus without new mass or adenopathy. Calcified plaque of the ectatic aorta which is unchanged from previous imaging. He was hemodynamically stable and therefore they recommended transfer to a facility for higher level of care. The case was accepted by hospitalist [facility] MGR Dr. Blanchard patient was transferred. Upon arrival to our facility he did have an additional 200 mL of emesis for EMS. He denies history of alcohol use or NSAID use. Patient arrives without any pain. No other alleviating, precipitating or modifying factors - Related Data Home Medications Medication Instructions Recorded Confirmed Aspirin 81 mg PO DAILY 05/16/16 11/06/20 Budesonide/Formoterol Fumarate 2 puff INHALATION RT-BID 05/16/16 11/06/20 [Symbicort 160-4.5 Mcg Inhaler] Lisinopril [Prinivil] 10 mg PO DAILY 05/16/16 11/06/20 Metoprolol Tartrate [Lopressor] 25 mg PO BID 05/16/16 11/06/20 Potassium Chloride [Klor-Con 10 meq PO BID 05/16/16 11/06/20 Sprinkle] Albuterol Nebulized [Ventolin 2.5 mg INHALATION QID 10/21/19 11/06/20 Nebulized] Albuterol Sulfate [Ventolin HFA] 2 puff INHALATION RT-Q6H PRN 10/21/19 11/06/20 Ferrous Sulfate [Iron (65 MG 325 mg PO DAILY 10/21/19 11/06/20 Elemental)] Ipratropium Nebulized [Atrovent 0.5 mg INHALATION QID 10/21/19 11/06/20 Nebulized 0.2 MG/ML] Simvastatin [Zocor] 40 mg PO DAILY 10/21/19 11/06/20 Multivitamins, Thera [Multivitamin 1 tab PO DAILY 03/20/20 11/06/20 (formulary)] Thiamine [Vitamin B-1] 100 mg PO DAILY 11/06/20 11/06/20 Previous Rx's Medication Instructions Recorded predniSONE 2.5 mg PO QAM #15 tab 10/24/19 Allergies Allergy/AdvReac Type Severity Reaction Status Date / Time Penicillins Allergy Swelling Verified 03/15/21 21:41 codeine AdvReac constipatio Verified 03/15/21 21:41 n Review of Systems ROS Statement: Those systems with pertinent positive or pertinent negative responses have been documented in the HPI. ROS Other: All systems not noted in ROS Statement are negative. Past Medical History Past Medical History: Coronary Artery Disease (CAD), Cancer, COPD, GERD/Reflux, Hyperlipidemia, Hypertension, Myocardial Infarction ([place]), Prostate Disorder, Vascular Disorder Additional Past Medical History / Comment(s): uses O2@2 L NC at night,enlarged prostate,daily prednisone, prostate cancer, kidney stone , hx. esophageal cancer 2019-had chemo & radiation, another round of chemo upcoming Last Myocardial Infarction Date:: 2003 History of Any Multi-Drug Resistant Organisms: None Reported Past Surgical History: Appendectomy, Cholecystectomy, Coronary Bypass/CABG, Heart Catheterization With Stent, Prostate Surgery Additional Past Surgical History / Comment(s): CABG-4vessel 2003,heart stents x 3,teeth extraction,andrez cataracts, TURP, vascular procedure lower leg using starclip SE device Past Anesthesia/Blood Transfusion Reactions: No Reported Reaction Date of Last Stent Placement:: 03-01-03 Past Psychological History: No Psychological Hx Reported Smoking Status: Former smoker - Past Family History Mother Family Medical History: Cancer Additional Family Medical History / Comment(s): leukemia Father Family Medical History: Myocardial Infarction ([place]) General Exam Limitations: no limitations General appearance: alert, in no apparent distress Head exam: Present: atraumatic, normocephalic, normal inspection Eye exam: Present: normal appearance, PERRL, EOMI. Absent: scleral icterus, conjunctival injection, periorbital swelling ENT exam: Present: mucous membranes moist, other (Tongue dry, posterior oropharynx is covered in dried bright red blood) Neck exam: Present: normal inspection. Absent: tenderness, meningismus, lymphadenopathy Respiratory exam: Present: decreased breath sounds. Absent: respiratory distress, wheezes, rales, rhonchi, stridor, accessory muscle use Cardiovascular Exam: Present: regular rate, normal rhythm, normal heart sounds. Absent: systolic murmur, diastolic murmur, rubs, gallop, clicks GI/Abdominal exam: Present: soft, normal bowel sounds. Absent: distended, tenderness, guarding, rebound, rigid Extremities exam: Present: normal inspection, full ROM, normal capillary refill. Absent: tenderness, pedal edema, joint swelling, calf tenderness Back exam: Present: normal inspection Neurological exam: Present: alert, oriented X3, CN II-XII intact Psychiatric exam: Present: normal affect, normal mood Skin exam: Present: warm, dry, intact, normal color. Absent: rash Course Vital Signs 03/15/21 03/15/21 03/15/21 21:41 22:00 22:30 Temperature 97.6 F Pulse Rate 98 91 90 Respiratory 22 25 H 21 Rate Blood Pressure 127/84 121/84 123/83 O2 Sat by Pulse 88 L 92 L 92 L Oximetry 03/15/21 03/15/21 03/16/21 23:00 23:30 00:00 Temperature Pulse Rate 84 81 81 Respiratory 16 21 19 Rate Blood Pressure 138/96 129/106 140/90 O2 Sat by Pulse 96 Oximetry Medical Decision Making - Medical Decision Making Prior to patient's arrival to the emergency department, I did call and speak with Dr. Reddy who is relations mgr for general surgery. He refuses consult and states patient needs to be transferred to a facility where there is GI capabilities. Upon patient's arrival he is promptly placed into trauma bay 2. He is placed on continuous pulse ox and cardiac monitoring. Additional IV access is obtained. Laboratory studies were repeated which demonstrated a hemoglobin of 10.8. Platelets 165. INR 1. Patient is typed and screened and is O+. Patient remains hemodynamically stable. He was given an additional 40 mg of Protonix, 50 mcg of octreotide and placed on an octreotide drip at 50 mcg per hour. As the patient does not have a history of cirrhosis, antibiotics are deferred at this time. We did attempt transfer immediately upon patient's arrival to the emergency department to [facility] ([id number]). Multiple calls had been made to the transfer center. Patient reevaluated upon multiple occasions and only has output of approximately 30 mL during his 2.5 hour stay. At 2331, call center did transfer me to Dr. Casey who does accept the transfer of the patient. Patient agreed to this plan and be transferred in stable condition - Lab Data Result diagrams: 03/15/21 21:57 03/15/21 21:57 Lab Results 03/15/21 03/15/21 03/15/21 Range/Units 21:57 21:57 21:57 WBC 9.1 (3.8-10.6) k/uL RBC 4.06 L (4.30-5.90) m/uL Hgb 10.8 L (13.0-17.5) gm/dL Hct 34.5 L (39.0-53.0) % MCV 84.9 (80.0-100.0) fL MCH 26.7 (25.0-35.0) pg MCHC 31.5 (31.0-37.0) g/dL RDW 15.8 H (11.5-15.5) % Plt Count 165 (150-450) k/uL MPV 8.0 Neutrophils % 86 % Lymphocytes % 6 % Monocytes % 5 % Eosinophils % 2 % Basophils % 0 % Neutrophils # 7.8 H (1.3-7.7) k/uL Lymphocytes # 0.5 L (1.0-4.8) k/uL Monocytes # 0.4 (0-1.0) k/uL Eosinophils # 0.2 (0-0.7) k/uL Basophils # 0.0 (0-0.2) k/uL Hypochromasia Slight PT 11.1 (9.0-12.0) sec INR 1.0 (<1.2) APTT 22.2 (22.0-30.0) sec Sodium 143 (137-145) mmol/L Potassium 4.2 (3.5-5.1) mmol/L Chloride 113 H (98-107) mmol/L Carbon Dioxide 23 (22-30) mmol/L Anion Gap 7 mmol/L BUN 46 H (9-20) mg/dL Creatinine 0.83 (0.66-1.25) mg/dL Est GFR (CKD-EPI)AfAm >90 (>60 ml/min/1.73 sqM) Est GFR (CKD-EPI)NonAf 80 (>60 ml/min/1.73 sqM) Glucose 117 H (74-99) mg/dL Calcium 9.1 (8.4-10.2) mg/dL Total Bilirubin 0.5 (0.2-1.3) mg/dL AST 27 (17-59) U/L ALT 22 (4-49) U/L Alkaline Phosphatase 57 (38-126) U/L Total Protein 5.5 L (6.3-8.2) g/dL Albumin 3.0 L (3.5-5.0) g/dL Blood Type Blood Type Recheck Bld Type Recheck Status Antibody Screen Spec Expiration Date 03/15/21 Range/Units 21:57 WBC (3.8-10.6) k/uL RBC (4.30-5.90) m/uL Hgb (13.0-17.5) gm/dL Hct (39.0-53.0) % MCV (80.0-100.0) fL MCH (25.0-35.0) pg MCHC (31.0-37.0) g/dL RDW (11.5-15.5) % Plt Count (150-450) k/uL MPV Neutrophils % % Lymphocytes % % Monocytes % % Eosinophils % % Basophils % % Neutrophils # (1.3-7.7) k/uL Lymphocytes # (1.0-4.8) k/uL Monocytes # (0-1.0) k/uL Eosinophils # (0-0.7) k/uL Basophils # (0-0.2) k/uL Hypochromasia PT (9.0-12.0) sec INR (<1.2) APTT (22.0-30.0) sec Sodium (137-145) mmol/L Potassium (3.5-5.1) mmol/L Chloride (98-107) mmol/L Carbon Dioxide (22-30) mmol/L Anion Gap mmol/L BUN (9-20) mg/dL Creatinine (0.66-1.25) mg/dL Est GFR (CKD-EPI)AfAm (>60 ml/min/1.73 sqM) Est GFR (CKD-EPI)NonAf (>60 ml/min/1.73 sqM) Glucose (74-99) mg/dL Calcium (8.4-10.2) mg/dL Total Bilirubin (0.2-1.3) mg/dL AST (17-59) U/L ALT (4-49) U/L Alkaline Phosphatase (38-126) U/L Total Protein (6.3-8.2) g/dL Albumin (3.5-5.0) g/dL Blood Type O Positive Blood Type Recheck O Pos Bld Type Recheck Status No Antibody Screen NEGATIVE Spec Expiration Date 03/18/20212356 Disposition Clinical Impression: Hematochezia, GI bleed, Hx of esophageal malignancy Disposition: OTHER INSTITUTION NOT DEFINED Condition: Serious Is patient prescribed a controlled substance at d/c from ED?: No Referrals: Nonstaff,Physician [Primary Care Provider] - 1-2 days - Out of Hospital Transfer - Req. Specs Out of Hospital Transfer - Requested Specifics: Other Emergency Center ([facility])
[2021-03-16 00:19] VITALS: BP 140/90; RESP 19
== END 2021-03-16 00:19 | disposition other institution (70) ==
LOC: EC 21:38
DX: K92.2 Gastrointestinal hemorrhage, unspecified (principal); K92.1 Melena; J44.9 Chronic obstructive pulmonary disease, unspecified; I10 Essential (primary) hypertension; I21.9 Acute myocardial infarction, unspecified; Z87.891 Personal history of nicotine dependence; Z88.5 Allergy status to narcotic agent; Z88.0 Allergy status to penicillin
CPT/HCPCS: 36415; 86900; 86901; 80053; 85025; 85610; 85730; 86850; 99284; 96375; 96374; J2354 ×2; C9113

== ENCOUNTER 2023-02-05 15:11 | Inpatient (IN) | payer MEDICARE ==
--- NOTE | 2023-02-05 15:24 | ED ---
General Adult HPI - General Stated complaint: MAGGIE Time Seen by Provider: 02/05/23 15:12 Source: patient, EMS Mode of arrival: EMS Limitations: no limitations - History of Present Illness Initial comments: Patient is a pleasant 87-year-old male transferred from [facility]. Patient went there with difficulty breathing, worsening the past several days. Patient does have history of COPD. No fevers. Patient there was found to be hypoxic. Patient had increased right-sided past days. Patient was treated with antibiotics and transferred secondary to teamsite developer Dr. Villasenor works out of our facility. - Related Data Home Medications Medication Instructions Recorded Confirmed Aspirin 81 mg PO DAILY 05/16/16 05/21/21 Budesonide/Formoterol Fumarate 2 puff INHALATION RT-BID 05/16/16 05/21/21 [Symbicort 160-4.5 Mcg Inhaler] Metoprolol Tartrate [Lopressor] 25 mg PO BID 05/16/16 05/21/21 lisinopriL [Prinivil] 2.5 mg PO DAILY 05/16/16 05/21/21 Albuterol Nebulized [Ventolin 2.5 mg INHALATION QID 10/21/19 05/21/21 Nebulized] Albuterol Sulfate [Ventolin HFA] 2 puff INHALATION RT-Q6H PRN 10/21/19 05/21/21 Ipratropium Nebulized [Atrovent 0.5 mg INHALATION QID 10/21/19 05/21/21 Nebulized 0.2 MG/ML] Simvastatin [Zocor] 20 mg PO DAILY 10/21/19 05/21/21 Multivitamins, Thera [Multivitamin 1 tab PO DAILY 03/20/20 05/21/21 (formulary)] Furosemide [Lasix] 20 mg PO DAILY 05/21/21 05/21/21 Ibuprofen 200 mg PO BID PRN 05/21/21 05/21/21 Pantoprazole Sodium 40 mg PO BID 05/21/21 05/21/21 predniSONE 5 mg PO QAM 05/21/21 05/21/21 Allergies Allergy/AdvReac Type Severity Reaction Status Date / Time Penicillins Allergy Swelling Verified 05/21/21 13:44 codeine AdvReac constipatio Verified 05/21/21 13:44 n Review of Systems ROS Statement: Those systems with pertinent positive or pertinent negative responses have been documented in the HPI. ROS Other: All systems not noted in ROS Statement are negative. Constitutional: Denies: fever Eyes: Denies: eye pain Respiratory: Reports: as per HPI, cough, dyspnea Endocrine: Reports: fatigue Past Medical History Past Medical History: Coronary Artery Disease (CAD), Cancer, Heart Failure, COPD, GERD/Reflux, Hyperlipidemia, Hypertension, Myocardial Infarction ([place]), Prostate Disorder, Vascular Disorder Additional Past Medical History / Comment(s): uses O2@4 L NC at night,enlarged prostate,daily prednisone, prostate cancer-no radiation or chemo, kidney stone , hx. esophageal cancer 2019-had chemo & radiation and chemo Feb 2020,Admitted with Covid Nov 2020 Last Myocardial Infarction Date:: 2003 History of Any Multi-Drug Resistant Organisms: None Reported Past Surgical History: Appendectomy, Cholecystectomy, Coronary Bypass/CABG, Heart Catheterization With Stent, Prostate Surgery Additional Past Surgical History / Comment(s): CABG-4vessel 2003,heart stents x 3,teeth extraction,andrez cataracts, TURP, vascular procedure lower leg using starclip SE device Past Anesthesia/Blood Transfusion Reactions: No Reported Reaction Date of Last Stent Placement:: 03-01-03 Past Psychological History: No Psychological Hx Reported Smoking Status: Former smoker Past Alcohol Use History: None Reported Additional Past Alcohol Use History / Comment(s): quit smoking 2003,smoked approx since age 9,1ppd Past Drug Use History: None Reported - Past Family History Mother Family Medical History: Cancer Additional Family Medical History / Comment(s): leukemia Father Family Medical History: Myocardial Infarction ([place]) General Exam Limitations: no limitations General appearance: alert, in no apparent distress Head exam: Present: normocephalic Eye exam: Present: normal appearance Respiratory exam: Present: rhonchi Cardiovascular Exam: Present: regular rate, normal rhythm GI/Abdominal exam: Present: soft. Absent: tenderness Extremities exam: Present: normal inspection Neurological exam: Present: alert Psychiatric exam: Present: normal affect, normal mood Skin exam: Present: normal color Course Vital Signs 02/05/23 02/05/23 02/05/23 15:14 15:23 15:30 Pulse Rate 82 77 Respiratory 24 23 Rate Blood Pressure 134/87 134/87 O2 Sat by Pulse 99 98 98 Oximetry 02/05/23 02/05/23 15:45 16:00 Pulse Rate 75 73 Respiratory 22 16 Rate Blood Pressure 116/82 115/84 O2 Sat by Pulse 99 99 Oximetry Procedures - Chest Tube Insertion Consent Obtained: verbal consent Side of Procedure: right Indication: Pneumothorax Placed on monitor/pulse oximetry: Yes Site Prep: Povidone-Iodine Local Anesthesia: Lidocaine 1% Amount (mLs): 5 Insertion Site: Other (Second intercostal midclavicular line, thoravent placed) Scalpel: #[address]: No Patient Tolerated Procedure: well, no complications Medical Decision Making - Medical Decision Making Was pt. sent in by a medical professional or institution (, PA, WAREHOUSE WORKER, urgent care, hospital, or snf...) When possible be specific @ -Patient was sent from [facility] Did you speak to anyone other than the patient for history (EMS, parent, family, police, friend...)? What history was obtained from this source @ -Did speak with transferring physician Dr. Cabrales as well as EMS. Did you review nursing and triage notes (agree or disagree)? Why? @ -I reviewed and agree with nursing and triage notes Were old charts reviewed (outside hosp., previous admission, EMS record, old EKG, old radiological studies, urgent care reports/EKG's, snf records)? Report findings @ -No old charts were reviewed Differential Diagnosis (chest pain, altered mental status, abdominal pain women, abdominal pain men, vaginal bleeding, weakness, fever, dyspnea, syncope, headache, dizziness, GI bleed, back pain, seizure, CVA, palpatations, mental health, musculoskeletal)? @ -Differential Dyspnea: Coronary syndrome, arrhythmia, tamponade, asthma, COPD, pulmonary embolism, pneumonia, pneumothorax, pulmonary effusion, anaphylaxis, diabetic ketoacidosis, flailed chest, pulmonary contusion, diaphragmatic rupture, anemia, neuromuscular, this is not meant to be an all-inclusive list. EKG interpreted by me (3pts min.). @ -As above X-rays interpreted by me (1pt min.). @ -Chest x-ray shows right upper and lower lobe opacities. Right upper small pneumothorax. CT interpreted by me (1pt min.). @ -None done U/S interpreted by me (1pt. min.). @ -None done What testing was considered but not performed or refused? (CT, X-rays, U/S, labs)? Why? @ -Consider blood cultures however patient has arty received IV antibiotics. What meds were considered but not given or refused? Why? @ -None Did you discuss the management of the patient with other professionals (professionals i.e. , PA, WAREHOUSE WORKER, lab, RT, psych nurse, director social, marketing production manager, teacher, patrol community service officer, case specialist)? Give summary @ -Case discussed with Dr. Simmons who did review chest x-ray. He recommends Thora vent. Dr. Trivedi also paged for admission covering Dr. Harkins, who admits for Dr. Ng. Was smoking cessation discussed for >3mins.? @ -No Was critical care preformed (if so, how long)? @ -31 minutes of critical care time performed Were there social determinants of health that impacted care today? How? (Homelessness, low income, unemployed, alcoholism, drug addiction, transportation, low edu. Level, literacy, decrease access to med. care, care home, rehab)? @ -No Was there de-escalation of care discussed even if they declined (Discuss DNR or withdrawal of care, Hospice)? DNR status @ -No What co-morbidities impacted this encounter? (DM, HTN, Smoking, COPD, CAD, Cancer, CVA, ARF, Chemo, Hep., AIDS, mental health diagnosis, sleep apnea, morbid obesity)? @ -None Was patient admitted / discharged? Hospital course, mention meds given and route, prescriptions, significant lab abnormalities, going to OR and other pertinent info. @ -Patient transferred from [place]. Patient did have antibiotics there. Patient will be admitted for pneumonia and pulmonary. Admission orders written. Undiagnosed new problem with uncertain prognosis? @ -No Drug Therapy requiring intensive monitoring for toxicity (Heparin, Nitro, Insulin, Cardizem)? @ -No Were any procedures done? @ -Borderline, see above Diagnosis/symptom? @ -Pneumonia, COPD Acute, or Chronic, or Acute on Chronic? @ -Acute Uncomplicated (without systemic symptoms) or Complicated (systemic symptoms)? @ -default Side effects of treatment? @ -No Exacerbation, Progression, or Severe Exacerbation? @ -No Poses a threat to life or bodily function? How? (Chest pain, [place], [place], pneumonia, PE, COPD, DKA, ARF, appy, cholecystitis, CVA, Diverticulitis, Homicidal, Suicidal, threat to staff... and all critical care pts) @ -No Dr. thacker was notified. Repeat chest x-ray post Thora vent with improvement of pneumothorax visualized. Disposition Clinical Impression: Pneumonia, COPD (chronic obstructive pulmonary disease), Pneumothorax Disposition: ADMITTED IP TO THIS HOSP Is patient prescribed a controlled substance at d/c from ED?: No Time of Disposition: 15:34
[2023-02-05] MEDS ORDERED: IPRATROPIUM-ALBUTEROL 3 ML NEB INHALATION PRN ×2 (15:34→20:36)
[2023-02-05] MEDS ORDERED: PNEUMONIA PROTOCOL UTILIZED 1 EACH MISC PO PRN (15:34)
--- NOTE | 2023-02-05 15:43 | XR ---
EXAMINATION TYPE: XR chest 1V portable DATE OF EXAM: 02/05/2023 COMPARISON: 10/21/2019 HISTORY: Shortness of breath TECHNIQUE: Single frontal view of the chest is obtained. FINDINGS: There has been interval development of predominantly interstitial but partially consolidative opacity in the right mid lower lung zones. The findings most consistent with pneumonia. There are median belkis rnotomy wires in the heart is mildly prominent. The pulmonary vasculature is not appear congested. There is no pneumothorax. There is a small left pleural effusion. The osseous structures are intact. IMPRESSION: 1 Right lung infiltrate possibly indicating pneumonia. 2. Mild cardiomegaly and small left pleural effusion..
[2023-02-05] MEDS: CEFEPIME 2 GM in SODIUM CHLORIDE 0.9% 100 ML IVPB SCH (15:54)
[2023-02-05] MEDS ORDERED: LIDOCAINE 1% INJ 10MG/ML (20 ML MDV) SQ ONE (16:09)
[2023-02-05] MEDS: IPRATROPIUM-ALBUTEROL 3 ML NEB INHALATION SCH ×2 (16:43→19:55)
--- NOTE | 2023-02-05 16:46 | XR ---
EXAMINATION TYPE: XR chest 1V portable DATE OF EXAM: 02/05/2023 COMPARISON: 02/05/2023 HISTORY: Right apical pneumothorax. Thoracic vent placement TECHNIQUE: Single frontal view of the chest is obtained. FINDINGS: There is a thoracic vent tip in the right apex. There is no definite pneumothorax. There is an ill-defined infiltrate in the right mid lower lung zone. There is a small left pleural ef fusion and left lower lobe infiltrate, stable compared to previous. There is mild cardiomegaly. The pulmonary vasculature is not congested. IMPRESSION: 1. Thoracic vent placement interval with the tip in the right lung apex. There is no residual pneumot horax. 2. Bilateral lung infiltrates unchanged compared to previous. 3. No change in the small left pleural effusion.
[2023-02-05] MEDS ORDERED: methylPREDNISolone SOD SUCCI 125 MG/2 ML VIAL IV SCH (18:00)
[2023-02-05] MEDS: SYMBICORT 160-4.5 MCG INHALER INHALATION SCH (19:55)
[2023-02-05] MEDS ORDERED: ALBUTEROL HFA INHALER INHALATION PRN (20:36)
[2023-02-05] MEDS: METOPROLOL SUCCINATE (ER) 25 MG TAB.ER.24H PO SCH (21:29)
[2023-02-05] MEDS: PANTOPRAZOLE SODIUM 40 MG GRANULE PKT PO SCH (21:29)
--- NOTE | 2023-02-05 21:38 | P.CNPUL ---
History of Present Illness Consult date: 02/05/23 Requesting physician: Cole E Sheet Reason for consult: COPD, pneumonia, pneumothorax Chief complaint: Chest pain and shortness of breath History of present illness: This is an 87-year-old white male familiar to my service, patient normally sees Dr. Roberson for his severe COPD, patient is O2 dependent, prednisone dependent, mentating normally on 10 mg of prednisone daily. She is also known to have history of coronary artery disease, previous CABG, history of prostate cancer, previous [place], patient presented to [facility] yesterday with sudden onset of right-sided chest pain and shortness of breath. Patient had a chest x-ray which clearly showed relatively large right-sided pneumothorax and extensive airspace disease involving the right midlung and the right upper lobe. I was notified about this patient by the ER physician, and I reviewed the patient's chest x-ray, clearly showed a relatively good sized right-sided pneumothorax, and I recommended immediate chest tube replacement, nuria Serra this was done by the ER physician, reviewed the follow-up chest x-ray, and showed good expansion of the right lung, nonetheless the patient continues to have some significant airspace disease, highly suspicious for pneumonia. Although the patient denies any fever denies any chills, denies any cough, and no clear-cut clinical symptoms to suggest pneumonia. Patient will be placed empirically on antibiotics, bronchodilators, and considering the patient is maintained on prednisone, will use a relatively lower dose of Solu-Medrol IV push, 40 mg IV push every 8 hours. Review of Systems Constitutional: Negative Eyes: denies blurred vision, denies pain Ears, nose, mouth and throat: Negative Cardiovascular: Negative Respiratory: Noted in HPI Gastrointestinal: Negative Musculoskeletal: Denies myalgias Integumentary: Negative Neurological: Denies numbness, Denies weakness Psychiatric: Denies anxiety, Denies depression Endocrine: Reports fatigue, Denies weight change Past Medical History Past Medical History: Coronary Artery Disease (CAD), Cancer, Heart Failure, COPD, GERD/Reflux, Hearing Disorder / Deafness, Hyperlipidemia, Hypertension, Myocardial Infarction ([place]), Pneumonia, Prostate Disorder, Vascular Disorder Additional Past Medical History / Comment(s): uses O2@5 L NC at night,enlarged prostate,daily prednisone, prostate cancer-no radiation or chemo, kidney stone 1970's, hx. esophageal cancer 2019-had chemo & radiation and chemo Feb 2020,Admitted with Covid Nov 2020 Last Myocardial Infarction Date:: 2003 History of Any Multi-Drug Resistant Organisms: None Reported Past Surgical History: Appendectomy, Cholecystectomy, Coronary Bypass/CABG, Heart Catheterization With Stent, Prostate Surgery Additional Past Surgical History / Comment(s): CABG-4vessel 2003,heart stents x 3,teeth extraction,andrez cataracts, TURP, vascular procedure lower leg using starclip SE device Past Anesthesia/Blood Transfusion Reactions: No Reported Reaction Date of Last Stent Placement:: 03-01-03 Past Psychological History: No Psychological Hx Reported Smoking Status: Former smoker Past Alcohol Use History: None Reported Additional Past Alcohol Use History / Comment(s): quit smoking 2003,smoked approx since age 9,1ppd Past Drug Use History: None Reported - Past Family History Mother Family Medical History: Cancer Additional Family Medical History / Comment(s): leukemia Father Family Medical History: Myocardial Infarction ([place]) Medications and Allergies Home Medications Medication Instructions Recorded Confirmed Type Aspirin 81 mg PO W/BRKFST 05/16/16 02/05/23 History Albuterol Sulfate [Ventolin HFA] 2 puff INHALATION RT-Q6H PRN 10/21/19 02/05/23 History Ibuprofen 200 mg PO BID-W/MEALS 05/21/21 02/05/23 History Pantoprazole Sodium 40 mg PO BID 05/21/21 02/05/23 History Docusate [Colace] 100 mg PO W/BRKFST 02/05/23 02/05/23 History Ferrous Sulfate [Feosol] 325 mg PO W/BRKFST 02/05/23 02/05/23 History Fluticasone Propion/Salmeterol 1 puff PO RT-BID 02/05/23 02/05/23 History [Wixela 250-50 Inhub] Furosemide [Lasix] 40 mg PO DAILY 02/05/23 02/05/23 History Ipratropium-Albuterol Nebulize 3 ml INHALATION RT-QID 02/05/23 02/05/23 History [Duoneb 0.5 mg-3 mg/3 ml Soln] Metoprolol Succinate (ER) [Toprol 25 mg PO BID 02/05/23 02/05/23 History Xl] Mv-Min/Folic/K1/Lycopen/Lutein 1 tab PO W/LUNCH 02/05/23 02/05/23 History [Centrum Silver Men Tablet] NIFEdipine XL [Procardia Xl] 30 mg PO W/BRKFST 02/05/23 02/05/23 History Potassium Chloride ER [K-Dur 20] 20 meq PO BID-W/MEALS 02/05/23 02/05/23 History Sertraline [Zoloft] 25 mg PO DAILY 02/05/23 02/05/23 History Simvastatin [Zocor] 40 mg PO W/SUPPER 02/05/23 02/05/23 History Thiamine [Vitamin B-1] 100 mg PO W/LUNCH 02/05/23 02/05/23 History predniSONE 10 mg PO W/BRKFST 02/05/23 02/05/23 History Allergies Allergy/AdvReac Type Severity Reaction Status Date / Time Penicillins Allergy Swelling Verified 02/05/23 16:46 codeine AdvReac constipatio Verified 02/05/23 16:46 n Physical Exam Vitals: Vital Signs Temp Pulse Pulse Resp BP BP Pulse Ox 02/05/23 20:11 84 02/05/23 19:55 79 02/05/23 18:23 98 F 78 20 138/82 89 L 02/05/23 17:15 78 120/75 92 L 02/05/23 17:00 75 120/73 93 L 02/05/23 16:55 76 02/05/23 16:45 74 123/75 97 02/05/23 16:43 74 02/05/23 16:30 79 133/82 90 L 02/05/23 16:15 82 32 H 129/86 96 02/05/23 16:00 73 16 115/84 99 02/05/23 15:45 75 22 116/82 99 02/05/23 15:30 77 23 134/87 98 02/05/23 15:23 98 02/05/23 15:14 82 24 134/87 99 Intake and Output 02/05/23 02/05/23 02/05/23 06:59 14:59 22:59 Output Total 0 Balance 0 Output: Chest Tube Drainage 0 Thora-Vent Right Upper 0 Anterior Chest Other: # Voids 1 Weight 70.307 kg Physical Exam: Revealed an 87-year-old white male in no distress on 3 L nasal cannula. Head: Atraumatic, normocephalic. HEENT:[Neck is supple.] [No neck masses.] [No thyromegaly.] [No JVD.] Chest: [Right sided chest tube/thoravent is noted, and is connected to Pleur- evac, I could not appreciate and air leak. Diminished breath sound bilaterally no crackles or rhonchi or wheezes Cardiac Exam: [Normal S1 and S2, no S3 gallop, no murmur.] Abdomen: [Soft, nontender, no megaly, no rebound, no guarding, normal bowel sounds.] Extremities: [No clubbing, no edema, no cyanosis.] Neurological Exam: [No focal neurologic deficit.] Alert oriented 3 focal deficit Psychiatric: Normal mood affect and normal mental status examination. Skin: No rashes Results - Diagnostic Findings Chest x-ray: image reviewed (Chest x-ray before and after placement of the chest tube both were noted, there is adequate placement of the chest tube and adequate expansion of the right lung number loss continues to have significant airspace disease involving the right midlung and right upper lobe) Assessment and Plan Assessment: Impression: Acute spontaneous right-sided pneumothorax, status post chest tube placement/thoravent with adequate expansion of the right lung Possible acute community-acquired pneumonia would suggest pro calcitonin level in the meantime Lasix the patient on antibiotics empirically. Severe underlying COPD, patient is maintaining normally on 2 L nasal cannula and maintained on prednisone. 10 mg daily. Acute on chronic hypoxic respiratory failure secondary to COPD and pneumonia as well as right sided spontaneous pneumothorax. History of coronary artery disease and previous CABG Benign essential hypertension History of prostate cancer History of upper GI bleeding, possibly related to gastric ulcer disease, patient had previous EGD and biopsy of the stomach. History of esophageal carcinoma diagnosed in 2019, patient had previous chemo and radiation treatment. History of COVID-19 infection back on November 21. Recommendations: continue chest tube to wall suction Resume home bronchodilators, patient will be given DuoNeb updrafts 4 times a day and when necessary, and Symbicort. Continue oxygen and titrate accordingly Empiric antibiotics for now a was placed on Zithromax and cefepime already Change oral prednisone to methylprednisolone 40 mg IV push every 8 hours Daily x-rays of the chest and decide as when to cap possibly remove the chest tube. Continue Protonix 40 mg by mouth twice a day We will continue to follow Time with Patient: Greater than 30
[2023-02-06] MEDS: methylPREDNISolone SOD SUCCI 40 MG/ML 1 ML VIAL IV SCH ×4 (00:51→23:14)
[2023-02-06] MEDS: CEFEPIME 2 GM in SODIUM CHLORIDE 0.9% 100 ML IVPB SCH ×3 (00:51→19:23)
[2023-02-06] MEDS: DOCUSATE 100 MG CAP PO SCH (06:14)
[2023-02-06] MEDS: FERROUS SULFATE 325 MG TAB PO SCH (06:15)
[2023-02-06] MEDS: ASPIRIN 81 MG PO SCH (06:15)
[2023-02-06] MEDS: POTASSIUM CHLORIDE ER 20 MEQ TAB.ER PO SCH ×2 (06:15→16:36)
[2023-02-06] MEDS ORDERED: NON FORMULARY DRUG (Fluticasone Propion/Salmeterol [Wixela 250-50 Inhub] 1 EACH Blst.W.Dev PO SCH (08:00)
[2023-02-06] MEDS: IPRATROPIUM-ALBUTEROL 3 ML NEB INHALATION SCH ×4 (08:07→20:03)
[2023-02-06] MEDS: SYMBICORT 160-4.5 MCG INHALER INHALATION SCH ×2 (08:07→20:03)
--- NOTE | 2023-02-06 08:22 | XR ---
EXAMINATION TYPE: XR chest 1V portable DATE OF EXAM: 02/06/2023 COMPARISON: 02/05/2023 HISTORY: Cough TECHNIQUE: Single frontal view of the chest is obtained. FINDINGS: There is a thoracic vent tip in the right apex. There is no definite pneumothorax. There i s an ill-defined infiltrate in the right mid lower lung zone. There is a small left pleural effusion and left lower lobe infiltrate, stable compared to previous. There is mild cardiomegaly. No overt saeed lure. There is a small left pleural effusion. Underlying COPD and chronic interstitial lung disease s uspected. Median sternotomy changes seen. Diffuse osteopenia, degenerative changes spine and arthropa thy of the shoulders. Subcutaneous emphysema is noted. A chronic deformity of the inferior left gleno id\scapula. IMPRESSION: 1. No evidence of pneumothorax. Ill-defined right-sided infiltrate stable. 2. Left lower lobe infiltrate and small effusion stable. 3. Correlate for COPD and chronic interstitial lung disease.
[2023-02-06] MEDS: FUROSEMIDE 40 MG TAB PO SCH (08:44)
[2023-02-06] MEDS: METOPROLOL SUCCINATE (ER) 25 MG TAB.ER.24H PO SCH ×2 (08:44→20:22)
[2023-02-06] MEDS: PANTOPRAZOLE SODIUM 40 MG GRANULE PKT PO SCH (08:48)
[2023-02-06 09:02] LABS: Basophils # (A) 0.02 X 10*3/uL (0.00-0.10); Basophils % (A) 0.3 %; Eosinophils # (A) 0 X 10*3/uL (0.04-0.35); Eosinophils % (A) 0 %; HCT 36.2 % (39.6-50.0); HGB 10.9 g/dL (13.0-17.0); Lymphocytes # (A) 0.13 X 10*3/uL (0.90-5.00); Lymphocytes % (A) 1.9 %; MCH 25.4 pg (27.0-32.0); MCHC 30.1 g/dL (32.0-37.0); MCV 84.4 FL (80.0-97.0); Mean Platelet Volume 10.3 FL (9.5-12.2); Monocytes # (A) 0.15 X 10*3/uL (0.20-1.00); Monocytes % (A) 2.2 %; NRBC Per 100 WBC 0 X 10*3/uL (0.00-0.01); Neutrophils # (A) 6.39 X 10*3/uL (1.80-7.70); Neutrophils % (A) 94.4 %; Platelet Count 215 X 10*3/uL (140-440); RBC 4.29 X 10*6/uL (4.40-5.60); RDW 17.2 % (11.5-14.5); WBC 6.77 X 10*3/uL (4.50-10.00)
[2023-02-06 09:34] LABS: BUN/Creat Ratio 29.78 Ratio (12.00-20.00); Blood Urea Nitrogen 26.8 mg/dL (9.0-27.0); Calcium 8.5 mg/dL (8.7-10.3); Carbon Dioxide 27.5 mmol/L (21.6-31.8); Chloride 105 mmol/L (96-109); Glucose 153 mg/dL (70-110); Potassium 3.9 mmol/L (3.5-5.5); Sodium 143 mmol/L (135-145)
[2023-02-06] MEDS: AZITHROMYCIN 500 MG in SODIUM CHLORIDE 0.9% 250 ML IVPB SCH (10:07)
[2023-02-06] MEDS: SERTRALINE 25 MG TAB PO SCH (10:07)
[2023-02-06] MEDS: THIAMINE 100 MG TAB PO SCH (12:30)
--- NOTE | 2023-02-06 14:59 | P.PN ---
Subjective Progress Note Date: 02/06/23 Principal diagnosis: Respiratory failure. This is an 87-year-old white male familiar to my service, patient normally sees Dr. Roberson for his severe COPD, patient is O2 dependent, prednisone dependent, mentating normally on 10 mg of prednisone daily. She is also known to have his tory of coronary artery disease, previous CABG, history of prostate cancer, previous CA, patient presented to [facility] yesterday with sudden onset of right-sided chest pain and shortness of breath. Patient had a chest x-ray which clearly showed relatively large right-sided pneumothorax and extensive airspace disease involving the right midlung and the right upper lobe. I was notified about this patient by the ER physician, and I reviewed the patient's chest x-ray, clearly showed a relatively good sized right-sided pneumothorax, and I recommended immediate chest tube replacement, thorchrystal Maryse this was done by the ER physician, reviewed the follow-up chest x-ray, and showed good e xpansion of the right lung, nonetheless the patient continues to have some significant airspace disease, highly suspicious for pneumonia. Although the patient denies any fever denies any chills, denies any cough, and no clear-cut clinical symptoms to suggest pneumonia. Patient will be placed empirically on antibiotics, bronchodilators, and considering the patient is maintained on prednisone, will use a relatively lower dose of Solu-Medrol IV push, 40 mg IV push every 8 hours. Progress note dated 02/06/2023. 87-year-old male that I see her office, for severe COPD. The patient has oxygen-dependent COPD. He has multiple medical problems, and was admitted to the hospital, with right-sided pneumothorax, and extensive airspace disease involving the right midlung, and the right upper lobe. A Thora vent was placed by the ER physician. Currently, the patient is seen in room 457. He's on 10 L high flow oxygen. He is receiving both cefepime, and azithromycin. He's not receiving any additional IV fluids. The patient is poorly responsive. He is a no code. Lab data includes a white count 6.8, he will become 0.9, hematocrit 36.2, and a platelet count of 215,000. Sodium 143, potassium 3.9, chlorides 105, CO2 28, BUN 27, and creatinine 0.9. Chest x-ray today shows no evidence of pneumothorax, but there is ill-defined right-sided infiltrate. There is a limited left lower lobe infiltrate. Thora vent is noted in the right lung. Objective - Vital Signs Vital signs: Vital Signs Temp 96.9 F L 02/06/23 07:26 Pulse 76 02/06/23 12:06 Resp 23 02/06/23 07:26 BP 157/86 02/06/23 07:26 Pulse Ox 83 L 02/06/23 08:08 FiO2 Intake & Output 02/05/23 02/06/23 02/06/23 18:59 06:59 18:59 Intake Total 100 180 Output Total 0 200 Balance 0 100 -20 Weight 70.307 kg Intake: Intake, IV Titration 100 Amount Cefepime 2 gm In Sodium 100 Chloride 0.9% 100 ml @ 25 mls/hr IVPB Q8HR [facility] Rx# :[id number] Oral 180 Output: Chest Tube Drainage 0 Thora-Vent Right Upper 0 Anterior Chest Urine 200 Other: Voiding Method Urinal # Voids 1 2 1 - Exam No acute distress, lethargic. Currently on 10 L high flow oxygen. HEENT examination is grossly unremarkable. Mucous membranes are moist. No oral lesions. Neck supple. Full range of motion. No adenopathy thyromegaly or neck vein distention. Cardiovascular examination reveals regular rhythm rate. S1-S2 normal. No S3 or S4. No discernible murmur noted. Heart rate 76 bpm. Lungs reveal scattered bilateral rhonchi. No wheezes or crackles. Breath sounds equal bilaterally. Saturations are only 83% on 6 L. The patient was turned up to 10 L. Abdomen soft bowel sounds are heard. No masses or tenderness. Extremities are intact. No cyanosis clubbing or edema. Skin is without rash or lesion. Neurologic examination reveals a very lethargic/somnolent elderly male. - Labs CBC & Chem 7: 02/06/23 05:31 02/06/23 05:31 Labs: Abnormal Lab Results - Last 24 Hours (Table) 02/06/23 02/06/23 Range/Units 05:31 05:31 RBC 4.29 L (4.40-5.60) X 10*6/uL Hgb 10.9 L (13.0-17.0) g/dL Hct 36.2 L (39.6-50.0) % MCH 25.4 L (27.0-32.0) pg MCHC 30.1 L (32.0-37.0) g/dL RDW 17.2 H (11.5-14.5) % Immature Gran # 0.08 H (0.00-0.04) X 10*3/uL Lymphocytes # 0.13 L (0.90-5.00) X 10*3/uL Monocytes # 0.15 L (0.20-1.00) X 10*3/uL Eosinophils # 0 L (0.04-0.35) X 10*3/uL BUN/Creatinine Ratio 29.78 H (12.00-20.00) Ratio Glucose 153 H (70-110) mg/dL Calcium 8.5 L (8.7-10.3) mg/dL Assessment and Plan Assessment: Acute spontaneous right-sided pneumothorax, status post lower vent placement, with reexpansion. Possible acute a community-acquired pneumonia, currently on cefepime and azithromycin. Severe COPD, oxygen dependent. Acute on chronic hypoxemic respiratory failure secondary to COPD, possible pneumonia, and right-sided pneumothorax. History of CAD, with previous CABG. Benign essential hypertension. History of prostate cancer. History of esophageal carcinoma status post chemo/radiation. History of upper GI bleed. History of coronavirus infection. Plan: Plan dated 02/06/2023. The patient was admitted for a right-sided pneumothorax, and also possible right-sided pneumonia. The patient does have severe oxygen-dependent COPD. The patient is placed on antibiotics, and had a Thora vent placed in the emergency department. Additional recommendations and suggestions are forthcoming. The patient's overall prognosis remains guarded. The patient is a no code patient. Hospice, or palliative care should be considered by the family. We will continue to follow the patient, and make recommendations along the way. Time with Patient: Less than 30
--- NOTE | 2023-02-06 15:19 | P.HPIM ---
History of Present Illness Patient is a pleasant 87-year-old male came in with the complaints of for right- sided chest pain and shortness of breath found to have large right-sided pneumothorax. Patient also has right lower lobe infiltrate on the x-ray. Thor chrystal was placed in ER, patient still has chest tube. Patient has wheezing and does have COPD exacerbation patient usually uses 4-5 L of myocardial infarction at home does have advanced COPD. Patient is presently in 6 L of oxygen. Patient does have cough with the brown sputum production, denies any fevers REVIEW OF SYSTEMS: As mentioned in HPI PHYSICAL EXAMINATION: GENERAL: The patient is alert and oriented x3, not in any acute distress. Well developed, well nourished. HEENT: Pupils are round and equally reacting to light. EOMI. No scleral icterus. No conjunctival pallor. Normocephalic, atraumatic. No pharyngeal erythema. No thyromegaly. CARDIOVASCULAR: S1 and S2 present. No murmurs, rubs, or gallops. PULMONARY: Chest tube in place bilateral expiratory wheezing ABDOMEN: Soft, nontender, nondistended, normoactive bowel sounds. No palpable organomegaly. MUSCULOSKELETAL: No joint swelling or deformity. EXTREMITIES: No cyanosis, clubbing, or pedal edema. NEUROLOGICAL: Gross neurological examination did not reveal any focal deficits. Generalized weakness elderly male SKIN: No rashes. Assessment and plan -Acute on chronic hypercapnic as well as hypoxic respiratory failure. -Spontaneous right-sided pneumothorax status post chest tube placement with adequate lung expansion repeat x-ray today did not show any significant pneumothorax. -COPD with acute exacerbation continue with systemic steroids inhalational treatments patient is presently on 6 L of oxygen -Possible right lower lobe pneumonia for which patient is on antibiotics for calcitonin was ordered -Coronary artery disease -COPD -History of heart failure possibly diastolic dysfunction without any acute exa cerbation patient is being continued on home dose of Lasix -Hyperlipidemia -benign prostatic hypertrophy DVT prophylaxis: Lovenox Past Medical History Past Medical History: Coronary Artery Disease (CAD), Cancer, Heart Failure, COPD, GERD/Reflux, Hearing Disorder / Deafness, Hyperlipidemia, Hypertension, Myocardial Infarction ([place]), Pneumonia, Prostate Disorder, Vascular Disorder Additional Past Medical History / Comment(s): uses O2@5 L NC at night,enlarged prostate,daily prednisone, prostate cancer-no radiation or chemo, kidney stone , hx. esophageal cancer 2019-had chemo & radiation and chemo Feb 2020,Admitted with Covid Nov 2020 Last Myocardial Infarction Date:: 2003 History of Any Multi-Drug Resistant Organisms: None Reported Past Surgical History: Appendectomy, Cholecystectomy, Coronary Bypass/CABG, Heart Catheterization With Stent, Prostate Surgery Additional Past Surgical History / Comment(s): CABG-4vessel 2003,heart stents x 3,teeth extraction,andrez cataracts, TURP, vascular procedure lower leg using sta rclip SE device Past Anesthesia/Blood Transfusion Reactions: No Reported Reaction Date of Last Stent Placement:: 03-01-03 Past Psychological History: No Psychological Hx Reported Smoking Status: Former smoker Past Alcohol Use History: None Reported Additional Past Alcohol Use History / Comment(s): quit smoking 2003,smoked approx since age 9,1ppd Past Drug Use History: None Reported - Past Family History Mother Family Medical History: Cancer Additional Family Medical History / Comment(s): leukemia Father Family Medical History: Myocardial Infarction ([place]) Medications and Allergies Home Medications Medication Instructions Recorded Confirmed Type Aspirin 81 mg PO W/BRKFST 05/16/16 02/05/23 History Albuterol Sulfate [Ventolin HFA] 2 puff INHALATION RT-Q6H PRN 10/21/19 02/05/23 History Ibuprofen 200 mg PO BID-W/MEALS 05/21/21 02/05/23 History Pantoprazole Sodium 40 mg PO BID 05/21/21 02/05/23 History Docusate [Colace] 100 mg PO W/BRKFST 02/05/23 02/05/23 History Ferrous Sulfate [Feosol] 325 mg PO W/BRKFST 02/05/23 02/05/23 History Fluticasone Propion/Salmeterol 1 puff PO RT-BID 02/05/23 02/05/23 History [Wixela 250-50 Inhub] Furosemide [Lasix] 40 mg PO DAILY 02/05/23 02/05/23 History Ipratropium-Albuterol Nebulize 3 ml INHALATION RT-QID 02/05/23 02/05/23 History [Duoneb 0.5 mg-3 mg/3 ml Soln] Metoprolol Succinate (ER) [Toprol 25 mg PO BID 02/05/23 02/05/23 History Xl] Mv-Min/Folic/K1/Lycopen/Lutein 1 tab PO W/LUNCH 02/05/23 02/05/23 History [Centrum Silver Men Tablet] NIFEdipine XL [Procardia Xl] 30 mg PO W/BRKFST 02/05/23 02/05/23 History Potassium Chloride ER [K-Dur 20] 20 meq PO BID-W/MEALS 02/05/23 02/05/23 History Sertraline [Zoloft] 25 mg PO DAILY 02/05/23 02/05/23 History Simvastatin [Zocor] 40 mg PO W/SUPPER 02/05/23 02/05/23 History Thiamine [Vitamin B-1] 100 mg PO W/LUNCH 02/05/23 02/05/23 History predniSONE 10 mg PO W/BRKFST 02/05/23 02/05/23 History Allergies Allergy/AdvReac Type Severity Reaction Status Date / Time Penicillins Allergy Swelling Verified 02/05/23 16:46 codeine AdvReac constipatio Verified 02/05/23 16:46 n Physical Exam Vitals: Vital Signs Temp Pulse Pulse Resp BP BP Pulse Ox 02/06/23 15:08 77 02/06/23 13:36 97.3 F L 78 21 145/81 95 02/06/23 12:06 76 02/06/23 11:56 72 02/06/23 08:25 76 02/06/23 08:08 77 83 L 02/06/23 07:26 96.9 F L 89 23 157/86 91 L 02/06/23 02:00 96.9 F L 74 18 156/94 95 02/05/23 20:41 85 18 136/88 92 L 02/05/23 20:11 84 02/05/23 19:55 79 02/05/23 18:23 98 F 78 20 138/82 89 L 02/05/23 17:15 78 120/75 92 L 02/05/23 17:00 75 120/73 93 L 02/05/23 16:55 76 02/05/23 16:45 74 123/75 97 02/05/23 16:43 74 02/05/23 16:30 79 133/82 90 L 02/05/23 16:15 82 32 H 129/86 96 02/05/23 16:00 73 16 115/84 99 02/05/23 15:45 75 22 116/82 99 02/05/23 15:30 77 23 134/87 98 02/05/23 15:23 98 Intake and Output 02/06/23 02/06/23 02/06/23 06:59 14:59 22:59 Intake Total 100 298 Output Total 200 Balance 100 98 Intake: Intake, IV Titration 100 Amount Cefepime 2 gm In Sodium 100 Chloride 0.9% 100 ml @ 25 mls/hr IVPB Q8HR [facility] Rx# :[id number] Oral 298 Output: Urine 200 Other: Voiding Method Urinal # Voids 2 1 Results CBC & Chem 7: 02/06/23 05:31 02/06/23 05:31 Labs: Abnormal Lab Results - Last 24 Hours (Table) 02/06/23 02/06/23 Range/Units 05:31 05:31 RBC 4.29 L (4.40-5.60) X 10*6/uL Hgb 10.9 L (13.0-17.0) g/dL Hct 36.2 L (39.6-50.0) % MCH 25.4 L (27.0-32.0) pg MCHC 30.1 L (32.0-37.0) g/dL RDW 17.2 H (11.5-14.5) % Immature Gran # 0.08 H (0.00-0.04) X 10*3/uL Lymphocytes # 0.13 L (0.90-5.00) X 10*3/uL Monocytes # 0.15 L (0.20-1.00) X 10*3/uL Eosinophils # 0 L (0.04-0.35) X 10*3/uL BUN/Creatinine Ratio 29.78 H (12.00-20.00) Ratio Glucose 153 H (70-110) mg/dL Calcium 8.5 L (8.7-10.3) mg/dL Thrombosis Risk Factor Assmnt - Choose All That Apply Each Factor Represents 1 point: Abnormal pulmonary function (COPD) Each Risk Factor Represents 3 Points: Age 75 years or older Thrombosis Risk Factor Assessment Total Risk Factor Score: 4 Thrombosis Risk Factor Assessment Level: Moderate Risk
[2023-02-06] MEDS: NIFEdipine XL 30 MG TAB.ER.24 PO SCH (15:31)
[2023-02-06] MEDS: ATORVASTATIN 20 MG TAB PO SCH (16:36)
[2023-02-07] MEDS: FERROUS SULFATE 325 MG TAB PO SCH (06:38)
[2023-02-07] MEDS: DOCUSATE 100 MG CAP PO SCH (06:38)
[2023-02-07] MEDS: NIFEdipine XL 30 MG TAB.ER.24 PO SCH (06:38)
[2023-02-07] MEDS: ASPIRIN 81 MG PO SCH (06:38)
[2023-02-07] MEDS: POTASSIUM CHLORIDE ER 20 MEQ TAB.ER PO SCH ×2 (06:38→17:39)
[2023-02-07] MEDS: SYMBICORT 160-4.5 MCG INHALER INHALATION SCH ×2 (07:56→21:03)
[2023-02-07] MEDS: IPRATROPIUM-ALBUTEROL 3 ML NEB INHALATION SCH ×4 (07:56→21:03)
[2023-02-07] MEDS: methylPREDNISolone SOD SUCCI 40 MG/ML 1 ML VIAL IV SCH ×2 (08:51→17:39)
[2023-02-07] MEDS: CEFEPIME 2 GM in SODIUM CHLORIDE 0.9% 100 ML IVPB SCH ×2 (08:52→22:51)
[2023-02-07] MEDS: FUROSEMIDE 40 MG TAB PO SCH (08:55)
[2023-02-07] MEDS: ENOXAPARIN 40 MG/0.4 ML SYRINGE SQ SCH (08:55)
[2023-02-07] MEDS: PANTOPRAZOLE 40 MG TABLET PO SCH (08:55)
[2023-02-07] MEDS: METOPROLOL SUCCINATE (ER) 25 MG TAB.ER.24H PO SCH ×2 (08:55→22:52)
[2023-02-07] MEDS: SERTRALINE 25 MG TAB PO SCH (08:55)
[2023-02-07] MEDS: AZITHROMYCIN 500 MG in SODIUM CHLORIDE 0.9% 250 ML IVPB SCH (10:04)
--- NOTE | 2023-02-07 11:19 | XR ---
EXAMINATION TYPE: XR chest 1V portable DATE OF EXAM: 02/07/2023 COMPARISON: 02/06/2023 HISTORY: Pneumothorax TECHNIQUE: Single frontal view of the chest is obtained. FINDINGS: There is a thoracic vent tip in the right apex. There is no definite pneumothorax. There i s an ill-defined infiltrate in the right mid lower lung zone. There is a small left pleural effusion and left lower lobe infiltrate, stable compared to previous. There is mild cardiomegaly. No overt saeed lure. There is a small left pleural effusion. Underlying COPD and chronic interstitial lung disease s uspected. Median sternotomy changes seen. Diffuse osteopenia, degenerative changes spine and arthropa thy of the shoulders. Subcutaneous emphysema is noted. A chronic deformity of the inferior left gleno id scapula. IMPRESSION: 1. No sizable pneumothorax. 2. Bilateral infiltrates and small effusions stable.
[2023-02-07] MEDS: THIAMINE 100 MG TAB PO SCH (12:03)
--- NOTE | 2023-02-07 13:17 | P.PN ---
Subjective Progress Note Date: 02/07/23 Principal diagnosis: Respiratory failure. This is an 87-year-old white male familiar to my service, patient normally sees Dr. Roberson for his severe COPD, patient is O2 dependent, prednisone dependent, mentating normally on 10 mg of prednisone daily. She is also known to have his tory of coronary artery disease, previous CABG, history of prostate cancer, previous [place], patient presented to [facility] yesterday with sudden onset of right-sided chest pain and shortness of breath. Patient had a chest x-ray which clearly showed relatively large right-sided pneumothorax and extensive airspace disease involving the right midlung and the right upper lobe. I was notified about this patient by the ER physician, and I reviewed the patient's chest x-ray, clearly showed a relatively good sized right-sided pneumothorax, and I recommended immediate chest tube replacement, thorchrystal Maryse this was done by the ER physician, reviewed the follow-up chest x-ray, and showed good e xpansion of the right lung, nonetheless the patient continues to have some significant airspace disease, highly suspicious for pneumonia. Although the patient denies any fever denies any chills, denies any cough, and no clear-cut clinical symptoms to suggest pneumonia. Patient will be placed empirically on antibiotics, bronchodilators, and considering the patient is maintained on prednisone, will use a relatively lower dose of Solu-Medrol IV push, 40 mg IV push every 8 hours. Progress note dated 02/06/2023. 87-year-old male that I see her office, for severe COPD. The patient has oxygen-dependent COPD. He has multiple medical problems, and was admitted to the hospital, with right-sided pneumothorax, and extensive airspace disease involving the right midlung, and the right upper lobe. A Thora vent was placed by the ER physician. Currently, the patient is seen in room 457. He's on 10 L high flow oxygen. He is receiving both cefepime, and azithromycin. He's not receiving any additional IV fluids. The patient is poorly responsive. He is a no code. Lab data includes a white count 6.8, he will become 0.9, hematocrit 36.2, and a platelet count of 215,000. Sodium 143, potassium 3.9, chlorides 105, CO2 28, BUN 27, and creatinine 0.9. Chest x-ray today shows no evidence of pneumothorax, but there is ill-defined right-sided infiltrate. There is a limited left lower lobe infiltrate. Thora vent is noted in the right lung. Progress note dated 02/07/2023. 87-year-old male, admitted with a diagnosis of severe COPD, and a right-sided pneumothorax, that was spontaneous. The patient had a Thora vent placed in the emergency department. He is currently still in place. There is no air leak. The patient remains on oxygen at 5 L. This is an improvement, as he was on 10 L yesterday. The patient is not getting any IV fluids. The patient will have a follow-up chest x-ray today, and, if there is no pneumothorax, a Thora vent will be taken off of suction. No new labs today. Labs from February 06 have been reviewed. Chest x-ray today does not show a sizable pneumothorax, and there are bilateral infiltrates. Objective - Vital Signs Vital signs: Vital Signs Temp 97.4 F L 02/07/23 07:04 Pulse 72 02/07/23 12:01 Resp 18 02/07/23 11:59 BP 124/71 02/07/23 12:01 Pulse Ox 92 L 02/07/23 12:01 FiO2 Intake & Output 02/06/23 02/07/23 02/07/23 18:59 06:59 18:59 Intake Total 416 Output Total 450 475 Balance -34 -475 Intake: Oral 416 Output: Urine 450 475 Other: Voiding Method Urinal Urinal Urinal # Voids 1 - Exam No acute distress, lethargic. Currently on 5 L high flow oxygen. HEENT examination is grossly unremarkable. Mucous membranes are moist. No oral lesions. Neck supple. Full range of motion. No adenopathy thyromegaly or neck vein distention. Cardiovascular examination reveals regular rhythm rate. S1-S2 normal. No S3 or S4. No discernible murmur noted. Heart rate 72 bpm. Lungs reveal scattered bilateral rhonchi. No wheezes or crackles. Breath sounds equal bilaterally. Saturations are 92% on 5 L high flow nasal cannula. A Thora vent is noted in the right chest anteriorly. Abdomen soft bowel sounds are heard. No masses or tenderness. Extremities are intact. No cyanosis clubbing or edema. Skin is without rash or lesion. Neurologic examination reveals the patient to be alert and awake. - Labs CBC & Chem 7: 02/06/23 05:31 02/06/23 05:31 Assessment and Plan Assessment: Acute spontaneous right-sided pneumothorax, status post lower vent placement, with reexpansion. Possible acute a community-acquired pneumonia, currently on cefepime and azithromycin. Severe COPD, oxygen dependent. Acute on chronic hypoxemic respiratory failure secondary to COPD, possible pneumonia, and right-sided pneumothorax. History of CAD, with previous CABG. Benign essential hypertension. History of prostate cancer. History of esophageal carcinoma status post chemo/radiation. History of upper GI bleed. History of coronavirus infection. Plan: Plan dated 02/06/2023. The patient was admitted for a right-sided pneumothorax, and also possible right-sided pneumonia. The patient does have severe oxygen-dependent COPD. The patient is placed on antibiotics, and had a Thora vent placed in the emergency department. Additional recommendations and suggestions are forthcoming. The patient's overall prognosis remains guarded. The patient is a no code patient. Hospice, or palliative care should be considered by the family. We will continue to follow the patient, and make recommendations along the way. Plan dated 02/07/2023. Chest x-ray today, did not reveal a pneumothorax. The chest to be taken off of suction, and left on waterseal.. A chest x-ray at about 3:30 PM today, and, if okay, likely, the Thora vent will be removed tomorrow morning. Additional recommendations and suggestions are forthcoming. The patient's currently on 5 L oxygen by nasal cannula. A chest x-ray will be ordered for the morning. No additional recommendations are made. Prognosis is guarded. The patient is a DO NOT RESUSCITATE patient. Time with Patient: Less than 30
--- NOTE | 2023-02-07 15:54 | XR ---
EXAMINATION TYPE: XR chest 1V portable DATE OF EXAM: 02/07/2023 COMPARISON: 02/07/2023 HISTORY: Chest tube TECHNIQUE: Single frontal view of the chest is obtained. FINDINGS: There is a thoracic vent tip in the right apex. There is no definite pneumothorax. There i s an ill-defined infiltrate in the right mid lower lung zone. There is a small left pleural effusion and left lower lobe infiltrate, stable compared to previous. There is mild cardiomegaly. No overt saeed lure. There is a small left pleural effusion. Underlying COPD and chronic interstitial lung disease s uspected. Median sternotomy changes seen. Diffuse osteopenia, degenerative changes spine and arthropa thy of the shoulders. Subcutaneous emphysema is noted. A chronic deformity of the inferior left gleno id scapula. IMPRESSION: 1. No sizable pneumothorax. 2. No bilateral infiltrate and small pleural effusion.
[2023-02-07] MEDS: ATORVASTATIN 20 MG TAB PO SCH (17:39)
--- NOTE | 2023-02-07 23:12 | P.PN ---
Subjective Progress Note Date: 02/07/23 Patient is a pleasant 87-year-old male came in with the complaints of for right- sided chest pain and shortness of breath found to have large right-sided pneumothorax. Patient also has right lower lobe infiltrate on the x-ray. Thoravent was placed in ER, patient still has chest tube. Patient has wheezing and does have COPD exacerbation patient usually uses 4-5 L of myocardial infarction at home does have advanced COPD. Patient is presently in 6 L of oxygen. Patient does have cough with the brown sputum production, denies any fevers 02/07/2023 Patient evaluated sitting up in chair. Chest tube remains in place. He continues on high flow oxygen on 5L with oxygen saturations of 92%. Legionella negative. Procalcitonin level 0.06. Chest xray today showing no sizable pneumothorax. There are bilateral infiltrates and small effusions stable. On IV azithromycin and IV cefepime. On IV solumedrol. encouraged to use the IS. Review of Systems Constitutional: Denied any fatigue denied any fever. Cardio vascular: denied any chest pain, palpitations Gastrointestinal: denied any nausea, vomiting, diarrhea Pulmonary: Denied any shortness of breath cough Neurologic denied any new focal deficits All inpatient medications were reviewed and appropriate changes in these medications as dictated in the interval history and assessment and plan. PHYSICAL EXAMINATION: GENERAL: The patient is alert and oriented x3, not in any acute distress. Well developed, well nourished. HEENT: Pupils are round and equally reacting to light. EOMI. No scleral icterus. No conjunctival pallor. Normocephalic, atraumatic. No pharyngeal erythema. No thyromegaly. CARDIOVASCULAR: S1 and S2 present. No murmurs, rubs, or gallops. PULMONARY: Chest tube in place bilateral expiratory wheezing ABDOMEN: Soft, nontender, nondistended, normoactive bowel sounds. No palpable organomegaly. MUSCULOSKELETAL: No joint swelling or deformity. EXTREMITIES: No cyanosis, clubbing, or pedal edema. NEUROLOGICAL: Gross neurological examination did not reveal any focal deficits. Generalized weakness elderly male SKIN: No rashes. Assessment and plan -Acute on chronic hypercapnic as well as hypoxic respiratory failure. -Spontaneous right-sided pneumothorax status post chest tube placement with adequate lung expansion repeat x-ray today did not show any significant pneumothorax. -COPD with acute exacerbation continue with systemic steroids inhalational treatments patient is presently on 6 L of oxygen -Possible right lower lobe pneumonia for which patient is on antibiotics for calcitonin was ordered -Coronary artery disease -COPD -History of heart failure possibly diastolic dysfunction without any acute exacerbation patient is being continued on home dose of Lasix -Hyperlipidemia -benign prostatic hypertrophy DVT prophylaxis: Lovenox The impression and plan of care has been dictated by Flora Rizzo, Nurse Practitioner as directed. Dr. Jose MD I have performed a history and physical examination and medical decision making of this patient, discussed the same with the dictator, and agree with the dictators assessment and plan as written, documented as a scribe. Based on total visit time, I have performed more than 50% of this visit. Objective - Vital Signs Vital signs: Vital Signs Temp 97.9 F 02/07/23 19:14 Pulse 76 02/07/23 21:20 Resp 18 02/07/23 19:14 BP 153/91 02/07/23 19:14 Pulse Ox 92 L 02/07/23 19:14 FiO2 Intake & Output 02/07/23 02/07/23 02/08/23 06:59 18:59 06:59 Output Total 475 0 Balance -475 0 Output: Chest Tube Drainage 0 Thora-Vent Right Upper 0 Anterior Chest Urine 475 Other: Voiding Method Urinal Urinal # Voids 5 - Labs CBC & Chem 7: 02/06/23 05:31 02/06/23 05:31 Assessment and Plan Time with Patient: Less than 30
[2023-02-08] MEDS: methylPREDNISolone SOD SUCCI 40 MG/ML 1 ML VIAL IV SCH ×3 (00:25→16:13)
[2023-02-08] MEDS: POTASSIUM CHLORIDE ER 20 MEQ TAB.ER PO SCH ×2 (06:36→17:05)
[2023-02-08] MEDS: DOCUSATE 100 MG CAP PO SCH (06:36)
[2023-02-08] MEDS: NIFEdipine XL 30 MG TAB.ER.24 PO SCH (06:36)
[2023-02-08] MEDS: FERROUS SULFATE 325 MG TAB PO SCH (06:37)
[2023-02-08] MEDS: ASPIRIN 81 MG PO SCH (06:37)
[2023-02-08 08:32] LABS: Basophils # (A) 0 X 10*3/uL (0.00-0.10); Basophils % (A) 0 %; Eosinophils # (A) 0 X 10*3/uL (0.04-0.35); Eosinophils % (A) 0 %; HGB 11.1 g/dL (13.0-17.0); Lymphocytes # (A) 0.15 X 10*3/uL (0.90-5.00); Lymphocytes % (A) 1.9 %; MCH 25.6 pg (27.0-32.0); MCHC 30.8 g/dL (32.0-37.0); MCV 83.1 FL (80.0-97.0); Mean Platelet Volume 9.4 FL (9.5-12.2); Monocytes # (A) 0.18 X 10*3/uL (0.20-1.00); Monocytes % (A) 2.3 %; NRBC Per 100 WBC 0 X 10*3/uL (0.00-0.01); Neutrophils # (A) 7.48 X 10*3/uL (1.80-7.70); Neutrophils % (A) 94.9 %; Platelet Count 216 X 10*3/uL (140-440); RBC 4.33 X 10*6/uL (4.40-5.60); RDW 16.9 % (11.5-14.5); WBC 7.88 X 10*3/uL (4.50-10.00)
[2023-02-08] MEDS: SYMBICORT 160-4.5 MCG INHALER INHALATION SCH ×2 (08:32→20:58)
[2023-02-08] MEDS: IPRATROPIUM-ALBUTEROL 3 ML NEB INHALATION SCH ×4 (08:32→20:58)
[2023-02-08] MEDS: THIAMINE 100 MG TAB PO SCH (09:17)
[2023-02-08] MEDS: METOPROLOL SUCCINATE (ER) 25 MG TAB.ER.24H PO SCH ×2 (09:17→22:01)
[2023-02-08] MEDS: FUROSEMIDE 40 MG TAB PO SCH (09:17)
[2023-02-08] MEDS: PANTOPRAZOLE 40 MG TABLET PO SCH (09:17)
[2023-02-08] MEDS: SERTRALINE 25 MG TAB PO SCH (09:17)
[2023-02-08] MEDS: CEFEPIME 2 GM in SODIUM CHLORIDE 0.9% 100 ML IVPB SCH (09:17)
[2023-02-08] MEDS: ENOXAPARIN 40 MG/0.4 ML SYRINGE SQ SCH (09:18)
[2023-02-08] MEDS: AZITHROMYCIN 500 MG in SODIUM CHLORIDE 0.9% 250 ML IVPB SCH (09:18)
[2023-02-08 09:28] LABS: BUN/Creat Ratio 35.78 Ratio (12.00-20.00); Blood Urea Nitrogen 32.2 mg/dL (9.0-27.0); Calcium 8.6 mg/dL (8.7-10.3); Carbon Dioxide 26.3 mmol/L (21.6-31.8); Chloride 107 mmol/L (96-109); Glucose 152 mg/dL (70-110); Sodium 142 mmol/L (135-145)
--- NOTE | 2023-02-08 10:22 | XR ---
EXAMINATION TYPE: XR chest 1V portable DATE OF EXAM: 02/08/2023 COMPARISON: 02/08/2000 and HISTORY: Chest TECHNIQUE: Single frontal view of the chest is obtained. FINDINGS: There is a thoracic vent tip in the right apex. There is no definite pneumothorax. There i s an ill-defined infiltrate in the right mid lower lung zone. There is a small left pleural effusion and left lower lobe infiltrate, stable compared to previous. There is mild cardiomegaly. No overt saeed lure. There is a small left pleural effusion. Underlying COPD and chronic interstitial lung disease s uspected. Median sternotomy changes seen. Diffuse osteopenia, degenerative changes spine and arthropa thy of the shoulders. Subcutaneous emphysema is noted. A chronic deformity of the inferior left gleno id scapula. IMPRESSION: 1. No sizable pneumothorax. 2. Stable bilateral infiltrate and small effusion.
[2023-02-08 10:50] LABS: Glucose,Whole Blood 155 mg/dL (70-110)
--- NOTE | 2023-02-08 12:40 | P.PN ---
Subjective Progress Note Date: 02/08/23 Principal diagnosis: Respiratory failure. This is an 87-year-old white male familiar to my service, patient normally sees Dr. Roberson for his severe COPD, patient is O2 dependent, prednisone dependent, mentating normally on 10 mg of prednisone daily. She is also known to have his tory of coronary artery disease, previous CABG, history of prostate cancer, previous [place], patient presented to [facility] yesterday with sudden onset of right-sided chest pain and shortness of breath. Patient had a chest x-ray which clearly showed relatively large right-sided pneumothorax and extensive airspace disease involving the right midlung and the right upper lobe. I was notified about this patient by the ER physician, and I reviewed the patient's chest x-ray, clearly showed a relatively good sized right-sided pneumothorax, and I recommended immediate chest tube replacement, thorchrystal Maryse this was done by the ER physician, reviewed the follow-up chest x-ray, and showed good e xpansion of the right lung, nonetheless the patient continues to have some significant airspace disease, highly suspicious for pneumonia. Although the patient denies any fever denies any chills, denies any cough, and no clear-cut clinical symptoms to suggest pneumonia. Patient will be placed empirically on antibiotics, bronchodilators, and considering the patient is maintained on prednisone, will use a relatively lower dose of Solu-Medrol IV push, 40 mg IV push every 8 hours. Progress note dated 02/06/2023. 87-year-old male that I see her office, for severe COPD. The patient has oxygen-dependent COPD. He has multiple medical problems, and was admitted to the hospital, with right-sided pneumothorax, and extensive airspace disease involving the right midlung, and the right upper lobe. A Thora vent was placed by the ER physician. Currently, the patient is seen in room 457. He's on 10 L high flow oxygen. He is receiving both cefepime, and azithromycin. He's not receiving any additional IV fluids. The patient is poorly responsive. He is a no code. Lab data includes a white count 6.8, he will become 0.9, hematocrit 36.2, and a platelet count of 215,000. Sodium 143, potassium 3.9, chlorides 105, CO2 28, BUN 27, and creatinine 0.9. Chest x-ray today shows no evidence of pneumothorax, but there is ill-defined right-sided infiltrate. There is a limited left lower lobe infiltrate. Thora vent is noted in the right lung. Progress note dated 02/07/2023. 87-year-old male, admitted with a diagnosis of severe COPD, and a right-sided pneumothorax, that was spontaneous. The patient had a Thora vent placed in the emergency department. He is currently still in place. There is no air leak. The patient remains on oxygen at 5 L. This is an improvement, as he was on 10 L yesterday. The patient is not getting any IV fluids. The patient will have a follow-up chest x-ray today, and, if there is no pneumothorax, a Thora vent will be taken off of suction. No new labs today. Labs from February 06 have been reviewed. Chest x-ray today does not show a sizable pneumothorax, and there are bilateral infiltrates. Progress note dated 02/08/2023. 87-year-old male who was admitted with a diagnosis of COPD exacerbation, and right-sided pneumothorax, which occurred spontaneously. The patient had a Thora vent placed in the right chest area, by the ER physician. Currently, the patient is on 5 L of oxygen. No IV fluids. We had a repeat chest x-ray done today, with the patient on waterseal overnight, and there was no sizable pneumothorax. The patient is clinically stable. White count is 7.9, hemoglobin 11.1, hematocrit 36, platelet count 216,000. Sodium 142, potassium 4, chlorides 107, CO2 26, BUN 32, and creatinine 0.9. Glucose was 152, calcium of 8.6. The pro-calcitonin level was 0.06. The patient had a chest x-ray done this morning, which showed no evident pneumothorax. Objective - Vital Signs Vital signs: Vital Signs Temp 97.5 F L 02/08/23 07:12 Pulse 90 02/08/23 08:48 Resp 18 02/08/23 07:12 BP 164/96 02/08/23 10:51 Pulse Ox 90 L 02/08/23 08:36 FiO2 Intake & Output 02/07/23 02/08/23 02/08/23 18:59 06:59 18:59 Output Total 0 600 450 Balance 0 -600 -450 Output: Chest Tube Drainage 0 Thora-Vent Right Upper 0 Anterior Chest Urine 600 450 Other: Voiding Method Urinal Urinal # Voids 5 1 - Exam No acute distress, lethargic. Currently on 5 L high flow oxygen. HEENT examination is grossly unremarkable. Mucous membranes are moist. No oral lesions. Neck supple. Full range of motion. No adenopathy thyromegaly or neck vein distention. Cardiovascular examination reveals regular rhythm rate. S1-S2 normal. No S3 or S4. No discernible murmur noted. Heart rate 90 bpm. Lungs reveal scattered bilateral rhonchi. No wheezes or crackles. Breath sounds equal bilaterally. Saturations are 91 % on 5 L high flow nasal cannula. A Thora vent is noted in the right chest anteriorly. Abdomen soft bowel sounds are heard. No masses or tenderness. Extremities are intact. No cyanosis clubbing or edema. Skin is without rash or lesion. Neurologic examination reveals the patient to be alert and awake. - Labs CBC & Chem 7: 02/08/23 05:10 02/08/23 05:10 Labs: Abnormal Lab Results - Last 24 Hours (Table) 02/08/23 02/08/23 02/08/23 Range/Units 05:10 05:10 10:49 RBC 4.33 L (4.40-5.60) X 10*6/uL Hgb 11.1 L (13.0-17.0) g/dL Hct 36.0 L (39.6-50.0) % MCH 25.6 L (27.0-32.0) pg MCHC 30.8 L (32.0-37.0) g/dL RDW 16.9 H (11.5-14.5) % MPV 9.4 L (9.5-12.2) FL Immature Gran # 0.07 H (0.00-0.04) X 10*3/uL Lymphocytes # 0.15 L (0.90-5.00) X 10*3/uL Monocytes # 0.18 L (0.20-1.00) X 10*3/uL Eosinophils # 0 L (0.04-0.35) X 10*3/uL BUN 32.2 H (9.0-27.0) mg/dL BUN/Creatinine Ratio 35.78 H (12.00-20.00) Ratio Glucose 152 H (70-110) mg/dL POC Glucose (mg/dL) 155 H (70-110) mg/dL Calcium 8.6 L (8.7-10.3) mg/dL Assessment and Plan Assessment: Acute spontaneous right-sided pneumothorax, status post lower vent placement, with reexpansion. Possible acute a community-acquired pneumonia, currently on cefepime and azithromycin. Severe COPD, oxygen dependent. Acute on chronic hypoxemic respiratory failure secondary to COPD, possible pneumonia, and right-sided pneumothorax. History of CAD, with previous CABG. Benign essential hypertension. History of prostate cancer. History of esophageal carcinoma status post chemo/radiation. History of upper GI bleed. History of coronavirus infection. Plan: Plan dated 02/06/2023. The patient was admitted for a right-sided pneumothorax, and also possible right-sided pneumonia. The patient does have severe oxygen-dependent COPD. The patient is placed on antibiotics, and had a Thora vent placed in the emergency department. Additional recommendations and suggestions are forthcoming. The patient's overall prognosis remains guarded. The patient is a no code patient. Hospice, or palliative care should be considered by the family. We will continue to follow the patient, and make recommendations along the way. Plan dated 02/07/2023. Chest x-ray today, did not reveal a pneumothorax. The chest to be taken off of suction, and left on waterseal.. A chest x-ray at about 3:30 PM today, and, if okay, likely, the Thora vent will be removed tomorrow morning. Additional recommendations and suggestions are forthcoming. The patient's currently on 5 L oxygen by nasal cannula. A chest x-ray will be ordered for the morning. No additional recommendations are made. Prognosis is guarded. The patient is a DO NOT RESUSCITATE patient. Plan dated 02/08/2023. The patient's chest x-ray this morning, did not reveal a sizable right-sided pneumothorax. Therefore, the Thora vent device will be removed. We will repeat a chest x-ray, afterwards. In addition, the patient's pro-calcitonin level was normal, and antibiotics will be discontinued. The patient continues on 5 L of oxygen. Labs, x-rays, medications are reviewed. The patient is a no code patient. Additional recommendations and suggestions are forthcoming. Prognosis is poor. Time with Patient: Less than 30
--- NOTE | 2023-02-08 16:10 | XR ---
EXAMINATION TYPE: XR chest 1V portable DATE OF EXAM: 02/08/2023 Comparison: Earlier today Clinical History: 87-year-old male s/p thoravent removal Findings: Hyperinflation. Medial sternotomy wires and CABG clips. Heart upper limits of normal in size. Small l eft pleural effusion with adjacent patchy retrocardiac and left basilar opacity. Patchy opacity remai ns throughout the right mid and lower lung. Interval removal of the right-sided pleural catheter. No appreciable pneumothorax. Prominent subcutaneous emphysema remains along the right chest wall. Impression: 1. Borderline heart size and COPD. Underlying small left pleural effusion with adjacent atelectasis a nd/or consolidation. 2. Interval removal of right-sided pleural catheter. Patchy interstitial infiltrates/interstitial antonia ma remains throughout the right mid and lower lung. No appreciable pneumothorax.
[2023-02-08] MEDS: ATORVASTATIN 20 MG TAB PO SCH (17:05)
--- NOTE | 2023-02-08 19:55 | P.PN ---
Subjective Patient is a pleasant 87-year-old male came in with the complaints of for right- sided chest pain and shortness of breath found to have large right-sided pneumothorax. Patient also has right lower lobe infiltrate on the x-ray. Thoravent was placed in ER, patient still has chest tube. Patient has wheezing and does have COPD exacerbation patient usually uses 4-5 L of myocardial infarction at home does have advanced COPD. Patient is presently in 6 L of oxygen. Patient does have cough with the brown sputum production, denies any fevers 02/07/2023 Patient evaluated sitting up in chair. Chest tube remains in place. He continues on high flow oxygen on 5L with oxygen saturations of 92%. Legionella negative. Procalcitonin level 0.06. Chest xray today showing no sizable pneumothorax. There are bilateral infiltrates and small effusions stable. On IV azithromycin and IV cefepime. On IV solumedrol. encouraged to use the IS. 02/08/2023 Patient is mildly tachypneic. A self-retaining 88% on 5 L of oxygen via nasal cannula thoravent was discontinued today, repeat chest x-ray showing no sizable pneumothorax but some interstitial infiltrates Priorcalcitonin is negative at 0.06. Antibiotics were discontinued per pulmonary team Continue with close monitoring Objective - Vital Signs Vital signs: Vital Signs Temp 97.5 F L 02/08/23 07:12 Pulse 90 02/08/23 08:48 Resp 18 02/08/23 07:12 BP 164/96 02/08/23 10:51 Pulse Ox 90 L 02/08/23 08:36 FiO2 Intake & Output 02/07/23 02/08/23 02/08/23 18:59 06:59 18:59 Output Total 0 600 450 Balance 0 -600 -450 Output: Chest Tube Drainage 0 Thora-Vent Right Upper 0 Anterior Chest Urine 600 450 Other: Voiding Method Urinal Urinal # Voids 5 1 - Exam GENERAL: The patient is alert and oriented x3, not in any acute distress. Well developed, well nourished. HEENT: Pupils are round and equally reacting to light. EOMI. No scleral icterus. No conjunctival pallor. Normocephalic, atraumatic. No pharyngeal erythema. No thyromegaly. CARDIOVASCULAR: S1 and S2 present. No murmurs, rubs, or gallops. -PULMONARY: Chest is clear to auscultation, no wheezing , no crackles. Mild tachypnea ABDOMEN: Soft, nontender, nondistended, normoactive bowel sounds. No palpable organomegaly. MUSCULOSKELETAL: No joint swelling or deformity. EXTREMITIES: No cyanosis, clubbing, or pedal edema. NEUROLOGICAL: Gross neurological examination did not reveal any focal deficits. SKIN: No rashes. no petechiae. - Labs CBC & Chem 7: 02/08/23 05:10 02/08/23 05:10 Labs: Abnormal Lab Results - Last 24 Hours (Table) 02/08/23 02/08/23 02/08/23 Range/Units 05:10 05:10 10:49 RBC 4.33 L (4.40-5.60) X 10*6/uL Hgb 11.1 L (13.0-17.0) g/dL Hct 36.0 L (39.6-50.0) % MCH 25.6 L (27.0-32.0) pg MCHC 30.8 L (32.0-37.0) g/dL RDW 16.9 H (11.5-14.5) % MPV 9.4 L (9.5-12.2) FL Immature Gran # 0.07 H (0.00-0.04) X 10*3/uL Lymphocytes # 0.15 L (0.90-5.00) X 10*3/uL Monocytes # 0.18 L (0.20-1.00) X 10*3/uL Eosinophils # 0 L (0.04-0.35) X 10*3/uL BUN 32.2 H (9.0-27.0) mg/dL BUN/Creatinine Ratio 35.78 H (12.00-20.00) Ratio Glucose 152 H (70-110) mg/dL POC Glucose (mg/dL) 155 H (70-110) mg/dL Calcium 8.6 L (8.7-10.3) mg/dL Assessment and Plan Assessment: -Acute on chronic hypoxic respiratory failure. -Spontaneous right-sided pneumothorax status , thoravent was discontinued today, and repeat x-ray today did not show any significant pneumothorax. -COPD with acute exacerbation continue with systemic steroids inhalational treatments patient is presently on 5 L of oxygen. Continue with IV Solu-Medrol -Pneumonia felt unlikely with negative procalcitonin. No fever or significant leukocytosis, and antibiotics were discontinued. Mild leukocytosis is a due to steroid effect -Coronary artery disease -History of heart failure possibly diastolic dysfunction without any acute exacerbation patient is being continued on home dose of Lasix -Hyperlipidemia -benign prostatic hypertrophy DVT prophylaxis: Lovenox GI prophylaxis: Protonix
[2023-02-09] MEDS: methylPREDNISolone SOD SUCCI 40 MG/ML 1 ML VIAL IV SCH ×3 (00:32→16:33)
[2023-02-09] MEDS: ASPIRIN 81 MG PO SCH (06:31)
[2023-02-09] MEDS: FERROUS SULFATE 325 MG TAB PO SCH (06:31)
[2023-02-09] MEDS: POTASSIUM CHLORIDE ER 20 MEQ TAB.ER PO SCH ×2 (06:31→16:33)
[2023-02-09] MEDS: NIFEdipine XL 30 MG TAB.ER.24 PO SCH (06:31)
[2023-02-09] MEDS: DOCUSATE 100 MG CAP PO SCH (06:31)
[2023-02-09] MEDS: METOPROLOL SUCCINATE (ER) 25 MG TAB.ER.24H PO SCH (08:19)
[2023-02-09] MEDS: PANTOPRAZOLE 40 MG TABLET PO SCH (08:19)
[2023-02-09] MEDS: THIAMINE 100 MG TAB PO SCH (08:19)
[2023-02-09] MEDS: FUROSEMIDE 40 MG TAB PO SCH (08:19)
[2023-02-09] MEDS: SERTRALINE 25 MG TAB PO SCH (08:20)
[2023-02-09] MEDS: ENOXAPARIN 40 MG/0.4 ML SYRINGE SQ SCH (08:20)
[2023-02-09] MEDS: SYMBICORT 160-4.5 MCG INHALER INHALATION SCH (09:07)
[2023-02-09] MEDS: IPRATROPIUM-ALBUTEROL 3 ML NEB INHALATION SCH ×3 (09:07→15:46)
--- NOTE | 2023-02-09 11:28 | XR ---
EXAMINATION TYPE: XR chest 1V portable DATE OF EXAM: 02/09/2023 COMPARISON: 02/08/2023 HISTORY: Chest tube TECHNIQUE: Single frontal view of the chest is obtained. FINDINGS: Hyperinflation. Medial sternotomy wires and CABG clips. Heart upper limits of normal in si ze. Small left pleural effusion with adjacent patchy retrocardiac and left basilar opacity. Patchy op acity remains throughout the right mid and lower lung. Interval removal of the right-sided pleural ca theter. No appreciable pneumothorax. Prominent subcutaneous emphysema remains along the right chest w all. IMPRESSION: Stable subcutaneous air with bilateral infiltrate and small left effusion. Underlying CO PD. No sizable pneumothorax.
[2023-02-09 14:42] VITALS: BP 129/74; RESP 18; TEMP 97.5
--- NOTE | 2023-02-09 15:31 | P.PN ---
Subjective Progress Note Date: 02/09/23 Principal diagnosis: Respiratory failure. This is an 87-year-old white male familiar to my service, patient normally sees Dr. Roberson for his severe COPD, patient is O2 dependent, prednisone dependent, mentating normally on 10 mg of prednisone daily. She is also known to have his tory of coronary artery disease, previous CABG, history of prostate cancer, previous NV, patient presented to [facility] yesterday with sudden onset of right-sided chest pain and shortness of breath. Patient had a chest x-ray which clearly showed relatively large right-sided pneumothorax and extensive airspace disease involving the right midlung and the right upper lobe. I was notified about this patient by the ER physician, and I reviewed the patient's chest x-ray, clearly showed a relatively good sized right-sided pneumothorax, and I recommended immediate chest tube replacement, thorchrystal Maryse this was done by the ER physician, reviewed the follow-up chest x-ray, and showed good e xpansion of the right lung, nonetheless the patient continues to have some significant airspace disease, highly suspicious for pneumonia. Although the patient denies any fever denies any chills, denies any cough, and no clear-cut clinical symptoms to suggest pneumonia. Patient will be placed empirically on antibiotics, bronchodilators, and considering the patient is maintained on prednisone, will use a relatively lower dose of Solu-Medrol IV push, 40 mg IV push every 8 hours. Progress note dated 02/06/2023. 87-year-old male that I see her office, for severe COPD. The patient has oxygen-dependent COPD. He has multiple medical problems, and was admitted to the hospital, with right-sided pneumothorax, and extensive airspace disease involving the right midlung, and the right upper lobe. A Thora vent was placed by the ER physician. Currently, the patient is seen in room 457. He's on 10 L high flow oxygen. He is receiving both cefepime, and azithromycin. He's not receiving any additional IV fluids. The patient is poorly responsive. He is a no code. Lab data includes a white count 6.8, he will become 0.9, hematocrit 36.2, and a platelet count of 215,000. Sodium 143, potassium 3.9, chlorides 105, CO2 28, BUN 27, and creatinine 0.9. Chest x-ray today shows no evidence of pneumothorax, but there is ill-defined right-sided infiltrate. There is a limited left lower lobe infiltrate. Thora vent is noted in the right lung. Progress note dated 02/07/2023. 87-year-old male, admitted with a diagnosis of severe COPD, and a right-sided pneumothorax, that was spontaneous. The patient had a Thora vent placed in the emergency department. He is currently still in place. There is no air leak. The patient remains on oxygen at 5 L. This is an improvement, as he was on 10 L yesterday. The patient is not getting any IV fluids. The patient will have a follow-up chest x-ray today, and, if there is no pneumothorax, a Thora vent will be taken off of suction. No new labs today. Labs from February 06 have been reviewed. Chest x-ray today does not show a sizable pneumothorax, and there are bilateral infiltrates. Progress note dated 02/08/2023. 87-year-old male who was admitted with a diagnosis of COPD exacerbation, and right-sided pneumothorax, which occurred spontaneously. The patient had a Thora vent placed in the right chest area, by the ER physician. Currently, the patient is on 5 L of oxygen. No IV fluids. We had a repeat chest x-ray done today, with the patient on waterseal overnight, and there was no sizable pneumothorax. The patient is clinically stable. White count is 7.9, hemoglobin 11.1, hematocrit 36, platelet count 216,000. Sodium 142, potassium 4, chlorides 107, CO2 26, BUN 32, and creatinine 0.9. Glucose was 152, calcium of 8.6. The pro-calcitonin level was 0.06. The patient had a chest x-ray done this morning, which showed no evident pneumothorax. Progress note dated 02/09/2023. 87-year-old male well known to my service. He has a history of severe COPD. The patient is seen again in room 457. He was admitted with a COPD exacerbation, and a spontaneous right-sided pneumothorax. The Thora vent, that was placed in the ER, was removed yesterday. His follow-up chest x-rays, failed to reveal a residual pneumothorax. The patient remains on oxygen, 5 L. He's not receiving any IV fluids. From the pulmonary perspective, the patient is stable, and could be considered for possible discharge. No new laboratory data today. Objective - Vital Signs Vital signs: Vital Signs Temp 97.5 F L 02/09/23 13:50 Pulse 75 02/09/23 13:50 Resp 18 02/09/23 13:50 BP 129/74 02/09/23 13:50 Pulse Ox 94 L 02/09/23 13:50 FiO2 Intake & Output 02/08/23 02/09/23 02/09/23 18:59 06:59 18:59 Intake Total 350 Output Total 775 775 Balance -425 -775 Intake: Intake, IV Titration 350 Amount Azithromycin 500 mg In 250 Sodium Chloride 0.9% 250 ml @ 250 mls/hr IVPB DAILY [facility] Rx#:[id number] Cefepime 2 gm In Sodium 100 Chloride 0.9% 100 ml @ 25 mls/hr IVPB Q12H [facility] Rx# :[id number] Output: Chest Tube Drainage 0 Thora-Vent Right Upper 0 Anterior Chest Urine 775 775 Other: # Voids 1 # Bowel Movements 1 - Exam No acute distress, lethargic. Currently on 5 L high flow oxygen. HEENT examination is grossly unremarkable. Mucous membranes are moist. No oral lesions. Neck supple. Full range of motion. No adenopathy thyromegaly or neck vein distention. Cardiovascular examination reveals regular rhythm rate. S1-S2 normal. No S3 or S4. No discernible murmur noted. Heart rate 80 bpm. Lungs reveal scattered bilateral rhonchi. No wheezes or crackles. Breath sounds equal bilaterally. Saturations are 94 % on 5 L high flow nasal cannula. Abdomen soft bowel sounds are heard. No masses or tenderness. Extremities are intact. No cyanosis clubbing or edema. Skin is without rash or lesion. Neurologic examination reveals the patient to be alert and awake. - Labs CBC & Chem 7: 02/08/23 05:10 02/08/23 05:10 Assessment and Plan Assessment: Acute spontaneous right-sided pneumothorax, status post lower vent placement, with reexpansion. Possible acute a community-acquired pneumonia, currently on cefepime and azithromycin. Severe COPD, oxygen dependent. Acute on chronic hypoxemic respiratory failure secondary to COPD, possible pneumonia, and right-sided pneumothorax. History of CAD, with previous CABG. Benign essential hypertension. History of prostate cancer. History of esophageal carcinoma status post chemo/radiation. History of upper GI bleed. History of coronavirus infection. Plan: Plan dated 02/06/2023. The patient was admitted for a right-sided pneumothorax, and also possible right-sided pneumonia. The patient does have severe oxygen-dependent COPD. The patient is placed on antibiotics, and had a Thora vent placed in the emergency department. Additional recommendations and suggestions are forthcoming. The patient's overall prognosis remains guarded. The patient is a no code patient. Hospice, or palliative care should be considered by the family. We will continue to follow the patient, and make recommendations along the way. Plan dated 02/07/2023. Chest x-ray today, did not reveal a pneumothorax. The chest to be taken off of suction, and left on waterseal.. A chest x-ray at about 3:30 PM today, and, if okay, likely, the Thora vent will be removed tomorrow morning. Additional recommendations and suggestions are forthcoming. The patient's currently on 5 L oxygen by nasal cannula. A chest x-ray will be ordered for the morning. No additional recommendations are made. Prognosis is guarded. The patient is a DO NOT RESUSCITATE patient. Plan dated 02/08/2023. The patient's chest x-ray this morning, did not reveal a sizable right-sided pneumothorax. Therefore, the Thora vent device will be removed. We will repeat a chest x-ray, afterwards. In addition, the patient's pro-calcitonin level was normal, and antibiotics will be discontinued. The patient continues on 5 L of oxygen. Labs, x-rays, medications are reviewed. The patient is a no code patient. Additional recommendations and suggestions are forthcoming. Prognosis is poor. Plan dated 02/09/2023. The Thora vent device was removed yesterday, February 08. Follow-up chest x- rays, did not reveal a pneumothorax. The patient continues on 5 L of oxygen. He appears to be relatively stable. Labs, x-rays, and medications are reviewed. Antibiotics have been discontinued. The Solu-Medrol can be converted to prednisone with taper. The patient could be considered for possible discharge. I like to see him back in the office, and 2-3 weeks. Time with Patient: Less than 30
[2023-02-09 16:20] VITALS: PULSE 84
[2023-02-09] MEDS: ATORVASTATIN 20 MG TAB PO SCH (16:33)
--- NOTE | 2023-02-09 21:27 | P.DS ---
Providers Date of admission: 02/05/23 15:37 Attending physician: Cornelio Trivedi MD Consults: 02/05/23 15:34 Consult Physician Routine Consulting Provider: Van Roberson Consult Reason/Comments: Pneumonia, COPD Do you want consulting provider notified?: Yes Primary care physician: Graham Ng Hospital Course: Diagnoses -Acute on chronic hypoxic respiratory failure. Improved and patient back to baseline of 5 L/m the nasal cannula -Spontaneous right-sided pneumothorax status , thoravent was discontinued yesterday, and repeat x-ray today did not show any significant pneumothorax. -COPD with acute exacerbation continue with systemic steroids , discharged on tapering prednisone -Pneumonia felt unlikely with negative procalcitonin. No fever , Mild leukocytosis is a due to steroid effect -Coronary artery disease -History of heart failure possibly diastolic dysfunction without any acute exacerbation patient is being continued on home dose of Lasix -Hyperlipidemia -benign prostatic hypertrophy DVT prophylaxis: Lovenox GI prophylaxis: Protonix Hospital course: Patient is a pleasant 87-year-old male came in with the complaints of for right- sided chest pain and shortness of breath found to have large right-sided pneumothorax. Patient evaluated by pulmonary service, initially he had thoravent which is discontinued yesterday. Repeat chest x-ray today showing no pneumothorax area patient is breathing at baseline of 5 L/m via nasal cannula. She confirms to me he has oxygen at home. Patient is cleared for discharge by pulmonary service on tapered steroids patient denies any other new complaints Problems and management plan were discussed with the patient and he verbalized understanding and acceptance Patient was found stable and can be discharged home in guarded prognosis however he needs follow-up as an outpatient. Patient was instructed to follow up with PCP Dr. Ng within one week and patient agrees Patient was instructed to follow up with Dr. Donaldson 2-3 weeks after discharge and he is agreeable Physical exam Gen: patient is a AAOx3, no distress CVS: S1-S2, RRR, no murmur -Lungs: B/L CTA, no wheezing. Mild tachypnea. On 5 L/m of oxygen via NC Abdomen: soft, no distention, no tenderness, positive bowel sounds Extremity: no leg edema or induration Time spent more than 35 minutes Plan - Discharge Summary Discharge Rx Participant: No New Discharge Prescriptions: New predniSONE 10 mg PO DIRECTED #40 tab Continue Aspirin 81 mg PO W/BRKFST Albuterol Sulfate [Ventolin HFA] 2 puff INHALATION RT-Q6H PRN PRN Reason: Shortness Of Breath Ibuprofen 200 mg PO BID-W/MEALS Pantoprazole Sodium 40 mg PO BID Sertraline [Zoloft] 25 mg PO DAILY Potassium Chloride ER [K-Dur 20] 20 meq PO BID-W/MEALS Thiamine [Vitamin B-1] 100 mg PO W/LUNCH Ferrous Sulfate [Feosol] 325 mg PO W/BRKFST predniSONE 10 mg PO W/BRKFST Furosemide [Lasix] 40 mg PO DAILY Metoprolol Succinate (ER) [Toprol XL] 25 mg PO BID Ipratropium-Albuterol Nebulize [Duoneb 0.5 mg-3 mg/3 ml Soln] 3 ml INHALATION RT-QID Fluticasone Propion/Salmeterol [Wixela 250-50 Inhub] 1 puff PO RT-BID Mv-Min/Folic/K1/Lycopen/Lutein [Centrum Silver Men Tablet] 1 tab PO W/LUNCH Docusate [Colace] 100 mg PO W/BRKFST Simvastatin [Zocor] 40 mg PO W/SUPPER NIFEdipine XL [Procardia XL] 30 mg PO W/BRKFST Discharge Medication List Aspirin 81 mg PO W/BRKFST 05/16/16 [History] Albuterol Sulfate [Ventolin HFA] 2 puff INHALATION RT-Q6H PRN 10/21/19 [History] Ibuprofen 200 mg PO BID-W/MEALS 05/21/21 [History] Pantoprazole Sodium 40 mg PO BID 05/21/21 [History] Docusate [Colace] 100 mg PO W/BRKFST 02/05/23 [History] Ferrous Sulfate [Feosol] 325 mg PO W/BRKFST 02/05/23 [History] Fluticasone Propion/Salmeterol [Wixela 250-50 Inhub] 1 puff PO RT-BID 02/05/23 [History] Furosemide [Lasix] 40 mg PO DAILY 02/05/23 [History] Ipratropium-Albuterol Nebulize [Duoneb 0.5 mg-3 mg/3 ml Soln] 3 ml INHALATION RT-QID 02/05/23 [History] Metoprolol Succinate (ER) [Toprol XL] 25 mg PO BID 02/05/23 [History] Mv-Min/Folic/K1/Lycopen/Lutein [Centrum Silver Men Tablet] 1 tab PO W/LUNCH 02/05/23 [History] NIFEdipine XL [Procardia XL] 30 mg PO W/BRKFST 02/05/23 [History] Potassium Chloride ER [K-Dur 20] 20 meq PO BID-W/MEALS 02/05/23 [History] Sertraline [Zoloft] 25 mg PO DAILY 02/05/23 [History] Simvastatin [Zocor] 40 mg PO W/SUPPER 02/05/23 [History] Thiamine [Vitamin B-1] 100 mg PO W/LUNCH 02/05/23 [History] predniSONE 10 mg PO W/BRKFST 02/05/23 [History] predniSONE 10 mg PO DIRECTED #40 tab 02/09/23 [Rx] Follow up Appointment(s)/Referral(s): Graham Ng MD [Primary Care Provider] - 1-2 days (Office closed, Please call office to schedule appointment tomorrow.) Van Roberson DO [Doctor of Osteopathic Medicine] - 02/23/23 10:15 am [facility] [NON-STAFF] - 1-2 Days ([facility] will call you to schedule your in home visits. ) Patient Instructions/Handouts: Spontaneous Pneumothorax (DC), COPD (Chronic Obstructive Pulmonary Disease) (DC), Community Acquired Pneumonia (DC) Discharge Disposition: HOME SELF-CARE
== END 2023-02-09 19:05 | disposition home or self-care (01) | DRG 199 ==
LOC: EC 15:11 → 4SSUR 15:37
PROVIDERS: ADMIT Internal Medicine; ATTEND Internal Medicine
PROC: 0W9930Z Drainage of Right Pleural Cavity with Drainage Device, Percutaneous Approach (ICD-10-PCS; principal; 2023-02-05)
DX: J93.83 Other pneumothorax (principal); J18.9 Pneumonia, unspecified organism; J96.21 Acute and chronic respiratory failure with hypoxia; J44.1 Chronic obstructive pulmonary disease with (acute) exacerbation; J44.0 Chronic obstructive pulmonary disease with (acute) lower respiratory infection; I50.32 Chronic diastolic (congestive) heart failure; T38.0X5A Adverse effect of glucocorticoids and synthetic analogues, initial encounter; Z99.81 Dependence on supplemental oxygen; I11.0 Hypertensive heart disease with heart failure; Z86.16 Personal history of COVID-19; Z66 Do not resuscitate; E78.5 Hyperlipidemia, unspecified; H91.90 Unspecified hearing loss, unspecified ear; I25.10 Atherosclerotic heart disease of native coronary artery without angina pectoris; I25.2 Old myocardial infarction; N40.0 Benign prostatic hyperplasia without lower urinary tract symptoms; Z85.01 Personal history of malignant neoplasm of esophagus; Z85.46 Personal history of malignant neoplasm of prostate; Z92.21 Personal history of antineoplastic chemotherapy; Z92.3 Personal history of irradiation; Z95.1 Presence of aortocoronary bypass graft; Z95.5 Presence of coronary angioplasty implant and graft; Z79.52 Long term (current) use of systemic steroids; Z79.51 Long term (current) use of inhaled steroids; Z79.899 Other long term (current) drug therapy; Z79.82 Long term (current) use of aspirin; Z82.49 Family history of ischemic heart disease and other diseases of the circulatory system; X58.XXXA Exposure to other specified factors, initial encounter; Z88.5 Allergy status to narcotic agent; Z88.0 Allergy status to penicillin; Z87.19 Personal history of other diseases of the digestive system; Z90.49 Acquired absence of other specified parts of digestive tract; Z98.42 Cataract extraction status, left eye; Z98.41 Cataract extraction status, right eye; Z96.1 Presence of intraocular lens; Z87.442 Personal history of urinary calculi
CPT/HCPCS: 32551; 71045; 80048; 84145; 85025; 87449; 94640; 94760; 96365; 96366; 99291

== ENCOUNTER 2023-12-23 19:34 | Inpatient (IN) | payer MEDICARE ==
[2023-12-23] MEDS ORDERED: MORPHINE SULFATE 4 MG/ML SYRINGE IV PRN (20:19)
[2023-12-23 20:22] LABS: Anisocytosis Slight; Basophils % (A) 0 %; Eosinophils % (A) 1 %; HCT 41.9 % (39.0-53.0); Hypochromasia Slight; Lymphocytes # (A) 0.5 k/uL (1.0-4.8); Lymphocytes % (A) 6 %; MCH 26.7 pg (25.0-35.0); MCHC 31.1 g/dL (31.0-37.0); MCV 86.1 fL (80.0-100.0); Mean Platelet Volume 7.2; Monocytes # (A) 0.4 k/uL (0-1.0); Monocytes % (A) 5 %; Neutrophils # (A) 6.8 k/uL (1.3-7.7); Neutrophils % (A) 87 %; Platelet Count 177 k/uL (150-450); RBC 4.86 m/uL (4.30-5.90); RDW 16.3 % (11.5-15.5); WBC 7.8 k/uL (3.8-10.6)
[2023-12-23] MEDS: HEPARIN SOD,PORK IN 0.45% NACL 25,000 UNIT in 0.45% NACL 1 250ML.BAG IV SCH (20:28)
[2023-12-23] MEDS: NITROGLYCERIN OINT 1 INCH/GM PACKET TOPICAL SCH (20:31)
[2023-12-23 20:33] LABS: INR 1.1 (<1.2); Prothrombin Time 11.5 sec (10.0-12.5)
--- NOTE | 2023-12-23 20:37 | ED ---
General Adult HPI - General Chief complaint: Chest Pain Stated complaint: NSTEMI Time Seen by Provider: 12/23/23 20:06 Source: patient, EMS, RN notes reviewed, old records reviewed Mode of arrival: EMS Limitations: no limitations - History of Present Illness Initial comments: 88-year-old male presenting as transfer from [facility] for non-ST segm ent elevated [place]. Patient had been found to have elevated troponin with complaint of left-sided chest pain and left shoulder pain. Shoulder pain was atraumatic. Patient has had complained of shoulder and chest pain over the past several days. Patient has remote history of CAD with coronary artery bypass graft in approximately 2003. He follows with Dr. Carranza. - Related Data Home Medications Medication Instructions Recorded Confirmed Aspirin 81 mg PO W/BRKFST 05/16/16 12/23/23 Ibuprofen 200 mg PO BID-W/MEALS 05/21/21 12/23/23 Docusate [Colace] 100 mg PO W/BRKFST 02/05/23 12/23/23 Ferrous Sulfate [Feosol] 325 mg PO W/BRKFST 02/05/23 12/23/23 Fluticasone Propion/Salmeterol 1 puff INHALATION RT-BID 02/05/23 12/23/23 [Wixela 250-50 Inhub] Furosemide [Lasix] 40 mg PO W/BRKFST 02/05/23 12/23/23 Ipratropium-Albuterol Nebulize 3 ml INHALATION RT-TID 02/05/23 12/23/23 [Duoneb 0.5 mg-3 mg/3 ml Soln] Metoprolol Succinate (ER) [Toprol 25 mg PO BID-W/MEALS 02/05/23 12/23/23 XL] Mv-Min/Folic/K1/Lycopen/Lutein 1 tab PO W/LUNCH 02/05/23 12/23/23 [Centrum Silver Men Tablet] NIFEdipine XL [Procardia XL] 30 mg PO W/SUPPER 02/05/23 12/23/23 Potassium Chloride ER [K-Dur 20] 20 meq PO BID-W/MEALS 02/05/23 12/23/23 Sertraline [Zoloft] 25 mg PO W/BRKFST 02/05/23 12/23/23 Simvastatin [Zocor] 40 mg PO W/SUPPER 02/05/23 12/23/23 Thiamine [Vitamin B-1] 100 mg PO W/LUNCH 02/05/23 12/23/23 predniSONE 10 mg PO W/BRKFST 02/05/23 12/23/23 Pantoprazole [Protonix] 40 mg PO BID-W/MEALS 12/23/23 12/23/23 Allergies Allergy/AdvReac Type Severity Reaction Status Date / Time Penicillins Allergy Swelling Verified 02/05/23 16:46 codeine AdvReac constipatio Verified 02/05/23 16:46 n Review of Systems ROS Statement: Those systems with pertinent positive or pertinent negative responses have been documented in the HPI. ROS Other: All systems not noted in ROS Statement are negative. Past Medical History Past Medical History: Coronary Artery Disease (CAD), Cancer, Heart Failure, COPD, GERD/Reflux, Hearing Disorder / Deafness, Hyperlipidemia, Hypertension, Myocardial Infarction ([place]), Pneumonia, Prostate Disorder, Vascular Disorder Additional Past Medical History / Comment(s): uses O2@5 L NC at night,enlarged prostate,daily prednisone, prostate cancer-no radiation or chemo, kidney stone , hx. esophageal cancer 2019-had chemo & radiation and chemo Feb 2020,Admitted with Covid Nov 2020 Last Myocardial Infarction Date:: 2003 History of Any Multi-Drug Resistant Organisms: None Reported Past Surgical History: Appendectomy, Cholecystectomy, Coronary Bypass/CABG, Heart Catheterization With Stent, Prostate Surgery Additional Past Surgical History / Comment(s): CABG-4vessel 2003,heart stents x 3,teeth extraction,andrez cataracts, TURP, vascular procedure lower leg using starclip SE device Past Anesthesia/Blood Transfusion Reactions: No Reported Reaction Date of Last Stent Placement:: 03-01-03 Past Psychological History: No Psychological Hx Reported Smoking Status: Former smoker Past Alcohol Use History: None Reported Past Drug Use History: None Reported - Past Family History Mother Family Medical History: Cancer Additional Family Medical History / Comment(s): leukemia Father Family Medical History: Myocardial Infarction ([place]) General Exam Limitations: no limitations General appearance: alert, in no apparent distress Head exam: Present: atraumatic, normocephalic Eye exam: Present: normal appearance, PERRL ENT exam: Present: normal exam Neck exam: Present: normal inspection. Absent: tenderness, meningismus Respiratory exam: Present: decreased breath sounds. Absent: respiratory distress Cardiovascular Exam: Present: regular rate, normal rhythm GI/Abdominal exam: Present: soft. Absent: distended, tenderness, guarding, rebound Course Vital Signs 12/23/23 19:39 Temperature 97.3 F L Pulse Rate 80 Respiratory 18 Rate Blood Pressure 174/118 O2 Sat by Pulse 98 Oximetry Medical Decision Making - Medical Decision Making Was pt. sent in by a medical professional or institution (, TANA, MARINE ENGINE MECHANIC, urgent care, hospital, or halfway...) When possible be specific @ -Transfer from [facility] with non-ST segment elevated [place] Did you speak to anyone other than the patient for history (EMS, parent, family, police, friend...)? What history was obtained from this source @ -No Did you review nursing and triage notes (agree or disagree)? Why? @ -I reviewed and agree with nursing and triage notes Were old charts reviewed (outside hosp., previous admission, EMS record, old EKG, old radiological studies, urgent care reports/EKG's, halfway records)? Report findings @ -No old charts were reviewed Differential Chest Pain: Stable Angina, Unstable Angina, STEMI, NSTEMI Aortic Dissection, Pneumothorax, Musculoskeletal, Esophageal Spasm GERD, Cholecystitis, Pancreatitis, Zoster, this is not meant to be an all-inclusive list. EKG interpreted by me (3pts min.). @ -EKG: Sinus rhythm with first-degree AV block, rate of 76, VT interval 226, QRS duration 136, QTc 439 X-rays interpreted by me (1pt min.). @ -None done CT interpreted by me (1pt min.). @ -None done U/S interpreted by me (1pt. min.). @ -None done What testing was considered but not performed or refused? (CT, X-rays, U/S, labs)? Why? @ -None What meds were considered but not given or refused? Why? @ -None Did you discuss the management of the patient with other professionals (professionals i.e. TANA Montes, MARINE ENGINE MECHANIC, lab, RT, psych nurse, marriage and family social worker, spare parts clerk, teacher, bsa officer, clinical case manager)? Give summary @ -Initially discussed case with sound physician group however patient is both the [facility] patient and his primary care is Dr. Ng there for this patient will be admitted to Dr. Harkins Was smoking cessation discussed for >3mins.? @ -No Was critical care preformed (if so, how long)? @ -yes, 35 min Were there social determinants of health that impacted care today? How? (Homelessness, low income, unemployed, alcoholism, drug addiction, transportation, low edu. Level, literacy, decrease access to med. care, fci, rehab)? @ -No Was there de-escalation of care discussed even if they declined (Discuss DNR or withdrawal of care, Hospice)? DNR status @ -[Patient states he is a DNR What co-morbidities impacted this encounter? (DM, HTN, Smoking, COPD, CAD, Cancer, CVA, ARF, Chemo, Hep., AIDS, mental health diagnosis, sleep apnea, morbid obesity)? @ -Coronary artery disease Was patient admitted / discharged? Hospital course, mention meds given and route, prescriptions, significant lab abnormalities, going to OR and other pertinent info. @88-year-old male transfer from outside hospital with non-ST segment elevated [place] initial troponin 0.13. This level will be repeated along with all laboratory t esting. Troponin level will be trended. Patient will be continued on nitroglycerin and heparin. Cardiology placed on consult. Case discussed with Dr. Harkins who will admit. Undiagnosed new problem with uncertain prognosis? @ -[No Drug Therapy requiring intensive monitoring for toxicity (Heparin, Nitro, Insulin, Cardizem)? @ -No Were any procedures done? @ -No Diagnosis/symptom? @ -[NSTEMI Acute, or Chronic, or Acute on Chronic? @Acute Uncomplicated (without systemic symptoms) or Complicated (systemic symptoms)? @ -Complicated Side effects of treatment? @ -No Exacerbation, Progression, or Severe Exacerbation? @ -No Poses a threat to life or bodily function? How? (Chest pain, [place], [place], pneumonia, PE, COPD, DKA, ARF, appy, cholecystitis, CVA, Diverticulitis, Homicidal, Suicidal, threat to staff... and all critical care pts) @ -Yes, ACS, cardiogenic shock, arrhythmia - Lab Data Result diagrams: 12/23/23 20:04 12/23/23 20:04 Lab Results 12/23/23 12/23/23 Range/Units 20:04 20:04 WBC 7.8 (3.8-10.6) k/uL RBC 4.86 (4.30-5.90) m/uL Hgb 13.0 (13.0-17.5) gm/dL Hct 41.9 (39.0-53.0) % MCV 86.1 (80.0-100.0) fL MCH 26.7 (25.0-35.0) pg MCHC 31.1 (31.0-37.0) g/dL RDW 16.3 H (11.5-15.5) % Plt Count 177 (150-450) k/uL MPV 7.2 Neutrophils % 87 % Lymphocytes % 6 % Monocytes % 5 % Eosinophils % 1 % Basophils % 0 % Neutrophils # 6.8 (1.3-7.7) k/uL Lymphocytes # 0.5 L (1.0-4.8) k/uL Monocytes # 0.4 (0-1.0) k/uL Eosinophils # 0.0 (0-0.7) k/uL Basophils # 0.0 (0-0.2) k/uL Hypochromasia Slight Anisocytosis Slight Sodium 143 (137-145) mmol/L Potassium 3.9 (3.5-5.1) mmol/L Chloride 110 H (98-107) mmol/L Carbon Dioxide 31 H (22-30) mmol/L Anion Gap 2 mmol/L BUN 35 H (9-20) mg/dL Creatinine 1.14 (0.66-1.25) mg/dL Est GFR (CKD-EPI)AfAm 66 (>60 ml/min/1.73 sqM) Est GFR (CKD-EPI)NonAf 57 (>60 ml/min/1.73 sqM) Glucose 117 H (74-99) mg/dL Calcium 8.8 (8.4-10.2) mg/dL Magnesium 2.2 (1.6-2.3) mg/dL Total Bilirubin 0.7 (0.2-1.3) mg/dL AST 36 (17-59) U/L ALT 27 (4-49) U/L Alkaline Phosphatase 88 (38-126) U/L Total Protein 6.3 (6.3-8.2) g/dL Albumin 3.6 (3.5-5.0) g/dL Critical Care Time Critical Care Time: Yes Total Critical Care Time: 35 Disposition Clinical Impression: Acute non-ST elevation myocardial infarction (NSTEMI) Disposition: ADMITTED IP TO THIS HOSP Condition: Stable Is patient prescribed a controlled substance at d/c from ED?: No Time of Disposition: 20:37
[2023-12-23 20:53] LABS: ALT 27 U/L (4-49); AST 36 U/L (17-59); African American GFR (CKD) 66 (>60 ml/min/1.73 sqM); Albumin 3.6 g/dL (3.5-5.0); Alkaline Phosphatase 88 U/L (38-126); Anion Gap 2 mmol/L; Blood Urea Nitrogen 35 mg/dL (9-20); Calcium 8.8 mg/dL (8.4-10.2); Carbon Dioxide 31 mmol/L (22-30); Chloride 110 mmol/L (98-107); Glucose 117 mg/dL (74-99); Magnesium 2.2 mg/dL (1.6-2.3); Non-African American GFR(CKD) 57 (>60 ml/min/1.73 sqM); Potassium 3.9 mmol/L (3.5-5.1); Sodium 143 mmol/L (137-145); Total Bilirubin 0.7 mg/dL (0.2-1.3); Total Protein 6.3 g/dL (6.3-8.2)
[2023-12-23 21:00] LABS: Partial Thromboplastin Time 81.1 sec (22.0-30.0)
[2023-12-23] MEDS: ATORVASTATIN 40 MG TAB PO SCH (21:16)
[2023-12-24] MEDS: NITROGLYCERIN-D5W PMX 50 MG in DEXTROSE/WATER 1 250ML.BAG IV SCH (04:46)
[2023-12-24] MEDS: PANTOPRAZOLE 40 MG TABLET PO SCH (06:53)
[2023-12-24 07:36] LABS: Prothrombin Time 11.2 sec (10.0-12.5)
[2023-12-24 07:39] LABS: Anisocytosis Slight; Basophils % (A) 0 %; Eosinophils # (A) 0.1 k/uL (0-0.7); Eosinophils % (A) 2 %; HCT 35.9 % (39.0-53.0); HGB 11.6 gm/dL (13.0-17.5); Hypochromasia Slight; Lymphocytes # (A) 0.5 k/uL (1.0-4.8); Lymphocytes % (A) 8 %; MCH 27.6 pg (25.0-35.0); MCHC 32.1 g/dL (31.0-37.0); Monocytes # (A) 0.4 k/uL (0-1.0); Monocytes % (A) 6 %; Neutrophils # (A) 5.5 k/uL (1.3-7.7); Neutrophils % (A) 83 %; Platelet Count 176 k/uL (150-450); RBC 4.18 m/uL (4.30-5.90); RDW 16.3 % (11.5-15.5); WBC 6.6 k/uL (3.8-10.6)
--- NOTE | 2023-12-24 07:59 | P.CRDCN ---
History of Present Illness Consult date: 12/24/23 History of present illness: This is an 88-year-old gentleman who was transferred from different facility to the hospital for further evaluation of abnormal cardiac enzymes. The patient is a somewhat poor historian. He does have a past medical history significant for CAD status post CABG according to him in 2003 and apparently subsequent PCI was performed with unknown details as well as history of severe COPD he is on home oxygen as well as hypertension and dyslipidemia and multiple comorbid conditions. The patient was in his usual state of health where he does have overall limited functional capacity and has been getting up and around using a walker most of the time. He was experiencing some left arm discomfort and mild chest discomfort. He presented to the emergency department and he underwent further workup including troponin came in to be abnormal and EKG showing sinus mechanism with some ST changes concerning for ischemia. He was started on hepar in IV. He was started also on oral nitrates. He subsequently was transferred to [facility] for further evaluation. No previous medical record regarding his cardiovascular condition. He was seen by the pulmonary team in the past and he is known to have advanced COPD on oxygen at home. Currently his chest pain-free. When he presented to the hospital his pressure has been elevated and consistent with hypertension crisis. His pressure has somewhat improved on the current dose of nitroglycerin IV. He is on aspirin and he is on a statin and he is on heparin he is on nitroglycerin IV at this point. The physical examination is remarkable for very distant heart sounds with a systolic murmur at the right and left upper sternal border with diminished breathing sounds bilaterally and mild bilateral expiratory wheezing and mild bilateral lower extremities edema Assessment Hypertension emergency Acute coronary syndrome History of CAD status post CABG with unknown details History of PCI with unknown details as well Advanced COPD/hypoxic respiratory failure Multiple comorbid conditions Plan Continue heparin IV for a total of 48 hours Try to wean the patient from nitroglycerin IV Continue aspirin and statin He cannot be on beta-miah because he is already bradycardic Add losartan to the current medical regimen Obtain an echocardiogram with Doppler Follow-up with the patient Past Medical History Past Medical History: Coronary Artery Disease (CAD), Cancer, Heart Failure, COPD, GERD/Reflux, Hearing Disorder / Deafness, Hyperlipidemia, Hypertension, Myocardial Infarction ([place]), Pneumonia, Prostate Disorder, Vascular Disorder Additional Past Medical History / Comment(s): uses O2@5 L NC at night,enlarged prostate,daily prednisone, prostate cancer-no radiation or chemo, kidney stone 1969', hx. esophageal cancer 2019-had chemo & radiation and chemo Feb 2020,Admitted with Covid Nov 2020 Last Myocardial Infarction Date:: 2003 History of Any Multi-Drug Resistant Organisms: None Reported Past Surgical History: Appendectomy, Cholecystectomy, Coronary Bypass/CABG, Heart Catheterization With Stent, Prostate Surgery Additional Past Surgical History / Comment(s): CABG-4vessel 2003,heart stents x 3,teeth extraction,andrez cataracts, TURP, vascular procedure lower leg using starclip SE device Past Anesthesia/Blood Transfusion Reactions: No Reported Reaction Date of Last Stent Placement:: 03-01-03 Past Psychological History: No Psychological Hx Reported Smoking Status: Former smoker Past Alcohol Use History: None Reported Past Drug Use History: None Reported - Past Family History Mother Family Medical History: Cancer Additional Family Medical History / Comment(s): leukemia Father Family Medical History: Myocardial Infarction ([place]) Medications and Allergies Home Medications Medication Instructions Recorded Confirmed Type Aspirin 81 mg PO W/BRKFST 05/16/16 12/23/23 History Ibuprofen 200 mg PO BID-W/MEALS 05/21/21 12/23/23 History Docusate [Colace] 100 mg PO W/BRKFST 02/05/23 12/23/23 History Ferrous Sulfate [Feosol] 325 mg PO W/BRKFST 02/05/23 12/23/23 History Fluticasone Propion/Salmeterol 1 puff INHALATION RT-BID 02/05/23 12/23/23 History [Wixela 250-50 Inhub] Furosemide [Lasix] 40 mg PO W/BRKFST 02/05/23 12/23/23 History Ipratropium-Albuterol Nebulize 3 ml INHALATION RT-TID 02/05/23 12/23/23 History [Duoneb 0.5 mg-3 mg/3 ml Soln] Metoprolol Succinate (ER) [Toprol 25 mg PO BID-W/MEALS 02/05/23 12/23/23 History XL] Mv-Min/Folic/K1/Lycopen/Lutein 1 tab PO W/LUNCH 02/05/23 12/23/23 History [Centrum Silver Men Tablet] NIFEdipine XL [Procardia XL] 30 mg PO W/SUPPER 02/05/23 12/23/23 History Potassium Chloride ER [K-Dur 20] 20 meq PO BID-W/MEALS 02/05/23 12/23/23 History Sertraline [Zoloft] 25 mg PO W/BRKFST 02/05/23 12/23/23 History Simvastatin [Zocor] 40 mg PO W/SUPPER 02/05/23 12/23/23 History Thiamine [Vitamin B-1] 100 mg PO W/LUNCH 02/05/23 12/23/23 History predniSONE 10 mg PO W/BRKFST 02/05/23 12/23/23 History Pantoprazole [Protonix] 40 mg PO BID-W/MEALS 12/23/23 12/23/23 History Allergies Allergy/AdvReac Type Severity Reaction Status Date / Time Penicillins Allergy Swelling Verified 02/05/23 16:46 codeine AdvReac constipatio Verified 02/05/23 16:46 n Physical Exam Vitals: Vital Signs Temp Pulse Resp BP Pulse Ox 12/24/23 06:50 68 20 149/104 97 12/24/23 06:00 67 19 145/100 94 L 12/24/23 05:45 68 19 148/91 94 L 12/24/23 05:30 68 20 149/98 93 L 12/24/23 05:15 67 17 161/115 96 12/24/23 05:00 70 20 167/107 97 12/24/23 04:55 72 20 175/96 96 12/24/23 03:36 71 20 189/107 12/24/23 03:00 72 19 163/100 96 12/24/23 01:51 EDT 70 18 158/127 98 12/23/23 22:52 76 18 170/108 98 12/23/23 21:18 76 18 193/112 12/23/23 19:39 97.3 F L 80 18 174/118 98 Intake and Output 12/23/23 12/24/23 12/24/23 23:59 06:59 14:59 Intake Total Balance Intake: Intake, IV Titration Amount Heparin Sod,Pork in 0.45% NaCl 25,000 unit In 0.45 % NaCl 1 250ml.bag @ 12 UNITS/KG/HR 8.927 mls/hr IV .Q24H [facility] Rx#: [id number] Other: Weight Results 12/24/23 07:12 12/23/23 20:04 Cardiac Enzymes 12/23/23 12/23/23 12/23/23 Range/Units 20:04 20:04 23:17 AST 36 (17-59) U/L Troponin I 0.464 H* 4.750 H* (0.000-0.034) ng/mL 12/24/23 Range/Units 02:11 AST (17-59) U/L Troponin I 43.700 H* (0.000-0.034) ng/mL Coagulation 12/23/23 12/24/23 12/24/23 Range/Units 20:04 02:11 07:12 PT 11.5 11.2 (10.0-12.5) sec APTT 81.1 H 44.5 H (22.0-30.0) sec CBC 12/23/23 12/24/23 Range/Units 20:04 07:12 WBC 7.8 6.6 (3.8-10.6) k/uL RBC 4.86 4.18 L (4.30-5.90) m/uL Hgb 13.0 11.6 L (13.0-17.5) gm/dL Hct 41.9 35.9 L (39.0-53.0) % Plt Count 177 176 (150-450) k/uL Comprehensive Metabolic Panel 12/23/23 Range/Units 20:04 Sodium 143 (137-145) mmol/L Potassium 3.9 (3.5-5.1) mmol/L Chloride 110 H (98-107) mmol/L Carbon Dioxide 31 H (22-30) mmol/L BUN 35 H (9-20) mg/dL Creatinine 1.14 (0.66-1.25) mg/dL Glucose 117 H (74-99) mg/dL Calcium 8.8 (8.4-10.2) mg/dL AST 36 (17-59) U/L ALT 27 (4-49) U/L Alkaline Phosphatase 88 (38-126) U/L Total Protein 6.3 (6.3-8.2) g/dL Albumin 3.6 (3.5-5.0) g/dL Current Medications Generic Name Dose Route Start Last Admin Trade Name Freq PRN Reason Stop Dose Admin Aspirin 325 mg 12/24/23 09:00 Aspirin 325 Mg Tab PO DAILY [facility] Atorvastatin Calcium 40 mg 12/23/23 21:00 12/23/23 21:16 Atorvastatin 40 Mg Tab PO 40 mg HS AMNA Administration Heparin Sodium (Porcine) 0 unit 12/23/23 20:07 Heparin Sodium 1,000 Un/Ml (10ml Vl) IV PER PROTOCOL PRN Low PTT Protocol Heparin Sodium/Sodium Chloride 250 mls @ 8.927 mls/hr 12/23/23 20:15 12/23/23 21:20 25,000 unit/ Sodium Chloride IV 10 units/kg/hr .Q24H AMNA 7.439 mls/hr Titration Protocol 12 UNITS/KG/HR Nitroglycerin/Dextrose 50 mg/ 250 mls @ 1.5 mls/hr 12/24/23 04:00 12/24/23 04:46 IV Solution IV 5 mcg/min .Q24H AMNA 1.5 mls/hr Administration Protocol 5 MCG/MIN Morphine Sulfate 4 mg 12/23/23 20:19 Morphine Sulfate 4 Mg/Ml Syringe IV Q5M PRN Chest Pain Pantoprazole Sodium 40 mg 12/24/23 07:30 12/24/23 06:53 Pantoprazole 40 Mg Tablet PO 40 mg AC-BRKFST [facility] Administration Intake and Output 12/23/23 12/24/23 12/24/23 23:59 06:59 14:59 Intake Total Balance Intake: Intake, IV Titration Amount Heparin Sod,Pork in 0.45% NaCl 25,000 unit In 0.45 % NaCl 1 250ml.bag @ 12 UNITS/KG/HR 8.927 mls/hr IV .Q24H [facility] Rx#: [id number] Other: Weight 12/24/23 07:12 12/23/23 20:04
[2023-12-24] MEDS: ASPIRIN 325 MG TAB PO SCH (09:29)
[2023-12-24] MEDS: IPRATROPIUM-ALBUTEROL 3 ML NEB INHALATION SCH (10:09)
[2023-12-24] MEDS: HEPARIN SODIUM 1,000 UN/ML (10ML VL) IV PRN (11:04)
[2023-12-24] MEDS: FUROSEMIDE 10 MG/ML 2 ML VIAL IV STA (11:09)
[2023-12-24] MEDS: LOSARTAN 50 MG TAB PO SCH (11:10)
[2023-12-24] MEDS: predniSONE 10 MG TAB PO SCH (11:11)
[2023-12-24] MEDS: SERTRALINE 25 MG TAB PO SCH (11:11)
[2023-12-24] MEDS: MULTIVITAMINS, THERA 1 EACH TAB PO SCH (11:57)
[2023-12-24] MEDS: THIAMINE 100 MG TAB PO SCH (11:57)
[2023-12-24] MEDS: SYMBICORT 80-4.5 MCG INHALER INHALATION SCH (12:03)
[2023-12-24] MEDS: CLOPIDOGREL 75 MG TAB PO SCH (12:20)
--- NOTE | 2023-12-24 13:47 | P.HPIM ---
History of Present Illness H&P Date: 12/24/23 Chief Complaint: Chest pressure Very pleasant 88-year-old patient, follows with Dr. Ng. Extensive medical history. Does use 5 L of oxygen at night. Patient on 3 PM started with pressure across the chest. Most on the left sided. Did radiate to the left side. Perspiration. Patient is chronically short of breath. Tired. Patient ruled in for an acute [place]. Cardiology was informed. Placed on IV heparin. Patient has got a history of coronary bypass. Follows with electric sealing machine operator Dr. Carranza. Review of systems: GEN.: Tired EYES: None HEENT: None NECK: None RESPIRATORY: As above CARDIOVASCULAR: As above GASTROINTESTINAL: None GENITOURINARY: None MUSCULOSKELETAL: None LYMPHATICS: None HEMATOLOGICAL: None PSYCHIATRY: None NEUROLOGICAL: None Social history: . Does use a walker. Did smoke in the past. Physical examination: VITAL SIGNS: 79, 17, 150 x 75, 96% on 4 L GENERAL: BMI 23.5, reclining bed awake short of breath tired. EYES: Pupils equal. Conjunctiva tabby l. HEENT: External appearance of nose and ears normal, oral cavity grossly normal. Decreased hearing NECK: JVD not raised; masses not palpable. HEART: First and second heart sounds are normal; no edema. LUNGS: Respiratory rate increased, diminished breath sounds. ABDOMEN: Soft, nontender, liver spleen not palpable, no masses palpable. PSYCH: Alert and oriented x3; mood and affect tabby l. MUSCULOSKELETAL:No Clubbing/cyanosis;muscles-grossly intact. OA NEUROLOGICAL: Cranial nerves grossly intact; no facial asymmetry, power and sensation grossly intact. LYMPHATICS: No lymph nodes palpable in the axilla and neck INVESTIGATIONS, reviewed in the clinical context: December 23: White count 6.6 hemoglobin 11.6 platelets 176 December 22: White count 7.8 hemoglobin 13 platelets 177 sodium 143 potassium 3.9 creatinine 1.14 Troponin I 0.464, 4.7, 43.7 EKG tracing personally reviewed by me-normal sinus rhythm. Poor R wave progression Assessment plan: -Acute non-ST relation myocardial infarction in a patient with known CAD Aspirin. IV heparin. IV nitroglycerin drip -IV heparin monitoring monitoring per protocol -CAD with a prior history of coronary bypass, 2003, with coronary stents Lipitor. Toprol-XL. Procardia XL. Aspirin.- -Chronic congestive heart failure. EF not known -COPD in a prior smoker Continue home nebulizers -GERD Protonix -Depression Zoloft -Chronic gait dysfunction does use a walker at baseline -Chronic hypoxic respiratory failure from underlying COPD Home oxygen 4 L especially at night -Osteoarthritis Pain medication as needed -BPH with a prior history of TURP -Prostate cancer no chemo or radiation -Esophageal cancer 2019 with chemoradiation -Hard of hearing -GERD Protonix -Depression Zoloft -DNR Discussed with patient. Follow with cardiology. Past Medical History Past Medical History: Coronary Artery Disease (CAD), Cancer, Heart Failure, COPD, GERD/Reflux, Hearing Disorder / Deafness, Hyperlipidemia, Hypertension, Myocardial Infarction ([place]), Pneumonia, Prostate Disorder, Vascular Disorder Additional Past Medical History / Comment(s): uses O2@5 L NC at night,enlarged prostate,daily prednisone, prostate cancer-no radiation or chemo, kidney stone , hx. esophageal cancer 2019-had chemo & radiation and chemo Feb 2020,Admitted with Covid Nov 2020 Last Myocardial Infarction Date:: 2003 History of Any Multi-Drug Resistant Organisms: None Reported Past Surgical History: Appendectomy, Cholecystectomy, Coronary Bypass/CABG, Heart Catheterization With Stent, Prostate Surgery Additional Past Surgical History / Comment(s): CABG-4vessel 2003,heart stents x 3,teeth extraction,andrez cataracts, TURP, vascular procedure lower leg using starclip SE device Past Anesthesia/Blood Transfusion Reactions: No Reported Reaction Date of Last Stent Placement:: 03-01-03 Past Psychological History: No Psychological Hx Reported Smoking Status: Former smoker Past Alcohol Use History: None Reported Past Drug Use History: None Reported - Past Family History Mother Family Medical History: Cancer Additional Family Medical History / Comment(s): leukemia Father Family Medical History: Myocardial Infarction ([place]) Medications and Allergies Home Medications Medication Instructions Recorded Confirmed Type Aspirin 81 mg PO W/BRKFST 05/16/16 12/23/23 History Ibuprofen 200 mg PO BID-W/MEALS 05/21/21 12/23/23 History Docusate [Colace] 100 mg PO W/BRKFST 02/05/23 12/23/23 History Ferrous Sulfate [Feosol] 325 mg PO W/BRKFST 02/05/23 12/23/23 History Fluticasone Propion/Salmeterol 1 puff INHALATION RT-BID 02/05/23 12/23/23 History [Wixela 250-50 Inhub] Furosemide [Lasix] 40 mg PO W/BRKFST 02/05/23 12/23/23 History Ipratropium-Albuterol Nebulize 3 ml INHALATION RT-TID 02/05/23 12/23/23 History [Duoneb 0.5 mg-3 mg/3 ml Soln] Metoprolol Succinate (ER) [Toprol 25 mg PO BID-W/MEALS 02/05/23 12/23/23 History XL] Mv-Min/Folic/K1/Lycopen/Lutein 1 tab PO W/LUNCH 02/05/23 12/23/23 History [Centrum Silver Men Tablet] NIFEdipine XL [Procardia XL] 30 mg PO W/SUPPER 02/05/23 12/23/23 History Potassium Chloride ER [K-Dur 20] 20 meq PO BID-W/MEALS 02/05/23 12/23/23 History Sertraline [Zoloft] 25 mg PO W/BRKFST 02/05/23 12/23/23 History Simvastatin [Zocor] 40 mg PO W/SUPPER 02/05/23 12/23/23 History Thiamine [Vitamin B-1] 100 mg PO W/LUNCH 02/05/23 12/23/23 History predniSONE 10 mg PO W/BRKFST 02/05/23 12/23/23 History Pantoprazole [Protonix] 40 mg PO BID-W/MEALS 12/23/23 12/23/23 History Allergies Allergy/AdvReac Type Severity Reaction Status Date / Time Penicillins Allergy Swelling Verified 02/05/23 16:46 codeine AdvReac constipatio Verified 02/05/23 16:46 n Physical Exam Vitals: Vital Signs Temp Pulse Resp BP Pulse Ox 12/24/23 09:23 79 17 150/75 96 12/24/23 07:33 95 12/24/23 06:50 68 20 149/104 97 12/24/23 06:00 67 19 145/100 94 L 12/24/23 05:45 68 19 148/91 94 L 12/24/23 05:30 68 20 149/98 93 L 12/24/23 05:15 67 17 161/115 96 12/24/23 05:00 70 20 167/107 97 12/24/23 04:55 72 20 175/96 96 12/24/23 03:36 71 20 189/107 12/24/23 03:00 72 19 163/100 96 12/24/23 01:51 EDT 70 18 158/127 98 12/23/23 22:52 76 18 170/108 98 12/23/23 21:18 76 18 193/112 12/23/23 19:39 97.3 F L 80 18 174/118 98 Intake and Output 12/23/23 12/24/23 12/24/23 23:59 06:59 14:59 Intake Total Balance Intake: Intake, IV Titration Amount Heparin Sod,Pork in 0.45% NaCl 25,000 unit In 0.45 % NaCl 1 250ml.bag @ 12 UNITS/KG/HR 8.927 mls/hr IV .Q24H [facility] Rx#: [id number] Other: Weight Results CBC & Chem 7: 12/24/23 07:12 12/23/23 20:04 Labs: Abnormal Lab Results - Last 24 Hours (Table) 12/23/23 12/23/23 12/23/23 Range/Units 20:04 20:04 20:04 RBC (4.30-5.90) m/uL Hgb (13.0-17.5) gm/dL Hct (39.0-53.0) % RDW 16.3 H (11.5-15.5) % Lymphocytes # 0.5 L (1.0-4.8) k/uL APTT 81.1 H (22.0-30.0) sec Chloride 110 H (98-107) mmol/L Carbon Dioxide 31 H (22-30) mmol/L BUN 35 H (9-20) mg/dL Glucose 117 H (74-99) mg/dL Troponin I (0.000-0.034) ng/mL 12/23/23 12/23/23 12/24/23 Range/Units 20:04 23:17 02:11 RBC (4.30-5.90) m/uL Hgb (13.0-17.5) gm/dL Hct (39.0-53.0) % RDW (11.5-15.5) % Lymphocytes # (1.0-4.8) k/uL APTT (22.0-30.0) sec Chloride (98-107) mmol/L Carbon Dioxide (22-30) mmol/L BUN (9-20) mg/dL Glucose (74-99) mg/dL Troponin I 0.464 H* 4.750 H* 43.700 H* (0.000-0.034) ng/mL 12/24/23 12/24/23 Range/Units 02:11 07:12 RBC 4.18 L (4.30-5.90) m/uL Hgb 11.6 L (13.0-17.5) gm/dL Hct 35.9 L (39.0-53.0) % RDW 16.3 H (11.5-15.5) % Lymphocytes # 0.5 L (1.0-4.8) k/uL APTT 44.5 H (22.0-30.0) sec Chloride (98-107) mmol/L Carbon Dioxide (22-30) mmol/L BUN (9-20) mg/dL Glucose (74-99) mg/dL Troponin I (0.000-0.034) ng/mL
--- NOTE | 2023-12-24 14:09 | XR ---
EXAMINATION TYPE: XR chest 1V portable DATE OF EXAM: 12/24/2023 1:52 PM COMPARISON: Chest radiographs from 02/09/2023 CLINICAL INDICATION: Male, 88 years old with history of sob; [facility] TECHNIQUE: XR chest 1V portable Frontal view of the chest. FINDINGS: Lungs/Pleura: Prominent interstitial lung markings are seen scattered throughout the lungs with darnell ening of the diaphragm and increased lucency of the lung apices. No evidence of focal consolidation, pneumothorax. Blunting of the left costophrenic angle. Pulmonary vascularity: Unremarkable. Heart/mediastinum: Cardiomediastinal silhouette is enlarged. Musculoskeletal: No acute osseous pathology. Other findings: None IMPRESSION: 1. COPD 2. Cardiomegaly with small left pleural effusion. [facility], , 12/24/2023 2:07 PM
[2023-12-24 17:02] LABS: Chol/HDL Ratio 2.73 Ratio; LDL Cholesterol,Calculated 61.3 mg/dL (0.0-131.0)
[2023-12-24] MEDS: NIFEdipine XL 30 MG TAB.ER.24 PO SCH (18:20)
[2023-12-25] MEDS ORDERED: NITROGLYCERIN SL TABS 0.4 MG TAB SUBLINGUAL PRN (10:29)
[2023-12-25] MEDS ORDERED: ALPRAZolam 0.5 MG TAB PO PRN (10:29)
[2023-12-25] MEDS: METOPROLOL SUCCINATE (ER) 25 MG TAB.ER.24H PO SCH (12:23)
--- NOTE | 2023-12-25 15:24 | P.PN ---
Subjective Progress Note Date: 12/25/23 History of present illness: This is an 88-year-old gentleman who was transferred from different facility to the hospital for further evaluation of abnormal cardiac enzymes. The patient is a somewhat poor historian. He does have a past medical history significant for CAD status post CABG according to him in 2003 and apparently subsequent PCI was performed with unknown details as well as history of severe COPD he is on home oxygen as well as hypertension and dyslipidemia and multiple comorbid conditions. The patient was in his usual state of health where he does have overall limited functional capacity and has been getting up and around using a walker most of the time. He was experiencing some left arm discomfort and mild chest discomfort. He presented to the emergency department and he underwent further workup including troponin came in to be abnormal and EKG showing sinus mechanism with some ST changes concerning for ischemia. He was started on heparin IV. He was started also on oral nitrates. He subsequently was transferred to [facility] for further evaluation. No previous medical record regarding his cardiovascular condition. He was seen by the pulmonary team in the past and he is known to have advanced COPD on oxygen at home. Currently his chest pain-free. When he presented to the hospital his pressure has been elevated and consistent with hypertension crisis. His pressure has somewhat improved on the current dose of nitroglycerin IV. He is on aspirin and he is on a statin and he is on heparin he is on nitroglycerin IV at this point. The physical examination is remarkable for very distant heart sounds with a systolic murmur at the right and left upper sternal border with diminished breathing sounds bilaterally and mild bilateral expiratory wheezing and mild bilateral lower extremities edema 12/24 Patient is seen and examined.Patient denies any chest pain at this time. He initially came in due to left arm pain was seen initially at [facility] and transferred here due to elevated troponin. Patient is maintained on IV heparin drip. Patient is not currently on nitroglycerin drip. Blood pressure 137/77, heart rate 72, pulse ox 97% on 4 L nasal cannula. Triglycerides 102, cholesterol 129, LDL 61, HDL 47. Discussed with the patient and grandson at the bedside about plan for cardiac catheterization. Grandson contacted the patient's son and cardiac catheterization was discussed by Dr. Mckenna with ana paula garcía's son. They are in agreement to move forward with cardiac catheterization which will be scheduled tomorrow. The physical examination is remarkable for very distant heart sounds with a systolic murmur at the right and left upper sternal border with diminished breathing sounds bilaterally and mild bilateral expiratory wheezing and mild bilateral lower extremities edema Assessment Hypertension emergency Acute coronary syndrome History of CAD status post CABG with unknown details History of PCI with unknown details as well Advanced COPD/hypoxic respiratory failure History of esophageal cancer Multiple comorbid conditions Plan Continue heparin IV for a total of 48 hours Nitroglycerin drip is currently on hold Continue patient on aspirin 81 mg daily, atorvastatin 40 mg at bedtime, Plavix 75 mg daily, losartan 50 mg twice daily Start patient on Toprol XL 25 mg daily. Noted the patient does have history of bradycardia and will monitor. Obtain an echocardiogram with Doppler Schedule patient for cardiac catheterization tomorrow with Dr. Carranza. Nurse practitioner note has been reviewed, I agree with documented findings and plan of care. Patient was seen and examined. Objective - Vital Signs Vital signs: Vital Signs Temp 98.0 F 12/25/23 04:30 Pulse 76 12/25/23 08:34 Resp 16 12/25/23 08:00 BP 137/77 12/25/23 08:00 Pulse Ox 97 12/25/23 08:00 FiO2 Intake & Output 12/24/23 12/25/23 12/25/23 18:59 06:59 18:59 Intake Total 271.485 110.397 118 Output Total 250 800 300 Balance 21.485 -689.603 -182 Weight 74.389 kg 64 kg Intake: Intake, IV Titration 121.485 110.397 Amount Heparin Sod,Pork in 0.45% 108.485 110.397 NaCl 25,000 unit In 0.45 % NaCl 1 250ml.bag @ 12 UNITS/KG/HR 8.927 mls/hr IV .Q24H [facility] Rx#: [id number] Nitroglycerin-D5w Pmx 50 13.00 mg In Dextrose/Water 1 250ml.bag @ 5 MCG/MIN 1.5 mls/hr IV .Q24H [facility] Rx#: [id number] Oral 150 118 Output: Urine 250 800 300 Other: Voiding Method Urinal Urinal Diaper Diaper Incontinent # Bowel Movements 0 - Labs CBC & Chem 7: 12/24/23 07:12 12/23/23 20:04 Labs: Abnormal Lab Results - Last 24 Hours (Table) 12/24/23 12/25/23 Range/Units 17:41 08:02 APTT 58.7 H 62.9 H (22.0-30.0) sec
--- NOTE | 2023-12-25 16:07 | P.PN ---
Progress Note - Text Progress Note Date: 12/25/23 Chief Complaint: Chest pressure Very pleasant 88-year-old patient, follows with Dr. Ng. Extensive medical history. Does use 5 L of oxygen at night. Patient on 3 PM started with pressure across the chest. Most on the left sided. Did radiate to the left s mai. Perspiration. Patient is chronically short of breath. Tired. Patient ruled in for an acute [place]. Cardiology was informed. Placed on IV heparin. Patient has got a history of coronary bypass. Follows with solar system designer Dr. Carranza. December 24: Laying in bed. On IV heparin. Denies chest pain. A bit tired. Cardiology is planning for a cardiac catheterization tomorrow. Patient's grandson at the bedside. Active Medications Albuterol/Ipratropium (Ipratropium-Albuterol 3 Ml Neb) 3 ml INHALATION RT-TID [facility] Last Admin: 12/25/23 08:23 Dose: 3 ml Alprazolam (Alprazolam 0.25 Mg Tab) 0.25 mg PO Q6HR PRN PRN Reason: Mild Anxiety Alprazolam (Alprazolam 0.5 Mg Tab) 0.5 mg PO Q6HR PRN PRN Reason: Moderate Anxiety Aspirin (Aspirin 81 Mg) 81 mg PO DAILY [facility] Aspirin (Aspirin 325 Mg Tab) 325 mg PO ONCE ONE Stop: 12/26/23 07:01 Atorvastatin Calcium (Atorvastatin 40 Mg Tab) 40 mg PO HS [facility] Last Admin: 12/24/23 20:20 Dose: 40 mg Atorvastatin Calcium (Atorvastatin 80 Mg Tab) 80 mg PO ONCE ONE Stop: 12/26/23 07:01 Budesonide/Formoterol Fumarate (Symbicort 80-4.5 Mcg Inhaler) 2 puff INHALATION RT-BID [facility] Last Admin: 12/25/23 08:23 Dose: 2 puff Clopidogrel Bisulfate (Clopidogrel 75 Mg Tab) 75 mg PO DAILY [facility] Last Admin: 12/25/23 08:35 Dose: 75 mg Heparin Sodium (Porcine) (Heparin Sodium 1,000 Un/Ml (10ml Vl)) 0 unit IV PER PROTOCOL PRN; Protocol PRN Reason: Low PTT Last Admin: 12/24/23 11:04 Dose: 1,859.7 unit Heparin Sodium/Sodium Chloride (25,000 unit/ Sodium Chloride) 250 mls @ 8.927 mls/hr IV .Q24H [facility]; Protocol Last Admin: 12/24/23 23:17 Dose: 12 units/kg/hr, 8.927 mls/hr Nitroglycerin/Dextrose 50 mg/ (IV Solution) 250 mls @ 1.5 mls/hr IV .Q24H [facility]; Protocol Last Admin: 12/25/23 02:34 Dose: Not Given Heparin Sodium (Porcine) 10, (000 unit/ Sodium Chloride) 1,001 mls @ 999 mls/hr IRRIGATION ONCE PRN PRN Reason: INTRA-OP Stop: 12/26/23 23:00 Heparin Sodium (Porcine) 2,500 (unit/ Sodium Chloride) 250.5 mls @ 250 mls/hr IRRIGATION ONCE PRN PRN Reason: INTRA-OP Stop: 12/26/23 23:00 Losartan Potassium (Losartan 50 Mg Tab) 50 mg PO BID [facility] Last Admin: 12/25/23 08:35 Dose: 50 mg Metoprolol Succinate (Metoprolol Succinate (Er) 25 Mg Tab.Er.24h) 25 mg PO DAILY [facility] Last Admin: 12/25/23 12:23 Dose: 25 mg Morphine Sulfate (Morphine Sulfate 4 Mg/Ml Syringe) 4 mg IV Q5M PRN PRN Reason: Chest Pain Multivitamins (Multivitamins, Thera 1 Each Tab) 1 each PO W/LUNCH [facility] Last Admin: 12/25/23 08:34 Dose: 1 each Nifedipine (Nifedipine Xl 30 Mg Tab.Er.24) 30 mg PO W/SUPPER [facility] Last Admin: 12/24/23 18:20 Dose: 30 mg Nitroglycerin (Nitroglycerin Sl Tabs 0.4 Mg Tab) 0.4 mg SUBLINGUAL Q5M PRN PRN Reason: Chest Pain Pantoprazole Sodium (Pantoprazole 40 Mg Tablet) 40 mg PO AC-BRKFST [facility] Last Admin: 12/25/23 06:27 Dose: 40 mg Prednisone (Prednisone 10 Mg Tab) 10 mg PO W/BRKFST [facility] Last Admin: 12/25/23 06:27 Dose: 10 mg Sertraline HCl (Sertraline 25 Mg Tab) 25 mg PO W/BRKFST [facility] Last Admin: 12/25/23 06:27 Dose: 25 mg Thiamine HCl (Thiamine 100 Mg Tab) 100 mg PO W/LUNCH [facility] Last Admin: 12/25/23 08:34 Dose: 100 mg Social history: . Does use a walker. Did smoke in the past. Physical examination: VITAL SIGNS: 98, 78, 16, 175 x 96, 95% room air GENERAL: Resting in bed, appears comfortable EYES: Pupils equal. Conjunctiva tabby l. HEENT: External appearance of nose and ears normal, oral cavity grossly normal. Decreased hearing NECK: JVD not raised; masses not palpable. HEART: First and second heart sounds are normal; no edema. LUNGS: Respiratory rate increased, diminished breath sounds. ABDOMEN: Soft, nontender, liver spleen not palpable, no masses palpable. PSYCH: Alert and oriented x3; mood and affect tabby l. MUSCULOSKELETAL:No Clubbing/cyanosis;muscles-grossly intact. OA INVESTIGATIONS, reviewed in the clinical context: LDL 61.3 December 23: White count 6.6 hemoglobin 11.6 platelets 176 December 22: White count 7.8 hemoglobin 13 platelets 177 sodium 143 potassium 3.9 creatinine 1.14 Troponin I 0.464, 4.7, 43.7 EKG tracing personally reviewed by me-normal sinus rhythm. Poor R wave progression Assessment plan: -Acute non-ST relation myocardial infarction in a patient with known CAD Aspirin. IV heparin. IV nitroglycerin drip For cardiac catheterization tomorrow -IV heparin monitoring monitoring per protocol -CAD with a prior history of coronary bypass, 2003, with coronary stents Lipitor. Toprol-XL. Procardia XL. Aspirin.- -Chronic congestive heart failure. EF not known -COPD in a prior smoker Continue home nebulizers -GERD Protonix -Depression Zoloft -Chronic gait dysfunction does use a walker at baseline -Chronic hypoxic respiratory failure from underlying COPD Home oxygen 4 L especially at night -Osteoarthritis Pain medication as needed -BPH with a prior history of TURP -Prostate cancer no chemo or radiation -Esophageal cancer 2019 with chemoradiation -Hard of hearing -GERD Protonix -Depression Zoloft -DNR Discussed with patient and grandson at the bedside. For cardiac catheterization tomorrow. Past Medical History Past Medical History: Coronary Artery Disease (CAD), Cancer, Heart Failure, COPD, GERD/Reflux, Hearing Disorder / Deafness, Hyperlipidemia, Hypertension, Myocardial Infarction ([place]), Pneumonia, Prostate Disorder, Vascular Disorder Additional Past Medical History / Comment(s): uses O2@5 L NC at night,enlarged prostate,daily prednisone, prostate cancer-no radiation or chemo, kidney stone , hx. esophageal cancer 2019-had chemo & radiation and chemo Feb 2020,Admitted with Covid Nov 2020 Last Myocardial Infarction Date:: 2003 History of Any Multi-Drug Resistant Organisms: None Reported Past Surgical History: Appendectomy, Cholecystectomy, Coronary Bypass/CABG, Heart Catheterization With Stent, Prostate Surgery Additional Past Surgical History / Comment(s): CABG-4vessel 2003,heart stents x 3,teeth extraction,andrez cataracts, TURP, vascular procedure lower leg using starclip SE device Past Anesthesia/Blood Transfusion Reactions: No Reported Reaction Date of Last Stent Placement:: 03-01-03 Past Psychological History: No Psychological Hx Reported Smoking Status: Former smoker Past Alcohol Use History: None Reported Past Drug Use History: None Reported
--- NOTE | 2023-12-25 18:01 | CA ---
Transthoracic Echo Report Name: Graham Ashby Age: 88 Gender: M : 1935 Exam Date: 12/25/2023 10:37 Exam Location: [place] [facility] Ht (in): 70 Wt (lb): 164 Ordering Physician: Van Pacheco MD Attending/Referring Phys: [id number], Tara Unarmed Security Officer Noris White RDCS Procedure CPT: Indications: nstemi Cardiac Hx: Technical Quality: Fair Contrast 1: Total Dose (mL): Contrast 2: Total Dose (mL): MEASUREMENTS (Male / Female) Normal Values 2D ECHO LV Diastolic Diameter PLAX 3.8 cm 4.2 - 5.9 / 3.9 - 5.3 cm LV Systolic Diameter PLAX 2.3 cm IVS Diastolic Thickness 1.9 cm 0.6 - 1.0 / 0.6 - 0.9 cm LVPW Diastolic Thickness 1.5 cm 0.6 - 1.0 / 0.6 - 0.9 cm LV Relative Wall Thickness 0.9 RV Internal Dim ED PLAX 3.7 cm LA Volume 47.9 cm??? 18 - 58 / 22 - 52 cm??? LA Volume Index 24.9 cm???/m??? 16 - 28 cm???/m??? M-MODE Aortic Root Diameter MM 3.6 cm LA Systolic Diameter MM 5.6 cm LA Ao Ratio MM 1.6 AV Cusp Separation MM 1.9 cm DOPPLER AV Peak Velocity 108.5 cm/s AV Peak Gradient 4.7 mmHg AV Mean Velocity 73.9 cm/s AV Mean Gradient 2.5 mmHg AV Velocity Time Integral 20.3 cm LVOT Peak Velocity 98.9 cm/s LVOT Peak Gradient 3.9 mmHg LVOT Velocity Time Integral 18.6 cm MV Area PHT 3.8 cm??? Mitral E Point Velocity 57.1 cm/s Mitral A Point Velocity 104.0 cm/s Mitral E to A Ratio 0.5 MV Deceleration Time 198.8 ms MV E' Velocity 4.3 cm/s Mitral E to MV E' Ratio 13.2 TR Peak Velocity 269.0 cm/s TR Peak Gradient 29.0 mmHg Right Ventricular Systolic Press 32.6 mmHg FINDINGS Left Ventricle Moderately increased left ventricular wall thickness. Left ventricular cavity size normal. Abnormal (paradoxical) septal motion consistent with postoperative state. Left ventricular ejection fraction is estimated at 50-55 %. Grade 1 diastolic dysfunction. Right Ventricle Mild right ventricular dilatation. Right ventricular systolic pressure within normal limits. Right Atrium Normal right atrial size. Left Atrium Normal left atrial size. Mitral Valve Structurally normal mitral valve. Mitral valve thickened. Mitral annular calcification. Mild mitral regurgitation. Aortic Valve Trileaflet aortic valve. No aortic valve stenosis or regurgitation. Tricuspid Valve Structurally normal tricuspid valve. Mild tricuspid regurgitation. Pulmonic Valve Structurally normal pulmonic valve. Pericardium No pericardial effusion. Aorta Normal size aortic root and proximal ascending aorta. CONCLUSIONS Normal LV systolic function Mild mitral regurgitation Previewed by: Dr. Sonu Ceron MD (Electronically Signed) Final Date: 25 December 2023 18:00
[2023-12-26] MEDS: ASPIRIN 81 MG PO SCH (05:19)
[2023-12-26] MEDS: ATORVASTATIN 80 MG TAB PO ONE (06:17)
[2023-12-26] MEDS: ASPIRIN 325 MG TAB PO ONE (06:17)
[2023-12-26 06:33] LABS: Glucose,Whole Blood 93 mg/dL (70-110)
[2023-12-26] MEDS ORDERED: HEPARIN SODIUM,PORCINE (1 ML) 2,500 UNIT in SODIUM CHLORIDE 0.9% 250 ML IRRIGATION PRN (07:00)
[2023-12-26] MEDS ORDERED: HEPARIN SODIUM,PORCINE 10,000 UNIT in SODIUM CHLORIDE 0.9% 1,000 ML IRRIGATION PRN (07:00)
[2023-12-26] MEDS: SODIUM CHLORIDE 0.9% 600 ML IV ONE (07:21)
[2023-12-26] MEDS: fentaNYL (PF) 50 MCG/1 ML VIAL IVP ONE (07:49)
[2023-12-26] MEDS: LIDOCAINE 1% INJ 10MG/ML (20 ML MDV) SQ ONE (07:50)
[2023-12-26] MEDS: IOPAMIDOL-370 100ML BTL INJ ONE ×2 (08:10→08:28)
[2023-12-26] MEDS: HEPARIN SODIUM 1,000 UN/ML (10ML VL) IV ONE (08:14)
[2023-12-26] MEDS: HEPARIN SODIUM,PORCINE (1 ML) 2,500 UNIT in SODIUM CHLORIDE 0.9% 250 ML IRRIGATION ONE (08:29)
[2023-12-26] MEDS: HEPARIN SODIUM,PORCINE 10,000 UNIT in SODIUM CHLORIDE 0.9% 1,000 ML IRRIGATION ONE (08:29)
[2023-12-26] MEDS ORDERED: NITROGLYCERIN SL TABS 0.4 MG TAB SUBLINGUAL PRN (08:56)
[2023-12-26] MEDS ORDERED: ASPIRIN 325 MG TAB PO STA (08:56)
[2023-12-26] MEDS ORDERED: ATORVASTATIN 80 MG TAB PO STA (08:56)
[2023-12-26] MEDS ORDERED: ALPRAZolam 0.25 MG TAB PO PRN (08:56)
[2023-12-26] MEDS ORDERED: ALPRAZolam 0.5 MG TAB PO PRN (08:56)
[2023-12-26] MEDS ORDERED: RX INFO: IV CONTRAST WAS GIVEN 1 EACH MISC MISCELLANE PRN (08:57)
--- NOTE | 2023-12-26 09:05 | P.CARDCATH ---
Date of Procedure: 12/26/23 Description of Procedure: Cardiac Catheterization: The patient is an 88-year-old male, status post CABG, history of hypertension, hyperlipidemia who presented with symptoms of chest discomfort and evidence of non-STEMI. He was evaluated by Dr. Mckenna and after discussion with him and his family recommendations were made regarding cardiac catheterization, the risks and the complications were discussed with the patient who is in full understanding and agreement. Procedure Description: Patient was brought to optical laboratory technician in fasting semi-sedated state after receiving Fentanyl and Benadryl achieiving moderate conscious sedated state. Using Xylocaine Anesthesia and modified Seldinger technique using micropuncture technique, a 6-Andorran sheath was introduced in the right femoral artery . Subsequently, selective coronary angiography was performed using a 6-Andorran 4 bend Carina catheter. Multiple views of the coronary artery including hemiaxial views were obtained. The 6 Andorran FL 4 guiding catheter was used to cross the aortic valve and LVEDP was calculated. After removing the catheters attempt to cannulate the right coronary artery using the 6 Andorran FR 4 guiding catheter were unsuccessful because of severe tortuosity of the abdominal and thoracic aorta in spite of exchanging the introducer sheath to a 70 cm sheath. Because of the dye load the decision was made to stop at that time. The catheters were removed and the sheath was sutured in place. There was no immediate complication. Patient was returned to room in stable condition. Of note, the patient received a total of 6000 units of intravenous heparin l. Findings: Left main: This is a large size vessel, bifurcating into LAD and left circumflex, left main has no obstructive disease LAD: This vessel is chronically occluded at the ostium with no antegrade flow Left circumflex: This is a large size vessel, none dominant, giving rise to 3 obtuse marginal branch. There is evidence of obstructive disease in the midsegment of 80% and a suggestion of an occluded OM RCA: This is a dominant vessel, large in caliber, bifurcating into PDA and PLV. The proximal RCA has a stent that has a 99% stenosis. The distal vessel is diffusely disease with a area of stenosis up to 80%, the rest of the vessel has diffuse intimal disease GIBSON to the LAD: The distal anastomotic site is patent the flow in the LAD is brisk there is no evidence of obstructive disease SVG to the OM the proximal and distal anastomotic site are patent. The proximal segment of the graft has 70% stenosis and diffuse disease throughout the graft SVG to the RCA this graft is totally occluded proximally SVG to the diagonal this graft is totally occluded proximally Left Ventriculogram: Not performed Hemodynamics: There was no gradient across the aortic valve, LVEDP was 18-20 mmHg Conclusion: 1. Chronically occluded proximal LAD and OM 2. Patent GIBSON to the LAD 3. Patent SVG to the OM with 70% proximal stenosis 4. Severe stenosis in the proximal RCA, in the stented segment with severe diffuse disease in the mid and distal segment 5. Chronically occluded SVG to the diagonal and to the RCA Recommendations: In view of his presentation and his anatomy I have recommended to bring the patient back to undergo attempt angioplasty and stenting of the proximal RCA through a radial approach. In the meantime he will continue on medical therapy and depending on his renal functions timing will be decided. The findings and the recommendations were discussed with the patient and the family and they were in full understanding and agreement. Duration of sedation is 43 minutes.
[2023-12-26 12:16] LABS: African American GFR (CKD) 81 (>60 ml/min/1.73 sqM); Anion Gap 3 mmol/L; Blood Urea Nitrogen 26 mg/dL (9-20); Calcium 8.7 mg/dL (8.4-10.2); Carbon Dioxide 30 mmol/L (22-30); Chloride 110 mmol/L (98-107); Glucose 102 mg/dL (74-99); Non-African American GFR(CKD) 70 (>60 ml/min/1.73 sqM); Potassium 3.5 mmol/L (3.5-5.1); Sodium 143 mmol/L (137-145)
[2023-12-26] MEDS: SODIUM CHLORIDE 0.9% 1,000 ML IV SCH (12:50)
--- NOTE | 2023-12-26 13:43 | P.PN ---
Progress Note - Text Progress Note Date: 12/26/23 Chief Complaint: Chest pressure Very pleasant 88-year-old patient, follows with Dr. Ng. Extensive medical history. Does use 5 L of oxygen at night. Patient on 3 PM started with pressure across the chest. Most on the left sided. Did radiate to the left s mai. Perspiration. Patient is chronically short of breath. Tired. Patient ruled in for an acute ME. Cardiology was informed. Placed on IV heparin. Patient has got a history of coronary bypass. Follows with adult caregiver Dr. Carranza. December 24: Laying in bed. On IV heparin. Denies chest pain. A bit tired. Cardiology is planning for a cardiac catheterization tomorrow. Patient's grandson at the bedside. December 25: Underwent cardiac catheterization by Dr. Carranza. Severe critical stenosis of proximal RCA. In the stented segment. Mid and distal segment has diffuse disease. Other findings in his report. Plan for patient return to the [facility] on for further intervention. No chest pain IV heparin. Delete that Active Medications Albuterol/Ipratropium (Ipratropium-Albuterol 3 Ml Neb) 3 ml INHALATION RT-TID [facility] Last Admin: 12/26/23 08:11 Dose: Not Given Alprazolam (Alprazolam 0.25 Mg Tab) 0.25 mg PO Q6HR PRN PRN Reason: Mild Anxiety Alprazolam (Alprazolam 0.5 Mg Tab) 0.5 mg PO Q6HR PRN PRN Reason: Moderate Anxiety Aspirin (Aspirin 81 Mg) 81 mg PO DAILY [facility] Last Admin: 12/26/23 05:19 Dose: Not Given Atorvastatin Calcium (Atorvastatin 40 Mg Tab) 40 mg PO HS [facility] Last Admin: 12/25/23 20:04 Dose: 40 mg Budesonide/Formoterol Fumarate (Symbicort 80-4.5 Mcg Inhaler) 2 puff INHALATION RT-BID [facility] Last Admin: 12/26/23 08:11 Dose: Not Given Clopidogrel Bisulfate (Clopidogrel 75 Mg Tab) 75 mg PO DAILY [facility] Last Admin: 12/26/23 06:17 Dose: 75 mg Nitroglycerin/Dextrose 50 mg/ (IV Solution) 250 mls @ 1.5 mls/hr IV .Q24H [facility]; Protocol Last Admin: 12/26/23 02:29 Dose: Not Given Heparin Sodium (Porcine) 10, (000 unit/ Sodium Chloride) 1,001 mls @ 999 mls/hr IRRIGATION ONCE PRN PRN Reason: INTRA-OP Stop: 12/26/23 23:00 Heparin Sodium (Porcine) 2,500 (unit/ Sodium Chloride) 250.5 mls @ 250 mls/hr IRRIGATION ONCE PRN PRN Reason: INTRA-OP Stop: 12/26/23 23:00 Losartan Potassium (Losartan 50 Mg Tab) 50 mg PO BID [facility] Last Admin: 12/26/23 06:17 Dose: 50 mg Metoprolol Succinate (Metoprolol Succinate (Er) 25 Mg Tab.Er.24h) 25 mg PO DAILY [facility] Last Admin: 12/26/23 06:17 Dose: 25 mg Miscellaneous Information (Rx Info: Iv Contrast Was Given 1 Each Misc) 1 each MISCELLANE DAILY PRN PRN Reason: Per Protocol Stop: 12/28/23 08:57 Morphine Sulfate (Morphine Sulfate 4 Mg/Ml Syringe) 4 mg IV Q5M PRN PRN Reason: Chest Pain Multivitamins (Multivitamins, Thera 1 Each Tab) 1 each PO W/LUNCH [facility] Last Admin: 12/25/23 08:34 Dose: 1 each Nifedipine (Nifedipine Xl 30 Mg Tab.Er.24) 30 mg PO W/SUPPER [facility] Last Admin: 12/25/23 16:22 Dose: 30 mg Nitroglycerin (Nitroglycerin Sl Tabs 0.4 Mg Tab) 0.4 mg SUBLINGUAL Q5M PRN PRN Reason: Chest Pain Pantoprazole Sodium (Pantoprazole 40 Mg Tablet) 40 mg PO AC-BRKFST [facility] Last Admin: 12/26/23 06:17 Dose: 40 mg Prednisone (Prednisone 10 Mg Tab) 10 mg PO W/BRKFST [facility] Last Admin: 12/26/23 06:17 Dose: 10 mg Sertraline HCl (Sertraline 25 Mg Tab) 25 mg PO W/BRKFST [facility] Last Admin: 12/26/23 06:17 Dose: 25 mg Thiamine HCl (Thiamine 100 Mg Tab) 100 mg PO W/LUNCH [facility] Last Admin: 12/25/23 08:34 Dose: 100 mg Social history: . Does use a walker. Did smoke in the past. Physical examination: VITAL SIGNS: 67, 20, 129 x 82, 92% on 3 L GENERAL: Resting in bed, comfortable EYES: Pupils equal. Conjunctiva tabby l. HEENT: External appearance of nose and ears normal, oral cavity grossly normal. Decreased hearing NECK: JVD not raised; masses not palpable. HEART: First and second heart sounds are normal; no edema. LUNGS: Respiratory rate increased, diminished breath sounds. ABDOMEN: Soft, nontender, liver spleen not palpable, no masses palpable. PSYCH: Alert and oriented x3; mood and affect tabby l. MUSCULOSKELETAL:No Clubbing/cyanosis;muscles-grossly intact. OA INVESTIGATIONS, reviewed in the clinical context: December 25: Potassium 3.5 creatinine 0.96 LDL 61.3 December 23: White count 6.6 hemoglobin 11.6 platelets 176 December 22: White count 7.8 hemoglobin 13 platelets 177 sodium 143 potassium 3.9 creatinine 1.14 Troponin I 0.464, 4.7, 43.7 EKG tracing personally reviewed by me-normal sinus rhythm. Poor R wave progression Assessment plan: -Acute non-ST relation myocardial infarction in a patient with known CAD Aspirin. IV heparin. IV nitroglycerin drip -Severe critical stenosis proximal RCA with other disease process. Per cardiac catheterization December [address] Carranza. Repeat intervention on -IV heparin monitoring monitoring per protocol -CAD with a prior history of coronary bypass, 2003, with coronary stents Lipitor. Toprol-XL. Procardia XL. Aspirin.- -Chronic congestive heart failure. EF not known -COPD in a prior smoker Continue home nebulizers -GERD Protonix -Depression Zoloft -Chronic gait dysfunction does use a walker at baseline -Chronic hypoxic respiratory failure from underlying COPD Home oxygen 4 L especially at night -Osteoarthritis Pain medication as needed -BPH with a prior history of TURP -Prostate cancer no chemo or radiation -Esophageal cancer 2019 with chemoradiation -Hard of hearing -GERD Protonix -Depression Zoloft -DNR Cardiac catheterization results noted. Patient was taken back to the [facility] on . Past Medical History Past Medical History: Coronary Artery Disease (CAD), Cancer, Heart Failure, COPD, GERD/Reflux, Hearing Disorder / Deafness, Hyperlipidemia, Hypertension, Myocardial Infarction (ME), Pneumonia, Prostate Disorder, Vascular Disorder Additional Past Medical History / Comment(s): uses O2@5 L NC at night,enlarged prostate,daily prednisone, prostate cancer-no radiation or chemo, kidney stone 1 970's, hx. esophageal cancer 2019-had chemo & radiation and chemo Feb 2020,Admitted with Covid Nov 2020 Last Myocardial Infarction Date:: 2003 History of Any Multi-Drug Resistant Organisms: None Reported Past Surgical History: Appendectomy, Cholecystectomy, Coronary Bypass/CABG, Heart Catheterization With Stent, Prostate Surgery Additional Past Surgical History / Comment(s): CABG-4vessel 2003,heart stents x 3,teeth extraction,andrez cataracts, TURP, vascular procedure lower leg using starclip SE device Past Anesthesia/Blood Transfusion Reactions: No Reported Reaction Date of Last Stent Placement:: 03-01-03 Past Psychological History: No Psychological Hx Reported Smoking Status: Former smoker Past Alcohol Use History: None Reported Past Drug Use History: None Reported
[2023-12-27] MEDS ORDERED: HEPARIN SODIUM,PORCINE (1 ML) 2,500 UNIT in SODIUM CHLORIDE 0.9% 250 ML IRRIGATION PRN (07:00)
[2023-12-27] MEDS ORDERED: HEPARIN SODIUM,PORCINE 10,000 UNIT in SODIUM CHLORIDE 0.9% 1,000 ML IRRIGATION PRN (07:00)
[2023-12-27 09:15] LABS: African American GFR (CKD) 72 (>60 ml/min/1.73 sqM); Anion Gap 3 mmol/L; Blood Urea Nitrogen 24 mg/dL (9-20); Calcium 8.3 mg/dL (8.4-10.2); Carbon Dioxide 31 mmol/L (22-30); Chloride 110 mmol/L (98-107); Glucose 161 mg/dL (74-99); Non-African American GFR(CKD) 62 (>60 ml/min/1.73 sqM); Sodium 144 mmol/L (137-145)
[2023-12-27] MEDS ORDERED: Potassium Replacement Protocol 1 EACH MISC MISCELLANE PRN (09:21)
[2023-12-27] MEDS: POTASSIUM CHLORIDE ER 20 MEQ TAB.ER PO STA (10:07)
--- NOTE | 2023-12-27 13:01 | P.PN ---
Subjective Progress Note Date: 12/27/23 History of present illness: This is an 88-year-old gentleman who was transferred from different facility to the hospital for further evaluation of abnormal cardiac enzymes. The patient is a somewhat poor historian. He does have a past medical history significant for CAD status post CABG according to him in 2003 and apparently subsequent PCI was performed with unknown details as well as history of severe COPD he is on home oxygen as well as hypertension and dyslipidemia and multiple comorbid conditions. The patient was in his usual state of health where he does have overall limited functional capacity and has been getting up and around using a walker most of the time. He was experiencing some left arm discomfort and mild chest discomfort. He presented to the emergency department and he underwent further workup including troponin came in to be abnormal and EKG showing sinus mechanism with some ST changes concerning for ischemia. He was started on heparin IV. He was started also on oral nitrates. He subsequently was transferred to [facility] for further evaluation. No previous medical record regarding his cardiovascular condition. He was seen by the pulmonary team in the past and he is known to have advanced COPD on oxygen at home. Currently his chest pain-free. When he presented to the hospital his pressure has been elevated and consistent with hypertension crisis. His pressure has somewhat improved on the current dose of nitroglycerin IV. He is on aspirin and he is on a statin and he is on heparin he is on nitroglycerin IV at this point. The physical examination is remarkable for very distant heart sounds with a systolic murmur at the right and left upper sternal border with diminished breathing sounds bilaterally and mild bilateral expiratory wheezing and mild bilateral lower extremities edema 12/24 Patient is seen and examined.Patient denies any chest pain at this time. He initially came in due to left arm pain was seen initially at [facility] and transferred here due to elevated troponin. Patient is maintained on IV heparin drip. Patient is not currently on nitroglycerin drip. Blood pressure 137/77, heart rate 72, pulse ox 97% on 4 L nasal cannula. Triglycerides 102, cholesterol 129, LDL 61, HDL 47. Discussed with the patient and grandson at the bedside about plan for cardiac catheterization. Grandson contacted the patient's son and cardiac catheterization was discussed by Dr. Mckenna with ana paula garcía's son. They are in agreement to move forward with cardiac catheterization which will be scheduled tomorrow. The physical examination is remarkable for very distant heart sounds with a systolic murmur at the right and left upper sternal border with diminished breathing sounds bilaterally and mild bilateral expiratory wheezing and mild bilateral lower extremities edema 12/26 Yesterday, patient underwent cardiac catheterization with Dr. Carranza which revealed chronically occluded proximal LAD and OM, patent GIBSON to LAD, patent SVG to OM with 70% proximal stenosis, severe stenosis in the proximal RCA in the stented segment with severe diffuse disease in the mid and distal segment. Chronically occluded SVG to the diagonal and to the RCA. Plan is to return patient to the [facility] on for angioplasty and stenting of the proximal RCA through a radial approach. Patient denies having any chest pain or chest pressure. Blood pressure 122/76, heart rate 76, pulse ox 96% on 3 L nasal cannula. Repeat blood work reveals potassium 3, BUN 24 creatinine 1.06. Potassium has been replaced. Echocardiogram reveals normal LV systolic function, mild mitral regurgitation. Assessment Hypertension emergency Acute coronary syndrome History of CAD status post CABG with unknown details History of PCI with unknown details as well Advanced COPD/hypoxic respiratory failure History of esophageal cancer Multiple comorbid conditions Plan Continue patient on aspirin 81 mg daily, atorvastatin 40 mg at bedtime, Plavix 75 mg daily, losartan 50 mg twice daily Continue patient on Toprol XL 25 mg daily. Noted the patient does have history of bradycardia and will monitor. Obtain an echocardiogram with Doppler Patient is scheduled for PCI tomorrow with Dr. Carranza. Nurse practitioner note has been reviewed, I agree with documented findings and plan of care. Patient was seen and examined. Objective - Vital Signs Vital signs: Vital Signs Temp 97.5 F L 12/27/23 08:00 Pulse 74 12/27/23 11:43 Resp 20 12/27/23 11:22 BP 122/76 12/27/23 11:22 Pulse Ox 96 12/27/23 11:22 FiO2 Intake & Output 12/26/23 12/27/23 12/27/23 18:59 06:59 18:59 Intake Total 940.5 310 360 Output Total 300 Balance 940.5 310 60 Weight 71.8 kg Intake: IV 390.5 10 Invasive Line 3 10 Intake, IV Titration 250 300 Amount Heparin Sod,Pork in 0.45% 250 NaCl 25,000 unit In 0.45 % NaCl 1 250ml.bag @ 12 UNITS/KG/HR 8.927 mls/hr IV .Q24H [facility] Rx#: [id number] Sodium Chloride 0.9% 1, 300 000 ml @ 75 mls/hr IV . [id number] [facility] Rx#:[id number] Oral 300 360 Output: Urine 300 Other: Voiding Method Diaper Urinal Urinal Diaper # Bowel Movements 1 - Labs CBC & Chem 7: 12/24/23 07:12 12/27/23 08:39 Labs: Abnormal Lab Results - Last 24 Hours (Table) 12/26/23 12/27/23 Range/Units 09:38 08:39 Potassium 3.0 L (3.5-5.1) mmol/L Chloride 110 H 110 H (98-107) mmol/L Carbon Dioxide 31 H (22-30) mmol/L BUN 26 H 24 H (9-20) mg/dL Glucose 102 H 161 H (74-99) mg/dL Calcium 8.3 L (8.4-10.2) mg/dL
--- NOTE | 2023-12-27 18:17 | P.PN ---
Progress Note - Text Progress Note Date: 12/27/23 Chief Complaint: Chest pressure Very pleasant 88-year-old patient, follows with Dr. Ng. Extensive medical history. Does use 5 L of oxygen at night. Patient on 3 PM started with pressure across the chest. Most on the left sided. Did radiate to the left s mai. Perspiration. Patient is chronically short of breath. Tired. Patient ruled in for an acute ND. Cardiology was informed. Placed on IV heparin. Patient has got a history of coronary bypass. Follows with content editor Dr. Carranza. December 24: Laying in bed. On IV heparin. Denies chest pain. A bit tired. Cardiology is planning for a cardiac catheterization tomorrow. Patient's grandson at the bedside. December 25: Underwent cardiac catheterization by Dr. Carranza. Severe critical stenosis of proximal RCA. In the stented segment. Mid and distal segment has diffuse disease. Other findings in his report. Plan for patient return to the [facility] on for further intervention. No chest pain IV heparin. December 26: Sitting up in a chair. Comfortable. On medications per cardiology. Patient scheduled for angioplasty tomorrow. Discussed. Active Medications Albuterol/Ipratropium (Ipratropium-Albuterol 3 Ml Neb) 3 ml INHALATION RT-TID [facility] Last Admin: 12/27/23 11:41 Dose: 3 ml Alprazolam (Alprazolam 0.25 Mg Tab) 0.25 mg PO Q6HR PRN PRN Reason: Mild Anxiety Alprazolam (Alprazolam 0.5 Mg Tab) 0.5 mg PO Q6HR PRN PRN Reason: Moderate Anxiety Aspirin (Aspirin 81 Mg) 81 mg PO DAILY [facility] Last Admin: 12/27/23 07:40 Dose: 81 mg Atorvastatin Calcium (Atorvastatin 40 Mg Tab) 40 mg PO HS [facility] Last Admin: 12/26/23 21:04 Dose: 40 mg Budesonide/Formoterol Fumarate (Symbicort 80-4.5 Mcg Inhaler) 2 puff INHALATION RT-BID [facility] Last Admin: 12/27/23 08:08 Dose: 2 puff Clopidogrel Bisulfate (Clopidogrel 75 Mg Tab) 75 mg PO DAILY [facility] Last Admin: 12/27/23 07:40 Dose: 75 mg Losartan Potassium (Losartan 50 Mg Tab) 50 mg PO BID [facility] Last Admin: 12/27/23 07:40 Dose: 50 mg Metoprolol Succinate (Metoprolol Succinate (Er) 25 Mg Tab.Er.24h) 25 mg PO DAILY [facility] Last Admin: 12/27/23 07:40 Dose: 25 mg Miscellaneous Information (Rx Info: Iv Contrast Was Given 1 Each Misc) 1 each MISCELLANE DAILY PRN PRN Reason: Per Protocol Stop: 12/28/23 08:57 Miscellaneous Information (Potassium Replacement Protocol 1 Each Misc) 1 each MISCELLANE DAILY PRN; Protocol PRN Reason: Per Protocol Morphine Sulfate (Morphine Sulfate 4 Mg/Ml Syringe) 4 mg IV Q5M PRN PRN Reason: Chest Pain Multivitamins (Multivitamins, Thera 1 Each Tab) 1 each PO W/LUNCH [facility] Last Admin: 12/27/23 11:04 Dose: 1 each Nifedipine (Nifedipine Xl 30 Mg Tab.Er.24) 30 mg PO W/SUPPER [facility] Last Admin: 12/27/23 17:52 Dose: 30 mg Nitroglycerin (Nitroglycerin Sl Tabs 0.4 Mg Tab) 0.4 mg SUBLINGUAL Q5M PRN PRN Reason: Chest Pain Pantoprazole Sodium (Pantoprazole 40 Mg Tablet) 40 mg PO AC-BRKFST [facility] Last Admin: 12/27/23 06:15 Dose: 40 mg Prednisone (Prednisone 10 Mg Tab) 10 mg PO W/BRKFST [facility] Last Admin: 12/27/23 06:15 Dose: 10 mg Sertraline HCl (Sertraline 25 Mg Tab) 25 mg PO W/BRKFST [facility] Last Admin: 12/27/23 06:15 Dose: 25 mg Thiamine HCl (Thiamine 100 Mg Tab) 100 mg PO W/LUNCH [facility] Last Admin: 12/27/23 11:04 Dose: 100 mg Social history: . Does use a walker. Did smoke in the past. Physical examination: VITAL SIGNS: 98.3, 72, 18, 143 x 79, 99% on 3 L GENERAL: Up in a chair, comfortable EYES: Pupils equal. Conjunctiva tabby l. HEENT: External appearance of nose and ears normal, oral cavity grossly normal. Decreased hearing NECK: JVD not raised; masses not palpable. HEART: First and second heart sounds are normal; no edema. LUNGS: Respiratory rate increased, diminished breath sounds. ABDOMEN: Soft, nontender, liver spleen not palpable, no masses palpable. PSYCH: Alert and oriented x3; mood and affect tabby l. MUSCULOSKELETAL:No Clubbing/cyanosis;muscles-grossly intact. OA INVESTIGATIONS, reviewed in the clinical context: December 26: Potassium 3 BUN 24 creatinine 1.06 December 25: Potassium 3.5 creatinine 0.96 LDL 61.3 December 23: White count 6.6 hemoglobin 11.6 platelets 176 December 22: White count 7.8 hemoglobin 13 platelets 177 sodium 143 potassium 3.9 creatinine 1.14 Troponin I 0.464, 4.7, 43.7 EKG tracing personally reviewed by me-normal sinus rhythm. Poor R wave progression Assessment plan: -Acute non-ST relation myocardial infarction in a patient with known CAD Aspirin. IV heparin. IV nitroglycerin drip -Severe critical stenosis proximal RCA with other disease process. Per cardiac catheterization December [address] Carranza. Pending angioplasty/possible stent tomorrow per Dr. Carranza -IV heparin monitoring monitoring per protocol -CAD with a prior history of coronary bypass, 2003, with coronary stents Lipitor. Toprol-XL. Procardia XL. Aspirin.- -Chronic congestive heart failure. EF not known -COPD in a prior smoker Continue home nebulizers -GERD Protonix -Depression Zoloft -Chronic gait dysfunction does use a walker at baseline -Chronic hypoxic respiratory failure from underlying COPD Home oxygen 4 L especially at night -Osteoarthritis Pain medication as needed -BPH with a prior history of TURP -Prostate cancer no chemo or radiation -Esophageal cancer 2019 with chemoradiation -Hard of hearing -GERD Protonix -Depression Zoloft -DNR Discussed with the patient. No family at the bedside. For cardiac cathete rization tomorrow. Past Medical History Past Medical History: Coronary Artery Disease (CAD), Cancer, Heart Failure, COPD, GERD/Reflux, Hearing Disorder / Deafness, Hyperlipidemia, Hypertension, Myocardial Infarction (ND), Pneumonia, Prostate Disorder, Vascular Disorder Additional Past Medical History / Comment(s): uses O2@5 L NC at night,enlarged prostate,daily prednisone, prostate cancer-no radiation or chemo, kidney stone , hx. esophageal cancer 2019-had chemo & radiation and chemo Feb 2020,Admitted with Covid Nov 2020 Last Myocardial Infarction Date:: 2003 History of Any Multi-Drug Resistant Organisms: None Reported Past Surgical History: Appendectomy, Cholecystectomy, Coronary Bypass/CABG, Heart Catheterization With Stent, Prostate Surgery Additional Past Surgical History / Comment(s): CABG-4vessel 2004,heart stents x 3,teeth extraction,andrez cataracts, TURP, vascular procedure lower leg using starclip SE device Past Anesthesia/Blood Transfusion Reactions: No Reported Reaction Date of Last Stent Placement:: 03-01-03 Past Psychological History: No Psychological Hx Reported Smoking Status: Former smoker Past Alcohol Use History: None Reported Past Drug Use History: None Reported
[2023-12-28 07:53] LABS: African American GFR (CKD) 90 (>60 ml/min/1.73 sqM); Anion Gap 3 mmol/L; Blood Urea Nitrogen 23 mg/dL (9-20); Calcium 8.4 mg/dL (8.4-10.2); Carbon Dioxide 27 mmol/L (22-30); Chloride 113 mmol/L (98-107); Glucose 87 mg/dL (74-99); Non-African American GFR(CKD) 78 (>60 ml/min/1.73 sqM); Potassium 3.3 mmol/L (3.5-5.1); Sodium 143 mmol/L (137-145)
[2023-12-28] MEDS: ATORVASTATIN 80 MG TAB PO STA (09:20)
[2023-12-28] MEDS: ASPIRIN 325 MG TAB PO STA (09:20)
[2023-12-28] MEDS: POTASSIUM CHLORIDE ER 20 MEQ TAB.ER PO STA (09:21)
[2023-12-28] MEDS: SODIUM CHLORIDE 0.9% 600 ML IV ONE (12:28)
[2023-12-28] MEDS: SODIUM CHLORIDE 0.9% 1,000 ML IV ONE (12:28)
[2023-12-28] MEDS: LIDOCAINE 1% INJ 10MG/ML (20 ML MDV) SQ ONE (12:47)
[2023-12-28] MEDS: fentaNYL (PF) 50 MCG/1 ML VIAL IVP ONE (12:47)
[2023-12-28] MEDS: HEPARIN SODIUM,PORCINE 10,000 UNIT in SODIUM CHLORIDE 0.9% 1,000 ML IRRIGATION ONE (12:48)
[2023-12-28] MEDS: HEPARIN SODIUM,PORCINE (1 ML) 2,500 UNIT in SODIUM CHLORIDE 0.9% 250 ML IRRIGATION ONE (12:48)
[2023-12-28] MEDS: VERAPAMIL SYRINGE (5 MG/10 ML) INTRAARTER ONE (12:49)
[2023-12-28] MEDS: HEPARIN SODIUM 1,000 UN/ML (10ML VL) IVP ONE (12:58)
[2023-12-28] MEDS: IOPAMIDOL-370 100ML BTL INJ ONE ×2 (13:15→13:27)
[2023-12-28] MEDS ORDERED: MAG HYDROX/AL HYDROX/SIMETH 30 ML CUP PO PRN (13:37)
[2023-12-28] MEDS ORDERED: ZOLPIDEM 5 MG TAB PO PRN (13:37)
[2023-12-28] MEDS ORDERED: RX INFO: IV CONTRAST WAS GIVEN 1 EACH MISC MISCELLANE PRN (13:37)
[2023-12-28] MEDS ORDERED: NITROGLYCERIN SL TABS 0.4 MG TAB SUBLINGUAL PRN (13:37)
[2023-12-28] MEDS ORDERED: ATROPINE SULFATE 0.1 MG/ML 10ML SYRINGE IV PRN (13:37)
--- NOTE | 2023-12-28 13:44 | P.CARDCATH ---
Date of Procedure: 12/28/23 Description of Procedure: PERCUTANEOUS TRANSLUMINAL CORONARY ANGIOPLASTY CLINICAL INFORMATION: The patient is an 88-year-old male, status post CABG 21 years ago and prior stenting of the RCA prior to his CABG who presented with evidence of non-STEMI. After discussion with him and his family he elected to proceed with cardiac catheterization that revealed chronically occluded SVG to the RCA and to the diagonal with patent GIBSON to the LAD and SVG to the OM with 60 to 70% stenosis in the proximal segment of the SVG. The iliamna RCA had a 95% stenosis in the old stent there appears to be a ruptured plaque and thrombus. Recommendations were made regarding angioplasty and stenting. The procedure as well as the risks and the complications were discussed with the patient who was in full understanding and agreement. PROCEDURE: The patient was brought to the [facility] in the fasting semisedated state after receiving fentanyl and Benadryl, and using Xylocaine anesthesia and the modified Seldinger technique a 6 Swazi sheath was introduced in the left radial artery. A 6 Swazi FL 4 guiding catheter was introduced into the system. Attempt to cannulate the ostium with an AL 0.75 was unsuccessful. After cannulating the right coronary artery, a 0.014 BMW J-wire was advanced across the lesion and positioned distally. Subsequently a 6 Swazi guide liner catheter was introduced to stabilize the catheter. Following that a 2.5 x 12 mm Xience balloon was advanced and inflated at 8 atmosphere. Following that a 3.0 x 18 mm Xience bryan point stent was deployed. It was dilated at 16 nic. After removing the balloon a [place] eye IVUS catheter was introduced and images were obtained that revealed no dissection and a lumen measuring 3.25 to 3.5 mm in diameter. After removing the catheter a 3.25 x 15 mm NC trek balloon was advanced and inflation at 12 nic was done. After the last inflation, after appropriate wait, the balloon and the guidewire were withdrawn back into the guiding catheter. Images were obtained and repeated. Those images reveal stable successful stenting. At that point, the guiding catheter, the balloon, and guidewire were removed. The sheath was removed. Hemostasis was obtained with TR band. There were no immediate complications. The patient was returned to the room in stable condition. Of note, the patient received 5500 units of heparin as well as continued on Plavix. His ACT was followed. There was no immediate complications. He had no EKG changes or chest discomfort RESULTS: Successful stenting of the proximal RCA with reduction of stenosis from 95% to less than 5% with IVUS imaging and RACHEL-3 flow. RECOMMENDATIONS: The patient will continue on aspirin and clopidogrel for 6 months without any interruption in addition to aggressive coronary risks modifications, attempting to maintain LDL below 70 mg/dL. The patient has diffuse disease throughout the mid and distal vessel and the decision was made to treat that medically in view of the pattern. The findings and recommendations were discussed with the patient and the family, they are in full understanding and agreement. Duration of sedation: 39 minutes
[2023-12-28] MEDS: SODIUM CHLORIDE 0.9% 1,000 ML in EMPTY BAG 1 BAG IV SCH (14:00)
--- NOTE | 2023-12-28 19:01 | P.PN ---
Progress Note - Text Progress Note Date: 12/28/23 Chief Complaint: Chest pressure Very pleasant 88-year-old patient, follows with Dr. Ng. Extensive medical history. Does use 5 L of oxygen at night. Patient on 3 PM started with pressure across the chest. Most on the left sided. Did radiate to the left s mai. Perspiration. Patient is chronically short of breath. Tired. Patient ruled in for an acute NE. Cardiology was informed. Placed on IV heparin. Patient has got a history of coronary bypass. Follows with trade marker Dr. Carranza. December 24: Laying in bed. On IV heparin. Denies chest pain. A bit tired. Cardiology is planning for a cardiac catheterization tomorrow. Patient's grandson at the bedside. December 25: Underwent cardiac catheterization by Dr. Carranza. Severe critical stenosis of proximal RCA. In the stented segment. Mid and distal segment has diffuse disease. Other findings in his report. Plan for patient return to the [facility] on for further intervention. No chest pain IV heparin. December 26: Sitting up in a chair. Comfortable. On medications per cardiology. Patient scheduled for angioplasty tomorrow. Discussed. December 27: Patient underwent stenting to the RCA. States he is at his baseline shortness of breath. No chest pressure. Active Medications Al Hydroxide/Mg Hydroxide (Mag Hydrox/Al Hydrox/Simeth 30 Ml Cup) 30 ml PO Q4HR PRN PRN Reason: Heartburn Albuterol/Ipratropium (Ipratropium-Albuterol 3 Ml Neb) 3 ml INHALATION RT-TID [facility] Last Admin: 12/28/23 11:21 Dose: 3 ml Alprazolam (Alprazolam 0.25 Mg Tab) 0.25 mg PO Q6HR PRN PRN Reason: Mild Anxiety Alprazolam (Alprazolam 0.5 Mg Tab) 0.5 mg PO Q6HR PRN PRN Reason: Moderate Anxiety Aspirin (Aspirin 81 Mg) 81 mg PO DAILY [facility] Last Admin: 12/28/23 09:07 Dose: Not Given Atorvastatin Calcium (Atorvastatin 40 Mg Tab) 40 mg PO HS [facility] Last Admin: 12/27/23 20:21 Dose: 40 mg Atropine Sulfate (Atropine Sulfate 0.1 Mg/Ml 10ml Syringe) 0.5 mg IV ONCE PRN PRN Reason: Symptomatic Bradycardia Budesonide/Formoterol Fumarate (Symbicort 80-4.5 Mcg Inhaler) 2 puff INHALATION RT-BID [facility] Last Admin: 12/28/23 08:21 Dose: 2 puff Clopidogrel Bisulfate (Clopidogrel 75 Mg Tab) 75 mg PO DAILY [facility] Last Admin: 12/28/23 09:21 Dose: 75 mg Losartan Potassium (Losartan 50 Mg Tab) 50 mg PO BID [facility] Last Admin: 12/28/23 09:21 Dose: 50 mg Metoprolol Succinate (Metoprolol Succinate (Er) 25 Mg Tab.Er.24h) 25 mg PO DAILY [facility] Last Admin: 12/28/23 09:21 Dose: 25 mg Miscellaneous Information (Potassium Replacement Protocol 1 Each Misc) 1 each MISCELLANE DAILY PRN; Protocol PRN Reason: Per Protocol Miscellaneous Information (Rx Info: Iv Contrast Was Given 1 Each Misc) 1 each MISCELLANE DAILY PRN PRN Reason: Per Protocol Stop: 12/30/23 13:37 Morphine Sulfate (Morphine Sulfate 4 Mg/Ml Syringe) 4 mg IV Q5M PRN PRN Reason: Chest Pain Multivitamins (Multivitamins, Thera 1 Each Tab) 1 each PO W/LUNCH [facility] Last Admin: 12/28/23 13:15 Dose: Not Given Nifedipine (Nifedipine Xl 30 Mg Tab.Er.24) 30 mg PO W/SUPPER [facility] Last Admin: 12/28/23 17:52 Dose: 30 mg Nitroglycerin (Nitroglycerin Sl Tabs 0.4 Mg Tab) 0.4 mg SUBLINGUAL Q5M PRN PRN Reason: Chest Pain Pantoprazole Sodium (Pantoprazole 40 Mg Tablet) 40 mg PO AC-BRKFST [facility] Last Admin: 12/28/23 06:32 Dose: 40 mg Prednisone (Prednisone 10 Mg Tab) 10 mg PO W/BRKFST [facility] Last Admin: 12/28/23 06:32 Dose: 10 mg Sertraline HCl (Sertraline 25 Mg Tab) 25 mg PO W/BRKFST [facility] Last Admin: 12/28/23 06:32 Dose: 25 mg Thiamine HCl (Thiamine 100 Mg Tab) 100 mg PO W/LUNCH [facility] Last Admin: 12/28/23 13:15 Dose: Not Given Zolpidem Tartrate (Zolpidem 5 Mg Tab) 5 mg PO HS PRN PRN Reason: Insomnia Social history: . Does use a walker. Did smoke in the past. Physical examination: VITAL SIGNS: 97.7, 72, 18, 158 x 90, 93% on 4 L GENERAL: Reclining in bed, awake EYES: Pupils equal. Conjunctiva tabby l. HEENT: External appearance of nose and ears normal, oral cavity grossly normal. Decreased hearing NECK: JVD not raised; masses not palpable. HEART: First and second heart sounds are normal; no edema. LUNGS: Respiratory rate increased, diminished breath sounds. ABDOMEN: Soft, nontender, liver spleen not palpable, no masses palpable. PSYCH: Alert and oriented x3; mood and affect tabby l. MUSCULOSKELETAL:No Clubbing/cyanosis;muscles-grossly intact. OA INVESTIGATIONS, reviewed in the clinical context: December 27: Potassium 3.3 creatinine 0.84 LDL 61.3 2D echocardiogram: EF 50 to 55%. December 23: White count 6.6 hemoglobin 11.6 platelets 176 December 22: White count 7.8 hemoglobin 13 platelets 177 sodium 143 potassium 3.9 creatinine 1.14 Troponin I 0.464, 4.7, 43.7 EKG tracing personally reviewed by me-normal sinus rhythm. Poor R wave progression Assessment plan: -Acute non-ST relation myocardial infarction in a patient with known CAD Aspirin. IV heparin. IV nitroglycerin drip -Severe critical stenosis proximal RCA with other disease process. Per cardiac catheterization December [address] Carranza. Stent to his RCA today by r Dr. Carranza -IV heparin monitoring monitoring per protocol -CAD with a prior history of coronary bypass, 2003, with coronary stents Lipitor. Toprol-XL. Procardia XL. Aspirin.- -Chronic congestive heart failure. EF not known -COPD in a prior smoker Continue home nebulizers -GERD Protonix -Depression Zoloft -Chronic gait dysfunction does use a walker at baseline -Chronic hypoxic respiratory failure from underlying COPD Home oxygen 4 L especially at night -Osteoarthritis Pain medication as needed -BPH with a prior history of TURP -Prostate cancer no chemo or radiation -Esophageal cancer 2020 with chemoradiation -Hard of hearing -GERD Protonix -Depression Zoloft -DNR Postcardiac cath with angioplasty stent today. Continue current medications. Past Medical History Past Medical History: Coronary Artery Disease (CAD), Cancer, Heart Failure, COPD, GERD/Reflux, Hearing Disorder / Deafness, Hyperlipidemia, Hypertension, Myocardial Infarction (NE), Pneumonia, Prostate Disorder, Vascular Disorder Additional Past Medical History / Comment(s): uses O2@5 L NC at night,enlarged prostate,daily prednisone, prostate cancer-no radiation or chemo, kidney stone , hx. esophageal cancer 2019-had chemo & radiation and chemo Feb 2020,Admitted with Covid Nov 2020 Last Myocardial Infarction Date:: 2003 History of Any Multi-Drug Resistant Organisms: None Reported Past Surgical History: Appendectomy, Cholecystectomy, Coronary Bypass/CABG, Heart Catheterization With Stent, Prostate Surgery Additional Past Surgical History / Comment(s): CABG-4vessel 2003,heart stents x 3,teeth extraction,andrez cataracts, TURP, vascular procedure lower leg using starclip SE device Past Anesthesia/Blood Transfusion Reactions: No Reported Reaction Date of Last Stent Placement:: 03-01-03 Past Psychological History: No Psychological Hx Reported Smoking Status: Former smoker Past Alcohol Use History: None Reported Past Drug Use History: None Reported
[2023-12-29] MEDS: ALPRAZolam 0.25 MG TAB PO PRN (06:54)
[2023-12-29 08:08] LABS: African American GFR (CKD) 74 (>60 ml/min/1.73 sqM); Anion Gap 2 mmol/L; Blood Urea Nitrogen 22 mg/dL (9-20); Calcium 8.4 mg/dL (8.4-10.2); Carbon Dioxide 27 mmol/L (22-30); Chloride 114 mmol/L (98-107); Glucose 81 mg/dL (74-99); Non-African American GFR(CKD) 64 (>60 ml/min/1.73 sqM); Potassium 3.6 mmol/L (3.5-5.1); Sodium 143 mmol/L (137-145)
[2023-12-29] MEDS: METOPROLOL SUCCINATE (ER) 50 MG TAB.ER.24H PO SCH (09:34)
[2023-12-29] MEDS: POTASSIUM CHLORIDE ER 20 MEQ TAB.ER PO STA (09:34)
[2023-12-29 11:14] VITALS: BP 125/76; PULSE 77; RESP 19; TEMP 97.9
--- NOTE | 2023-12-29 12:15 | P.PN ---
Subjective Progress Note Date: 12/29/23 History of present illness: This is an 88-year-old gentleman who was transferred from different facility to the hospital for further evaluation of abnormal cardiac enzymes. The patient is a somewhat poor historian. He does have a past medical history significant for CAD status post CABG according to him in 2003 and apparently subsequent PCI was performed with unknown details as well as history of severe COPD he is on home oxygen as well as hypertension and dyslipidemia and multiple comorbid conditions. The patient was in his usual state of health where he does have overall limited functional capacity and has been getting up and around using a walker most of the time. He was experiencing some left arm discomfort and mild chest discomfort. He presented to the emergency department and he underwent further workup including troponin came in to be abnormal and EKG showing sinus mechanism with some ST changes concerning for ischemia. He was started on heparin IV. He was started also on oral nitrates. He subsequently was transferred to [facility] for further evaluation. No previous medical record regarding his cardiovascular condition. He was seen by the pulmonary team in the past and he is known to have advanced COPD on oxygen at home. Currently his chest pain-free. When he presented to the hospital his pressure has been elevated and consistent with hypertension crisis. His pressure has somewhat improved on the current dose of nitroglycerin IV. He is on aspirin and he is on a statin and he is on heparin he is on nitroglycerin IV at this point. The physical examination is remarkable for very distant heart sounds with a systolic murmur at the right and left upper sternal border with diminished breathing sounds bilaterally and mild bilateral expiratory wheezing and mild bilateral lower extremities edema 12/24 Patient is seen and examined.Patient denies any chest pain at this time. He initially came in due to left arm pain was seen initially at [facility] and transferred here due to elevated troponin. Patient is maintained on IV heparin drip. Patient is not currently on nitroglycerin drip. Blood pressure 137/77, heart rate 72, pulse ox 97% on 4 L nasal cannula. Triglycerides 102, cholesterol 129, LDL 61, HDL 47. Discussed with the patient and grandson at the bedside about plan for cardiac catheterization. Grandson contacted the patient's son and cardiac catheterization was discussed by Dr. Mckenna with ana paula garcía's son. They are in agreement to move forward with cardiac catheterization which will be scheduled tomorrow. The physical examination is remarkable for very distant heart sounds with a systolic murmur at the right and left upper sternal border with diminished breathing sounds bilaterally and mild bilateral expiratory wheezing and mild bilateral lower extremities edema 12/26 Yesterday, patient underwent cardiac catheterization with Dr. Carranza which revealed chronically occluded proximal LAD and OM, patent GIBSON to LAD, patent SVG to OM with 70% proximal stenosis, severe stenosis in the proximal RCA in the stented segment with severe diffuse disease in the mid and distal segment. Chronically occluded SVG to the diagonal and to the RCA. Plan is to return patient to the [facility] on for angioplasty and stenting of the proximal RCA through a radial approach. Patient denies having any chest pain or chest pressure. Blood pressure 122/76, heart rate 76, pulse ox 96% on 3 L nasal cannula. Repeat blood work reveals potassium 3, BUN 24 creatinine 1.06. Potassium has been replaced. Echocardiogram reveals normal LV systolic function, mild mitral regurgitation. The physical examination is remarkable for very distant heart sounds with a systolic murmur at the right and left upper sternal border with diminished breathing sounds bilaterally and mild bilateral expiratory wheezing and mild bilateral lower extremities edema 12/28 Yesterday, patient underwent PTCA with Dr. Carranza with successful stent to the proximal RCA. Patient denies having any chest pain, no shortness of breath, no lightheadedness or dizziness. He states he is feeling good today. Blood pressure 151/84, heart rate 81, pulse ox 96% on 4 L nasal cannula. Repeat blood work reveals sodium 143, potassium 3.6, BUN 22 creatinine 1.04. The physical examination is remarkable for very distant heart sounds with a systolic murmur at the right and left upper sternal border with diminished breathing sounds bilaterally and mild bilateral expiratory wheezing and mild bilateral lower extremities edema Assessment Hypertension emergency Acute coronary syndrome status post PTCA, stenting of the proximal RCA History of CAD status post CABG with unknown details History of PCI with unknown details as well Advanced COPD/hypoxic respiratory failure History of esophageal cancer Multiple comorbid conditions Plan Continue patient on aspirin 81 mg daily, atorvastatin 40 mg at bedtime, Plavix 75 mg daily, losartan 50 mg twice daily, Procardia 30 mg with supper Increase Toprol XL to 50 mg daily. Patient is cleared for discharge from cardiology May follow-up in the office with Dr. Carranza in 1 week. Nurse practitioner note has been reviewed, I agree with documented findings and plan of care. Patient was seen and examined. Objective - Vital Signs Vital signs: Vital Signs Temp 97.9 F 12/29/23 11:12 Pulse 77 12/29/23 11:12 Resp 19 12/29/23 11:12 BP 125/76 12/29/23 11:12 Pulse Ox 95 12/29/23 11:12 FiO2 Intake & Output 12/28/23 12/29/23 12/29/23 18:59 06:59 18:59 Intake Total 660 480 Output Total 420 600 Balance 240 -600 480 Weight 71.6 kg Intake: IV 660 Oral 480 Output: Urine 420 600 Other: Voiding Method Urinal Urinal # Voids 1 1 # Bowel Movements 1 - Labs CBC & Chem 7: 12/24/23 07:12 12/29/23 06:56 Labs: Abnormal Lab Results - Last 24 Hours (Table) 12/29/23 Range/Units 06:56 Chloride 114 H (98-107) mmol/L BUN 22 H (9-20) mg/dL
--- NOTE | 2023-12-29 19:25 | P.DS ---
Providers Date of admission: 12/23/23 20:21 Expected date of discharge: 12/29/23 Attending physician: Alverto Harkins Consults: 12/23/23 20:19 Consult Physician Routine Consulting Provider: Ehsan Carranza Consult Reason/Comments: NSTEMI Do you want consulting provider notified?: Yes 12/28/23 13:37 Consult Physician Routine Consulting Provider: Cardiology Duyen Consult Reason/Comments: Post Interventional Patient Do you want consulting provider notified?: Already Contacted Primary care physician: [facility] Course: Chief Complaint: Chest pressure Very pleasant 88-year-old patient, follows with Dr. Ng. Extensive medical history. Does use 5 L of oxygen at night. Patient on 3 PM started with pressure across the chest. Most on the left sided. Did radiate to the left side. Perspiration. Patient is chronically short of breath. Tired. Patient ruled in for an acute AL. Cardiology was informed. Placed on IV heparin. Patient has got a history of coronary bypass. Follows with edge molder Dr. Carranza. December 24: Laying in bed. On IV heparin. Denies chest pain. A bit tired. Cardiology is planning for a cardiac catheterization tomorrow. Patient's grandson at the bedside. December 25: Underwent cardiac catheterization by Dr. Carranza. Severe critical stenosis of proximal RCA. In the stented segment. Mid and distal segment has diffuse disease. Other findings in his report. Plan for patient return to the [facility] on for further intervention. No chest pain IV heparin. December 26: Sitting up in a chair. Comfortable. On medications per cardiology. Patient scheduled for angioplasty tomorrow. Discussed. December 27: Patient underwent stenting to the RCA. States he is at his baseline shortness of breath. No chest pressure. December 28: Patient cleared by cardiology. Baseline some shortness of breath. Will follow-up with his edge molder, Dr. Carranza. Social history: . Does use a walker. Did smoke in the past. Physical examination: VITAL SIGNS: 97.9, 77, 19, 125 x 76, 95% on 4 L GENERAL: Reclining in bed, awake EYES: Pupils equal. Conjunctiva tabby l. HEENT: External appearance of nose and ears normal, oral cavity grossly normal. Decreased hearing NECK: JVD not raised; masses not palpable. HEART: First and second heart sounds are normal; no edema. LUNGS: Respiratory rate increased, diminished breath sounds. ABDOMEN: Soft, nontender, liver spleen not palpable, no masses palpable. PSYCH: Alert and oriented x3; mood and affect tabby l. MUSCULOSKELETAL:No Clubbing/cyanosis;muscles-grossly intact. OA INVESTIGATIONS, reviewed in the clinical context: December 28: Potassium 3.6 creatinine 1.04 December 27: Potassium 3.3 creatinine 0.84 LDL 61.3 2D echocardiogram: EF 50 to 55%. December 23: White count 6.6 hemoglobin 11.6 platelets 176 December 22: White count 7.8 hemoglobin 13 platelets 177 sodium 143 potassium 3.9 creatinine 1.14 Troponin I 0.464, 4.7, 43.7 EKG tracing personally reviewed by me-normal sinus rhythm. Poor R wave progression Assessment plan: -Acute non-ST relation myocardial infarction in a patient with known CAD Aspirin. IV heparin. IV nitroglycerin drip-initially -Severe critical stenosis proximal RCA with other disease process. Per cardiac catheterization December [address] Carranza. Stent to his RCA, December [address] Carranza -IV heparin monitoring monitoring per protocol -CAD with a prior history of coronary bypass, 2003, with coronary stents Lipitor. Toprol-XL. Procardia XL. Aspirin.- -Chronic congestive heart failure. EF not known -COPD in a prior smoker Continue home nebulizers -GERD Protonix -Depression Zoloft -Chronic gait dysfunction does use a walker at baseline -Chronic hypoxic respiratory failure from underlying COPD Home oxygen 4 L especially at night -Osteoarthritis Pain medication as needed -BPH with a prior history of TURP -Prostate cancer no chemo or radiation -Esophageal cancer 2019 with chemoradiation -Hard of hearing -GERD Protonix -Depression Zoloft -DNR Disposition: Home Past Medical History Past Medical History: Coronary Artery Disease (CAD), Cancer, Heart Failure, COPD, GERD/Reflux, Hearing Disorder / Deafness, Hyperlipidemia, Hypertension, Myocardial Infarction (AL), Pneumonia, Prostate Disorder, Vascular Disorder Additional Past Medical History / Comment(s): uses O2@5 L NC at night,enlarged prostate,daily prednisone, prostate cancer-no radiation or chemo, kidney stone , hx. esophageal cancer 2019-had chemo & radiation and chemo Feb 2020,Admitted with Covid Nov 2020 Last Myocardial Infarction Date:: 2003 History of Any Multi-Drug Resistant Organisms: None Reported Past Surgical History: Appendectomy, Cholecystectomy, Coronary Bypass/CABG, Heart Catheterization With Stent, Prostate Surgery Additional Past Surgical History / Comment(s): CABG-4vessel 2003,heart stents x 3,teeth extraction,andrez cataracts, TURP, vascular procedure lower leg using starclip SE device Past Anesthesia/Blood Transfusion Reactions: No Reported Reaction Date of Last Stent Placement:: 03-01-03 Past Psychological History: No Psychological Hx Reported Smoking Status: Former smoker Past Alcohol Use History: None Reported Past Drug Use History: None Reported Plan - Discharge Summary Discharge Rx Participant: Yes New Discharge Prescriptions: New Atorvastatin [Lipitor] 40 mg PO HS #90 tab Nitroglycerin Sl Tabs [Nitrostat] 0.4 mg SUBLINGUAL Q5M PRN #25 tab PRN Reason: Chest Pain Clopidogrel [Plavix] 75 mg PO DAILY #90 tab Losartan [Cozaar] 50 mg PO BID #180 tab Metoprolol Succinate (ER) [Toprol XL] 50 mg PO DAILY #90 tab Dapagliflozin Propanediol [Farxiga] 10 mg PO DAILY #30 tablet Continue Aspirin 81 mg PO W/BRKFST Sertraline [Zoloft] 25 mg PO W/BRKFST Thiamine [Vitamin B-1] 100 mg PO W/LUNCH Ferrous Sulfate [Feosol] 325 mg PO W/BRKFST predniSONE 10 mg PO W/BRKFST Ipratropium-Albuterol Nebulize [Duoneb 0.5 mg-3 mg/3 ml Soln] 3 ml INHALATION RT-TID Pantoprazole [Protonix] 40 mg PO BID-W/MEALS Fluticasone Propion/Salmeterol [Wixela 250-50 Inhub] 1 puff INHALATION RT-BID Mv-Min/Folic/K1/Lycopen/Lutein [Centrum Silver Men Tablet] 1 tab PO W/LUNCH Docusate [Colace] 100 mg PO W/BRKFST NIFEdipine XL [Procardia XL] 30 mg PO W/SUPPER Discontinued Ibuprofen 200 mg PO BID-W/MEALS Potassium Chloride ER [K-Dur 20] 20 meq PO BID-W/MEALS Furosemide [Lasix] 40 mg PO W/BRKFST Metoprolol Succinate (ER) [Toprol XL] 25 mg PO BID-W/MEALS Simvastatin [Zocor] 40 mg PO W/SUPPER Discharge Medication List Aspirin 81 mg PO W/BRKFST 05/16/16 [History] Docusate [Colace] 100 mg PO W/BRKFST 02/05/23 [History] Ferrous Sulfate [Feosol] 325 mg PO W/BRKFST 02/05/23 [History] Fluticasone Propion/Salmeterol [Wixela 250-50 Inhub] 1 puff INHALATION RT-BID 02/05/23 [History] Ipratropium-Albuterol Nebulize [Duoneb 0.5 mg-3 mg/3 ml Soln] 3 ml INHALATION RT-TID 02/05/23 [History] Mv-Min/Folic/K1/Lycopen/Lutein [Centrum Silver Men Tablet] 1 tab PO W/LUNCH 02/05/23 [History] NIFEdipine XL [Procardia XL] 30 mg PO W/SUPPER 02/05/23 [History] Sertraline [Zoloft] 25 mg PO W/BRKFST 02/05/23 [History] Thiamine [Vitamin B-1] 100 mg PO W/LUNCH 02/05/23 [History] predniSONE 10 mg PO W/BRKFST 02/05/23 [History] Pantoprazole [Protonix] 40 mg PO BID-W/MEALS 12/23/23 [History] Atorvastatin [Lipitor] 40 mg PO HS #90 tab 12/29/23 [Rx] Clopidogrel [Plavix] 75 mg PO DAILY #90 tab 12/29/23 [Rx] Dapagliflozin Propanediol [Farxiga] 10 mg PO DAILY #30 tablet 12/29/23 [Rx] Losartan [Cozaar] 50 mg PO BID #180 tab 12/29/23 [Rx] Metoprolol Succinate (ER) [Toprol XL] 50 mg PO DAILY #90 tab 12/29/23 [Rx] Nitroglycerin Sl Tabs [Nitrostat] 0.4 mg SUBLINGUAL Q5M PRN #25 tab 12/29/23 [Rx] Follow up Appointment(s)/Referral(s): Ehsan Carranza MD [STAFF PHYSICIAN] - 01/04/24 4:00 pm Graham Ng MD [Primary Care Provider] - 01/03/24 3:00 pm Discharge Disposition: HOME SELF-CARE
== END 2023-12-29 12:26 | disposition home or self-care (01) | DRG 321 ==
LOC: EC 19:34 → 3SCARD 20:21
PROVIDERS: ADMIT Hospitalist; ATTEND Hospitalist
PROC: 4A023N8 Measurement of Cardiac Sampling and Pressure, Bilateral, Percutaneous Approach (ICD-10-PCS; 2023-12-26)
PROC: B2111ZZ Fluoroscopy of Multiple Coronary Arteries using Low Osmolar Contrast (ICD-10-PCS; 2023-12-26)
PROC: B21F1ZZ Fluoroscopy of Other Bypass Graft using Low Osmolar Contrast (ICD-10-PCS; 2023-12-26)
PROC: B2181ZZ Fluoroscopy of Left Internal Mammary Bypass Graft using Low Osmolar Contrast (ICD-10-PCS; 2023-12-26)
PROC: B240ZZ3 Ultrasonography of Single Coronary Artery, Intravascular (ICD-10-PCS; 2023-12-28)
PROC: 027034Z Dilation of Coronary Artery, One Artery with Drug-eluting Intraluminal Device, Percutaneous Approach (ICD-10-PCS; principal; 2023-12-28 12:00)
DX: I21.4 Non-ST elevation (NSTEMI) myocardial infarction (principal); J96.91 Respiratory failure, unspecified with hypoxia; I16.1 Hypertensive emergency; J96.11 Chronic respiratory failure with hypoxia; I25.810 Atherosclerosis of coronary artery bypass graft(s) without angina pectoris; I25.10 Atherosclerotic heart disease of native coronary artery without angina pectoris; Z66 Do not resuscitate; Z85.46 Personal history of malignant neoplasm of prostate; H91.90 Unspecified hearing loss, unspecified ear; K21.9 Gastro-esophageal reflux disease without esophagitis; I25.2 Old myocardial infarction; Z82.49 Family history of ischemic heart disease and other diseases of the circulatory system; E78.5 Hyperlipidemia, unspecified; I11.0 Hypertensive heart disease with heart failure; I50.9 Heart failure, unspecified; J44.9 Chronic obstructive pulmonary disease, unspecified; N40.0 Benign prostatic hyperplasia without lower urinary tract symptoms; Z79.02 Long term (current) use of antithrombotics/antiplatelets; Z79.51 Long term (current) use of inhaled steroids; Z79.82 Long term (current) use of aspirin; Z79.899 Other long term (current) drug therapy; Z85.01 Personal history of malignant neoplasm of esophagus; Z87.891 Personal history of nicotine dependence; Z99.81 Dependence on supplemental oxygen; Z88.0 Allergy status to penicillin; Z88.5 Allergy status to narcotic agent; Z98.42 Cataract extraction status, left eye; Z98.41 Cataract extraction status, right eye; I34.0 Nonrheumatic mitral (valve) insufficiency
CPT/HCPCS: 36415; 71045; 80048; 80053; 80061; 83735; 84484; 85025; 85610; 85730; 92978; 93005; 93306; 93459; 94640; 94760; 96365; 96366; 96368; 96375; 99291